=== PATIENT | female | born 1950 | race Caucasian/White ===

== ENCOUNTER 2019-12-25 09:59 | Outpatient (REF) | payer MEDICARE, SELFPAY | END 2019-12-25 10:00 | disposition home or self-care (01) | LOC: HO.LAB 09:59 | PROVIDERS: PCP Internal Medicine; Visit Provider Internal Medicine | DX: Z20.828 Contact with and (suspected) exposure to other viral communicable diseases (principal) | CPT/HCPCS: 36415; 87635 ==

== ENCOUNTER → 2020-05-18 08:27 | Outpatient (REF) | payer MEDICARE, SELFPAY ==
--- NOTE | 2020-05-18 08:32 | CA_ITS ---
Transthoracic Echocardiogram Patient (Last, First, Middle): Viviana Irvin E Gender: Female Date of : 1950 Age: 69 Procedure Date: 05/18/2020 Procedure Type: Transthoracic Echocardiogram Location: OP Height: 162.56 cm Weight: 43.09 kg BSA: 1.43 m2 Heart Rate: bpm BP: 94 / 50 mmHg Cadd Technician: JAYY Referring MD: Tee Ramirez MD Shaker [place]: Ji Caballero MD Symptoms: DYSPNEA ON EXERTION Study Quality: Fair ECG Rhythm: Sinus Conclusions: - 1. Normal LV systolic and diastolic function 2. Normal cardiac valvular Doppler 3. Normal RV systolic pressure 4. Trivial pericardial effusion more prominent near the right sided chambers without evidence of tamponade Findings Left Ventricle Normal left ventricular size, thickness, and systolic function. The visually estimated ejection fraction is between 60-65%. Diastolic function is normal for age. Right Ventricle Normal right ventricular cavity size and systolic function. Atria Both atria are normal in size. Interatrial shunt cannot be excluded. Aortic Valve Normal aortic valve structure and function. There is no aortic valve stenosis. There is no aortic valve regurgitation. Mitral Valve Normal mitral valve structure and function. There is trace mitral valve regurgitation. There is no mitral valve stenosis. Pulmonic Valve The pulmonic valve was not well visualized. Tricuspid Valve Likely normal tricuspid valve structure and function. There is mild tricuspid valve regurgitation. The right ventricular systolic pressure is normal. The right ventricular systolic pressure is 27 mmHg. Normal right atrial pressure. There is no evidence of pulmonary hypertension. Great Vessels All visible segments of the aorta are normal in size. The pulmonary artery was not well visualized. Venous The inferior vena cava is normal in size and collapses greater than 50% with inspiration. Pericardium/Pleural There is a trivial circumferential pericardial effusion. There are no definitive echocardiographic findings of tamponade physiology. Measurements M-Mode Liner Measurements Normals - Women/Men AOV Cusps: 1.90 1.5-2.6 cm/m2 2D Linear Measurements IVSd: 0.53 0.6-0.9/0.6-1.0 cm LVIDd: 3.79 3.9-5.3/4.2-5.9 cm LVIDd Index: 2.65 2.4-3.2/2.2-3.1 cm/m2 LVIDs: 2.43 2.0-3.6 cm LVPWd: 0.82 0.7-1.1 cm Ao Root: 3.40 2.1-3.5 cm LA Diam: 2.20 2.7-3.8/3.0-4.0 cm LAIDs Index: 1.54 1.5-2.3 cm/m2 LV Mass: 85.19 67-162/88-224 g LV Mass Index: 59.57 43-95/49-115 g/m2 LVOT Diam: 2.00 3.0+(-)1.3 cm 2D Systolic Function EF 4C: 54.60 >55% EF 2C: 57.90 >55% EF BiP: 55.60 >55% Mitral Valve MV Pk E: 0.72 MV PK A: 0.63 MV Decel Time: 310.00 E/A: 1.20 E'Lateral: 7.83 E'Medial: 6.31 E/E' Med: 11.50 E/E' Lat: 9.20 PHT: 91.00 MVA PHT: 2.42 Decel Hemphill: 2.33 Aortic Valve AoV Pk Mauricio: 0.91 AoV Pk Grad: 3.00 LVOT LVOT Pk Mauricio: 0.72 LVOT Mn Mauricio: 0.51 LVOT VTI: 0.15 LVOT Pk Grad: 2.00 LVOT Mn Grad: 1.00 LVOT Diam: 2.00 LVOT Area: 3.14 Diastolic Function MV Pk E: 0.72 MV Pk A: 0.63 E/A: 1.20 E'Medial: 6.31 E/E' Med: 11.50 E' Laterial: 7.83 E/E' Lat: 9.20 Tricuspid Valve TR Pk Mauricio: 2.47 TR Pk Grad: 24.00 RA Press: 3.00 RVSP: 27.00 Great Vessels Aorta Ao Root-2D: 3.40 2.0-3.7 cm Ao Asc: 3.10 2.1-3.4 cm Ao Arch: 2.70 Pulmonary Valve PV Pk Mauricio: 0.86 Peak PV Grad: 3.00 Updated in Other Vendor System with Status of Final Ji Caballero MD electronically signed on 05/18/2020 11:20:03 AM with status of Final
== END ==
LOC: HO.CARD 08:27
PROVIDERS: PCP Internal Medicine; Visit Provider Internal Medicine
DX: R06.00 Dyspnea, unspecified (principal)
CPT/HCPCS: 93306

== ENCOUNTER → 2020-05-24 14:02 | Outpatient (BNVA) | payer MEDICARE, SELFPAY | PROVIDERS: PCP Internal Medicine; Visit Provider Internal Medicine Cardiovascular Disease | DX: R06.02 Shortness of breath (principal); I25.10 Atherosclerotic heart disease of native coronary artery without angina pectoris; R00.2 Palpitations | CPT/HCPCS: 93005; 99212 ==

== ENCOUNTER 2020-06-12 08:04 | Outpatient (REF) | payer MEDICARE, SELFPAY ==
--- NOTE | ~2020-06-12 | MM_ITS ---
EXAMINATION: MM SCREENING DIGITAL BREAST TOMOSYNTHESIS, BILATERAL CLINICAL INFORMATION: Screening. Asymptomatic. Prior history right lumpectomy with radiation 2002. Due for yearly. COMPARISON: Mammography: 06/07/2019, 06/01/2018, 05/21/2017 TECHNIQUE: Digital breast tomosynthesis is performed in both the craniocaudal and mediolateral oblique views along with computer-aided detection (CAD). Synthesized 2D images are generated from the tomosynthesis. FINDINGS: The breasts are heterogeneously dense, which may obscure small masses (ACR BI-RADS breast composition Category c). Parenchymal pattern is similar to prior exams. There are post therapy changes on the right with mild reduced breast size and incidental minor scarring and dystrophic calcifications. Neither breast shows interval mass or architectural abnormality or abnormal calcifications. There are no significant changes. MM/MM tomosynthesis screening BI IMPRESSION: No mammographic evidence of malignancy. Post therapy changes right breast. ASSESSMENT: BI-RADS 2: Benign RECOMMENDATION: Routine annual mammography screening. This patient's information was entered into a reminder system with a target due date for their next mammogram.
== END 2020-06-12 08:05 | disposition home or self-care (01) ==
LOC: HO.MAMMO 08:04
PROVIDERS: PCP Internal Medicine; Visit Provider Internal Medicine
DX: Z12.31 Encounter for screening mammogram for malignant neoplasm of breast (principal)
CPT/HCPCS: 77063; 77067

== ENCOUNTER → 2020-06-15 09:52 | Outpatient (REF) | payer MEDICARE, SELFPAY ==
--- NOTE | 2020-06-15 09:57 | HM_ITS ---
TEST PERFORMED: Cardiac event monitoring. REQUESTING PHYSICIAN: Dr. Caballero. INDICATION: Palpitations. ENROLLMENT PERIOD: 06/15/2020 to 07/15/2020 - 30 days. FINDINGS: In the above monitoring period, the underlying rhythm was sinus. There was evidence of sinus tachycardia. Otherwise, there is no evidence of any supraventricular or ventricular arrhythmia noted during this time. There were also no patient selected symptoms as well. CONCLUSION: Study shows sinus rhythm and rates ranged from 100 to 127 beats per minute. No arrhythmias noted. Chetan Cedeño MD HS/MODAsif / [id number] MTDD
--- NOTE | 2020-06-15 09:57 | CA_ITS ---
Acquisition Time: 2020-06-15 10:29:39 Total Exercise Time: 00:06:16 Test Indications: Dyspnea Medications: ASA ATORVASTATIN Protocol: BARBER Max HR: 153 BPM 102% of Pred: 150 BPM Max BP: 130/068 mmHG Max Work Load: 7.3 METS Exercise stress test using Barber protocol, total of 6 min 16 sec. METS 7.30, and TAPHR up to 103 %. Pt denies any anginal sx. EKG without any arrhythmias, Minimal upsloping J-point depression in anterior leads, not meating criteria for ischemia. Normotensive response to exercise. Test reviewed with Dr. Cedeño Referred By: Ji Caballero Overread By: Agata Hurtado NP
== END ==
LOC: HO.CARD 09:52
PROVIDERS: Visit Provider Internal Medicine Cardiovascular Disease
DX: I25.10 Atherosclerotic heart disease of native coronary artery without angina pectoris (principal); R00.2 Palpitations; R06.02 Shortness of breath
CPT/HCPCS: 93016; 93017; 93018; 93270; 93272

== ENCOUNTER → 2020-07-26 08:31 | Outpatient (BNVA) | payer MEDICARE, SELFPAY | PROVIDERS: PCP Internal Medicine; Visit Provider Internal Medicine Cardiovascular Disease | DX: R06.02 Shortness of breath (principal); I25.10 Atherosclerotic heart disease of native coronary artery without angina pectoris; Z79.899 Other long term (current) drug therapy | CPT/HCPCS: 99212 ==

== ENCOUNTER 2021-02-08 07:46 | Outpatient (REF) | payer MEDICARE, SELFPAY ==
[2021-02-08 08:45] LABS: COVID-19 Test Negative (Negative)
== END 2021-02-08 07:47 | disposition home or self-care (01) ==
LOC: HO.LAB 07:46
PROVIDERS: PCP Internal Medicine; Visit Provider Internal Medicine
DX: Z20.822 Contact with and (suspected) exposure to COVID-19 (principal)
CPT/HCPCS: 36415; 87635; C9803

== ENCOUNTER 2021-06-18 08:17 | Outpatient (REF) | payer MEDICARE, SELFPAY ==
--- NOTE | ~2021-06-18 | MM_ITS ---
EXAMINATION: MM SCREENING DIGITAL BREAST TOMOSYNTHESIS, BILATERAL CLINICAL INFORMATION: Remote right breast cancer status post lumpectomy and radiation, 2001. Due for yearly. COMPARISON: Mammography: 06/12/2020, 06/07/2019, 06/01/2018 TECHNIQUE: Digital breast tomosynthesis is performed in both the craniocaudal and mediolateral oblique views along with computer-aided detection (CAD). Synthesized 2D images are generated from the tomosynthesis. Additional exaggerated right CC and additional right MLO views are provided. FINDINGS: The breasts are heterogeneously dense, which may obscure small masses (ACR BI-RADS breast composition Category c). There are no significant changes from prior studies. Post therapy changes on the right are stable with mild scarring and reduced breast size and benign and dystrophic calcifications. Neither breast shows interval mass or architectural abnormality or abnormal calcifications. The axilla are unremarkable. MM/MM tomosynthesis screening BI IMPRESSION: No mammographic evidence of malignancy. ASSESSMENT: BI-RADS 2: Benign RECOMMENDATION: Routine annual mammography screening. This patient's information was entered into a reminder system with a target due date for their next mammogram.
== END 2021-06-18 08:18 | disposition home or self-care (01) ==
LOC: HO.MAMMO 08:17
PROVIDERS: Visit Provider Internal Medicine
DX: Z12.31 Encounter for screening mammogram for malignant neoplasm of breast (principal)
CPT/HCPCS: 77063; 77067

== ENCOUNTER → 2021-07-28 08:21 | Outpatient (BNVA) | payer MEDICARE, SELFPAY | PROVIDERS: PCP Internal Medicine; Referring Provider Internal Medicine; Visit Provider Internal Medicine Cardiovascular Disease | DX: I25.10 Atherosclerotic heart disease of native coronary artery without angina pectoris (principal) | CPT/HCPCS: 93005; 99212 ==

== ENCOUNTER 2021-10-13 08:00 | Outpatient (REF) | payer MEDICARE, SELFPAY ==
--- NOTE | ~2021-10-13 | MM_ITS ---
EXAMINATION: BONE DENSITOMETRY CLINICAL INDICATION: Age-related osteoporosis without current pathological fracture. COMPARISON: Previous BD dated 10/07/2019 and baseline BD dated 04/03/2005. TECHNIQUE: Using a [employer] DXA System (software version: 13.1) manufactured by [employer], dual-energy x-ray absorptiometry was performed of the lumbar spine and left hip. The images are of good technical quality. Summary results are attached. FINDINGS: AP SPINE L1-L4: Current: BMD 1.230 g/cm2, Z-score 2.8, T-score 0.4, normal, 0.2% increase from previous, 4.3% increase from baseline (<5% change is not significant). Prior: BMD 1.228 g/cm2. Baseline: BMD 1.179 g/cm2. LEFT FEMUR, NECK: Current: BMD 0.583 g/cm2, Z-score -1.0, T-score -3.3, osteoporosis. Prior: BMD 0.680 g/cm2. Baseline: BMD 0.762 g/cm2. LEFT FEMUR, TOTAL: Current: BMD 0.660 g/cm2, Z-score -0.7, T-score -2.8, osteoporosis, 10.6% decrease from previous, 24.7% decrease from baseline (<5% change is not significant). Prior: BMD 0.738 g/cm2. Baseline: BMD 0.876 g/cm2. IDENTIFIED RISK FACTORS: Low body weight. Osteoporosis. Secondary osteoporosis (early menopause). HISTORY OF FRACTURE: None listed. MEDICATIONS: Calcium supplement and/or multivitamin. Vitamin D. MM/XR DEXA axial skeleton IMPRESSION: 1. DIAGNOSIS: Osteoporosis based on the lowest T-score value of -3.3 in the femoral neck applying World Health Organization criteria. 2. 10-YEAR FRACTURE RISK PREDICTION, FRAX: Major osteoporotic fracture (clinical spine, forearm, hip or shoulder) 18.4%. Hip fracture 7.9%. 3. Treatment Recommendations: NOF guidelines recommend consideration for treatment in postmenopausal women and men age 50 and older presenting with the following: -A hip or vertebral (clinical or morphometric) fracture. -T-score less than or equal to -2.5 at the femoral neck or spine after appropriate evaluation to exclude secondary causes. -Low bone mass at the hip or spine and a 10-year fracture probability by FRAX of greater than or equal to 3% for hip fracture or greater than or equal to 20% for major osteoporotic fracture based on the [place] adapted WHO algorithm. 4. Other Recommendations: All treatment decisions require clinical judgment and consideration of individual patient factors, including patient preferences, comorbidities, previous drug use, risk factors not captured in the FRAX model (e.g. frailty, falls, vitamin D deficiency, increased bone turnover, interval significant decline in bone density) and possible under or overestimation of fracture risk by FRAX. Additional medical evaluation for secondary cause of low bone mineral density may be appropriate. FUTURE SCAN RECOMMENDATION: People with diagnosed cases of osteoporosis or at high risk for fracture should have regular bone mineral density tests. For patients eligible for Medicare, routine testing is allowed once every 2 years. The testing frequency can be increased to one year for patients who have rapidly progressing disease, those who are receiving or discontinuing medical therapy to restore bone mass, or have additional risk factors.
== END 2021-10-13 08:01 | disposition home or self-care (01) ==
LOC: HO.MAMMO 08:00
PROVIDERS: PCP Internal Medicine; Visit Provider Internal Medicine
DX: Z13.820 Encounter for screening for osteoporosis (principal); M81.0 Age-related osteoporosis without current pathological fracture; Z78.0 Asymptomatic menopausal state
CPT/HCPCS: 77080

== ENCOUNTER 2021-10-17 11:08 | Day surgery (SDC) | payer MEDICARE, SELFPAY ==
[2021-10-11 14:09] VITALS: BMI 16.6
--- NOTE | 2021-10-14 10:49 | HO.ANESPROP2 ---
Documented by User: Kaleigh Fernandez NP 10/14/21 10:52 HPI - Anesthesia Eval Consult details Narrative: 71yo F for Upper Endoscopy Stable at 07/2021 cardiac visit with 2 year f/u. Started on ASA 81 for nonobstructive CAD by cardiac cath. FORMERLY [facility], [facility] Active Problems Active Problems: All Active Problems (Updated 10/11/21 @ 13:59 by Rhonda Noriega RN) SOB (shortness of breath) on exertion (Acute) Palpitations (Acute) Hyperlipidemia (Acute) CAD (coronary artery disease) (Acute) Past Medical History Medical History CAD (coronary artery disease) History of pneumonia History of shingles Hx of breast cancer Hyperlipidemia Surgical History Surgical History History of esophagogastroduodenoscopy (EGD) History of partial mastectomy of right breast Hx of colonoscopy Social History Social History Use of substances other than those prescribed or required for medical reasons: No Have you been hit, kicked, punched, or otherwise hurt by someone within the past year? If so, by whom?: No Are you DNR?: No Advance Directives: No Advance Directives Information Provided: Yes Advance Directives on File: No Recently lost weight without trying: No Eating poorly because of decreased appetite: No Nutrition Risks: No Nutritional Risk Meds Allergies Allergy/AdvReac Type Severity Reaction Status Date / Time No Known Allergies Allergy Verified 10/11/21 13:59 Home Medications Medication Instructions Recorded Confirmed Last Taken Type aspirin 81 mg tablet,delayed 81 mg PO DAILY 05/24/20 10/11/21 Unknown History release (Adult Low Dose Aspirin) atorvastatin 10 mg tablet 10 mg PO DAILY 05/24/20 10/11/21 Unknown History calcium carbonate 500 mg calcium 1,000 mg PO DAILY 05/24/20 10/11/21 Unknown History (1,250 mg) tablet (Calcium 500) cholecalciferol (vitamin D3) 125 125 mcg PO DAILY 05/24/20 10/11/21 Unknown History mcg (5,000 unit) capsule Probiotic 10/11/21 10/11/21 Unknown History turmeric 10/11/21 Unknown History Exam Exam Date and Time: October 14, 2021 1049 Height,Weight and Vital Signs: Height 5 ft 4 in Weight 43.998 kg Narrative Narrative: EKG 07/20[address] sinus tachycardia with nonspecific ST changes ECHO 2020 Conclusions: -? 1. Normal LV systolic and diastolic function? 2. Normal cardiac valvular Doppler ? 3. Normal RV systolic pressure ? 4. Trivial pericardial effusion more prominent near the right? ? sided chambers without evidence of tamponade ? Exercise stress 05/2020 Protocol: TARIQ ? Max HR: 153 BPM? 102% of? Pred: 150 BPM Max BP: 130/068 mmHG Max Work Load: 7.3 METS ? Exercise stress test using Tariq protocol, total of 6 min 16 sec. ? METS 7.30, ?and TAPHR up to 103 %. ? Pt denies any anginal sx.? EKG without any ?arrhythmias, Minimal upsloping J-point depression in anterior leads, not ?meating criteria for ischemia.? Normotensive response to exercise.? Test ?reviewed with Dr. Cedeño Assessment and Plan Assessment Anesthesia Assessment: Chart Reviewed Documented by User: Rosanna Carranza MD 10/17/21 12:25 [facility] Past Medical History Medical History CAD (coronary artery disease) History of pneumonia History of shingles Hx of breast cancer Hyperlipidemia Surgical History Surgical History History of esophagogastroduodenoscopy (EGD) History of partial mastectomy of right breast Hx of colonoscopy History of Problems with Anesthesia: No Social History Social History Use of substances other than those prescribed or required for medical reasons: No Have you been hit, kicked, punched, or otherwise hurt by someone within the past year? If so, by whom?: No Are you DNR?: No Advance Directives: No Advance Directives Information Provided: Yes Advance Directives on File: No Recently lost weight without trying: No Eating poorly because of decreased appetite: No Nutrition Risks: No Nutritional Risk Meds Allergies Allergy/AdvReac Type Severity Reaction Status Date / Time No Known Allergies Allergy Verified 10/11/21 13:59 Home Medications Medication Instructions Recorded Confirmed Last Taken Type aspirin 81 mg tablet,delayed 81 mg PO DAILY 05/24/20 10/11/21 Unknown History release (Adult Low Dose Aspirin) atorvastatin 10 mg tablet 10 mg PO DAILY 05/24/20 10/11/21 Unknown History calcium carbonate 500 mg calcium 1,000 mg PO DAILY 05/24/20 10/11/21 Unknown History (1,250 mg) tablet (Calcium 500) cholecalciferol (vitamin D3) 125 125 mcg PO DAILY 05/24/20 10/11/21 Unknown History mcg (5,000 unit) capsule Probiotic 10/11/21 10/11/21 Unknown History turmeric 10/11/21 Unknown History Exam Airway Mallampati Class: II TM Dist: >3cm Neck ROM: Full Loose/Missing/Broken Teeth: No Heart: RRR Lungs: CTA Assessment and Plan Final Anesthetic Review History of Problems with Anesthesia: No NPO: Yes ASA Class: II Final Preanesthetic Review: Meds/Allgs Chart Reviewed, Consent Obtained/Reviewed and Anes Risks/Benef Reviewed Patient Risk: Low Procedure Risk: Intermediate Anesthetic Plan Anesthetic Plan: MAC: Disposition: Standard PACU
[2021-10-17 11:29] VITALS: BP 127/78; PULSE 103; RESP 18; TEMP 36.9; O2SAT 96
[2021-10-17] MEDS: Lactated Ringers 1,000 ML 100 ML IVCONT (12:15)
[2021-10-17 12:50] VITALS: BP 86/50; PULSE 93; RESP 20; TEMP 37.1; O2SAT 99
--- NOTE | 2021-10-17 12:55 | PM.OP ---
Brief Operative Note Date of Service: 10/17/21 Pre-op diagnosis: Early satiety, weight loss Post-op diagnosis: other (Normal upper endoscopy) Procedure: EGD with biopsies Surgeon: Harvey Givens Anesthesia: MAC Was an Business Technology Analyst used for this Procedure?: No Estimated blood loss (mL): 2.0 Pathology: other (A. Descending duodenum B. Gastric antrum) Condition: stable Disposition: PACU
[2021-10-17 13:05] VITALS: BP 92/51; PULSE 89; RESP 20; O2SAT 100
[2021-10-17 13:20] VITALS: BP 105/63; PULSE 80; RESP 18; O2SAT 97
[2021-10-17 13:35] VITALS: BP 105/59; PULSE 82; RESP 19; TEMP 37.1; O2SAT 97
--- NOTE | 2021-10-17 23:38 | OP_ITS ---
SURGEON: Harvey Givens MD INDICATIONS: The patient presents for evaluation of some weight loss and questionable early satiety. Full consent has been obtained from her for this, including risks of bleeding and perforation. PREOPERATIVE DIAGNOSIS: Weight loss and question of early satiety. POSTOPERATIVE DIAGNOSIS: Weight loss and question of early satiety, normal upper endoscopy. PROCEDURE PERFORMED: Esophagogastroduodenoscopy with biopsies. ESTIMATED BLOOD LOSS: COMPLICATIONS: ANESTHESIA: Monitored anesthesia care. ASSISTANTS: SPECIMENS: DESCRIPTION OF PROCEDURE: The patient was placed in the left lateral decubitus position. The Olympus video gastroscope was passed in the posterior oropharynx and upper esophagus under direct vision. The scope was passed slowly to the distal esophagus. The gastroesophageal junction appeared normal at 39 cm. There was no sign of any esophagitis nor Martínez esophagus. The scope entered the stomach. There was a minimal hiatal hernia. The scope was advanced to the pylorus and the duodenum was cannulated to the descending portion. The duodenum including the bulb appeared normal without mass or ulceration. Biopsies were obtained from the 2nd and 3rd portions of the duodenum. The scope was withdrawn back to the stomach. The gastric antrum and body appeared normal with good peristalsis. There was no sign of any ulceration or mass. Biopsies were obtained from the gastric antrum. The scope was retroflexed visualizing the proximal stomach carefully, which appeared normal, without any sign of mass or ulceration. The scope was straightened and withdrawn back to the esophagus. The esophageal mucosa appeared normal. The scope was withdrawn from the patient. She tolerated the procedure well and was returned to the recovery area in stable condition. IMPRESSION: Normal upper endoscopy except for a minimal hiatal hernia. Biopsies taken to rule out celiac disease and Helicobacter pylori. PLAN: The results of the biopsies will be checked. At this point, I do not think she has any significant clinical pathology causing her intermittent weight loss. She does have an appointment to see me in the Fall, at which time we shall review things further. If her weight remains stable, and she is otherwise doing well, then I would not recommend any further workup. If she does continue to lose weight then we may want to obtain a CT scan of the abdomen at that point. However, at this point I do not think that is necessary. MD EMILY HopkinsW/MODL / [id number] SONAL
== END 2021-10-17 14:40 | disposition home or self-care (01) ==
PROVIDERS: PCP Internal Medicine; Visit Provider Internal Medicine
PROC: 0DJ08ZZ Inspection of Upper Intestinal Tract, Via Natural or Artificial Opening Endoscopic (ICD-10-PCS; CPT 43235; principal; 2021-10-17 12:20)
DX: R13.10 Dysphagia, unspecified (principal); R68.81 Early satiety; R63.4 Abnormal weight loss; K44.9 Diaphragmatic hernia without obstruction or gangrene; Z85.3 Personal history of malignant neoplasm of breast; Z92.3 Personal history of irradiation; Z87.01 Personal history of pneumonia (recurrent); Z79.82 Long term (current) use of aspirin; Z79.899 Other long term (current) drug therapy
CPT/HCPCS: 43239; 88305; 88342

== ENCOUNTER 2022-04-24 11:43 | Outpatient (REF) | payer MEDICARE, SELFPAY ==
--- NOTE | ~2022-04-24 | XR_ITS ---
EXAMINATION: XR CHEST CLINICAL INFORMATION: Pleuritic chest pain COMPARISON: Chest 09/11/2018 TECHNIQUE: 2 views of the chest were obtained. FINDINGS: The lungs are hyperinflated with patchy opacity right middle lobe and lingula. Rest of the lungs are clear. Heart size and pulmonary vascularity is normal. No gross bony abnormality seen. XR/XR chest 2V IMPRESSION: Patchy opacity right middle lobe and lingula, new since 09/11/2089 question developing infiltrate or atelectasis.
[2022-04-24 13:37] LABS: MANUAL DIFF FLAG NO
[2022-04-24 14:20] LABS: Basophils Absolute Auto 0.1 X10*3/uL (0.0-0.2); Basophils Percent Auto 0.8 % (0-2); Eosinophils Absolute Auto 0.2 X10*3/uL (0.0-0.4); Eosinophils Percent Auto 2.4 % (0-4); Hematocrit 39.7 % (37.0-47.0); Hemoglobin 12.5 g/dl (12.0-16.0); Imm Gran Abs Auto 0.02 X10*3/uL (0.00-0.03); Imm Gran Pct Auto 0.2 % (0.0-0.4); Lymphocytes Absolute Auto 1.6 X10*3/uL (1.2-4.9); Mean Corpuscular HGB Conc 31.5 g/dl (31.0-35.0); Mean Corpuscular Hemoglobin 28.5 pg (27.0-33.0); Mean Corpuscular Volume 90.6 fL (80.0-98.0); Mean Platelet Volume 10.3 fL (9.4-12.3); Monocytes Absolute Auto 0.7 X10*3/uL (0.1-1.2); Monocytes Percent Auto 7.5 % (2-11); Neutrophils Absolute Auto 7.2 x10*3/uL (2.0-8.3); Neutrophils Percent Auto 73.1 % (45-73); Platelet Count 266 X10*3/uL (160-400); Red Blood Count 4.38 X10*6/uL (4.20-5.50); Red Cell Distribution Width 13.7 % (11.0-16.0); White Blood Count 9.9 X10*3/uL (4.8-10.8)
[2022-04-24 14:26] LABS: D Dimer High Sensitivity 272 NG/ML
[2022-04-24 14:42] LABS: Alanine Aminotransferase 8 U/L (0-31); Albumin Level 4.1 g/dL (3.5-5.0); Alkaline Phosphatase 77 U/L (39-117); Anion Gap 14 (12-20); Aspartate Amino Transferase 20 U/L (5-31); Bilirubin Total 0.5 mg/dL (0.0-1.0); Blood Urea Nitrogen 17 mg/dL (9-16); Calcium 9.2 mg/dL (8.4-10.2); Carbon Dioxide 27 mmol/L (22-29); Chloride 104 mmol/L (96-108); Estimated Glomerular Filt Rate > 60; Glucose Random 131 mg/dL (60-115); Potassium 4.2 mmol/L (3.3-5.1); Sodium 141 mmol/L (135-145); Total Protein 6.6 g/dL (6.5-8.0)
[2022-04-24 15:01] LABS: Free T4 (Free Thyroxine) 1.05 ng/dL (0.71-1.85); Thyroid Stimulating Hormone 1.33 uIU/mL (0.32-4.0); Vitamin D 25-OH Total 43.5 ng/mL (>30)
== END 2022-04-24 11:44 | disposition home or self-care (01) ==
LOC: HO.10HDL 11:43
PROVIDERS: Visit Provider Internal Medicine
DX: R00.0 Tachycardia, unspecified (principal); M81.0 Age-related osteoporosis without current pathological fracture; R07.81 Pleurodynia
CPT/HCPCS: 36415; 71046; 80053; 82306; 84439; 84443; 85025; 85379

== ENCOUNTER 2022-04-27 08:51 | Outpatient (REF) | payer MEDICARE, SELFPAY ==
--- NOTE | ~2022-04-27 | CT_ITS ---
EXAMINATION: CT ANGIOGRAM OF THE CHEST WITH AND WITHOUT CONTRAST (CT PULMONARY ANGIOGRAM FOR PE) CLINICAL INFORMATION: Reason for Exam ACUTE PULMONARY EMBOLISM COMPARISON: Chest radiographs 04/24/2022; CT chest noncontrast 06/24/2010 TECHNIQUE: Prior to contrast administration, noncontrast localization images were obtained. Subsequently, multidetector volumetric imaging was performed from the thoracic inlet to below the diaphragms following the administration of 65 mL Omnipaque 350 intravenous contrast. Sagittal, coronal, and MIP oblique sagittal reformatted images were obtained on the CT workstation, uploaded to PACS, and reviewed. This CT examination was performed using dose optimization techniques as appropriate, variously including the following: *Automated exposure control *Adjustment of mA and/or kV according to patient size (this includes techniques or standardized protocols for targeted exams where dose is matched to indication/reason for exam; i.e. extremities or head) *Use of iterative reconstruction technique Total exam dose-length product 64 mGy-cm FINDINGS: QUALITY OF STUDY/CONTRAST BOLUS: Satisfactory. PULMONARY ARTERIES: No central or segmental pulmonary emboli. THORACIC AORTA: No aneurysm or dissection. LUNG: The central airways are clear and there is no central endobronchial lesions. Mild bronchiolar wall thickening is seen lower lobes. No bronchiectasis. No cavitary lesions. There is volume loss and patchy airspace consolidation involving the right middle lobe with associated air bronchograms. There is lesser atelectasis and patchy consolidation lingula left upper lobe. Right lung has 0.6 cm nodular opacity posterior medial upper lobe there is some minor post tree-in-bud nodularity anterior medial right base suggesting infectious process. Left lung has nonspecific grouped nodular opacities central and lateral superior segment lower lobe largest focus subpleural lateral approximately 0.9 x 1.3 cm. There is also a smaller subpleural opacities lateral and posterior basal left lower lobe, each around 0.6 cm. PLEURA: No pleural effusion or pneumothorax. MEDIASTINUM: Normal heart size. No pericardial effusion. No hilar or mediastinal lymphadenopathy. No evidence of septal bowing or right heart strain. CORONARY ARTERY CALCIFICATION: Probable trace coronary artery calcification, difficult to visualize given the background contrast enhancement. CHEST WALL/AXILLA: No axillary or internal mammary lymphadenopathy. OSSEOUS STRUCTURES: No acute or suspicious osseous abnormality. UPPER ABDOMEN: Unremarkable. No reflux of contrast into the hepatic veins to suggest elevated right heart pressures. CT/CT angio chest PE protocol IMPRESSION: 1. No pulmonary embolism. No thoracic aortic dissection. 2. Airspace consolidation and volume loss right middle lobe with lesser involvement lingula left upper lobe. This pattern could be seen in Lady [place] syndrome/SUSAN. 3. Scattered bilateral nonspecific non-cavitating nodular opacities, greatest superior segment left upper lobe. No pleural thickening or effusion. No adenopathy. VTE: negative
[2022-04-27] MEDS: iohexoL 350 MG/ML 100 ML INFUS..BTL IV (09:24)
== END 2022-04-27 08:52 | disposition home or self-care (01) ==
LOC: HO.CT 08:51
PROVIDERS: PCP Internal Medicine; Visit Provider Internal Medicine
DX: I26.99 Other pulmonary embolism without acute cor pulmonale (principal)
CPT/HCPCS: 71275; Q9967

== ENCOUNTER 2022-06-19 08:53 | Outpatient (REF) | payer MEDICARE, SELFPAY ==
--- NOTE | ~2022-06-19 | MM_ITS ---
EXAMINATION: MM SCREENING DIGITAL BREAST TOMOSYNTHESIS, BILATERAL CLINICAL INFORMATION: Due for yearly. History right breast cancer status post lumpectomy and radiation, 2001. COMPARISON: Mammography: 06/18/2021, 06/12/2020, 06/07/2019, 06/01/2018 TECHNIQUE: Digital breast tomosynthesis is performed in both the craniocaudal and mediolateral oblique views along with computer-aided detection (CAD). Synthesized 2D images are generated from the tomosynthesis. FINDINGS: The breasts are heterogeneously dense, which may obscure small masses (ACR BI-RADS breast composition Category c). Parenchymal pattern is similar to prior studies. There is no developing density or interval mass or architectural abnormality or abnormal calcifications. Post therapy changes right breast are similar to prior exams. Again, there is mild reduced breast size and some associated benign dystrophic calcifications and a few punctate calcifications anterior right breast as before. The axilla are unremarkable. No significant changes. MM/MM tomosynthesis screening BI IMPRESSION: -No mammographic evidence of malignancy. -Post therapy changes right breast, stable. ASSESSMENT: BI-RADS 2: Benign RECOMMENDATION: Routine annual mammography screening. This patient's information was entered into a reminder system with a target due date for their next mammogram.
== END 2022-06-19 08:54 | disposition home or self-care (01) ==
LOC: HO.MAMMO 08:53
PROVIDERS: PCP Internal Medicine; Visit Provider Internal Medicine
DX: Z12.31 Encounter for screening mammogram for malignant neoplasm of breast (principal)
CPT/HCPCS: 77063; 77067

== ENCOUNTER 2023-02-02 08:31 | Outpatient (AMB) | payer MEDICARE, SELFPAY ==
[2023-02-02 08:34] VITALS: BP 103/57; PULSE 106; BMI 16.3
--- NOTE | 2023-02-02 08:34 | MHC.OFFVIS ---
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 Today she reports that she was at work on Sunday, standing and she became hot and sweaty. She felt lightheaded like she was going to pass out. She went and sat down. After 30 minutes of rest her symptoms had fully resolved. She has never had an episode like this in the past. She has never had syncopal event. No recent chest discomfort at rest or with activity. She has chronic issues with shortness of breath and describes having bronchiectasis. She follows with pulmonology. Her breathing has not changed recently. No new medications. No heart palpitations, PND, orthopnea or edema. 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 She golfs 1-2 times weekly and does her [place] [employer] work which she normally tolerates without difficulty. Her blood pressure does run on the low side. She denies issues with dehydration and reports normal sleep and eating patterns. [facility] Medical History History of shingles History of pneumonia Hx of breast cancer Hyperlipidemia CAD (coronary artery disease) Surgical History Hx of colonoscopy History of esophagogastroduodenoscopy (EGD) History of partial mastectomy of right breast Review of Systems Const All systems reviewed & are unremarkable except as noted in HPI and below Card Details: episode of presyncope Reports dyspnea and Reports dyspnea on exertion Resp Reports dyspnea and Reports dyspnea on exertion Physical Exam Vital Signs: Last Vital Signs Pulse 105 H 02/02/23 08:44 BP 106/60 02/02/23 08:44 BMI result Body Mass Index 16.3 Const Other: thin built General: cooperative, healthy appearing, comfortable and no acute distress Orientation/consciousness: patient oriented x3 Neck Neck: Yes normal visual inspection Chest Chest palpation & inspection: normal inspection of the chest Resp Effort & Inspection: normal respiratory effort Auscultation: clear to auscultation bilaterally and no rales Cardio Jugular venous distension: no JVD Rate: regular rate Rhythm: regular rhythm Heart sounds: S1 normal heart sound present, S2 normal heart sound present, no murmurs and no rubs Neuro General: patient oriented x3 Extrem General: Yes normal to inspection and No no pedal edema Psych Appearance: grossly normal Mental Status: mental status grossly normal Speech and movement: Normal speech and movement present Assessment & Plan Assessment & Plan (1) Pre-syncope: Code(s): R55 - Syncope and collapse Plan: Episode of presyncope as described above. No history of presyncope or syncope in the past. Lab work done by her PCP on 02/01/2023 showed normal white count, H&H, electrolytes, creatinine, BUN mildly elevated at 20. Her blood pressure does run on the low side and she is noted to be orthostatic at this visit. She tells me she feels that she hydrates well. No recent medication changes. She is not on any diuretic or antihypertensive agent. EKG done in her PCP office reported to her as being unchanged from prior. Will work on obtaining a copy of that EKG for our records. Her symptom of presyncope was likely orthostatic or possibly vasovagal in nature. Reviewed this with her in detail. For completeness will check an echocardiogram and Holter monitor. Instructed on increasing her hydration by an additional water bottle each day. Also add Gatorade 3 times weekly. Recognize symptoms of presyncope and sit/lay down if it was ever to occur again. Use caution when going sitting to standing. Cardiology follow-up in 1 month, sooner if needed. (2) CAD (coronary artery disease): Comment: Foll'd by Dr. Ada Code(s): I25.10 - Atherosclerotic heart disease of [place] coronary artery without angina pectoris Qualifiers: Coronary Disease-Associated Artery/Lesion type: [place] artery [place] vs. transplanted heart: [place] heart Associated angina: without angina Qualified Code(s): I25.10 - Atherosclerotic heart disease of [place] coronary artery without angina pectoris Plan: History of nonobstructive coronary artery disease. No reports of anginal sounding symptoms. Will be updating echocardiogram. Last known to have normal EF. Continue med management including aspirin indefinitely, atorvastatin with ideal LDL goal less than 70. Labs followed by her PCP. (3) SOB (shortness of breath) on exertion: Code(s): R06.02 - Shortness of breath Plan: Chronic issues with shortness of breath. She tells me she has bronchiectasis. She follows with pulmonology. A few wheezes noted on examination. She did not appear to have any fluid overload. (4) Hypotension: Code(s): I95.9 - Hypotension, unspecified Qualifiers: Hypotension type: orthostatic hypotension Qualified Code(s): I95.1 - Orthostatic hypotension Plan: Blood pressure running on low side, orthostatic on examination today. Asymptomatic at present. Presyncopal event as above. Instructed on increasing her fluid/ salt intake Orders: Orders ECG 3 day holter monitor Today I25.10 - Atherosclerotic heart disease of [place] coronary artery without angina pectoris, R55 - Syncope and collapse CA echo transthoracic complete Today I25.10 - Atherosclerotic heart disease of [place] coronary artery without angina pectoris, R55 - Syncope and collapse Coding Level of Care Code Est Pt Level 4 (50487) Diagnoses Pre-syncope R55 Coronary artery disease involving [place] coronary artery of [place] heart without angina pectoris I25.10 Coronary Disease-Associated Artery/Lesion type: [place] artery [place] vs. transplanted heart: [place] heart Associated angina: without angina SOB (shortness of breath) on exertion R06.02 Orthostatic hypotension I95.1 Hypotension type: orthostatic hypotension Time Spent (min) 28
[2023-02-02 08:42] VITALS: BP 90/52; PULSE 120
[2023-02-02 08:44] VITALS: BP 106/60; PULSE 105
== END 2023-02-02 09:14 | disposition home or self-care (01) ==
PROVIDERS: PCP Internal Medicine; Visit Provider Nurse Practitioner Family
DX: I25.10 Atherosclerotic heart disease of native coronary artery without angina pectoris (principal); R06.02 Shortness of breath; I95.1 Orthostatic hypotension
CPT/HCPCS: 99214

== ENCOUNTER → 2023-02-02 08:31 | Outpatient (BNVA) | payer MEDICARE, SELFPAY | PROVIDERS: PCP Internal Medicine; Visit Provider Nurse Practitioner Family | DX: R55 Syncope and collapse (principal); I25.10 Atherosclerotic heart disease of native coronary artery without angina pectoris; R06.02 Shortness of breath; I95.1 Orthostatic hypotension | CPT/HCPCS: 99212 ==

== ENCOUNTER → 2023-02-06 12:53 | Outpatient (REF) | payer MEDICARE, SELFPAY ==
--- NOTE | 2023-02-06 12:58 | HM_ITS ---
* Total monitoring time 3 days. * Underlying rhythm is sinus with an average rate of 103/Min. Range 77 to 143/Min. About 55% of the time, rate > 100/Min. * Frequent supraventricular ectopy with a burden of 1.7%. * Rare ventricular ectopy with low burden. * No significant pauses or AV blocks. * Irregular heartbeat mentioned in patient diary correlates with supraventricular ectopy. MTDD
--- NOTE | 2023-02-06 12:58 | CA_ITS ---
Transthoracic Echocardiogram Patient (Last, First, Middle): Viviana Irvin E Gender: Female Date of : 1950 Age: 72 Procedure Date: 02/06/2023 Procedure Type: Transthoracic Echocardiogram Location: OP Height: 162.56 cm Weight: 43.09 kg BSA: 1.43 m2 Heart Rate: 91 bpm BP: 96 / 60 mmHg Cook Dessert: SB Referring MD: Shala Blackwell EDGER RUNNEREzequielC Symptoms: R55 - Syncope and collapse Study Quality: Adequate ECG Rhythm: Sinus Conclusions: - The left ventricular systolic function is low normal. The visually estimated ejection fraction is between 50-55%. - No obvious valvular pathology seen on this study. Findings Left Ventricle Normal left ventricular cavity size. There is normal left ventricular wall thickness. The left ventricular systolic function is low normal. The visually estimated ejection fraction is between 50-55%. There is no evidence of regional wall motion abnormalities. Diastolic function is normal for age. Right Ventricle Mildly increased right ventricular cavity size. There is normal right ventricular systolic function. Atria Both atria are normal in size. Aortic Valve There is a normal trileaflet aortic valve. There is no aortic valve stenosis. There is no aortic valve regurgitation. Mitral Valve The mitral valve appears normal. There is trace mitral valve regurgitation. There is no mitral valve stenosis. Pulmonic Valve The pulmonic valve is likely normal. Tricuspid Valve There is mild tricuspid valve regurgitation. Mild pulmonary hypertension is present. Great Vessels The asc aorta is normal in size. Venous The inferior vena cava is mildly dilated and collapses less than 50% with inspiration. Pericardium/Pleural Trivial pericardial effusion, more prominent over right ventricle. Prior Study Comparison Changes noted compared to prior study dated: 05/18/2020. IVC slightly dilated in current study. LV function similar. (images reviewed). Recommendations, Care & Conclusions No obvious valvular pathology seen on this study. Measurements 2D Linear Measurements IVSd: 0.68 0.6-0.9/0.6-1.0 cm LVIDd: 3.86 3.9-5.3/4.2-5.9 cm LVIDd Index: 2.70 2.4-3.2/2.2-3.1 cm/m2 LVIDs: 2.87 2.0-3.6 cm LVPWd: 0.91 0.7-1.1 cm LA Diam: 2.70 2.7-3.8/3.0-4.0 cm LAIDs Index: 1.89 1.5-2.3 cm/m2 LV Mass: 108.91 67-162/88-224 g LV Mass Index: 76.16 43-95/49-115 g/m2 LVOT Diam: 2.10 3.0+(-)1.3 cm 2D Systolic Function EF 4C: 51.70 >55% Mitral Valve MV VTI: 0.15 MV Pk Mauricio: 0.72 MV Mn Mauricio: 0.54 MV Pk Grad: 2.00 MV Mn Grad: 1.00 MV Pk E: 0.83 MV PK A: 0.78 MV Decel Time: 185.00 E/A: 1.10 E'Lateral: 7.40 E'Medial: 5.98 E/E' Med: 13.80 E/E' Lat: 11.20 PHT: 54.00 MVA PHT: 4.07 MVA Continuity: 4.09 Decel [place]: 4.47 Aortic Valve AoV Pk Mauricio: 0.98 AoV Pk Grad: 4.00 NORA: 3.23 LVOT LVOT Pk Mauricio: 0.90 LVOT Mn Mauricio: 0.62 LVOT VTI: 0.18 LVOT Pk Grad: 3.00 LVOT Mn Grad: 2.00 LVOT Diam: 2.10 LVOT Area: 3.46 Diastolic Function MV Pk E: 0.83 MV Pk A: 0.78 E/A: 1.10 E'Medial: 5.98 E/E' Med: 13.80 E' Laterial: 7.40 E/E' Lat: 11.20 Right Ventricle TAPSE (mm): 26.10 TVS' Mauricio: 15.80 Tricuspid Valve TR Pk Mauricio: 2.73 TR Pk Grad: 30.00 RA Press: 15.00 RVSP: 45.00 Great Vessels Aorta Sinus of Valsalva: 3.20 2.0-3.5 cm Ao Asc: 3.20 2.1-3.4 cm Pulmonary Veins Pulm Vein S/D 1.70 Pulmonary Valve PV Pk Mauricio: 0.74 Peak PV Grad: 2.00 Updated in Other Vendor System with Status of Final Chetan Cedeño MD electronically signed on 02/06/2023 3:57:43 PM with status of Final
== END ==
LOC: HO.CARD 12:53
PROVIDERS: PCP Internal Medicine; Visit Provider Nurse Practitioner Family
DX: R55 Syncope and collapse (principal); I25.10 Atherosclerotic heart disease of native coronary artery without angina pectoris
CPT/HCPCS: 93242; 93306

== ENCOUNTER → 2023-02-06 12:58 | Outpatient (BNV) | payer MEDICARE, SELFPAY | PROVIDERS: PCP Internal Medicine; Visit Provider Internal Medicine | DX: I47.10 Supraventricular tachycardia, unspecified (principal) | CPT/HCPCS: 93244; 93306 ==

== ENCOUNTER 2023-03-09 08:51 | Outpatient (AMB) | payer MEDICARE, SELFPAY ==
[2023-03-09 08:52] VITALS: BP 104/62; PULSE 118; BMI 16.0
--- NOTE | 2023-03-09 08:52 | MHC.OFFVIS ---
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 She now presents for follow-up. Today she reports that she has not had any recurrent presyncope, no syncope, lightheadedness or falls. On her Holter monitor she was noted to have frequent sinus tachycardia and low-dose diltiazem was ordered. She has not started this medication as of yet due to fear of low blood pressure. She has no chest discomfort at rest or with activity. No palpitations, PND, orthopnea or edema. She has chronic issues with shortness of breath due to history of COPD, bronchiectasis. She does follow with pulmonology. She has a blood pressure cuff at home and periodically checks her readings. They do run on the low side. [facility] Medical History History of shingles History of pneumonia Hx of breast cancer Hyperlipidemia CAD (coronary artery disease) Surgical History Hx of colonoscopy History of esophagogastroduodenoscopy (EGD) History of partial mastectomy of right breast Review of Systems Const All systems reviewed & are unremarkable except as noted in HPI and below ENT Denies dizziness Card Denies chest pain, Denies chest pain at rest, Denies chest pain with activity, Denies rapid heart rate, Denies pedal edema, Denies edema, Denies leg edema, Denies lightheadedness, Denies palpitations, Denies dyspnea, Denies dyspnea on exertion and Denies orthopnea Resp Denies cough, Denies dyspnea and Denies dyspnea on exertion GI Denies hematochezia and Denies change in stool character Musc Denies abnormal gait, Denies limited range of motion, Denies muscle cramps, Denies muscle weakness, Denies numbness, Denies radiating pain into limb, Denies stiffness and Denies tingling Neuro Denies abnormal gait, Denies dizziness, Denies numbness and Denies tingling Endo Denies palpitations Physical Exam Vital Signs: Last Vital Signs Pulse 118 H 03/09/23 08:52 BP 104/62 03/09/23 08:52 BMI result Body Mass Index 16.0 Const Other: Very small stature General: cooperative, healthy appearing, comfortable and no acute distress Orientation/consciousness: patient oriented x3 Neck Neck: Yes normal visual inspection Resp Effort & Inspection: normal respiratory effort Auscultation: clear to auscultation bilaterally, no crackles, no rales, no rhonchi and no wheezes Cardio Jugular venous distension: no JVD Rate: regular rate Rhythm: regular rhythm Heart sounds: S1 normal heart sound present, S2 normal heart sound present, no murmurs and no rubs Neuro General: patient oriented x3 Extrem General: Yes normal to inspection Psych Appearance: grossly normal Mental Status: mental status grossly normal Speech and movement: Normal speech and movement present Assessment & Plan Assessment & Plan (1) Pre-syncope: Code(s): R55 - Syncope and collapse Plan: Episode of presyncope, recently when at work, became hot and sweaty. No full syncope, symptoms fully resolved by 30 minutes, with rest. No prior history of presyncope or syncope in the past. Lab work done by her PCP on 02/01/2023 showed normal white count, H&H, electrolytes, creatinine, BUN mildly elevated at 20. Her blood pressure does run on the low side and she was noted to be orthostatic at this visit. She tells me she feels that she hydrates well. Prior to event had no recent medication changes. She is not on any diuretic or antihypertensive agent. EKG done in her PCP office reported to her as being unchanged from prior. Holter monitor done on 02/06/2023 showed sinus rhythm and sinus tach with average heart rate 1 over 3, heart rate range 77 to 143, 55% of time heart rate greater than 100, SVEs 1.7% of time. Echocardiogram done 02/06/2023 showed EF 50-55%, no valve abnormalities. Her symptom of presyncope was most likely orthostatic or possibly vasovagal in nature. She has not had any recurrent episodes since that time. Reviewed need for ongoing increased hydration by an additional water bottle each day and use Gatorade 3 times weekly. Recognize symptoms of presyncope and sit/lay down if it was ever to occur again. Use caution when going sitting to standing. (2) Sinus tachycardia: Code(s): R00.0 - Tachycardia, unspecified Plan: Incidental finding of frequent sinus tachycardia on Holter monitor as above. 55% of the time her heart rate is greater than 100. Average heart rate is 103. Pulse rate on exam today 118. She does not notice heart palpitations. She tries to maintain good hydration. Her recent echo showing EF low normal 55%. This previously has been reviewed with Dr. Caballero and low-dose diltiazem was ordered. She is fearful to start this medication. Will give her some diltiazem 30 mg tablets and she can begin diltiazem use by taking 1 tablet b.i.d.. If she tolerates this dose then she can transition to the 60 mg 12 hour tablets daily or b.i.d. as tolerated. Goal is to reduce her average heart rate. Stress test is also pending due to low normal EF. Cardiology follow-up in 4-6 weeks. (3) CAD (coronary artery disease): Comment: Foll'd by Dr. Caballero Code(s): I25.10 - Atherosclerotic heart disease of [place] coronary artery without angina pectoris Qualifiers: Associated angina: without angina Coronary Disease-Associated Artery/Lesion type: [place] artery [place] vs. transplanted heart: [place] heart Qualified Code(s): I25.10 - Atherosclerotic heart disease of [place] coronary artery without angina pectoris Plan: History of nonobstructive coronary artery disease. No reports of anginal sounding symptoms. Continue med management including aspirin indefinitely, atorvastatin with ideal LDL goal less than 70. Labs followed by her PCP. (4) SOB (shortness of breath) on exertion: Code(s): R06.02 - Shortness of breath Plan: Chronic issues with shortness of breath. She tells me she has bronchiectasis. She follows with pulmonology. A few wheezes noted on examination. She does not appear to have any fluid overload. (5) Hypotension: Code(s): I95.9 - Hypotension, unspecified Qualifiers: Hypotension type: orthostatic hypotension Qualified Code(s): I95.1 - Orthostatic hypotension Plan: Blood pressure runs on low side. She was orthostatic on on last visit, asymptomatic. Presyncopal event as above. Blood pressure low normal today. Reviewed increasing her fluid/ salt intake Medications: New diltiazem HCl start the 30mg tablets before trial of 60 mg ER capsules 30 mg PO BID 30 tabs 0RF Discontinued diltiazem HCl ER Discontinued Reason: Doctor's Order 60 mg PO BID 60 caps 3RF Coding Level of Care Code Est Pt Level 4 (70325) Diagnoses Pre-syncope R55 Sinus tachycardia R00.0 Coronary artery disease involving [place] coronary artery of [place] heart without angina pectoris I25.10 Associated angina: without angina Coronary Disease-Associated Artery/Lesion type: [place] artery [place] vs. transplanted heart: [place] heart SOB (shortness of breath) on exertion R06.02 Orthostatic hypotension I95.1 Hypotension type: orthostatic hypotension Time Spent (min) 28
== END 2023-03-09 09:21 | disposition home or self-care (01) ==
PROVIDERS: PCP Internal Medicine; Visit Provider Nurse Practitioner Family
DX: R55 Syncope and collapse (principal); R00.0 Tachycardia, unspecified; I25.10 Atherosclerotic heart disease of native coronary artery without angina pectoris; R06.02 Shortness of breath; I95.1 Orthostatic hypotension
CPT/HCPCS: 99214

== ENCOUNTER → 2023-03-09 08:51 | Outpatient (BNVA) | payer MEDICARE, SELFPAY | PROVIDERS: PCP Internal Medicine; Visit Provider Nurse Practitioner Family | DX: I95.1 Orthostatic hypotension (principal); R00.0 Tachycardia, unspecified; I25.10 Atherosclerotic heart disease of native coronary artery without angina pectoris; R06.02 Shortness of breath | CPT/HCPCS: 99212 ==

== ENCOUNTER → 2023-04-16 08:20 | Outpatient (REF) | payer MEDICARE, SELFPAY ==
--- NOTE | ~2023-04-16 | NM_ITS ---
Exercise Myocardial perfusion study Indication: Atherosclerotic cardiovascular disease to evaluate for myocardial ischemia Technique: The patient was brought in for an exercise perfusion study on 04/16/2023. Patient performed exercise as per Tariq protocol and was injected 25 mCi of sestamibi was given intravenously one target HR was achieved. Images were obtained using the SPECT gamma camera interlaced with the gating device. Images were obtained in supine position. Resting perfusion study was performed on 04/19/2023. Patient was administered 25 mCi of sestamibi intravenously at rest. Images were then obtained in supine position. Images obtained with and without CT attenuation. Total DLP 75 mGy-cm. Images were processed with the software and compared side to side in short axis, horizontal long axis and vertical long axis views. Findings: The stress perfusion study showed both attenuated as well as non attenuated corrected images show normal uptake of radiotracer in all segments of LV myocardium. The gated study shows normal LV systolic function with calculated LVEF of 65%. LV cavity is normal in size. The gated study shows normal systolic wall thickening and contraction of all segments. There is no transient ischemic dilation. Resting study shows no change in perfusion pattern compared to stress perfusion study. Gating at rest reveals normal systolic wall motion with visually estimated ejection fraction at greater than 60%. The findings are consistent with normal myocardial perfusion. NM/NM cardiolite stress test Impression: 1. Normal myocardial perfusion 2. Gated LVEF is 65% 3. Transient ischemic dilatation not present Stress EKG is negative for ischemia
--- NOTE | 2023-04-16 08:23 | CA_ITS ---
Acquisition Time: 2023-04-16 08:31:00 Total Exercise Time: 00:04:57 Test Indications: Dyspnea Medications: ASA ATORVASTATIN DILTIAZEM Protocol: BARBER Max HR: 157 BPM 106% of Pred: 147 BPM Max BP: 122/054 mmHG Max Work Load: 6.9 METS Exercise stress test with exercise 4 min 57 sec of Barber protocol, achieving 96% MPHR, with moderate shortness of breath, no chest discomfort, with isolated PACs and one 5 beat atrial tach, with normotensive response to exercise, with baseline EKG showing nonspecific ST abnormality inferiorly and no significant changes noted with exercise. Nuclear images pending. Test reviewed with Dr Holley. Referred By: Adenike Honeycutt Overread By: JUDTIH GARCIA
== END ==
LOC: HO.CARD 08:20
PROVIDERS: Visit Provider Nurse Practitioner
DX: R00.2 Palpitations (principal); R06.02 Shortness of breath; I25.10 Atherosclerotic heart disease of native coronary artery without angina pectoris
CPT/HCPCS: 78452; 93017; A9500

== ENCOUNTER → 2023-04-16 08:23 | Outpatient (BNV) | payer MEDICARE, SELFPAY | PROVIDERS: Visit Provider Nurse Practitioner Family | DX: I25.10 Atherosclerotic heart disease of native coronary artery without angina pectoris (principal) | CPT/HCPCS: 78452; 93016; 93018 ==

== ENCOUNTER 2023-04-19 08:00 | Outpatient (AMB) | payer MEDICARE, SELFPAY ==
--- NOTE | 2023-04-19 08:15 | A.OFFVIS_ITS ---
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 Echocardiogram showed low normal EF 50-55%. Holter showed sinus tachycardia 50% of the time. She was started on low-dose diltiazem and now presents for follow-up. Today she reports she is been doing well since starting the diltiazem. She initially started with 30 mg b.i.d. and is now on 60 mg b.i.d. which she is tolerating well. She periodically checks her blood pressure at home and has not noticed any significant hypotension. Her blood pressure does run low. She is not had any recurrent presyncope and no syncope. No shortness of breath, palpitations, chest discomfort, PND, orthopnea or edema. She reports good activity tolerance. No concerns at present. [facility] Medical History History of shingles History of pneumonia Hx of breast cancer Hyperlipidemia CAD (coronary artery disease) Surgical History Hx of colonoscopy History of esophagogastroduodenoscopy (EGD) History of partial mastectomy of right breast Review of Systems Const All systems reviewed & are unremarkable except as noted in HPI and below ENT Denies vertigo and Denies dizziness Card Denies chest pain and Reports dyspnea on exertion Resp Reports dyspnea on exertion Neuro Denies vertigo and Denies dizziness Physical Exam Vital Signs: Last Vital Signs Pulse 88 04/19/23 08:16 BP 104/62 04/19/23 08:16 BMI result Body Mass Index 16.3 Const General: cooperative, healthy appearing, comfortable and no acute distress Orientation/consciousness: patient oriented x3 Neck Neck: Yes normal visual inspection and Yes no JVD Chest Chest palpation & inspection: normal inspection of the chest Resp Effort & Inspection: normal respiratory effort Auscultation: clear to auscultation bilaterally, no rales, no rhonchi and no wheezes Cardio Jugular venous distension: no JVD Rate: regular rate Rhythm: regular rhythm Heart sounds: S1 normal heart sound present, S2 normal heart sound present, no murmurs and no rubs Neuro General: patient oriented x3 Extrem General: Yes normal to inspection and No no pedal edema Psych Appearance: grossly normal Mental Status: mental status grossly normal Speech and movement: Normal speech and movement present Assessment & Plan Assessment & Plan (1) Pre-syncope: Code(s): R55 - Syncope and collapse Plan: Episode of presyncope, recently when at work, became hot and sweaty. No full syncope, symptoms fully resolved by 30 minutes, with rest. No prior history of presyncope or syncope in the past. Lab work done by her PCP on 02/01/2023 showed normal white count, H&H, electrolytes, creatinine, BUN mildly elevated at 20. Her blood pressure does run on the low side and she was noted to be orthostatic on prior visit. She tells me that she hydrates well. Prior to event had no recent medication changes. She is not on any diuretic or antihypertensive agent. EKG done in her PCP office reported to her as being unchanged from prior. Holter monitor done on 02/06/2023 showed sinus rhythm and sinus tach with average heart rate 103, heart rate range 77 to 143, 55% of time heart rate greater than 100, SVEs 1.7% of time. Echocardiogram done 02/06/2023 showed EF 50-55%, no valve abnormalities. Her symptom of presyncope was most likely orthostatic or possibly vasovagal in nature. She has not had any recurrent episodes since that time. Reviewed need for ongoing increased hydration by an additional water bottle each day and use Gatorade 3 times weekly. Recognize symptoms of presyncope and sit/lay down if it was ever to occur again. Use caution when going sitting to standing. (2) Sinus tachycardia: Code(s): R00.0 - Tachycardia, unspecified Plan: Incidental finding of frequent sinus tachycardia on Holter monitor as above. 55% of the time her heart rate is greater than 100. Average heart rate is 103. Pulse rate on exam last visit was 118. She does not notice heart palpitations. Her recent echo showing EF low normal 50-55%. She was started on low-dose diltiazem, initially 30 mg b.i.d. then able to increase up to 60 mg b.i.d.. Her blood pressure has been stable and heart rates seem better controlled. Home heart rates when checked periodically are in the 80s to 90s. Blood pressure runs with systolic in the low 100s to 1 teens. A nuclear stress test was done on 04/16/2023 with extra shortness of breath, no EKG changes of ischemia and normal myocardial imaging. At this time will have her continue on diltiazem 60 mg b.i.d.. Will reach check Holter monitor report to her next set to reassess ever rate. Cardiology follow-up sooner if needed. (3) CAD (coronary artery disease): Comment: Foll'd by Dr. Caballero Code(s): I25.10 - Atherosclerotic heart disease of [place] coronary artery without angina pectoris Qualifiers: Associated angina: without angina Coronary Disease-Associated Artery/Lesion type: [place] artery [place] vs. transplanted heart: [place] heart Qualified Code(s): I25.10 - Atherosclerotic heart disease of [place] coronary artery without angina pectoris Plan: History of nonobstructive coronary artery disease. No reports of anginal sounding symptoms. Continue med management including aspirin indefinitely, atorvastatin with ideal LDL goal less than 70. Labs followed by her PCP., Dr. Ramirez. Will for this note to him for review. (4) SOB (shortness of breath) on exertion: Code(s): R06.02 - Shortness of breath Plan: Chronic issues with shortness of breath. She tells me she has bronchiectasis. She follows with pulmonology. No wheezes noted on examination today. She does not appear to have any fluid overload. (5) Hypotension: Code(s): I95.9 - Hypotension, unspecified Qualifiers: Hypotension type: orthostatic hypotension Qualified Code(s): I95.1 - Orthostatic hypotension Plan: Blood pressure runs on low side. She was orthostatic on prior visit, asymptomatic. Presyncopal event as above. Blood pressure low normal today. No reported symptoms. Did not reassess for orthostatic drop since she is feeling well. Reviewed increasing her fluid/ salt intake Plan Time spent on chart review, documentation, interview and assessment Orders: Orders ECG 3 day holter monitor 07/25/23 R00.0 - Tachycardia, unspecified, R00.2 - Palpitations Coding Level of Care Code Est Pt Level 3 (63596) Diagnoses Pre-syncope R55 Sinus tachycardia R00.0 Coronary artery disease involving [place] coronary artery of [place] heart without angina pectoris I25.10 Associated angina: without angina Coronary Disease-Associated Artery/Lesion type: [place] artery [place] vs. transplanted heart: [place] heart SOB (shortness of breath) on exertion R06.02 Orthostatic hypotension I95.1 Hypotension type: orthostatic hypotension Time Spent (min) 22
[2023-04-19 08:16] VITALS: BP 104/62; PULSE 88; BMI 16.3
== END 2023-04-19 08:36 | disposition home or self-care (01) ==
PROVIDERS: PCP Internal Medicine; Visit Provider Nurse Practitioner Family
DX: R55 Syncope and collapse (principal); R00.0 Tachycardia, unspecified; I25.10 Atherosclerotic heart disease of native coronary artery without angina pectoris; R06.02 Shortness of breath; I95.1 Orthostatic hypotension
CPT/HCPCS: 99213

== ENCOUNTER → 2023-04-19 08:00 | Outpatient (BNVA) | payer MEDICARE, SELFPAY | PROVIDERS: PCP Internal Medicine; Visit Provider Nurse Practitioner Family | DX: I25.10 Atherosclerotic heart disease of native coronary artery without angina pectoris (principal); I95.0 Idiopathic hypotension; R55 Syncope and collapse; R00.0 Tachycardia, unspecified; R06.02 Shortness of breath | CPT/HCPCS: 99212 ==

== ENCOUNTER 2023-07-05 09:09 | Outpatient (REF) | payer MEDICARE, SELFPAY ==
--- NOTE | ~2023-07-05 | MM_ITS ---
EXAMINATION: MM SCREENING DIGITAL BREAST TOMOSYNTHESIS, BILATERAL CLINICAL INFORMATION: Screening. Asymptomatic. The patient is status post breast conservation surgery and radiation for cancer diagnosed in 2001. COMPARISON: Mammography: This study is compared with prior exams dating back to 2019. TECHNIQUE: Digital breast tomosynthesis is performed in both the craniocaudal and mediolateral oblique views along with computer-aided detection (CAD). Synthesized 2D images are generated from the tomosynthesis. FINDINGS: There are scattered areas of fibroglandular density (ACR BI-RADS breast composition Category b). There are no significant masses, abnormal calcifications, or other abnormalities. There are postsurgical changes and benign calcifications involving the upper outer quadrant of the right breast. This is from prior cancer treatment. MM/MM tomosynthesis screening BI IMPRESSION: No mammographic evidence of malignancy. ASSESSMENT: BI-RADS BI-RADS 2 - Benign Findings RECOMMENDATION: Routine annual mammography screening. 1 year F/U This examination should not preclude the clinical evaluation of a suspicious palpable abnormality. This patient's information was entered into a reminder system with a target due date for their next mammogram.
== END 2023-07-05 09:10 | disposition home or self-care (01) ==
LOC: HO.MAMMO 09:09
PROVIDERS: Visit Provider Internal Medicine
DX: Z12.31 Encounter for screening mammogram for malignant neoplasm of breast (principal)
CPT/HCPCS: 77063; 77067

== ENCOUNTER → 2023-07-05 09:15 | Outpatient (BNV) | payer MEDICARE, SELFPAY | PROVIDERS: Visit Provider Radiology Diagnostic Radiology | DX: Z12.31 Encounter for screening mammogram for malignant neoplasm of breast (principal) | CPT/HCPCS: 77063; 77067 ==

== ENCOUNTER → 2023-07-25 08:56 | Outpatient (REF) | payer MEDICARE, SELFPAY ==
--- NOTE | 2023-07-25 08:59 | HM_ITS ---
* Total monitoring time 3 days. * Underlying rhythm is sinus with an average rate of 91/Min. About 35% of the time, rate > 100/Min. * Rare supraventricular ectopy. * Rare ventricular ectopy. * No sustained arrhythmias. * No significant pauses or AV blocks. * No patient markers or diary events. MTDD
== END ==
LOC: HO.CARD 08:56
PROVIDERS: PCP Internal Medicine; Visit Provider Nurse Practitioner Family
DX: R00.0 Tachycardia, unspecified (principal); R00.2 Palpitations
CPT/HCPCS: 93242

== ENCOUNTER → 2023-07-25 08:59 | Outpatient (BNV) | payer MEDICARE, SELFPAY | PROVIDERS: PCP Internal Medicine; Visit Provider Internal Medicine | DX: I49.3 Ventricular premature depolarization (principal) | CPT/HCPCS: 93244 ==

== ENCOUNTER 2023-08-13 08:55 | Outpatient (AMB) | payer MEDICARE, SELFPAY ==
[2023-08-13 09:10] VITALS: BP 104/62; PULSE 85; BMI 16.3
--- NOTE | 2023-08-13 09:10 | MHC.OFFVIS ---
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 She has been doing very well overall. She has not had any significant episodes of lightheadedness or syncope. She has been very active and on the day when she was wearing Holter she was very active playing pickleball and golf. Her Holter monitor did show sinus tachycardia at 35% of time but this is improved. She is tolerating her diltiazem therapy well. Heart rate usually is in the 80s. Her blood pressures in the lower 100s. She denies any exertional chest pain. No heart failure symptoms. [facility] Medical History History of shingles History of pneumonia Hx of breast cancer Hyperlipidemia CAD (coronary artery disease) Surgical History Hx of colonoscopy History of esophagogastroduodenoscopy (EGD) History of partial mastectomy of right breast Review of Systems Const Denies chills, Denies fatigue, Denies fever(s), Denies frequent falls, Denies weakness, Denies weight gain and Denies weight loss ENT Denies dizziness Card Denies chest pain, Denies leg edema, Denies lightheadedness, Denies palpitations, Denies dyspnea, Denies dyspnea on exertion, Denies orthopnea and Denies other (loss of consciousness) Resp Denies cough, Denies dyspnea and Denies dyspnea on exertion GI Denies hematochezia and Denies change in stool character Musc Denies abnormal gait, Denies muscle weakness, Denies numbness, Denies radiating pain into limb and Denies tingling Neuro Denies abnormal gait, Denies dizziness, Denies frequent falls, Denies numbness, Denies tingling and Denies weakness Endo Denies fatigue and Denies palpitations Physical Exam Vital Signs: Last Vital Signs Pulse 85 08/13/23 09:10 BP 104/62 08/13/23 09:10 BMI result Body Mass Index 16.3 Const General: cooperative, healthy appearing, comfortable and no acute distress Orientation/consciousness: patient oriented x3 Neck Neck: Yes normal visual inspection and Yes no JVD Chest Chest palpation & inspection: normal inspection of the chest Resp Effort & Inspection: normal respiratory effort Auscultation: clear to auscultation bilaterally, no rales, no rhonchi and no wheezes Cardio Jugular venous distension: no JVD Rate: regular rate Rhythm: regular rhythm Heart sounds: S1 normal heart sound present, S2 normal heart sound present, no murmurs and no rubs Neuro General: patient oriented x3 Extrem General: Yes normal to inspection and No no pedal edema Psych Appearance: grossly normal Mental Status: mental status grossly normal Speech and movement: Normal speech and movement present Assessment & Plan Assessment & Plan (1) Pre-syncope: Code(s): R55 - Syncope and collapse Category: Medical Plan: Presyncope due to low blood pressure due to relative hypovolemia and orthostasis. I think she has done well with increase fluid intake. I have advised her to continue to maintain high levels of water intake and salt intake to prevent any passing out episode and especially when she is active in heart weather she needs to pay more attention to this. Orthostatic precautions were discussed she understands them well. (2) Sinus tachycardia: Code(s): R00.0 - Tachycardia, unspecified Category: Medical Plan: Sinus tachycardia could represent dysautonomia. Although she is doing well with no symptoms of palpitation. She is done well and tolerated Cardizem therapy. Advised to continue the same. Advised to monitor heart rate at home. Continue adequate hydration as above. Stress mitigation strategies to be pursued. Avoidance of stimulants was discussed. (3) CAD (coronary artery disease): Comment: Foll'd by Dr. Caballero Code(s): I25.10 - Atherosclerotic heart disease of [place] coronary artery without angina pectoris Category: Medical Qualifiers: Coronary Disease-Associated Artery/Lesion type: [place] artery [place] vs. transplanted heart: [place] heart Associated angina: without angina Qualified Code(s): I25.10 - Atherosclerotic heart disease of [place] coronary artery without angina pectoris Plan: Nonobstructive CAD. Continue aspirin therapy for life. Continue atorvastatin 10 mg daily. Target goal LDL less than 70 mg/dL. Advised to call me with any worsening symptoms. Will follow up in the clinic in 1 year's time, sooner p.r.n.. Thank you for allowing me to partake in her care Coding Level of Care Code Est Pt Level 4 (52461) Diagnoses Pre-syncope R55 Sinus tachycardia R00.0 Coronary artery disease involving [place] coronary artery of [place] heart without angina pectoris I25.10 Coronary Disease-Associated Artery/Lesion type: [place] artery [place] vs. transplanted heart: [place] heart Associated angina: without angina
== END 2023-08-13 09:45 | disposition home or self-care (01) ==
PROVIDERS: PCP Internal Medicine; Visit Provider Internal Medicine Cardiovascular Disease
DX: R55 Syncope and collapse (principal); R00.0 Tachycardia, unspecified; I25.10 Atherosclerotic heart disease of native coronary artery without angina pectoris
CPT/HCPCS: 99214

== ENCOUNTER → 2023-08-13 08:55 | Outpatient (BNVA) | payer MEDICARE, SELFPAY | PROVIDERS: PCP Internal Medicine; Visit Provider Internal Medicine Cardiovascular Disease | DX: R55 Syncope and collapse (principal); R00.0 Tachycardia, unspecified; I25.10 Atherosclerotic heart disease of native coronary artery without angina pectoris; I10 Essential (primary) hypertension | CPT/HCPCS: 99212 ==

== ENCOUNTER 2023-10-30 12:44 | Outpatient (REF) | payer MEDICARE, SELFPAY ==
--- NOTE | ~2023-10-30 | MM_ITS ---
EXAMINATION: BONE DENSITOMETRY CLINICAL INDICATION: Age-related osteoporosis without current pathological fracture. COMPARISON: Previous BD dated 10/13/2021 and baseline BD dated 04/03/2005. TECHNIQUE: Using a [employer] DXA System (software version: 13.1) manufactured by [employer], dual-energy x-ray absorptiometry was performed of the lumbar spine and left hip. The images are of good technical quality. Summary results are attached. FINDINGS: LEFT FEMUR, NECK: Current: BMD 0.631 g/cm2, Z-score -0.6, T-score -2.9, osteoporosis. Prior: BMD 0.583 g/cm2. Baseline: BMD 0.762 g/cm2. LEFT FEMUR, TOTAL: Current: BMD 0.696 g/cm2, Z-score -0.2, T-score -2.5, osteoporosis, 5.5% increase from previous, 20.5% decrease from baseline (<5% change is not significant). Prior: BMD 0.660 g/cm2. Baseline: BMD 0.876 g/cm2. AP SPINE L1-L4: Current: BMD 1.143 g/cm2, Z-score 2.2, T-score -0.3, normal, 7.1% decrease from previous, 3.1% decrease from baseline (<5% change is not significant). Prior: BMD 1.230 g/cm2. Baseline: BMD 1.179 g/cm2. IDENTIFIED RISK FACTORS: Osteoporosis, low body weight. Early menopause, secondary osteoporosis. HISTORY OF FRACTURE: None listed. MEDICATIONS: Calcium supplements or multivitamin, vitamin D. MM/XR DEXA axial skeleton IMPRESSION: 1. DIAGNOSIS: Severe osteoporosis based on the lowest T-score value of -2.9 in the femoral neck applying World Health Organization criteria. 2. 10-YEAR FRACTURE RISK PREDICTION, FRAX: According to the guidelines, FRAX calculation should only be performed on patients in the osteopenia bone density category. Therefore, FRAX was not performed on this patient. 3. Treatment Recommendations: NOF guidelines recommend consideration for treatment in postmenopausal women and men age 50 and older presenting with the following: -A hip or vertebral (clinical or morphometric) fracture. -T-score less than or equal to -2.5 at the femoral neck or spine after appropriate evaluation to exclude secondary causes. -Low bone mass at the hip or spine and a 10-year fracture probability by FRAX of greater than or equal to 3% for hip fracture or greater than or equal to 20% for major osteoporotic fracture based on the [place] adapted WHO algorithm. 4. Other Recommendations: All treatment decisions require clinical judgment and consideration of individual patient factors, including patient preferences, comorbidities, previous drug use, risk factors not captured in the FRAX model (e.g. frailty, falls, vitamin D deficiency, increased bone turnover, interval significant decline in bone density) and possible under or overestimation of fracture risk by FRAX. Additional medical evaluation for secondary cause of low bone mineral density may be appropriate. FUTURE SCAN RECOMMENDATION: People with diagnosed cases of osteoporosis or at high risk for fracture should have regular bone mineral density tests. For patients eligible for Medicare, routine testing is allowed once every 2 years. The testing frequency can be increased to one year for patients who have rapidly progressing disease, those who are receiving or discontinuing medical therapy to restore bone mass, or have additional risk factors.
== END 2023-10-30 12:45 | disposition home or self-care (01) ==
LOC: HO.MAMMO 12:44
PROVIDERS: PCP Internal Medicine; Visit Provider Internal Medicine
DX: M81.0 Age-related osteoporosis without current pathological fracture (principal)
CPT/HCPCS: 77080

== ENCOUNTER 2024-04-02 06:21 | Day surgery (SDC) | payer MEDICARE, SELFPAY ==
--- OUTSIDE RECORDS SUMMARY | 2024-03-12 09:12 | XMS_ITS | Patient Health Record ---
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 Name Role Phone Tee Ramirez MD Primary Care Provider Harvey Killian Unavailable [phone] ALLERGIES No Known Allergies REASON FOR REFERRAL No Information MEDICATIONS Medication SIG (Take, Route, Frequency, Duration) Notes Start Date End Date Status Alendronate Sodium 70 MG Oral for 84 Active dilTIAZem HCl ER 60 MG Oral for 90 Active Lipitor 10 MG 1 tablet Orally Once a day for 30 day(s) Active Vitamin D 1000 UNIT 1 capsule Orally Once a day Active Calcium complex 1200 mg 1 tablet Orally Once a day Active Aspir-81 81 MG 1 tablet Orally Once a day Active IMMUNIZATIONS Vaccine Route Administration Date Status Comme nts Influenza Unknown 07/03/2018 Refused Influenza Unknown 08/05/2021 Refused SOCIAL HISTORY Sex Assigned At : Social History Observation Description Sex Assigned At Unknown PROBLEMS Problem Type ICD Code Onset Dates Problem Status W/U Status Risk SNOMED Code Notes Problem Colon cancer screening (Z12.11) Active confirmed Colon cancer screening (584461663) Problem History of adenomatous polyp of colon (Z86.010) Active confirmed 610010370 Problem Encounter for other preprocedural examination (Z01.818) Active confirmed Pre-procedure evaluation check (679350389) Problem Abnormal weight loss (R63.4) Active confirmed Abnormal weight loss (746157261) Problem Early satiety (R68.81) Active confirmed Early satiety (692656863) Problem Diarrhea, unspecified type (R19.7) Active confirmed 38029181 Problem Lymphocytic colitis (K52.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) Active confirmed 15258348 Problem Change in bowel function (R19.8) Active confirmed 05893423 Problem Family history of colon cancer in mother (Z80.0) Active confirmed Family history of malignant neoplasm of gastrointestinal tract (706120707) VITAL SIGNS Blood pressure diastolic 00 mm Hg 11/29/2023 Height 63.75 in 11/29/2023 Blood pressure systolic 00 mm Hg 11/29/2023 Weight 92 lbs 11/29/2023 BMI 15.91 kg/m2 11/29/2023 Encounters Encounter Location Date Provider Diagnosis [facility] [address] [place] [address] 11/29/2023 Harvey Givens Family history of co nahun cancer in mother Z80.0 ; Encounter for other preprocedural examination Z01.818 ; History of adenomatous polyp of colon Z86.010 and Colon cancer screening Z12.11 ASSESSMENTS Encounter Date Diagnosis Assessment Notes Treatment Notes Treatment Clinical Notes 11/29/2023 Encounter for other preprocedural examination (ICD-10 - Z01.818) 11/29/2023 Family history of colon cancer in mother (ICD-10 - Z80.0) Stop aspirin for 3 days before the colonoscopy 11/29/2023 History of adenomatous polyp of colon (ICD-10 - Z86.010) 11/29/2023 Colon cancer screening (ICD-10 - Z12.11) PLAN OF TREATMENT Future Test Test Name Order Date UPPER GI ENDOSCOPY [place] DILATION OF ESOPH 04/01/2014 COLONOSCOPY 04/01/2014 COLONOSCOPY 07/03/2018 COLONOSCOPY 11/29/2023 Next Appt Details Provider Name:Harvey Givens , 04/02/2024 07:30:00 AM, [address] [facility] , [place], [place], [id number], Insurance Providers Payer Name Payer Address Payer Phone Subscriber Number Group Number Insured Name Patient Relationship to Insured Coverage Start Date Coverage End Date [facility] [address] [place], [place] [id number] [phone] [id number] ULISES NOYOLA Self - patient is the insured MEDICAL (GENERAL) HISTORY Medical History History ICD Code Denies NC,DM,CVA,Lung disease,renal dise ase Breast cancer-right side---Lumpectomy, lymph node dissection, Tamoxifen, and XRT Screening colonoscopy in 10/25-hyperplastic polyp, mild diverticulosis, internal hemorrhoids; 03/2014-small tubular adenoma Hematuria in 2012-neg CT and neg cystosc opy with Dr. Borjas Pneumonia 03/2018 and 08/2018 Shingles EGD in 03/2014-minimal HH, mild reflux, n o Martínez's Colonoscopy in 07/2018--roxana l, but biopsies revealed a microscopic colitis---sx. of diarrhea resolved without treatment Negative laboratories for celiac disease in 2018 Upper endoscopy in September revealed only a minimal hiatal hernia, but was otherwise normal. Duodenal biopsies were negative for celiac disease and gastric biopsies were normal, without any sign of H. pylori. Cardiazem for tachycardia -sees Dr. Caballero--no atrial fibrillation--2022--neg. ETT and echocardiogram Bronchiectasis---Bronchoscopy 2022 at [facility] for pneumonias--Dr. Fry Surgical History Surgery Date(Month/Year) Right breast lumpectomy as above
--- OUTSIDE RECORDS SUMMARY | 2024-03-12 09:12 | XMS_ITS ---
Author Organization [facility] Address [address] [place] [address] Care Team Providers Care Reliner Name Role Phone Tee Ramirez MD Primary Care Provider Harvey Killian [phone] ALLERGIES No Known Allergies REASON FOR VISIT Patient presents today for a colon screening MEDICATIONS Medication SIG (Take, Route, Frequency, Duration) [...] 1 tablet Orally Once a day Active PROBLEMS Problem Type ICD Code Onset Dates Problem Status W/U Status Risk SNOMED Code Notes Problem Family history of colon cancer in mother (Z80.0) Active confirmed Family history of malignant neoplasm of gastrointestinal tract (635548302) Problem Colon cancer screening (Z12.11) Active confirmed Colon cancer screening (453898327) Problem Encounter for other preprocedural examination (Z01.818) Active confirmed Pre-procedure evaluation check (829037396) VITAL SIGNS BMI 15.91 kg/m2 11/29/2023 Blood pressure systolic 00 mm Hg 11/29/19 24 Blood pressure diastolic 00 mm Hg 024 Height 63.75 in 11/29/2023 Weight 92 lbs 11/29/2023 Encounters Encounter Location Date Provider Diagnosis [facility] [address] [place] [address] 11/29/2023 Harvey Givens Family history of co nahun cancer in mother Z80.0 ; Encounter for other preprocedural examination Z01.818 ; History of adenomatous polyp of colon Z86.010 and Colon cancer screening Z12.11 ASSESSMENTS Encounter Date Diagnosis Assessment Notes Treatment Notes Treatment Clinical Notes 11/29/2023 Family history of colon cancer in mother (ICD-10 - Z80.0) Stop aspirin for 3 days before the colonoscopy 11/29/2023 Encounter for other preprocedural examination (ICD-10 - Z01.818) 11/29/2023 History of adenomatous polyp of colon (ICD-10 - Z86.010) 11/29/2023 Colon cancer screening (ICD-10 - Z12.11) PLAN OF TREATMENT Treatment Notes Assessment Notes Family history of colon cancer in mother Stop aspirin for 3 days before the colonoscopy Future Test Test Name Order Date COLONOSCOPY 11/29/2023 Next Appt Details Follow Up: prn, Reason: Provider Name:Harvey Givens , 04/02/2024 07:30:00 AM, [address] [place] [address], [phone], Progress Notes * Examination Category Sub-Category Detail Notes General Examination GENERAL APPEARANCE: pleasant , well nourished, well developed, in no acute distress HEAD: EYES: sclera non-icteric EARS: NOSE: THROAT: NECK/THYROID: no cervical lymphade nopathy, neck supple HEART: S1, S2 normal CHEST: LUNGS: clear to auscultatio n bilaterally ABDOMEN: normal bowel sounds, no guarding or rigidity, no guarding or rigidity, no masses palpable, soft, nontender, nondistended NEUROLOGIC: alert and oriented SKIN: nonjaundiced, no spi marguerite angiomata EXTREMITIES: no edema PERIPHERAL PULSES: BACK: BREASTS: MUSCULOSKELETAL: MALE GENITOURINARY: LYMPH NODES: RECTAL EXAM: FEMALE GENITOURINARY: ORAL CAVITY: mucosa moist
[2024-03-31 12:19] VITALS: BMI 16.3
--- NOTE | 2024-04-01 09:12 | P.CONAN_ITS ---
Documented by User: Kaleigh Fernandez NP 04/01/24 09:14 HPI - Anesthesia Eval Consult details Narrative: 73yo F for Colonoscopy [place] [facility] for nonobstructive CAD, tachy. Stable at yearly routine office visit 07/2023 [facility] Active Problems Active Problems: All Active Problems Sinus tachycardia (Acute) Hypotension (Acute) Pre-syncope (Acute) Palpitations (Acute) SOB (shortness of breath) on exertion (Acute) Hyperlipidemia (Acute) CAD (coronary artery disease) (Acute) Past Medical History Medical History Bronchiectasis Tachycardia Hiatal hernia Pneumonia Hematuria History of shingles History of pneumonia Hx of breast cancer Hyperlipidemia CAD (coronary artery disease) Surgical History Surgical History History of bronchoscopy Hx of colonoscopy History of esophagogastroduodenoscopy (EGD) History of partial mastectomy of right breast History of Problems with Anesthesia: No Social History Social History Are you a primary wound care physician to a significant other at home: No Do you presently have visiting nurse or other home services: No Patient Tobacco Use Status: Never used Tobacco Use of substances other than those prescribed or required for medical reasons: No Have you been hit, kicked, punched, or otherwise hurt by someone within the past year? If so, by whom?: No Are you DNR?: No Advance Directives: No Advance Directives Information Provided: Yes Recently lost weight without trying: No Nutrition Risks: No Nutritional Risk Patient : No Meds Allergies Allergy/AdvReac Type Severity Reaction Status Date / Time No Known Allergies Allergy Verified 04/19/23 08:17 Home Medications ?Medication ?Instructions ?Recorded ?Confirmed ?Last Taken ?Type aspirin 81 mg tablet,delayed 81 mg PO DAILY 05/24/20 03/31/24 Unknown History release (Adult Low Dose Aspirin) atorvastatin 10 mg tablet 10 mg PO DAILY 05/24/20 03/31/24 Unknown History calcium carbonate (Calcium 500) 1,000 mg PO DAILY 05/24/20 03/31/24 Unknown History alendronate 70 mg tablet 70 mg PO 03/31/24 Unknown History cholecalciferol (vitamin D3) 25 25 mcg PO DAILY 03/31/24 03/31/24 Unknown History mcg (1,000 unit) capsule (Vitamin D3) Exam Height,Weight and Vital Signs: Height 5 ft 3 in Weight 41.73 kg Narrative Narrative: Holter 07/2023 * Total monitoring time 3 days. * Underlying rhythm is sinus with an average rate of 91/Min. About 35% of the time, rate > 100/Min. * Rare supraventricular ectopy. * Rare ventricular ectopy. * No sustained arrhythmias. * No significant pauses or AV blocks. * No patient markers or diary events. Assessment and Plan Assessment Anesthesia Assessment: Chart Reviewed Final Anesthetic Review History of Problems with Anesthesia: No Documented by User: Denis Michele MD 04/02/24 07:38 PMFSH Past Medical History Medical History Bronchiectasis Tachycardia Hiatal hernia Pneumonia Hematuria History of shingles History of pneumonia Hx of breast cancer Hyperlipidemia CAD (coronary artery disease) Family History Family history of problems with anesthesia: No Surgical History Surgical History History of bronchoscopy Hx of colonoscopy History of esophagogastroduodenoscopy (EGD) History of partial mastectomy of right breast History of Problems with Anesthesia: Yes (PONV) Social History Social History Are you a primary wound care physician to a significant other at home: No Do you presently have visiting nurse or other home services: No Patient Tobacco Use Status: Never used Tobacco Use of substances other than those prescribed or required for medical reasons: No Have you been hit, kicked, punched, or otherwise hurt by someone within the past year? If so, by whom?: No Are you DNR?: No Advance Directives: No Advance Directives Information Provided: Yes Recently lost weight without trying: No Nutrition Risks: No Nutritional Risk Patient : No Meds Allergies Allergy/AdvReac Type Severity Reaction Status Date / Time No Known Allergies Allergy Verified 04/19/23 08:17 Home Medications ?Medication ?Instructions ?Recorded ?Confirmed ?Last Taken ?Type aspirin 81 mg tablet,delayed 81 mg PO DAILY 05/24/20 03/31/24 Unknown History release (Adult Low Dose Aspirin) atorvastatin 10 mg tablet 10 mg PO DAILY 05/24/20 03/31/24 Unknown History calcium carbonate (Calcium 500) 1,000 mg PO DAILY 05/24/20 03/31/24 Unknown History alendronate 70 mg tablet 70 mg PO 03/31/24 Unknown History cholecalciferol (vitamin D3) 25 25 mcg PO DAILY 03/31/24 03/31/24 Unknown History mcg (1,000 unit) capsule (Vitamin D3) Exam Airway Mallampati Class: III (limited mouth opening) TM Dist: >3cm Neck ROM: Full Loose/Missing/Broken Teeth: No Heart: see above. Lungs: ok Assessment and Plan Assessment Anesthesia Assessment: Anesthesia Plan Discussed Final Anesthetic Review Family History of Problems with Anesthesia: No History of Problems with Anesthesia: Yes (PONV) NPO: Yes ASA Class: III Final Preanesthetic Review: No Changes in Pt Med Stat, Meds/Allgs Chart Reviewed, Consent Obtained/Reviewed and Anes Risks/Benef Reviewed Patient Risk: Intermediate Procedure Risk: Low Anesthetic Plan Anesthetic Plan: MAC: and Agree w/ Assess. and Plan Disposition: Standard PACU
--- OUTSIDE RECORDS SUMMARY | 2024-04-02 06:24 | XMS_ITS ---
Author Organization [facility] Address [address] [place] [address] Care Team Providers Care Distribution Collection Operator Name Role Phone Tee Ramirez MD Primary Care Provider Harvey Killian [phone] ALLERGIES No Known Allergies REASON FOR VISIT [...] history of malignant neoplasm of gastrointestinal tract (932524680) Problem Colon cancer screening (Z12.11) Active confirmed Colon cancer screening (319351391) Problem Encounter for other preprocedural examination (Z01.818) Active confirmed Pre-procedure evaluation check (477646620) VITAL SIGNS BMI 15.91 kg/m2 11/29/2023 Blood pressure systolic 00 mm Hg 11/29/19 24 Blood pressure diastolic 00 mm Hg 024 Height 63.75 in 11/29/2023 Weight 92 lbs 11/29/2023 Encounters Encounter Location Date Provider Diagnosis [facility] [address] [place] [address] 11/29/2023 Harvey Givens Family history of co [...] Provider Name:Harvey Givens , 04/02/2024 07:30:00 AM, [address] [place] [address], [phone], Progress Notes * Examination Category Sub-Category Detail [...]
--- OUTSIDE RECORDS SUMMARY | 2024-04-02 06:24 | XMS_ITS | Patient Health Record ---
Author Organization [facility] Address [address] [place] [address] Care Team Providers Care Farm Service Adviser Name Role Phone Tee Ramirez MD Primary Care Provider Harvey Killian Unavailable [phone] ALLERGIES No Known Allergies REASON FOR REFERRAL [...] screening (Z12.11) Active confirmed Colon cancer screening (082382102) Problem History of adenomatous polyp of colon (Z86.010) Active confirmed 491375312 Problem Encounter for other preprocedural examination (Z01.818) Active confirmed Pre-procedure evaluation check (842857647) Problem Abnormal weight loss (R63.4) Active confirmed Abnormal weight loss (360241210) Problem Early satiety (R68.81) Active confirmed Early satiety (610879708) Problem Diarrhea, unspecified type (R19.7) Active confirmed 25551438 Problem Lymphocytic colitis (K52.832) Active confirmed 18282424 Problem Change in bowel function (R19.8) Active confirmed 74656933 Problem Family history of colon cancer in mother (Z80.0) Active confirmed Family history of malignant neoplasm of gastrointestinal tract (745498521) VITAL SIGNS Blood pressure diastolic 00 mm Hg 11/29/2023 Height 63.75 in 11/29/2023 Blood pressure systolic 00 mm Hg 11/29/2023 Weight 92 lbs 11/29/2023 BMI 15.91 kg/m2 11/29/2023 Encounters Encounter Location Date Provider Diagnosis [facility] Outpatient [address] [place], [place] [phone] 04/02/2024 Harvey Givens [facility] [address] [place] [address] 11/29/2023 Harvey Givens Family history of colon cancer in mother Z80.0 ; Encounter for [...] Name:Harvey Givens , 04/02/2024 07:30:00 AM, [address] [facility] , [place], [place], [phone], Insurance Providers Payer Name Payer Address Payer Phone Subscriber Number Group Number Insured Name Patient Relationship to Insured Coverage Start Date Coverage End Date [facility] [address] [place], [place] [id number] [phone] [id number] ULISES NOYOLA Self - patient is the insured MEDICAL (GENERAL) HISTORY Medical History History ICD Code Denies NH,DM,CVA,Lung disease,renal dise ase Breast cancer-right side---Lumpectomy, lymph node dissection, Tamoxifen, and XRT Screening colonoscopy in 10/25 004-hyperplastic polyp, mild diverticulosis, internal hemorrhoids; 03/2014-small tubular [...] fibrillation--2022--neg. ETT and echocardiogram Bronchiectasis---Bronchoscopy 2022 at [facility] for pneumonias--Dr. Fry Surgical History Surgery Date(Month/Year) Right breast lumpectomy as above
--- OUTSIDE RECORDS SUMMARY | 2024-04-02 06:24 | XMS_ITS ---
Author Organization [facility] Address [address] [place] [address] Care Team Providers Care Despatch Clerk Name Role Phone Tee Ramirez MD Primary Care Provider Unavaila Harvey Blackman Unavailable [phone] REASON FOR VISIT screening,hx polyps,fam hx colon ca Encounters Encounter Location Date Provider Diagnosis [facility] Outpatient [address] [place] [phone] 04/02/2024 Harvey Givens PLAN OF TREATMENT Next Appt Details Provider Name:Harvey Givens , 04/02/2024 07:30:00 AM, [address] [place] [address], [phone],
[2024-04-02 06:55] VITALS: BMI 16.5
[2024-04-02 07:01] VITALS: BP 103/58; PULSE 100; RESP 16; TEMP 36.4; O2SAT 98
[2024-04-02] MEDS: Lactated Ringers 1,000 ML 100 ML IVCONT (07:14)
[2024-04-02 08:34] VITALS: BP 83/43; PULSE 92; RESP 18; TEMP 36.3; O2SAT 99
--- NOTE | 2024-04-02 08:36 | P.BOP_ITS ---
Brief Operative Note Date of Service: 04/02/24 Pre-op diagnosis: Screening Post-op diagnosis: other (Diverticulosis) Procedure: Colonoscopy to the cecum and TI Surgeon: Harvey Givens MD Anesthesia: MAC Was an Patient Service Associate used for this Procedure?: No Estimated blood loss (mL): 0 Pathology: none sent Condition: stable Disposition: PACU
[2024-04-02 08:49] VITALS: BP 87/45; PULSE 73; RESP 17; O2SAT 98
--- NOTE | 2024-04-02 08:52 | OP_ITS ---
DATE OF SERVICE: 04/02/2024 SURGEON: Harvey Givens MD INDICATIONS: The patient presents for evaluation of personal history of tubular adenoma of the colon, family history of colon cancer, and colorectal cancer screening. Full consent has been obtained from her for this, including risks of bleeding and perforation. PREOPERATIVE DIAGNOSIS: POSTOPERATIVE DIAGNOSIS: PROCEDURE PERFORMED: Colonoscopy to the cecum and terminal ileum. ESTIMATED BLOOD LOSS: COMPLICATIONS: ANESTHESIA: Medication used, monitored anesthesia care. ASSISTANTS: SPECIMENS: PREOPERATIVE DIAGNOSES: Personal history of tubular adenoma of the colon, colorectal cancer screening, and family history of colon cancer. POSTOPERATIVE DIAGNOSES: Personal history of tubular adenoma of the colon, colorectal cancer screening, and family history of colon cancer, diverticulosis and internal hemorrhoids. DESCRIPTION OF PROCEDURE: The patient was placed in the left lateral decubitus position. The digital rectal exam revealed no abnormalities. The Olympus video pediatric colonoscope was entered into the rectum and advanced easily to the cecum. Once in the cecum, I did identify normal-appearing cecal pouch after a lot of irrigation and suctioning. For the most part, the cecum was well visualized and appeared normal. The terminal ileum was cannulated and appeared normal. The scope was withdrawn back in the colon. The ileocecal valve appeared normal. The cecum and appendiceal orifice appeared normal. The scope was slowly withdrawn assessing all mucosal surfaces carefully. Preparation was very good throughout the colon, although did require some suctioning and irrigation. I did not visualize any sign of polyps, colitis, nor angiodysplasia. There was a mild amount of sigmoid diverticulosis. In the rectum, scope was retroflexed visualizing internal hemorrhoids, but no other pathology. The rectal mucosa appeared normal. The scope was straightened and withdrawn from the patient. She tolerated the procedure well and was returned to the recovery area in stable condition. IMPRESSION: 1. Sigmoid diverticulosis. 2. Internal hemorrhoids. PLAN: Given today's negative exam, a negative colonoscopy in 2019, her age, and the only family history being that of her mother being in her 80s when she had colon cancer, I advised her that I do not think she will need any further screening colonoscopies. As such, she will see me on a p.r.n. basis. She was advised that she could resume aspirin today. MD MAYNOR Hopkins/RANDAL / [phone]
[2024-04-02 09:00] VITALS: BP 91/45; PULSE 75; RESP 16; TEMP 36.3; O2SAT 99
== END 2024-04-02 09:22 | disposition home or self-care (01) ==
PROVIDERS: PCP Internal Medicine; Visit Provider Internal Medicine
PROC: 0DJD8ZZ Inspection of Lower Intestinal Tract, Via Natural or Artificial Opening Endoscopic (ICD-10-PCS; CPT 45378; principal; 2024-04-02 07:30)
DX: Z12.11 Encounter for screening for malignant neoplasm of colon (principal); Z86.0101 Personal history of adenomatous and serrated colon polyps; Z80.0 Family history of malignant neoplasm of digestive organs; K57.30 Diverticulosis of large intestine without perforation or abscess without bleeding; K64.8 Other hemorrhoids; R00.0 Tachycardia, unspecified; J47.9 Bronchiectasis, uncomplicated; Z85.3 Personal history of malignant neoplasm of breast; Z92.21 Personal history of antineoplastic chemotherapy; Z92.3 Personal history of irradiation; Z79.82 Long term (current) use of aspirin; Z79.899 Other long term (current) drug therapy
CPT/HCPCS: G0105; J2003; J2371; J2704; J3010

== ENCOUNTER 2024-04-14 11:20 | Outpatient (REF) | payer MEDICARE, SELFPAY ==
[2024-04-14 13:43] LABS: Influenza A PCR NEGATIVE (Negative); Influenza B PCR NEGATIVE (Negative); Resp Syncy Virus RNA Qual PCR POSITIVE (Negative); SARS COV2 PCR INHOUSE NEGATIVE (Negative)
== END 2024-04-14 11:21 | disposition home or self-care (01) ==
LOC: HO.LAB 11:20
PROVIDERS: PCP Internal Medicine; Visit Provider Nurse Practitioner Family
DX: J06.9 Acute upper respiratory infection, unspecified (principal); R09.89 Other specified symptoms and signs involving the circulatory and respiratory systems
CPT/HCPCS: 0241U; 99212

== ENCOUNTER 2024-04-14 11:20 | Outpatient (AMB) | payer MEDICARE, SELFPAY ==
--- NOTE | 2024-04-14 11:25 | AM.OFFWIN_ITS ---
Intake Vital Signs 04/14/24 11:26 Weight 96 lb BP 90/62 Blood Pressure Location Lt brachial Position Sitting Pulse 107 H Pulse Source Pulse Oximeter Temp 98.1 F Temp Source Oral Pulse Oximetry (%) 96 Oxygen Delivery Method Room Air Intake Visit Reasons: EP-fever, chills, lwer bck rt side pain Intake Note: Patient here for headache, chills, fevers and cough that has been present since sunday night. Patient Tobacco Use Status: Never used Tobacco Allergies No Known Allergies Allergy (Verified 04/14/24 11:27) Do you need a note to return to daycare/school/sports/work: No HPI HPI Comments History of Present Illness Details 73 y/o female patient who presents to [facility] walk in clinic with c/o URI symptoms since Sunday. Pt c/o fevers, chills, and cough. PFSH Medical History Bronchiectasis Tachycardia Hiatal hernia Pneumonia Hematuria History of shingles History of pneumonia Hx of breast cancer Hyperlipidemia CAD (coronary artery disease) Surgical History History of bronchoscopy Hx of colonoscopy History of esophagogastroduodenoscopy (EGD) History of partial mastectomy of right breast Social History Are you a primary healthcare administrator to a significant other at home: No Do you presently have visiting nurse or other home services: No Patient Tobacco Use Status: Never used Tobacco Review of Systems Const All systems reviewed & are unremarkable except as noted in HPI and below Physical Exam Vital Signs: Last Vital Signs Temp 98.1 F 04/14/24 11:26 Pulse 107 H 04/14/24 11:26 BP 90/62 04/14/24 11:26 Pulse Ox 96 04/14/24 11:26 Oxygen Delivery Method Room Air 04/14/24 11:26 Const General: cooperative and no acute distress Nutritional Appearance: underweight Orientation/consciousness: patient oriented x3 HEENT Head: Yes normocephalic Ears: external ears normal and TM's normal bilaterally General nose exam: Normal external nose present and Nasal discharge present Face and sinus: Yes sinuses nontender Mouth: moist mucous membranes Throat: Yes posterior oropharynx normal Resp Effort & Inspection: normal respiratory effort and able to speak in complete sentences Auscultation: clear to auscultation bilaterally, no crackles, no rales, no rhonchi and no wheezes Cardio Heart sounds: S1 normal heart sound present and S2 normal heart sound present Neuro General: patient oriented x3, gait normal and moves all extremities Psych Speech and movement: Normal speech and movement present Assessment & Plan Assessment & Plan (1) Acute respiratory disease: Code(s): J06.9 - Acute upper respiratory infection, unspecified Plan: Ordered SARs Acetaminophen for fever and pain relief OTC cough remedies. Orders: Orders SARS-CoV2/FLU/RSV Today R09.89 - Other specified symptoms and signs involving the circulatory and respiratory systems Medications: New acetaminophen 1,000 mg (2 x 500 mg) PO Q6H PRN 60 caps 0RF pain J06.9 - Acute upper respiratory infection, unspecified benzonatate 100 mg PO TID 90 caps 0RF J06.9 - Acute upper respiratory infection, unspecified Coding Level of Care Code Est Pt Level 3 (09158) Diagnoses Acute respiratory disease J06.9 Time Spent (min) 15
[2024-04-14 11:26] VITALS: BP 90/62; PULSE 107; TEMP 36.7; O2SAT 96
== END 2024-04-14 11:41 | disposition home or self-care (01) ==
PROVIDERS: PCP Internal Medicine; Visit Provider Nurse Practitioner Family
DX: J06.9 Acute upper respiratory infection, unspecified (principal)

== ENCOUNTER → 2024-06-06 07:57 | Outpatient (REF) | payer MEDICARE, SELFPAY ==
--- NOTE | 2024-06-06 08:00 | CA_ITS ---
Transthoracic Echocardiogram Patient (Last, First, Middle): Viviana Irvin E Gender: Female Date of : 1950 Age: 73 Procedure Date: 06/06/2024 Procedure Type: Transthoracic Echocardiogram Location: OP Height: 162.56 cm Weight: 42.18 kg BSA: 1.41 m2 Heart Rate: 79 bpm BP: 90 / 50 mmHg Mortgage Loan Assistant: MATTHEW Referring MD: Tee Ramirez MD Symptoms: EVANS R06.09 Study Quality: Adequate Conclusions: - The left ventricular systolic function is mildly decreased. The visually estimated ejection fraction is between 45-50%. - Myxomatous tricuspid valve is noted. There is mild to moderate tricuspid valve regurgitation. - There is a small pericardial effusion. Findings Left Ventricle Normal left ventricular cavity size. There is normal left ventricular wall thickness. The left ventricular systolic function is mildly decreased. The visually estimated ejection fraction is between 45-50%. There is no evidence of regional wall motion abnormalities. Diastolic function is normal for age. Right Ventricle Normal right ventricular cavity size and systolic function. Atria The left atrium is normal in size. The right atrium is mildly dilated. Aortic Valve There is a normal trileaflet aortic valve. There is no aortic valve stenosis. There is trace (trivial) aortic valve regurgitation. Mitral Valve There is mild anterior mitral leaflet thickening. There is no mitral valve regurgitation. There is no mitral valve stenosis. Pulmonic Valve The pulmonic valve is likely normal. Tricuspid Valve Myxomatous tricuspid valve is noted. There is mild to moderate tricuspid valve regurgitation. Underestimation possible. Great Vessels The asc aorta and aortic arch are normal in size. Venous The inferior vena cava is normal in size and collapses greater than 50% with inspiration. There is evidence of a dilated coronary sinus. Pericardium/Pleural There is a small pericardial effusion. Prior Study Comparison Changes noted compared to prior study dated: 02/06/2023. LVEF slightly lower than prior study. Measurements 2D Linear Measurements IVSd: 0.55 0.6-0.9/0.6-1.0 cm LVIDd: 3.83 3.9-5.3/4.2-5.9 cm LVIDd Index: 2.72 2.4-3.2/2.2-3.1 cm/m2 LVIDs: 2.58 2.0-3.6 cm LVPWd: 0.93 0.7-1.1 cm LA Diam: 2.30 2.7-3.8/3.0-4.0 cm LAIDs Index: 1.63 1.5-2.3 cm/m2 LV Mass: 97.11 67-162/88-224 g LV Mass Index: 68.87 43-95/49-115 g/m2 LVOT Diam: 2.00 3.0+(-)1.3 cm 2D Systolic Function EF 4C: 46.70 >55% EF 2C: 71.00 >55% EF BiP: 60.50 >55% Mitral Valve MV Pk E: 0.75 MV PK A: 0.66 MV Decel Time: 202.00 E/A: 1.10 E'Lateral: 8.59 E'Medial: 5.22 E/E' Med: 14.30 E/E' Lat: 8.70 PHT: 59.00 MVA PHT: 3.73 Decel Taylor: 3.69 Aortic Valve AoV Pk Mauricio: 1.03 AoV Mn Mauricio: 0.78 AoV VTI: 0.22 AoV Pk Grad: 4.00 Aov Mn Grad: 3.00 NORA Cont.VTI: 2.21 LVOT LVOT Pk Mauricio: 0.77 LVOT Mn Mauricio: 0.55 LVOT VTI: 0.15 LVOT Pk Grad: 2.00 LVOT Mn Grad: 1.00 LVOT Diam: 2.00 LVOT Area: 3.14 Diastolic Function MV Pk E: 0.75 MV Pk A: 0.66 E/A: 1.10 E'Medial: 5.22 E/E' Med: 14.30 E' Laterial: 8.59 E/E' Lat: 8.70 Right Ventricle TAPSE (mm): 19.30 TVS' Mauricio: 12.30 Tricuspid Valve TR Pk Mauricio: 2.43 TR Pk Grad: 24.00 RA Press: 3.00 RVSP: 27.00 Great Vessels Aorta Sinus of Valsalva: 3.30 2.0-3.5 cm Ao Asc: 3.10 2.1-3.4 cm Ao Arch: 2.70 Pulmonary Valve PV Pk Mauricio: 0.79 Peak PV Grad: 2.00 Updated in Other Vendor System with Status of Final Chetan Cedeño MD electronically signed on 06/07/2024 12:37:06 PM with status of Final
--- OUTSIDE RECORDS SUMMARY | 2024-06-06 08:00 | XMS_ITS | Patient Health Record ---
Author Organization [facility] Address [address] [place] [address] Care Team Providers Care Upholstery Instructor Name Role Phone Tee Ramirez MD Primary Care Provider Harvey Killian Unavailable [phone] Allergies No Known Allergies Reason For Referral No Information Medications Medication SIG (Take, Route, Frequency, Duration) Notes [...] 1 tablet Orally Once a day Active Immunizations Vaccine Route Administration Date Status Comme nts Influenza Unknown 07/03/2018 Refused Influenza Unknown 08/05/2021 Refused Problems Problem Type SNOMED Code ICD Code Onset Dates Problem Status W/U Status Risk Notes Problem Colon cancer screening (429849301) Colon cancer screening (Z12.11) Active confirmed Problem 381704623 History of adenomatous polyp of colon (Z86.010) Active confirmed Problem Pre-procedure evaluation check (223406760) Encounter for other preprocedural examination (Z01.818) Active confirmed Problem Diverticular disease of colon (088290749) Diverticulosis of large intestine without perforation or abscess without bleeding (K57.30) Active confirmed Problem Abnormal weight loss (755543378) Abnormal weight loss (R63.4) Active confirmed Problem Early satiety (337135916) Early satiety (R68.81) Active confirmed Problem 10439782 Diarrhea, unspecified type (R19.7) Active confirmed Problem 59500561 Lymphocytic colitis (K52.832) Active confirmed Problem 92708415 Change in bowel function (R19.8) Active confirmed Problem Family history of malignant neoplasm of gastrointestinal tract (022806384) Family history of colon cancer in mother (Z80.0) Active confirmed Vital Signs Blood pressure diastolic 00 mm Hg 11/29/2023 Height 63.75 in 11/29/2023 Blood pressure systolic 00 mm Hg 11/29/2023 Weight 92 lbs 11/29/2023 BMI 15.91 kg/m2 11/29/2023 Encounters Encounter Location Date Provider Diagnosis [facility] [place] [address] [place], [place] [phone] 04/02/2024 Harvey Givens Colon cancer screeni ng Z12.11 ; Personal history of colonic polyps Z86.0100 ; Family history of colon cancer Z80.0 ; Diverticulosis of large intestine without perforation or abscess without bleeding K57.30 and Other hemorrhoids K64.8 [facility] [address] [place] [address] 11/29/2023 Harvey Givens Family history of co nahun cancer in mother Z80.0 ; Encounter for other preprocedural examination Z01.818 ; History of adenomatous polyp of colon Z86.010 and Colon cancer screening Z12.11 Assessments Encounter Date Diagnosis (ICD Code) Assessment Notes Treatment Notes Treatment Clinical Notes Section Notes 04/02/2024 Colon cancer screening (ICD-10 - Z12.11) 04/02/2024 Personal history of colonic polyps (ICD-10 - Z86.0100) 11/29/2023 Encounter for other preprocedural examination (ICD-10 - Z01.818) Overall, Irma appears quite well. She is not having any new or worrisome GI complaints. Given her age and excellent clinical appearance, her history of a tubular adenoma removed in the past, her last colonoscopy being over 5 years ago, and a family history of colon cancer in her mother I did recommend a followup colonoscopy for further screening purposes. We did review the rationale for that in regard to colon cancer prevention. Full consent was obtained for this, including risks of bleeding and perforation. The procedure will be done with monitored anesthesia care. She was advised to stop aspirin 3 days before the procedure. Pat was comfortable with this plan. Thank you again for allowing me to participate in Irma's care. I shall continue to keep you advised of her progress. 11/29/2023 Family history of colon cancer in mother (ICD-10 - Z80.0) Stop aspirin for 3 days before the colonoscopy Overall, Pat appears quite well. She is not having any new or worrisome GI complaints. Given her age and excellent clinical appearance, her history of a tubular adenoma removed in the past, her last colonoscopy being over 5 years ago, and a family history of colon cancer in her mother I did recommend a followup colonoscopy for further screening purposes. We did review the rationale for that in regard to colon cancer prevention. Full consent was obtained for this, including risks of bleeding and perforation. The procedure will be done with monitored anesthesia care. She was advised to stop aspirin 3 days before the procedure. Pat was comfortable with this plan. Thank you again for allowing me to participate in Pat's care. I shall continue to keep you advised of her progress. 04/02/2024 Family history of colon cancer (ICD-10 - Z80.0) 11/29/2023 History of adenomatous polyp of colon (ICD-10 - Z86.010) Overall, Pat appears quite well. She is not having any new or worrisome GI complaints. Given her age and excellent clinical appearance, her history of a tubular adenoma removed in the past, her last colonoscopy being over 5 years ago, and a family history of colon cancer in her mother I did recommend a followup colonoscopy for further screening purposes. We did review the rationale for that in regard to colon cancer prevention. Full consent was obtained for this, including risks of bleeding and perforation. The procedure will be done with monitored anesthesia care. She was advised to stop aspirin 3 days before the procedure. Pat was comfortable with this plan. Thank you again for allowing me to participate in Irma's care. I shall continue to keep you advised of her progress. 04/02/2024 Diverticulosis of large intestine without perforation or abscess without bleeding (ICD-10 - K57.30) 11/29/2023 Colon cancer screening (ICD-10 - Z12.11) Overall, Pat appears quite well. She is not having any new or worrisome GI complaints. Given her age and excellent clinical appearance, her history of a tubular adenoma removed in the past, her last colonoscopy being over 5 years ago, and a family history of colon cancer in her mother I did recommend a followup colonoscopy for further screening purposes. We did review the rationale for that in regard to colon cancer prevention. Full consent was obtained for this, including risks of bleeding and perforation. The procedure will be done with monitored anesthesia care. She was advised to stop aspirin 3 days before the procedure. Irma was comfortable with this plan. Thank you again for allowing me to participate in Irma's care. I shall continue to keep you advised of her progress. 04/02/2024 Other hemorrhoids (ICD-10 - K64.8) Plan Of Treatment Future Test Test Name Order Date UPPER GI ENDOSCOPY BALLOOON DILATION OF ESOPH 04/01/2014 COLONOSCOPY 04/01/2014 COLONOSCOPY 07/03/2018 COLONOSCOPY 11/29/2023 Insurance Providers Payer Name Payer Address Payer Phone Subscriber Number Group Number Insured Name Patient Relationship to Insured Coverage Start Date Coverage End Date [facility] [address] [place], [place] [id number] [phone] [id number] ULISES NOYOLA Self - patient is the insured Medical (General) History Medical History History ICD Code Denies NM,DM,CVA,Lung disease,renal dise ase Breast cancer-right side---Lumpectomy, lymph [...] fibrillation--2022--neg. ETT and echocardiogram Bronchiectasis---[facility]oscopy 2022 at [facility]on[facility]--Dr. Fry Surgical History Surgery Date(Month/Year) Right breast lumpectomy as above
--- OUTSIDE RECORDS SUMMARY | 2024-06-06 08:00 | XMS_ITS | Clinical Summary ---
Author Organization [facility] Address [address] [place] [address] Care Team Providers Care Duct Cleaner Name Role Phone Tee Ramirez MD Primary Care Provider [phone] Allergies No known active allergies Medications aspirin 81 mg EC tablet Take 1 tablet (81 mg total) by mouth. Active atorvastatin (LIPITOR) 10 mg tablet Take 1 tablet (10 mg total) by mouth. Active calcium citrate-vitamin D (CITRACAL+D) 315 mg-5 mcg (200 unit) per tablet Take 1 tablet by mouth 2 (two) times a day. Active albuterol 1.25 mg/3 mL nebulizer solution Take 3 mL (1.25 mg total) by nebulization every 6 (six) hours as needed for wheezing. Active calcium citrate malate-vit D3 250 mg-2.5 mcg (100 unit) tablet Take 4 tablets by mouth daily. 8 Active cholecalciferol (VITAMIN D-3) 50 mcg (2,000 unit) capsule Take 2,000 Units by mouth daily. Active dilTIAZem (CARDIZEM) 60 mg immediate release tablet Take 1 tablet (60 mg total) by mouth 2 (two) times a day. Active sodium chloride 0.9 % nebulizer solution Take 3 mL by nebulization as needed. Active Active Problems Problem Noted Date Diagnosed Date Malignant neoplasm of right breast in female, estrogen receptor positive 04/26/2022 Immunizations Name Administration Dates Next Due [employer] SARS-CoV-2 COVID -19, vector-nr, rS-Ad26, preservative free 06/05/2020 Surgical History Surgery Date Site/Laterality Comments BREAST LUMPECTOMY PROCEDURE:BREAST LUMPECTOMY Medical History Medical History Date Comments Breast cancer (CMS/HCC) DX:Breas t cancer (HCC);COMMENT:right-sided stage l TicNo invasive ductal breast cancer Cardiomyopathy (CMS/HCC) DX:Card iomyopathy (HCC) Social History Tobacco Use Types Packs/Day Years Used Date Smoking Tobacco: Never Smokeless Tobacco: Never Alcohol Use Standard Drinks/Week Comments Yes 0 (1 standard drink = 0.6 oz pur e alcohol) Comments Unknown Sex and Gender Information Value Date Recorded Sex Assigned at Not on file Legal Sex Female 1:59 AM EST Gender Identity Not on file Sexual Orientation Not on file Obstetrics History Last Filed Vital Signs Vital Sign Reading Time Taken Comments Blood Pressure 91/49 06/13/2023 9:07 AM EDT Pulse 75 06/13/2023 9:07 AM EDT Temperature - - Respiratory Rate - - Oxygen Saturation - - Inhaled Oxygen Concentration - - Weight 44.2 kg (97 lb 6.4 oz) 06/10/2021 9:03 AM EDT Height 162.1 cm (5' 3.8 ) 06/10/2021 9:03 AM EDT Body Mass Index 16.82 06/10/2021 9:03 AM EDT Plan of Treatment Upcoming Encounters Date Type Department Care Team (Late st Contact Info) Description 06/12/2024 9:00 AM EDT Office Visit [facility] Hematology Oncology [address] [place] [address] Sandip Yi MD [address] [place] [address] Health Maintenance Due Date Last Done Comments Breast Cancer Screening 1950 DTaP,Tdap,and Td Vaccines (1 - Tdap) 1968 Pneumococcal Vaccine: 50+ Ye ars (1 of 2 - PCV) 1968 Zoster Vaccines (1 of 2) 1968 COVID-19 Vaccine (2 - Jansse n risk series) 07/03/2020 06/05/2020 Colorectal Cancer Screening: Colonoscopy 03/03/2022 Depression Screening 03/03/2022 Falls Risk Assessment 03/03/2022 Hepatitis C Screening 03/03/2022 Medicare Annual Wellness Visit 03/03/2022 Osteoporosis Screening (Bone Density Screening) 03/03/2022 Social Influencers of Health Screening 03/03/2022 Influenza Vaccine (#1) 2023 RSV Immunization Patients 60 + Years Old (1 - 1-dose 75+ series) 2024 Cholesterol Screening (Lipid Panel) 05/10/2028 05/10/2023 HIB Vaccines Aged Out No longer eligi ble based on patient's age to complete this topic HPV Vaccines Aged Out No longer eligi ble based on patient's age to complete this topic Hepatitis A Vaccines Aged Out No long er eligible based on patient's age to complete this topic Hepatitis B Vaccines Aged Out No long er eligible based on patient's age to complete this topic IPV Vaccines Aged Out No longer eligi ble based on patient's age to complete this topic MMR Vaccines Aged Out No longer eligi ble based on patient's age to complete this topic Meningococcal ACWY Vaccine Aged Out N o longer eligible based on patient's age to complete this topic Meningococcal B Vacine Aged Out No lo nger eligible based on patient's age to complete this topic RSV Immunization Patients Un marguerite 20 months Aged Out No longer eligible b ased on patient's age to complete this topic Varicella Vaccines Aged Out No longer eligible based on patient's age to complete this topic Procedures Procedure Name Priority Date/Time Associated Diagnosis Comments LIPID PANEL Routine 05/10/2023 from Last 3 Months or Most Recently Relevant to Health Maintenance Results * Lipid panel (05/10/2023) LDL/HDL Ratio 0 Comment:no interpretation, a bstracted Triglycerides 0 mg/dL Comment:no interpretation, a bstracted Cholesterol 0 mg/dL Comment:no interpretation, a bstracted HDL 0 mg/dL Comment:no interpretation, a bstracted LDL Cholesterol 0 mg/dL Comment:no interpretation, a bstracted Blood Venous blood specimen / Unknown Historical Provider LAB BLOOD ORDERABLES Karen l Result from Last 3 Months or Most Recently Relevant to Health Maintenance Insurance [phone] (Home) [address] [place] [address] [employer] - [place] MEDICARE ADVANTAGE Care Teams Duct Cleaner Relationship Specialty Start Date End Date Tee Ramirez MD [address] [place] [id number] PCP - General Internal Medicine 03/07/17
--- OUTSIDE RECORDS SUMMARY | 2024-06-06 08:00 | XMS_ITS ---
Author Organization [facility] Address [address] [place] [address] Care Team Providers Care Slot Machine Mechanic Name Role Phone Tee Ramirez MD Primary Care Provider Unavaila Harvey Blackman Unavailable [phone] REASON FOR VISIT screening,hx polyps,fam hx colon ca Problems Problem Type SNOMED Code ICD Code Onset Dates Problem Status W/U Status Risk Notes Problem Diverticular disease of colon (666599046) Diverticulosis of large intestine without perforation or abscess without bleeding (K57.30) Active confirmed Encounters Encounter Location Date Provider Diagnosis [facility] [address] [place] [phone] 04/02/2024 Harvey Givens Colon cancer scree jerald [...] Information Progress Notes * ULISES NOYOLA EDOB:1950 (73 yo F)Acc No.[id number]:04/02/2024 COLON WITH MAC Patient:?ULISES NOYOLA Provider:?Harvey Givens MD :1950???Age:73 Y???Sex:Female D ate:04/02/2024 [facility] Pcp:Tee Ramirez MD Subjective: * Chief Complaints: * ???1. Screening,hx polyps,fa m hx colon ca. * Medical History:? Objective: * Vitals:? Assessment: * Assessment: 1.?Colon cancer screening - Z12.11 (Primary)???2.?Personal history of colonic polyps - Z86.0100???3.?Family history of colon cancer - Z80.0???4.?Diverticulosis of large intestine without perforation or abscess without bleeding - K57.30???5.?Other hemorrhoids - K64.8??? Plan: * Treatment: * Procedure Codes:?G0105 COLOR EC CANCR SCR; COLNSCPY HI RISK, 0529F INTRVL 3+YRS PTS CLNSCP DOCD, 0528F RCMND FLW-UP 10 YRS DOCD, Modifiers: 1P * * The named appointment provid er may or may not be the originator of this progress note, and it is not deemed complete until electronically signed by the appointment provider. Sign off status: Pending * Provider:?Harvey Givens MD Date:? 025 Generated for Noemy rinaldi/Ariel/eTransmitting on:?06/06/2024 07:59 AM EDT
--- OUTSIDE RECORDS SUMMARY | 2024-06-06 08:00 | XMS_ITS | Clinical Summary ---
Author Organization [facility] Address [address] [place] [address] Care Team Providers Care Architectural Drafter Name Role Phone Tee Ramirez MD Primary Care Provider [phone] Allergies No known active allergies Medications Medication Sig Dispensed Refills Start Date End Date Status aspirin EC 81 MG tablet Take 1 tablet (81 mg total) by mouth daily. 0 Active atorvastatin (LIPITOR) tablet 10 mg Take 1 tablet (10 mg total) by mouth every evening. 0 Active calcium citrate-vitamin D (CITRACAL+D) 315-200 MG-UNIT per tablet Take 1 tablet by mouth 2 (two) times a day. 0 Active Cholecalciferol 50 MCG (2000 UT) CAPS Take 2,000 Units by mouth daily. 0 Active Calcium Citrate-Vitamin D (calcium-vitamin D) 250-100 MG-UNIT per tablet Take 4 tablets by mouth daily. 0 07/27/2017 Active dilTIAZem (CARDIZEM) 60 MG tablet Take 1 tablet (60 mg total) by mouth 2 (two) times a day. 0 Active albuterol (ACCUNEB) 1.25 MG/3ML nebulizer solution Take 3 mL (1.25 mg total) by nebulization every 6 (six) hours as needed for wheezing. 0 Active sodium chloride 0.9 % nebulizer solution Take 3 mL by nebulization as needed. 0 Active Active Problems Problem Noted Date Diagnosed Date Malignant neoplasm of right breast in female, estrogen receptor positive 03/09/2017 Social History Tobacco Use Types Packs/Day Years Used Date Smoking Tobacco: Never Smokeless Tobacco: Never Alcohol Use Standard Drinks/Week Comments Yes 0 (1 standard drink = 0.6 oz pur e alcohol) daily Sex and Gender Information Value Date Recorded Sex Assigned at Not on file Gender Identity Not on file Sexual Orientation Not on file Job Start Date Occupation Industry Not on file Not on file Not on file Last Filed Vital Signs Vital Sign Reading Time Taken Comments Blood Pressure 91/49 06/13/2023 9:07 AM EDT Pulse 75 06/13/2023 9:07 AM EDT Temperature 36.3 ??C (97.3 ??F) 06/13/2023 9:07 AM ED T Respiratory Rate - - Oxygen Saturation 100% 06/13/2023 9:07 AM EDT Inhaled Oxygen Concentration - - Weight 44.2 kg (97 lb 6.4 oz) 06/10/2021 9:03 AM EDT Height 162.1 cm (5' 3.8 ) 06/10/2021 9:03 AM EDT Body Mass Index 16.82 06/10/2021 9:03 AM EDT Plan of Treatment Health Maintenance Due Date Last Done Comments Hepatitis C Screening 1950 Depression Screening 1961 Preventative Health Evaluation 09/14/1967 Shingrix-Zoster Vaccine (1 of 2) 1968 Hepatitis B Vaccines (2 of 3 - 19+ 3-dose series) 04/23/1991 03/26/1991 Colon Cancer Screening (Colonoscopy) 1994 Breast Cancer Screening (Mammogram) 09/14/1999 Fall Risk Assessment 2014 Osteoporosis Screening (DEXA Scan) 2014 DTap / Tdap / Td (2 - Td or Tdap) 11/24/2017 11/25/2007 COVID-19 Vaccine (2 - Payal risk series) 07/03/2020 06/05/2020 Influenza Vaccine (#1) 2023 RSV Adult > 60+ Yrs or (1 - 1-dose 75+ series) 2024 Pneumococcal Vaccine Completed 04/21/2021, 05/30/2018, 04/26/2007, Additional history exists RSV Ped < 20 months Aged Out No longe r eligible based on patient's age to complete this topic Care Teams Architectural Drafter Relationship Specialty Start Date End Date Tee Ramirez MD [address] [place] [address] PCP - General Internal Medicine 03/07/17
--- OUTSIDE RECORDS SUMMARY | 2024-06-06 08:00 | XMS_ITS ---
Author Organization [facility] Address [address] [place] [address] Care Team Providers Care Field Crew Chief Name Role Phone Tee Ramirez MD Primary Care Provider Harvey Killian [phone] Allergies No Known Allergies REASON FOR VISIT Patient presents today for a colon screening Medications Medication SIG (Take, Route, Frequency, Duration) [...] 1 tablet Orally Once a day Active Problems Problem Type SNOMED Code ICD Code Onset Dates Problem Status W/U Status Risk Notes Problem Family history of malignant neoplasm of gastrointestinal tract (018418697) Family history of colon cancer in mother (Z80.0) Active confirmed Problem Colon cancer screening (899712934) Colon cancer screening (Z12.11) Active confirmed Problem Pre-procedure evaluation check (892036257) Encounter for other preprocedural examination (Z01.818) Active confirmed Vital Signs Blood pressure systolic 00 mm Hg 11/29/19 24 Blood pressure diastolic 00 mm Hg 024 Height 63.75 in 11/29/2023 Weight 92 lbs 11/29/2023 BMI 15.91 kg/m2 11/29/2023 Encounters Encounter Location Date Provider Diagnosis [facility] [address] [place] [address] 11/29/2023 Harvey Givens Family history of co nahun cancer in mother Z80.0 ; Encounter for other preprocedural examination Z01.818 ; History of adenomatous polyp of colon Z86.010 and Colon cancer screening Z12.11 Assessments Encounter Date Diagnosis (ICD Code) Assessment Notes Treatment Notes Treatment Clinical Notes Section Notes 11/29/2023 Family history of colon cancer [...] keep you advised of her progress. 11/29/2023 Encounter for other preprocedural examination (ICD-10 - Z01.818) Overall, Pat appears quite well. She is [...] keep you advised of her progress. 11/29/2023 History of adenomatous polyp of colon [...] keep you advised of her progress. 11/29/2023 Colon cancer screening (ICD-10 - Z12.11) Overall, Irma appears quite well. She is [...] to keep you advised of her progress. Plan Of Treatment Treatment Notes Assessment Notes Family history of colon cancer in mother Stop aspirin for 3 days before the colonoscopy Future Test Test Name Order Date COLONOSCOPY 11/29/2023 Next Appt Details Follow Up: prn, Reason: Progress Notes * ULISES NOYOLA EDOB:1950 (73 yo F)Acc No.[id number]:11/29/2023 Progress Notes Patient:?ULISES NOYOLA Provider:?Harvey Givens MD :1950???Age:73 Y???Sex:Female D ate:11/29/2023 [id number] Pcp:Tee Ramirez MD Subjective: * Chief Complaints: * ???Patient presents today fo r a colon screening * HPI: ???incontinence:? I saw Irma in the office today for evaluation of her personal history of a tubular adenoma of the colon, family history of colon cancer, and need for colorectal cancer screening. ?I last saw Irma in November of 2021. Since that time she reports that she's been feeling well from a GI standpoint. She enjoys a good appetite, without any significant heartburn or dysphagia. Her bowel movements are regular and without any sign of bleeding. She has not had a recurrence of her diarrhea that she had back in 2018 when she was diagnosed with some underlying microscopic colitis. That never required any treatment. She denies any abdominal pain, jaundice, nor unintentional weight loss. Her family history is notable for mother having had colon cancer in her 80s. * ROS:?General/Constitutional:?Change in appetite?denies.?Chills?denies.?Fatigue?denies.?Ophthalmologic:?Comments?all negative.?ENT:?Comments?all negative.?Respiratory:?hemoptysis?denies.?Cough?denies.?Cardiovascular:?Chest pain?denies.?Orthopnea?denies.?Gastrointestinal:?Comments?See HPI for details.?Genitourinary:?Hematuria?denies.?Dysuria?denies.?Musculoskeletal:?Painful joints?denies.?Weakness?denies.?Skin:?Itching?denies.?Rash?denies.?Neurologic:?Headache?denies.?Seizures?denies.?Psychiatric:?Comments?all negative.? * Medical History:? * Surgical History:?Right mayda st lumpectomy as above * Hospitalization/Major Diagno stic Procedure:?No Hospitalization History. * Family History:?Father: dece ased.?Mother: , colon cancer in her 80's, diagnosed with HTN (hypertension), Colon cancer.?Siblings: alive, diagnosed with Colon polyps.? Brother with ulcerative colitis; no celiac disease. * Social History:?Tobacco Use:?Tobacco Use/Smoking?Are you a: nonsmoker.?Drugs/Alcohol:?Alcohol Screen?Points: 4, Interpretation: Positive.?Miscellaneous:?Marital status: single. 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 ???Nonsmoker; 1 glass of wine QD. * Medications:?TakingAspir-81 81 MG Tablet Delayed Release 1 tablet Orally Once a dayCalcium complex 1200 mg tablet 1 tablet Orally Once a dayVitamin D 1000 UNIT Capsule 1 capsule Orally Once a dayLipitor 10 MG Tablet 1 tablet Orally Once a daydilTIAZem HCl ER 60 MG Capsule Extended Release 12 Hour Oral Alendronate Sodium 70 MG Tablet Oral Medication List reviewed and reconciled with the patientTaking Aspir-81 81 MG Tablet Delayed Release 1 tablet Orally Once a dayTaking Calcium complex 1200 mg tablet 1 tablet Orally Once a dayTaking Vitamin D 1000 UNIT Capsule 1 capsule Orally Once a dayTaking Lipitor 10 MG Tablet 1 tablet Orally Once a dayTaking dilTIAZem HCl ER 60 MG Capsule Extended Release 12 Hour Oral Taking Alendronate Sodium 70 MG Tablet Oral Medication List reviewed and reconciled with the patient * Allergies:?N.K.D.A.yes[Aller gies Verified] Objective: * Vitals:?Wt: 92 lbs, Ht: 63.7 5 in, BMI:15.91 Index, BP: 00/00 mm Hg. * Examination: ???General Examination: ?GENERAL APPEARANCE:?pleasant, well nourished, well developed, in no acute distress.?EYES:?sclera non-icteric.?ORAL CAVITY:?mucosa moist.?NECK/THYROID:?no cervical lymphadenopathy, neck supple.?SKIN:?nonjaundiced, no spider angiomata.?HEART:?S1, S2 normal.?LUNGS:?clear to auscultation bilaterally.?ABDOMEN:?normal bowel sounds, no guarding or rigidity, no guarding or rigidity, no masses palpable, soft, nontender, nondistended.?EXTREMITIES:?no edema.?NEUROLOGIC:?alert and oriented.? Assessment: * Assessment: 1.?Encounter for other prepr ocedural examination - Z01.818 (Primary)?2.?Family history of colon cancer in mother - Z80.0?3.?History of adenomatous polyp of colon - Z86.010?4.?Colon cancer screening - Z12.11? Overall, Irma appears quite w ell. She is not having any new or [...] to keep you advised of her progress. Plan: * Treatment: Notes: Stop aspirin for 3 days before the colonoscopy??2.?History of adenomatous polyp of colon?Procedure: COLONOSCOPY (Ordered for 11/29/2023)* with MACsched for 04/02/24 at 7:30 ammiralax 3.?Colon cancer screening?Procedure: COLONOSCOPY (Ordered for 11/29/2023)* with MACsched for 04/02/24 at 7:30 ammiralax * Procedure Codes:?3017F COLOR ECTAL CA SCREEN DOC [id number] TOBACCO NON-QTGVP7040 BP SCR NOT PRFRM REC REASON NOS * Preventive Medicine:? ??Counseling:?Care goal follow-up plan:?Below Normal BMI Follow-up?Lifestyle education regarding diet.? ??Urinary Incontinence:?Urinary Incontinence?Assessment:?Absent,?Plan of care documented:?No, reason not specified.? ??Screenings:?Fall Risk Screening?Fall Risk Assessment:?No falls in the past year,?Assessment:?Not performed, no reason specified.? * Follow Up:?prn * * Sign off status: Completed true * Provider:?Harvey Givens MD Date:? 024 Generated for Noemy rinaldi/Ariel/eTransmitting on:?06/06/2024 07:59 AM EDT History and Physical Notes * HPI (History of Present Illness) Category Sub-Category Detail Notes Category Not es incontinence I saw Irma in the office today for evaluation of her personal history of a tubular adenoma of the colon, family history of colon cancer, and need for colorectal cancer screening. I last saw Irma in November of 2021. Since that time she reports that she's been feeling well from a GI standpoint. She enjoys a good appetite, without any significant heartburn or dysphagia. Her bowel movements are regular and without any sign of bleeding. She has not had a recurrence of her diarrhea that she had back in 2018 when she was diagnosed with some underlying microscopic colitis. That never required any treatment. She denies any abdominal pain, jaundice, nor unintentional weight loss. Her family history is notable for mother having had colon cancer in her 80s. Examination Category Sub-Category Detail Notes Category Not es General Examination GENERAL APPEARANCE: pleasant , well [...]
== END ==
LOC: HO.CARD 07:57
PROVIDERS: PCP Internal Medicine; Visit Provider Internal Medicine
DX: R06.09 Other forms of dyspnea (principal)
CPT/HCPCS: 93306

== ENCOUNTER → 2024-06-06 08:00 | Outpatient (BNV) | payer MEDICARE, SELFPAY | PROVIDERS: PCP Internal Medicine; Visit Provider Internal Medicine | DX: I36.1 Nonrheumatic tricuspid (valve) insufficiency (principal); I36.8 Other nonrheumatic tricuspid valve disorders; I31.39 Other pericardial effusion (noninflammatory) | CPT/HCPCS: 93306 ==

== ENCOUNTER 2024-07-15 12:03 | Outpatient (REF) | payer MEDICARE, SELFPAY ==
--- OUTSIDE RECORDS SUMMARY | 2024-07-15 14:23 | XMS_ITS | Clinical Summary ---
Author Organization [facility] Address [address] [place] [address] Phone Care Team Providers Care Jewel Stripper Name Role Phone Tee Ramirez MD Primary Care Provider [phone] Allergies No known active allergies Medications aspirin [...] right breast in female, estrogen receptor positive (CMS/HCC V24, CMS/HCC V28) 04/26/2022 Immunizations Name Administration Dates Next Due [employer] SARS-CoV-2 COVID -19, vector-nr, rS-Ad26, preservative free 06/05/2020 Surgical History Surgery Date Site/Laterality Comments BREAST LUMPECTOMY PROCEDURE:BREAST LUMPECTOMY Medical History Medical History Date Comments Breast cancer ([facility] V24, [facility] V28) DX:Breast cancer (HCC);COMMENT:right-sided stage l TicNo invasive ductal breast cancer Cardiomyopathy ([facility] V24, [facility] V28) DX:Cardiomyopathy (HCC) Social History Tobacco Use Types Packs/Day [...] Care Team (Late st Contact Info) Description 07/17/2024 9:15 AM EDT Office Visit [facility] Hematology Oncology [address] [place] [address] Sandip Yi MD [address] [place] [address] Health Maintenance Due Date Last [...] 03/03/2022 Social Influencers of Health Screening 03/03/2022 RSV Immunization Adult Patie nts (1 - 1-dose 75+ series) 2024 Influenza Vaccine (Season Ended) 2024 Cholesterol Screening (Lipid Panel) 05/10/2028 05/10/2023 [...] age to complete this topic Meningococcal B Vaccine Aged Out No l onger eligible based on patient's age to complete this topic RSV Immunization Patients Un marguerite 20 months Aged Out No longer eligible b ased on patient's age to complete this topic Varicella Vaccines Aged Out No longer eligible based on patient's age to complete this topic Procedures Procedure Name Priority Date/Time Associated Diagnosis Comments HISTORICAL IMAGING SCAN RESULT 06/12/2024 LIPID PANEL Routine 05/10/2023 from Last 3 Months or Most Recently Relevant to Health Maintenance Results * HISTORICAL IMAGING SCAN RESULT (06/12/2024) Anatomical Region Laterality Modality Ultrasound us Provider Onbase MD ARCHER US PROCEDURES Final Resul t * Lipid panel (05/10/2023) LDL/HDL Ratio 0 Comment:no interpretation, a bstracted Triglycerides 0 mg/dL Comment:no interpretation, a bstracted Cholesterol 0 mg/dL Comment:no interpretation, a bstracted HDL 0 mg/dL Comment:no interpretation, a bstracted LDL Cholesterol 0 mg/dL Comment:no interpretation, a bstracted Blood Venous blood specimen / Unknown us Historical Provider LAB BLOOD ORDERABLES Karen l Result from Last 3 Months or Most Recently Relevant to Health Maintenance Insurance [employer] - [place] MEDICARE ADVANTAGE Care Teams Jewel Stripper Relationship Specialty Start Date End Date Tee Ramirez MD [address] [place] [address] PCP - General Internal Medicine 03/07/17
--- OUTSIDE RECORDS SUMMARY | 2024-07-15 14:23 | XMS_ITS ---
Author Organization [facility] Address [address] [place] [address] Care Team Providers Care Wearing Apparel Folder Name Role Phone Tee Ramirez MD Primary Care Provider Harvey Killian [phone] Allergies No Known Allergies REASON FOR VISIT [...] history of malignant neoplasm of gastrointestinal tract (413227729) Family history of colon cancer in mother (Z80.0) Active confirmed Problem Colon cancer screening (912821284) Colon cancer screening (Z12.11) Active confirmed Problem Pre-procedure evaluation check (138882585) Encounter for other preprocedural examination (Z01.818) Active confirmed Vital Signs Blood pressure systolic 00 mm Hg 11/29/19 24 Blood pressure diastolic 00 mm Hg 024 Height 63.75 in 11/29/2023 Weight 92 lbs 11/29/2023 BMI 15.91 kg/m2 11/29/2023 Encounters Encounter Location Date Provider Diagnosis [facility] [address] [place] [address] 11/29/2023 Harvey Givens Family history of co [...] * ULISES NOYOLA EDOB:1950 (73 yo F)Acc No.[id number]:11/29/2023 Progress Notes Patient:?ULISES NOYOLA Provider:?Harvey Givens MD :1950???Age:73 Y???Sex:Female D ate:11/29/2023 Address[id number] Pcp:Tee Ramirez MD Subjective: * Chief Complaints: [...] Procedure Codes:?3017F COLOR ECTAL CA SCREEN DOC [id number] TOBACCO NON-IABPG9999 BP SCR NOT PRFRM REC REASON NOS * Preventive Medicine:? ??Counseling:?Care goal follow-up plan:?Below Normal BMI Follow-up?Lifestyle education regarding diet.? ??Urinary Incontinence:?Urinary Incontinence?Assessment:?Absent,?Plan of care documented:?No, reason not specified.? ??Screenings:?Fall Risk Screening?Fall Risk Assessment:?No falls in the past year,?Assessment:?Not performed, no reason specified.? * Follow Up:?prn * * Sign off status: Completed true * Provider:?Harvey Givens MD Date:? 024 Generated for Noemy rinaldi/Ariel/eTransmitting on:?07/15/2024 02:23 PM EDT History and Physical Notes * HPI [...]
--- OUTSIDE RECORDS SUMMARY | 2024-07-15 14:23 | XMS_ITS ---
Author Organization [facility] Address [address] [place] [address] Care Team Providers Care Grocery Store Manager Name Role Phone Tee Ramirez MD Primary Care Provider Unavaila Harvey Blackman Unavailable [phone] REASON FOR VISIT screening,hx polyps,fam hx colon ca Problems Problem Type SNOMED Code ICD Code Onset Dates Problem Status W/U Status Risk Notes Problem Diverticular disease of colon (661353375) Diverticulosis of large intestine without perforation or abscess without bleeding (K57.30) Active confirmed Encounters Encounter Location Date Provider Diagnosis [facility] [address] [place] [phone] 04/02/2024 Harvey Givens Colon cancer scree jerald [...] * ULISES NOYOLA EDOB:1950 (73 yo F)Acc No.[id number]:04/02/2024 COLON WITH MAC Patient:?ULISES NOYOLA Provider:?Harvey Givens MD :1950???Age:73 Y???Sex:Female D ate:04/02/2024 [facility] Pcp:Tee Ramirez MD Subjective: * Chief Complaints: [...] MD Date:? 025 Generated for Noemy rinaldi/Ariel/eTransmitting on:?07/15/2024 02:23 PM EDT
--- OUTSIDE RECORDS SUMMARY | 2024-07-15 14:23 | XMS_ITS | Clinical Summary ---
Author Organization [facility] Address [address] [place] [address] Care Team Providers Care Metallurgist Process Name Role Phone Tee Ramirez MD Primary Care Provider [phone] Allergies No known active allergies Medications Medication [...] age to complete this topic Care Teams Metallurgist Process Relationship Specialty Start Date End Date Tee Ramirez MD [address] [facility] [address] PCP - General Internal Medicine 03/07/17
--- OUTSIDE RECORDS SUMMARY | 2024-07-15 14:24 | XMS_ITS | Patient Health Record ---
Author Organization [facility] Address [address] [place] [address] Care Team Providers Care Backend Python Developer Name Role Phone Tee Ramirez MD Primary Care Provider Harvey Killian Unavailable [phone] Allergies No Known Allergies Reason For Referral [...] Status Risk Notes Problem Colon cancer screening (909011233) Colon cancer screening (Z12.11) Active confirmed Problem 838386390 History of adenomatous polyp of colon (Z86.010) Active confirmed Problem Pre-procedure evaluation check (343327237) Encounter for other preprocedural examination (Z01.818) Active confirmed Problem Diverticular disease of colon (274147758) Diverticulosis of large intestine without perforation or abscess without bleeding (K57.30) Active confirmed Problem Abnormal weight loss (372900925) Abnormal weight loss (R63.4) Active confirmed Problem Early satiety (605249814) Early satiety (R68.81) Active confirmed Problem 38102648 Diarrhea, unspecified type (R19.7) Active confirmed Problem 85765500 Lymphocytic colitis (K52.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) Active confirmed Problem 00549761 Change in bowel function (R19.8) Active confirmed Problem Family history of malignant neoplasm of gastrointestinal tract (079906572) Family history of colon cancer in mother (Z80.0) Active confirmed Vital Signs Blood pressure diastolic 00 mm Hg 11/29/2023 Height 63.75 in 11/29/2023 Blood pressure systolic 00 mm Hg 11/29/2023 Weight 92 lbs 11/29/2023 BMI 15.91 kg/m2 11/29/2023 Encounters Encounter Location Date Provider Diagnosis [facility] [place] Outpatient [address] [place], [place] [id number] 04/02/2024 Harvey Givens Colon cancer screeni ng Z12.11 ; Personal history of colonic polyps Z86.0100 ; Family history of colon cancer Z80.0 ; Diverticulosis of large intestine without perforation or abscess without bleeding K57.30 and Other hemorrhoids K64.[address] [facility] [address] [place] [address] 11/29/2023 Harvey Givens Family history of co [...] Insured Coverage Start Date Coverage End Date [facility] [address] [place], [place] [id number] [phone] [id number] ULISES NOYOLA Self - patient is the insured Medical (General) History Medical History History ICD Code Denies [place],DM,CVA,Lung disease,renal dise ase Breast cancer-right side---Lumpectomy, lymph [...]
== END 2024-07-15 12:04 | disposition home or self-care (01) ==
LOC: HO.MAMMO 12:03
PROVIDERS: PCP Internal Medicine; Visit Provider Internal Medicine
DX: Z12.31 Encounter for screening mammogram for malignant neoplasm of breast (principal)
CPT/HCPCS: 77063; 77067

== ENCOUNTER → 2024-07-15 12:15 | Outpatient (BNV) | payer MEDICARE, SELFPAY | PROVIDERS: PCP Internal Medicine; Visit Provider Internal Medicine | DX: Z12.31 Encounter for screening mammogram for malignant neoplasm of breast (principal) | CPT/HCPCS: 77063; 77067 ==

== ENCOUNTER 2024-08-11 08:32 | Outpatient (AMB) | payer MEDICARE, SELFPAY ==
--- OUTSIDE RECORDS SUMMARY | 2024-08-11 08:40 | XMS_ITS ---
Author Organization [facility] Address [address] [place] [address] Care Team Providers Care Valuation Manager Name Role Phone Tee Ramirez MD Primary Care Provider Harvey Killian [phone] Allergies No Known Allergies REASON FOR VISIT [...] W/U Status Risk Notes Problem Family history o f colon cancer in mother (Z80.0) Active confirmed Problem Colon cancer screening (748335671) Colon cancer screening (Z12.11) Active confirmed Problem Pre-procedure evaluation check (225533365) Encounter for other preprocedural examination (Z01.818) Active confirmed Vital Signs Blood pressure systolic 00 mm Hg 11/29/19 24 Blood pressure diastolic 00 mm Hg 024 Height 63.75 in 11/29/2023 Weight 92 lbs 11/29/2023 BMI 15.91 kg/m2 11/29/2023 Encounters Encounter Location Date Provider Diagnosis [facility] [address] [place] [phone] 11/29/2023 Harvey Givens Family history of co [...] * ULISES NOYOLA EDOB:1950 (73 yo F)Acc No.[id number]:11/29/2023 Progress Notes Patient:?ULISES NOYOLA Provider:?Harvey Givens MD :1950???Age:73 Y???Sex:Female D ate:11/29/2023 Address[id number] Pcp:Tee Ramirez MD Subjective: * Chief Complaints: [...] Procedure Codes:?3017F COLOR ECTAL CA SCREEN DOC [id number] TOBACCO NON-SOPIW0007 BP SCR NOT PRFRM REC REASON NOS * Preventive Medicine:? ??Counseling:?Care goal follow-up plan:?Below Normal BMI Follow-up?Lifestyle education regarding diet.? ??Urinary Incontinence:?Urinary Incontinence?Assessment:?Absent,?Plan of care documented:?No, reason not specified.? ??Screenings:?Fall Risk Screening?Fall Risk Assessment:?No falls in the past year,?Assessment:?Not performed, no reason specified.? * Follow Up:?prn * * Sign off status: Completed true * Provider:?Harvey Givens MD Date:? 024 Generated for Noemy rinaldi/Ariel/Baudilio on:?08/11/2024 08:40 AM EDT History and Physical Notes * [...]
--- OUTSIDE RECORDS SUMMARY | 2024-08-11 08:40 | XMS_ITS ---
Author Organization [facility] Address [address] [place] [address] Care Team Providers Care Dog Hair Clipper Name Role Phone Tee Ramirez MD Primary Care Provider Unavaila ble Harvey Givens Unavailable [phone] REASON FOR VISIT screening,hx polyps,fam hx colon ca Problems Problem Type SNOMED Code ICD Code Onset Dates Problem Status W/U Status Risk Notes Problem Diverticulosis o f large intestine without perforation or abscess without bleeding (K57.30) Active confirmed Encounters Encounter Location Date Provider Diagnosis [facility] [place] Outpatient [address] [place], [place] [phone] 04/02/2024 Harvey Tosha Colon cancer scree jerald [...] * ULISES NOYOLA EDOB:1950 (73 yo F)Acc No.[id number]:04/02/2024 COLON WITH MAC Patient:ULISES REYES Provider:?Harvey Givens MD :1950???Age:73 Y???Sex:Female D ate:04/02/2024 [facility] Pcp:Tee Ramirez MD Subjective: * Chief Complaints: [...] MD Date:? 025 Generated for Noemy rinaldi/Ariel/eTransmitting on:?08/11/2024 08:40 AM EDT
--- OUTSIDE RECORDS SUMMARY | 2024-08-11 08:41 | XMS_ITS | Patient Health Record ---
Author Organization [facility] Address [address] [place] [address] Care Team Providers Care Industrial Seamstress Name Role Phone Tee Ramirez MD Primary Care Provider Harvey Killian Unavailable [phone] Allergies No Known Allergies Reason For Referral [...] Status Risk Notes Problem Colon cancer screening (017478779) Colon cancer screening (Z12.11) Active confirmed Problem 762208470 History of adenomatous polyp of colon (Z86.010) Active confirmed Problem Pre-procedure evaluation check (076380463) Encounter for other preprocedural examination (Z01.818) Active confirmed Problem Diverticular disease of colon (361252966) Diverticulosis of large intestine without perforation or abscess without bleeding (K57.30) Active confirmed Problem Abnormal weight loss (359353853) Abnormal weight loss (R63.4) Active confirmed Problem Early satiety (320895094) Early satiety (R68.81) Active confirmed Problem 93539747 Diarrhea, unspecified type (R19.7) Active confirmed Problem 20128261 Lymphocytic colitis (K52.832) Active confirmed Problem 79838488 Change in bowel function (R19.8) Active confirmed Problem Family history of malignant neoplasm of gastrointestinal tract (618997319) Family history of colon cancer in mother (Z80.0) Active confirmed Vital Signs Blood pressure diastolic 00 mm Hg 11/29/2023 Height 63.75 in 11/29/2023 Blood pressure systolic 00 mm Hg 11/29/2023 Weight 92 lbs 11/29/2023 BMI 15.91 kg/m2 11/29/2023 Encounters Encounter Location Date Provider Diagnosis [facility] [place] Outpatient [address] [place], [place] [phone] 04/02/2024 Harvey Givens Colon cancer screeni ng Z12.11 ; Personal history of colonic polyps Z86.0100 ; Family history of colon cancer Z80.0 ; Diverticulosis of large intestine without perforation or abscess without bleeding K57.30 and Other hemorrhoids K64.8 [facility] [address] [place] [address] 11/29/2023 Harvey Givens Family history of co [...] Insured Coverage Start Date Coverage End Date [facility] [address] [place], [place] [id number] [phone] [id number] ULISES NOYOLA Self - patient is the insured Medical (General) History Medical History History ICD Code Denies [place],DM,CVA,Lung disease,renal dise ase Breast cancer-right side---Lumpectomy, lymph [...]
--- OUTSIDE RECORDS SUMMARY | 2024-08-11 08:41 | XMS_ITS | Clinical Summary ---
Author Organization [facility] Address [address] [place] [address] Care Team Providers Care Milk Drying Machine Operator Name Role Phone Tee Ramirez MD Primary Care Provider [phone] Allergies No known active allergies Medications Medication [...] age to complete this topic Care Teams Milk Drying Machine Operator Relationship Specialty Start Date End Date Tee Ramirez MD [address] [facility] [place] [address] PCP - General Internal Medicine 03/07/17
--- OUTSIDE RECORDS SUMMARY | 2024-08-11 08:41 | XMS_ITS | Clinical Summary ---
Author Organization [facility] Address [address] [place] [address] Phone Care Team Providers Care Window Installer Name Role Phone Tee Ramirez MD Primary Care Provider [phone] Allergies No known active allergies Medications aspirin [...] 3 mL by nebulization as needed. Active alendronate (FOSAMAX) 70 mg tablet Take 1 tablet (70 mg total) by mouth every 7 (seven) days. Active Anoro Ellipta 62.5-25 mcg/actuation inhaler Inhale 1 puff by mouth daily. 4 Active furosemide (LASIX) 20 mg tablet Take 1 tablet (20 mg total) by mouth 3 (three) times a week. 5 Active Active Problems Problem Noted Date Diagnosed Date Malignant neoplasm of centra l portion of right breast in female, estrogen receptor positive ([facility] V24, [facility] V28) 04/26/2022 Encounters Date Type Department Care Team Description 07/17/2024 9:15 AM EDT Office Visit [facility] Hematology Oncology [address] [place] [address] Sandip Yi MD Malignant neoplasm of central portion of right breast in female, estrogen receptor positive ([facility] V24, [facility] V28) (Primary Dx) from Last 3 Months Immunizations Name Administration Dates Next Due [employer] Mobile SARS-CoV-2 COVID -19, vector-nr, rS-Ad26, preservative free 06/05/2020 Surgical History Surgery Date Site/Laterality Comments BREAST LUMPECTOMY PROCEDURE:BREAST LUMPECTOMY Medical History Medical History Date Comments Breast cancer ([facility] V24, [facility] V28) DX:Breast cancer (HCC);COMMENT:right-sided stage l TicNo invasive ductal breast cancer Cardiomyopathy ([facility] [place]24, [facility] V28) DX:Cardiomyopathy (HCC) Social History Tobacco Use [...] Sign Reading Time Taken Comments Blood Pressure 98/52 07/17/2024 9:17 AM EDT Pulse 103 07/17/2024 9:17 AM EDT Temperature 36.1 ??C (97 ??F) 07/17/2024 9:17 AM EDT Respiratory Rate - - Oxygen Saturation 98% 07/17/2024 9:17 AM EDT Inhaled Oxygen Concentration - - Weight 39.9 kg (88 lb) 07/17/2024 9:17 AM EDT Height 162.1 cm (5' 3.8 ) 06/10/2021 9:03 AM EDT Body Mass Index 15.2 06/10/2021 9:03 AM EDT Plan of Treatment Upcoming Encounters Date Type Department Care Team (Late st Contact Info) Description 07/17/2025 9:00 AM EDT Office Visit [facility] Hematology Oncology [address] [place] [address] Sandip Yi MD [address] [place] [address] Health Maintenance Due Date Last Done Comments Breast Cancer Screening 1950 Zoster Vaccines (1 of 2) 1968 Hepatitis B Vaccines (2 of 3 - 19+ 3-dose series) 04/23/1991 03/26/1991 Colorectal Cancer Screening: Colonoscopy 03/03/2022 Depression Screening 03/03/2022 Falls Risk Assessment 03/03/2022 Medicare Annual Wellness Visit 03/03/2022 Osteoporosis Screening (Bone Density Screening) 03/03/2022 Social Influencers of Health Screening 03/03/2022 COVID-19 Vaccine ( season) 2023 01/10/2022, 02/28/2021, 06/05/2020 RSV Immunization Adult Patients (1 - 1-dose 75+ series) 2024 Influenza Vaccine (Season Ended) 2024 Hypertension/CHF/CAD Annual BMP Blood Test 05/26/2025 05/26/2024, 05/10/2023, 05/10/2023, Additional history exists DTaP,Tdap,and Td Vaccines (3 - Td or Tdap) 04/11/2029 04/11/2019, 11/25/2007 Cholesterol Screening (Lipid Panel) 05/26/2029 05/26/2024, 05/10/2023 Hepatitis C Screening Completed 04/16/2019 Pneumococcal Vaccine: 50+ Years Completed 04/21/2021, 05/30/2018, 04/26/2007, Additional history exists HIB Vaccines Aged Out No longer eligi [...] to complete this topic RSV Immunization Patients Under 20 months Aged Out No longer eligible based on patient's age to complete this topic Varicella Vaccines Aged Out No longer eligible based on patient's age to complete this topic Procedures Procedure Name Priority Date/Time Associated Diagnosis Comments HISTORICAL IMAGING SCAN RESULT 06/12/2024 ANNUAL BMP BLOOD TEST Routine 05/10/2023 LIPID PANEL Routine 05/10/2023 from Last 3 Months or Most Recently Relevant to Health Maintenance Results * HISTORICAL IMAGING SCAN RESULT (06/12/2024) Anatomical Region Laterality Modality Ultrasound us Provider Onbase IMG US PROCEDURES Final Resul t * Lipid [...] Most Recently Relevant to Health Maintenance Insurance [phone] (Home) [address] [place] [address] [employer] - [place] MEDICARE ADVANTAGE Care Teams Window Installer Relationship Specialty Start Date End Date Tee Ramirez MD [address] [place], [place] [phone] PCP - General Internal Medicine 03/07/17
--- NOTE | 2024-08-11 08:51 | A.OFFVIS_ITS ---
Vital Signs 08/11/24 08:52 Height 5 ft 3 in Weight 89 lb 8.123 oz BMI 15.9 BP 90/62 Blood Pressure Location Lt brachial Position Sitting Pulse 87 Pulse Source Monitor Intake Visit Reasons: 1 year fu (NS) Circulating Process Inspector Required: No Allergies No Known Allergies Allergy (Verified 08/11/24 08:54) Medication List - Last Reconciled 08/11/24 by Shala Blackwell, LEARNING SOLUTIONS SPECIALIST-C acetaminophen 1,000 mg (2 x 500 mg) PO Q6H PRN albuterol sulfate mg inhalation alendronate 70 mg PO aspirin (Adult Low Dose Aspirin) 81 mg PO DAILY atorvastatin 10 mg PO DAILY calcium carbonate (Calcium 500) 1,000 mg PO DAILY cholecalciferol (vitamin D3) (Vitamin D3) 25 mcg PO DAILY diltiazem HCl ER 60 mg PO BID 90 days furosemide mg PO sodium chloride 7% 4 mL inhalation BID PRN umeclidinium-vilanterol 62.5-25 mcg/actuation (Anoro Ellipta) inhalation DAILY HPI HPI 1 year fu (NS): Details: Viviana is a 73-year-old female with past medical history of hyperlipidemia, nonobstructive coronary artery disease, episode of presyncope in past, frequent sinus tachycardia who presents for follow up. Today she reports she was sick with RSV with bilateral pneumonia March in April 2024. She still has some residual shortness of breath and cough. She is now starting to do normal activities such as golfing. No chest discomfort at rest or with activity. Occasional heart palpitations, no lightheadedness, presyncope, syncope, falls. No PND, orthopnea or edema. Compliant with meds. PFS Medical History Bronchiectasis Tachycardia Hiatal hernia Pneumonia Hematuria History of shingles History of pneumonia Hx of breast cancer Hyperlipidemia CAD (coronary artery disease) Surgical History History of bronchoscopy Hx of colonoscopy History of esophagogastroduodenoscopy (EGD) History of partial mastectomy of right breast Social History Are you a primary career education teacher to a significant other at home: No Do you presently have visiting nurse or other home services: No Patient Tobacco Use Status: Never used Tobacco Review of Systems Const All systems reviewed & are unremarkable except as noted in HPI and below ENT Reports dizziness Card Details: intermittent cough Denies chest pain, Denies chest pain at rest, Denies chest pain with activity, Denies rapid heart rate, Denies pedal edema, Denies edema, Denies leg edema, Denies lightheadedness, Denies palpitations, Denies dyspnea, Reports dyspnea on exertion and Denies orthopnea Resp Denies cough, Denies dyspnea and Reports dyspnea on exertion GI Denies hematochezia and Denies change in stool character Musc Denies abnormal gait, Denies limited range of motion, Denies muscle cramps, Denies muscle weakness, Denies numbness, Denies radiating pain into limb, Denies stiffness and Denies tingling Neuro Denies abnormal gait, Reports dizziness, Denies numbness and Denies tingling Endo Denies palpitations Physical Exam Vital Signs: Last Vital Signs Pulse 87 08/11/24 08:52 BP 90/62 08/11/24 08:52 BMI result Body Mass Index 15.9 Const General: cooperative, healthy appearing, comfortable and no acute distress Orientation/consciousness: patient oriented x3 Neck Neck: Yes normal visual inspection Resp Effort & Inspection: normal respiratory effort Auscultation: clear to auscultation bilaterally, no rales, no rhonchi and no whe ezes Cardio Rate: regular rate Rhythm: regular rhythm Heart sounds: S1 normal heart sound present, S2 normal heart sound present, no gallops, no murmurs and no rubs Neuro General: patient oriented x3 Extrem General: Yes normal to inspection, No no pedal edema and No calf tenderness Psych Appearance: grossly normal Mental Status: mental status grossly normal Speech and movement: Normal speech and movement present Office Procedures EKG Details: today, read by me, sinus rhythm with sinus arrythmia, right axisw, rate 87, Qtc 433ms [id number], Complete Assessment & Plan Assessment & Plan (1) SOB (shortness of breath) on exertion: Code(s): R06.02 - Shortness of breath Category: Medical Plan: March in April 2024 with RSV, bilateral pneumonia with some residual mild shortness of breath with exertion and intermittent cough. No signs of heart failure on examination. Echocardiogram done 06/06/2024 showed EF 45-50%, [id number] TR and small pericardial effusion. Nuclear stress test had be en done 04/17/2023 which was normal study. Will plan a recheck of limited echocardiogram in 6 months. EF may be slightly reduced due to her acute illness. (2) CAD (coronary artery disease): Comment: Foll'd by Dr. Caballero Code(s): I25.10 - Atherosclerotic heart disease of [place] coronary artery without angina pectoris Category: Medical Qualifiers: Coronary Disease-Associated Artery/Lesion type: [place] artery [place] vs. transplanted heart: [place] heart Associated angina: without angina Qualified Code(s): I25.10 - Atherosclerotic heart disease of [place] coronary artery without angina pectoris Plan: History of nonobstructive coronary artery disease. No reports of anginal sounding symptoms. EKG today showing sinus rhythm with sinus arrhythmia, rate 87. Continue med management including aspirin indefinitely, atorvastatin with ideal LDL goal less than 70. Labs followed by her PCP, Dr. Ramirez. (3) Abnormal echocardiogram: Code(s): R93.1 - Abnormal findings on diagnostic imaging of heart and coronary circulation Category: Medical Plan: Echocardiogram showed EF 45-50% which is new for her. Prior EF 50-55%, 2022. EF 60-65%, 2020. She has a history of sinus tachycardia which is controlled with diltiazem. Planning recheck of limited echo in 6 months with follow-up visit at that time for reassessment. (4) Sinus tachycardia: Code(s): R00.0 - Tachycardia, unspecified Category: Medical Plan: History of frequent sinus tachycardia with Holter monitor in the past showing heart rate greater than 100 55% of the time. She has been on low-dose diltiazem and does report some occasional heart palpitations. EKG done today showing normal sinus rhythm with sinus arrhythmia, rate 87. If her EF is still low or further reduced will plan for repeat Holter monitor. (5) Hypotension: Code(s): I95.9 - Hypotension, unspecified Category: Medical Qualifiers: Hypotension type: orthostatic hypotension Qualified Code(s): I95.1 - Orthostatic hypotension Plan: Blood pressure runs on low side. She was orthostatic on prior visit, asymptomatic. History of presyncopal event, no full syncope. With her recent illness she was put on low-dose Lasix to help with pulmonary vascular congestion. At this time she is not fluid overloaded. Recommend she use Lasix only p.r.n.. The need for good hydration and increasing salt intake reviewed with her. Plan Time spent on chart review, documentation, interview and assessment Patient was informed and verbally consented to the use of an ambient scribe for clinic note documentation during this visit. I discussed with Viviana the importance of managing her decreased ejection fraction and the potential impacts of past illnesses on her cardiac function. We agreed to monitor her ejection fraction closely with a planned echocardiogram, emphasizing the potential for progression if symptoms develop. I advised on the judicious use of Lasix as-needed for fluid management, explaining that unnecessary use could lead to dehydration and associated symptoms like dizziness. We talked about the RSV vaccine, highlighting its safety and efficacy, emphasizing the risk of recurring respiratory infections without vaccination. We acknowledged the need for regular pulmonary follow-up to support her respiratory recovery. I ensured her understanding of when to utilize medications like nebulizers and inhalers effectively. We plan a follow-up in six months to reassess her cardiac status and revisit her management plan. Orders: Orders CA Echo Limited 12/15/24 R00.0 - Tachycardia, unspecified, R93.1 - Abnormal findings on diagnostic imaging of heart and coronary circulation Patient Instructions: - Take Lasix only if needed for symptoms of fluid retention. - Use nebulizers and inhalers as prescribed. - Monitor symptoms, especially increased coughing or difficulty breathing. - Schedule the follow-up echocardiogram as recommended. - Consider RSV vaccination to prevent future respiratory infections. - Contact doctor if symptoms worsen or new symptoms appear. Coding Level of Care Code Est Pt Level 4 (23662) Complex EM visit Add On G2211 Diagnoses SOB (shortness of breath) on exertion R06.02 Coronary artery disease involving [place] coronary artery of [place] heart without angina pectoris I25.10 Coronary Disease-Associated Artery/Lesion type: [place] artery [place] vs. transplanted heart: [place] heart Associated angina: without angina Abnormal echocardiogram R93.1 Sinus tachycardia R00.0 Orthostatic hypotension I95.1 Hypotension type: orthostatic hypotension CPT Codes EKG - CPT: [id number], Complete ([id number]) Time Spent (min) 30
[2024-08-11 08:52] VITALS: BP 90/62; PULSE 87; BMI 15.9
== END 2024-08-11 09:30 | disposition home or self-care (01) ==
LOC: HO.HCS 08:33
PROVIDERS: PCP Internal Medicine; Visit Provider Nurse Practitioner Family
DX: R06.02 Shortness of breath (principal); I25.10 Atherosclerotic heart disease of native coronary artery without angina pectoris; R93.1 Abnormal findings on diagnostic imaging of heart and coronary circulation; R00.0 Tachycardia, unspecified; I95.1 Orthostatic hypotension
CPT/HCPCS: 93010; 99214; G2211

== ENCOUNTER → 2024-08-11 08:32 | Outpatient (BNVA) | payer MEDICARE, SELFPAY | PROVIDERS: PCP Internal Medicine; Visit Provider Nurse Practitioner Family | DX: I25.10 Atherosclerotic heart disease of native coronary artery without angina pectoris (principal); I95.1 Orthostatic hypotension; R06.02 Shortness of breath; R93.1 Abnormal findings on diagnostic imaging of heart and coronary circulation; R00.0 Tachycardia, unspecified | CPT/HCPCS: 93005; 99212 ==

== ENCOUNTER 2024-11-11 11:04 | Outpatient (AMB) | payer MEDICARE, SELFPAY ==
--- OUTSIDE RECORDS SUMMARY | 2024-04-02 03:30 | XMS_ITS ---
Author Organization [facility] Address [address] [place] [phone] Care Team Providers Care Tassel Maker Name Role Phone Tee Ramirez MD Primary Care Provider Unavaila ble Harvey Givens Unavailable [phone] REASON FOR VISIT screening,hx polyps,fam hx colon ca Problems Problem Type SNOMED Code ICD Code Onset Dates Problem Status W/U Status Risk Notes Problem Diverticulosis o f large intestine without perforation or abscess without bleeding (K57.30) Active confirmed Encounters Encounter Location Date Provider [place] [facility] [place] [address] [place] [phone] 04/02/2024 Harvey Tosha Colon cancer scree jerald Z12.11 ; Personal [...] * ULISES NOYOLA EDOB:1950 (74 yo F)Acc No.[id number]:04/02/2024 COLON WITH MAC Patient: ULISES PEREZ Provider: Damion Givens MD :1950 A ge:73 Y S ex:Female Date:04/02/2024 [id number] Pcp:Tee Ramirez MD Subjective: * Chief Complaints: [...] 04/02/2024 Generated for Noemy rinaldi/Ariel/Melanieitting on: 0 11/11/2024 12:37 PM EDT
--- OUTSIDE RECORDS SUMMARY | 2024-11-11 12:37 | XMS_ITS | Clinical Summary ---
Author Organization [facility] Address [address] [place] [address] Care Team Providers Care Radioactivity Technician Name Role Phone Tee Ramirez MD Primary Care Provider [phone] Allergies No known active allergies Medications Medication [...] 75 06/13/2023 9:07 AM EDT Temperature 36.3 C (97.3 F) 06/13/2023 9:07 AM EDT Respiratory Rate - - Oxygen Saturation 100% [...] 04/23/1991 03/26/1991 Colon Cancer Screening (Colonoscopy) 1994 Fall Risk Assessment 2014 Osteoporosis Screening (DEXA Scan) 2014 DTap / Tdap / Td (2 - Td or Tdap) 11/24/2017 11/25/2007 COVID-19 Vaccine (2 - Payal risk series) 07/03/2020 06/05/2020 RSV Adult > 60+ Yrs or (1 - 1-dose 75+ series) 2024 Influenza Vaccine (#1) 2024 Pneumococcal Vaccine Completed 04/21/2021, 05/30/2018, 04/26/2007, Additional history exists RSV Ped < 20 months Aged Out No longe r eligible based on patient's age to complete this topic Care Teams Radioactivity Technician Relationship Specialty Start Date End Date Tee Ramirez MD [address] [place] [address] PCP - General Internal Medicine 03/07/17
--- OUTSIDE RECORDS SUMMARY | 2024-11-11 12:37 | XMS_ITS | Clinical Summary ---
Author Organization [facility] Address [address] [place] [address] Phone Care Team Providers Care Filter Operator Name Role Phone Tee Ramirez MD Primary Care Provider [phone] Allergies No known active allergies Medications aspirin [...] right breast in female, estrogen receptor positive ([facility] V24, [facility] V28) 04/26/2022 Immunizations Name Administration Dates Next Due [employer]AR[employer] SARS-CoV-2 COVID -19, vector-nr, rS-Ad26, preservative free 06/05/2020 Surgical History Surgery Date Site/Laterality Comments BREAST LUMPECTOMY PROCEDURE:BREAST LUMPECTOMY Medical History Medical History Date Comments Breast cancer ([facility] V24, [facility] V28) DX:Breast cancer (HCC);COMMENT:right-sided stage l TicNo invasive ductal breast cancer Cardiomyopathy ([facility] V24, [facility] V28) DX:Cardiomyopathy (HCC) Social History Tobacco Use [...] 103 07/17/2024 9:17 AM EDT Temperature 36.1 C (97 F) 07/17/2024 9:17 AM EDT Respiratory Rate - [...] Description 07/17/2025 9:00 AM EDT Office Visit [facility] Hematology Oncology [address] [place] [address] Sandip Yi MD [address] [place] [address] Health Maintenance Due Date Last Done Comments Zoster Vaccines (1 of 2) 1969 Hepatitis B Vaccines (2 of 3 - 19+ 3-dose series) 04/23/1991 03/26/1991 Colorectal Cancer Screening: Colonoscopy 03/03/2022 Falls Risk Assessment 03/03/2022 Medicare Annual Wellness Visit 03/03/2022 Osteoporosis Screening (Bone Density Screening) 03/03/2022 Social Influencers of Health Screening 03/03/2022 COVID-19 Vaccine ( season) 2023 01/10/2022, 02/28/2021, 06/05/2020 Depression Screening 03/26/2024 RSV Immunization Adult Patients (1 - 1-dose 75+ series) 2024 Influenza Vaccine (#1) 2024 Hypertension/CHF/CAD Annual BMP Blood Test 05/26/2025 [...] Procedure Name Priority Date/Time Associated Diagnosis Comments ANNUAL BMP BLOOD TEST Routine 05/10/2023 LIPID PANEL Routine 05/10/2023 from Last 3 Months or Most Recently Relevant to Health Maintenance Results * Annual BMP Blood Test (05/10/2023) [facility] Annual BMP Blood Test abstracted Historical Provider HEALTH MAINTENANCE Final Result * Lipid panel (05/10/2023) [facility] LDL/HDL Ratio 0 Comment:no interpretation, a bstracted Triglycerides 0 mg/dL Comment:no interpretation, a bstracted Cholesterol 0 mg/dL Comment:no interpretation, a bstracted HDL 0 mg/dL Comment:no interpretation, a bstracted LDL Cholesterol 0 mg/dL Comment:no interpretation, a bstracted Blood Venous blood specimen / Unknown Historical Provider LAB BLOOD ORDERABLES Karen l Result from Last 3 Months or Most Recently Relevant to Health Maintenance Insurance [phone] (Home) [address] [place] [address] [employer] - [place] MEDICARE ADVANTAGE Care Teams Filter Operator Relationship Specialty Start Date End Date Tee Ramirez MD [address] [place] [address] PCP - General Internal Medicine 03/07/17
--- OUTSIDE RECORDS SUMMARY | 2024-11-11 12:37 | XMS_ITS | Encounter Summary ---
Author Organization [facility] Address [address] [place] [address] Phone Care Team Providers Care Museum Registrar Name Role Phone Tee Ramirez MD Primary Care Provider [phone] Sandip Yi MD Unavailable Lexy Quiroga MD Unavailable [phone] Harvey Givens MD Unavailable Marita Madrigal MD Unavailable [phone] [facility] Unavailable Cristopher Fry MD, [place] Unavailable [phone] Encounter Details Date Type Department Care Team (Late st Contact Info) Description 11/19/2023 Ancillary Orders [facility],Outside Imaging [address] [place], [place] [id number] System, Provider Not In, [facility] [address] [address] Social History Tobacco Use Types Packs/Day Years Used Date Smoking Tobacco: Never Passive Smoke Exposure: Past Smokeless Tobacco: Never Comments:second hand smoke e xposure from her ex- Alcohol Use Standard Drinks/Week Comments Yes 1 (1 standard drink = 0.6 oz pur e alcohol) Child or Family Care Answer Date Record ed Do you have problems with on e of the following making it difficult for you to work, study, or receive health care? No 04/18/2021 Education Answer Date Recorded Are you interested in more education? Not on miguel e 04/19/2023 Are you concerned about learning? Not on file 04/19/2023 No 04/19/2023 No 04/19/2023 Food Answer Date Recorded Within the past 6 months we worried whether our food would run out before we got money to buy more. Never True 04/18/2021 Within the past 6 months the food we bought just didn't last and we didn't have enough money to get more. Never True Residential Stability Answer Date Recor ded What is your housing situation today? I have steffen duran 04/18/2021 How many times have you move d in the past 12 months? Zero (I did not move) 04/18/2021 Paying for Meds Answer Date Recorded Do you have trouble paying for medicines? No 04/18/2021 Paying Utility Bills Answer Date Record ed Do you have trouble paying your heating or elect ricity bill? No 04/18/2021 Transportation Answer Date Recorded Has the lack of transportati on kept you from medical appointments or from getting medications? No 04/18/2021 Unemployment Answer Date Recorded Are you currently unemployed or working on a part-time or temporary basis, and looking for work? No 04/18/2021 Digital Access Answer Date Recorded No 08/18/2022 No 08/18/2022 Reliable internet access at home? Not on file 08/18/2022 Device with a working camera? Not on file Intimate Partner Violence Answer Date R ecorded Are you denied basic needs s uch as food, clothing, or medical care? No 04/30/2023 In the past 12 months have y ou been in a relationship with a person who hurts, threatens, or tries to control you? No 04/30/2023 Are you denied basic needs s uch as food, clothing, or medical care? No 04/30/2023 In the past 12 months have y ou been in a relationship with a person who hurts, threatens, or tries to control you? No 04/30/2023 Comments No Sex and Gender Information Value Date Recorded Sex Assigned at Female 02/01/2023 10:27 AM EST Legal Sex Female 10:02 PM EDT Gender Identity Female 02/01/2023 10:27 AM EST Sexual Orientation Straight 02/01/2023 10 :27 AM EST documented as of this encounter Plan of Treatment Upcoming Encounters Date Type Department Care Team (Late st Contact Info) Description 09/03/2024 Procedure Pass [facility], Ct Scan [address] [address] 11/14/2024 11:00 AM EDT Office Visit [facility] Internal Medicine [address] [place] [address] Tee Ramirez MD [address] [place] [address] 11/25/2024 8:15 AM EDT Appointment [address] [address] Cristopher Fry MD, [place] [address] [address] 12/24/2024 8:15 AM EDT Office Visit [facility] Pulmonary, Allergy and Critical Care Medicine [address] [place] [address] Cristopher Fry MD, [place] [address] [id number] 11/09/2025 8:40 AM EDT Office Visit [facility] Endocrinology [place] [address] [place] [phone] Lexy Quiroga MD [address] [address] documented as of this encounter Results * DXA Outside (No Interpretation) (10/13/2021 12:00 AM EDT) Narrative Mara Narvaez - 11/19/2023 5:04 PM EDT This study is for PACS storage only and not for interpretation. Procedure Note Mara Narvaez - 11/19/2023 This study is for PACS storage only and not for interpretation. us Provider Not In System PhD IMG OUTSIDE IMAGING W /OUT INTERPRETATION Final Result documented in this encounter Visit Diagnoses Not on filedocumented in this encounter Additional Health Concerns Infection Onset Date Last Indicated Resolved Time CoV-Risk 06/10/2024 06/10/2024 06/21/2024 1:21 AM EDT Assessment Noted Time PHQ-2 Depression Total Score: 0 04/30/19 7:38 PM EST documented as of this encounter Care Teams Museum Registrar Relationship Specialty Start Date End Date Tee Ramirez MD [address] [place] [address] PCP - General 01/11/17 Sandip Yi MD [address] [place] [address] [email or web address] 04/16/20 Lexy Quiroga MD [address] [place] [address] Endocrinology 04/16/20 Harvey Givens MD [address] [place] [address] Drive [address] [place] [address] Gastroenterology 04/16/20 Marita Madrigal MD [address] [phone] Obstetrics and Gynecology 04/16/20 Ji Caballero MD [address] [place] [address] Dr [address] [place] [address] Cardiology 07/19/20 Cristopher Fry MD, MS [address] [place] [address] [email or web address] Intensive Care 05/01/22 documented as of this encounter Additional Source Comments The information contained in this document represents components of the legal health record. It is not the complete legal health record.[facility]
== END 2024-11-11 11:06 | disposition home or self-care (01) ==
LOC: HO.HMGAL 11:04
PROVIDERS: PCP Internal Medicine; Visit Provider Registered Nurse Emergency
DX: J30.89 Other allergic rhinitis (principal)
CPT/HCPCS: 95117; 95165

== ENCOUNTER 2024-12-01 10:41 | Outpatient (AMB) | payer MEDICARE, SELFPAY ==
--- OUTSIDE RECORDS SUMMARY | 2024-04-02 03:30 | XMS_ITS ---
Author Organization [facility] Address [address] [place] [address] Care Team Providers Care Vertical Punch Operator Name Role Phone Tee Ramirez MD Primary Care Provider Unavaila Harvey Blackman Unavailable [phone] REASON FOR VISIT screening,hx polyps,fam hx colon ca Problems Problem Type SNOMED Code ICD Code Onset Dates Problem Status W/U Status Risk Notes Problem Diverticular disease of colon (126808213) Diverticulosis of large intestine without perforation or abscess without bleeding (K57.30) Active confirmed Encounters Encounter Location Date Provider Diagnosis [facility] [place] [address] [place] [phone] 04/02/2024 Harvey Givens Colon cancer scree jerald [...] * ULISES NOYOLA EDOB:1950 (74 yo F)Acc No.[id number]:04/02/2024 COLON WITH MAC Patient: ULISES PEREZ Provider: Damion Givens MD :1950 A ge:73 Y S ex:Female Date:04/02/2024 [id number] Pcp:Tee Ramirez MD Subjective: * Chief Complaints: [...] 04/02/2024 Generated for Noemy rinaldi/Ariel/Melanieitting on: 0 12/01/2024 12:53 PM EDT
--- OUTSIDE RECORDS SUMMARY | 2024-11-25 07:42 | XMS_ITS | Encounter Summary ---
Author Organization [facility] Address [address] [place] [address] Phone Care Team Providers Care Steam Shovel Operating Engineer Name Role Phone Tee Ramirez MD Primary Care Provider [phone] Sandip Yi MD Unavailable Lexy Quiroga MD Unavailable Harvey Givens MD Unavailable Marita Madrigal MD Unavailable Ji Caballero MD Unavailable Cristopher Fry MD, [place] Unavailable [phone] Reason for Referral * MRI/CAT Scan - Closed Specialty Diagnoses / Procedures Referred By Harman foster Referred To Contact Radiology Diagnoses Bronchiectasis with acute exacerbation Left upper lobe pulmonary infiltrate Procedures CT Chest CHG DIAGNOSTIC COMPUTED TOMOGRAPHY THORAX W/O CNTRST CHG DIAGNOSTIC COMPUTED TOMOGRAPHY THORAX W/CONTRAST CHG DIAGNOSTIC COMPUTED TOMOGRAPHY THORAX C-/C+ Cristopher Fry MD, MS [address] [address] Phone: tel: fax: mailto:[email or web address] Referral ID Status Reason Start Date Expiration Date Visits Re quested Visits Authorized [id number] Closed 10/14/2024 12/12/2024 1 1 Reason for Visit * MRI/CAT Scan - Closed Specialty Diagnoses / Procedures Referred By Harman foster Referred To Contact Radiology Diagnoses Bronchiectasis with acute exacerbation Left upper lobe pulmonary infiltrate Procedures CT Chest CHG DIAGNOSTIC COMPUTED TOMOGRAPHY THORAX W/O CNTRST CHG DIAGNOSTIC COMPUTED TOMOGRAPHY THORAX W/CONTRAST CHG DIAGNOSTIC COMPUTED TOMOGRAPHY THORAX C-/C+ Cristopher Fry MD, MS [address] [address] Phone: tel: fax: mailto:[email or web address] Referral ID Status Reason Start Date Expiration Date Visits Re quested Visits Authorized [id number] Closed 10/14/2024 12/12/2024 1 1 Encounter Details Date Type Department Care Team (Latest Contact Info) Description 11/25/2024 7:42 AM EDT - 11/25/2024 11:59 PM EDT Hospital Encounter [facility], Ct Scan - [address] [address] Cristopher Fry MD, MS [address] [address] [email or web address] Discharge Disposition: Home or Self Care Social History Tobacco Use Types Packs/Day Years [...] Intimate Partner Violence Answer Date R ecorded Denied Basic Needs Not on file 05/19/2024 In the past 12 months have y ou been in a relationship with a person who hurts, threatens, or tries to control you? No 05/19/2024 Worried food would run out Not on file 05/19 In the past 12 months have y ou been in a relationship with a person who hurts, threatens, or tries to control you? No 05/19/2024 Comments No Sex and Gender Information Value Date Recorded Sex Assigned at Female 02/01/2023 10:27 AM EST Legal Sex Female 10:02 PM EDT Gender Identity Female 02/01/2023 10:27 AM EST Sexual Orientation Straight 02/01/2023 10 :27 AM EST documented as of this encounter Medications at Time of Discharge albuterol 2.5 mg /3 mL (0.083 %) nebulizer solutionIndicatio ns:Bronchiectasis without complication Take 3 mL (2.5 mg total) by nebulization every 6 (six) hours as needed for wheezing or shortness of breath/dyspnea. 360 mL 5 06/10/2024 alendronate (FOSAMAX) 70 MG tabletIndications :Age-related osteoporosis without current pathological fracture Take 1 tablet (70 mg total) by mouth every 7 days. Take in the morning with a full glass of water, on an empty stomach, and do not take anything else by mouth or lie down for the next 30 min. 12 tablet 3 11/10/2024 aspirin 81 MG EC tablet Take 81 mg by mouth daily. atorvastatin (LIPITOR) 10 MG tabletIndications :Hyperlipidemia TAKE 1 TABLET BY MOUTH EVERY DAY 90 tablet 3 07/14/2024 calcium citrate malate-vit D3 250 mg-2.5 mcg (100 unit) Tab Take 2 tablets by mouth 2 (two) times a day. 11/12/2023 cholecalciferol (VITAMIN D3) 2,000 unit capsule Take 2,000 Units by mouth daily. dilTIAZem (CARDIZEM SR) 60 MG 12 hr capsule Take 1 capsule by mouth 2 (two) times a day. 04/20/2023 metroNIDAZOLE (ROSADAN) 0.75 % gel Apply 1 Application topically daily. 03/31/2024 sodium chloride (HYPERSAL) 7 % NebuIndications:B ronchiectasis without complication Take 4 mL by nebulization 2 (two) times a day as needed. 240 mL 11 05/01/2024 umeclidinium-vivi nteroL (ANORO ELLIPTA) 62.5-25 mcg/actuation diskus inhalerIndication s:Bronchiectasis without complication Inhale 1 puff into the lungs daily. 60 each 11 03/03/2024 documented as of this encounter Plan of Treatment Upcoming Encounters Date Type Department Care Team (Late st Contact Info) Description 12/24/2024 8:15 AM EDT Office Visit [facility] Pulmonary, Allergy and Critical Care Medicine [address] [place] [address] Cristopher Fry MD, MS 10 [facility] 2nd [place] [address] 06/01/2025 9:30 AM EDT Office Visit [facility] Internal Medicine [address] [place] [address] Tee Ramirez MD [address] [place], [place] [phone] 11/09/2025 8:40 AM EDT Office Visit [facility] [address] [place] [phone] Lexy Quiroga MD [address] [place] [address] [email or web address] documented as of this encounter Procedures Procedure Name Priority Date/Time Associated Diagnosis Comments CT CHEST WITHOUT CONTRAST Routine 11/25/2024 8:02 AM EDT Bronchiectasis with acute exacerbation Left upper lobe pulmonary infiltrate documented in this encounter Results * CT CHEST WITHOUT CONTRAST (11/25/2024 8:02 AM EDT) Anatomical Region Laterality Modality Chest Computed Tomogra phy 11/26/2024 10:0 9 AM EDT Impressions 11/26/2024 10:24 AM EDT 1. Interval clearing of left upper lobe infiltrates since 08/14/2024 with multiple new, predominantly peripheral inflammatory foci bilaterally and slight progression of lower lobe mucous plugging. Narrative 11/26/2024 10:[address] CHEST WITHOUT CONTRAST Referring clinician's provided indication for this examination in Epic: Pneumonia; Patient had PNA May 2024, July CT w DORIS infiltrates but pt feeling well; repeat CT in 3 months TECHNIQUE: Multidetector CT of the chest was performed without intravenous contrast using tailored dose modulation. COMPARISON: 02/20/2024 and 08/14/2024 non-contrast chest CT studies FINDINGS: Devices/Tubes/Lines: None. Lungs: Well-expanded. No significant change in right middle lobe atelectasis and varicose bronchiectasis with similar stable but less pronounced changes in the base the lingula where there has been some progressive mucous plugging. There has been interval clearing of the peripheral left upper lobe consolidations with a new 9 mm focus in the central left upper lobe (3:82) and with a new 2.7 x 1.4 cm zone of consolidation in the dorsal right upper lobe (3:85) and a new 6 mm focus along the peripheral aspect of the right upper lobe (3:102) and a new 8 mm pleural-based focus in the right lower lobe (3:163). There seems to be some progressive mucous plugging in both lower lobes. Minimal mucoid debris along the dorsal aspect of the trachea. Mainstem bronchi appear patent.. Pleura: No pleural effusion or pneumothorax. Mediastinum: No significant pericardial effusion. Aorta stable in caliber. Mild coronary artery calcification. Lymph Nodes: Grossly stable superior mediastinal nodes. Limited assessment of the nadine due to the non-contrast state. No grossly enlarged supraclavicular or axillary nodes identified. Upper Abdomen: No adrenal nodules. Remaining visualized visceral structures grossly stable. Chest Wall: Chronically asymmetric breast tissue without discrete chest wall mass. Bones: No traumatic or destructive skeletal lesions. Procedure Note Jaime Ibanez MD - 11/26/2024 CT CHEST WITHOUT CONTRAST Referring clinician's provided indication for this examination in Epic:Pneumonia; Patient had PNA May 2024, July CT w DORIS infiltrates but ptfeeling well; repeat CT in 3 months TECHNIQUE: Multidetector CT of the chest was performed without intravenouscontrast using tailored dose modulation. COMPARISON: 02/20/2024 and 08/14/2024 non-contrast chest CT studies FINDINGS: Devices/Tubes/Lines: None. Lungs: Well-expanded. No significant change in right middle lobeatelectasis and varicose bronchiectasis with similar stable but lesspronounced changes in the base the lingula where there has been someprogressive mucous plugging. There has been interval clearing of theperipheral left upper lobe consolidations with a new 9 mm focus in thecentral left upper lobe (3:82) and with a new 2.7 x 1.4 cm zone ofconsolidation in the dorsal right upper lobe (3:85) and a new 6 mm focusalong the peripheral aspect of the right upper lobe (3:102) and a new 8 mmpleural-based focus in the right lower lobe (3:163). There seems to besome progressive mucous plugging in both lower lobes. Minimal mucoiddebris along the dorsal aspect of the trachea. Mainstem bronchi appearpatent.. Pleura: No pleural effusion or pneumothorax. Mediastinum: No significant pericardial effusion. Aorta stable in caliber.Mild coronary artery calcification. Lymph Nodes: Grossly stable superior mediastinal nodes. Limited assessmentof the nadine due to the non-contrast state. No grossly enlargedsupraclavicular or axillary nodes identified. Upper Abdomen: No adrenal nodules. Remaining visualized visceralstructures grossly stable. Chest Wall: Chronically asymmetric breast tissue without discrete chestwall mass. Bones: No traumatic or destructive skeletal lesions. IMPRESSION: 1. Interval clearing of left upper lobe infiltrates since 08/14/2024 withmultiple new, predominantly peripheral inflammatory foci bilaterally andslight progression of lower lobe mucous plugging. Cristopher Fry MD, MS IMG CT CHEST Final Re sult documented in this encounter Visit Diagnoses Diagnosis Bronchiectasis with acute exacerbation Left upper lobe pulmonary infiltrate documented in this encounter Additional Health Concerns Assessment Noted Time PHQ-2 Depression Total Score: 0 05/19/19 25 10:33 AM EST documented as of this encounter Care Teams Steam Shovel Operating Engineer Relationship Specialty Start Date End Date Tee Ramirez MD [address] [place] [address] [email or web address] PCP - General 01/11/17 Sandip Yi MD [address] [place] [phone] [email or web address] 04/16/20 Lexy Quiroga MD [address] [address] Endocrinology 04/16/20 Harvey Givens MD [address] [place] [address] [place] [address] Gastroenterology 04/16/20 Marita Mardigal MD [address] [place] [phone] Obstetrics and Gynecology 04/16/20 Ji Caballero MD [address] [place] [address] Cardiology 07/19/20 Cristopher Fry MD, MS [address] [place] [address] [email or web address] Intensive Care 05/01/22 documented as of this encounter Additional Source Comments The information contained in this document represents components of the legal health record. It is not the complete legal health record.[facility]
--- OUTSIDE RECORDS SUMMARY | 2024-12-01 12:53 | XMS_ITS | Clinical Summary ---
Author Organization [facility] Address [address] [place] [address] Care Team Providers Care Veneer Sander Name Role Phone Tee Ramirez MD Primary Care Provider [phone] Allergies No known active allergies Medications Medication [...] age to complete this topic Care Teams Veneer Sander Relationship Specialty Start Date End Date Tee Ramirez MD [address] [place] [address] PCP - General Internal Medicine 03/07/17
--- OUTSIDE RECORDS SUMMARY | 2024-12-01 12:53 | XMS_ITS | Encounter Summary ---
Author Organization [facility] Address [address] [place] [address] Phone Care Team Providers Care Dust Collector Name Role Phone Tee Ramirez MD Primary Care Provider [phone] Sandip Yi MD Unavailable [phone] Lexy Quiroga MD Unavailable Harvey Givens MD Unavailable Marita Madrigal MD Unavailable [facility] Unavailable [phone] Cristopher Fry MD, [place] Unavailable [phone] Encounter Details Date Type Department Care Team (Latest Contact Info) Description 04/16/2019 Transcribe Orders [facility] Laboratory [address] [place], [place] [phone] Tee Raimrez MD 40 [place], [place] [phone] [email or web address] Vitamin D deficiency; Pure hypercholesterolemia ; Bronchiectasis without complication; Need for hepatitis C screening test Social History Tobacco Use Types Packs/Day Years Used Date Smoking Tobacco: Never Smokeless Tobacco: Never Comments:second hand smoke e xposure from her ex- Alcohol Use Standard Drinks/Week Comments Yes 4 (1 standard drink = 0.6 oz pur [...] Description 12/24/2024 8:15 AM EDT Office Visit [facility] Pulmonary, Allergy and Critical Care Medicine 10 [facility] [place] [address] Cristopher Fry MD, [place] [address] [address] 06/01/2025 9:30 AM EDT Office Visit [facility] Internal Medicine [address] [place] [address] Tee Ramirez MD 40 [place] [address] 11/09/2025 8:40 AM EDT Office Visit [facility] Endocrinology [place] [address] [place] [phone] Lexy Quiroga MD [address] [address] documented as of this encounter Procedures Procedure Name Priority Date/Time Associated Diagnosis Comments COMPREHENSIVE METABOLIC PANEL Routine 04/16/2019 9:03 AM EST Pure hypercholesterolemia Bronchiectasis without complication HEPATITIS C ANTIBODY, QUALITATIVE Routine 04/16/2019 9:03 AM EST Need for hepatitis C screening test 25-OH VITAMIN D Routine 04/16/2019 9:03 AM EST Vitamin D deficiency CBC Routine 04/16/2019 9:03 AM EST Bronchiectasis without complication TSH Routine 04/16/2019 9:03 AM EST Pure hypercholesterolemia LIPID PANEL Routine 04/16/2019 9:03 AM EST Pure hypercholesterolemia documented in this encounter Results * Hepatitis C antibody, qualitative (04/16/2019 9:03 AM EST) HCV NON-REACTIV E NON-REACTI VE [facility] Blood 04/16/2019 9:03 AM EST 04/16/2019 9:09 AM EST us Tee Ramirez MD LAB BLOOD ORDERABLES Final Re sult [address] [address] * CBC (04/16/2019 9:03 AM EST) WBC 5.65 3.40 - 11.20 K/uL [facility] RBC 4.48 3.80 - 4.80 M/uL [facility] HGB 13.5 12.0 - 15.0 g/dL [facility] HCT 41.1 36.0 - 46.0 % [facility] PLT 223 130 - 400 K/uL [facility] MCV 91.7 79.0 - 98.0 [facility] MCH 30.1 27.0 - 34.8 pg [facility] MCHC 32.8 31.5 - 36.0 g/dL [facility] RDW 13.6 10.8 - 14.6 % [facility] MPV 10.5 9.4 - 12.4 [facility] NRBC 0.00 0.00 /100 WBCs [facility] ABSOLUTE NRBC 0.00 0.00 K/uL [facility] Blood 04/16/2019 9:03 AM EST 04/16/2019 9:09 AM EST us Tee Ramirez MD LAB BLOOD ORDERABLES Final Re sult [address] [address] * Comprehensive metabolic panel (04/16/2019 9:03 AM EST) SODIUM 141 133 - 146 mmol/L [facility] POTASSIUM 4.7 3.3 - 5.1 mmol/L [facility] CHLORIDE 102 96 - 108 mmol/L [facility] CO2 29 21 - 35 mmol/L [facility] BUN 17 6 - 19 mg/dL [facility] CREATININE 0.60 0.5 - 1.5 mg/dL [facility] GLUCOSE 98 70 - 99 mg/dL [facility] ALBUMIN 4.5 3.9 - 4.8 g/dL [facility] TOTAL PROTEIN 7.0 6.5 - 8.0 g/dL [facility] CALCIUM 9.6 8.4 - 10.3 mg/dL [facility] ALKALINE PHOSPHATASE 58 39 - 117 U/L [facility] TOTAL BILIRUBIN 0.6 0.0 - 1.2 mg/dL [facility] AST 25 0 - 37 U/L [facility] ALT 7 0 - 40 U/L [facility] GLOBULIN 2.5 1 - 4.8 g/dL [facility] EGFR 93 >59 mL/min/1.7 3m2 [facility] Comment:If patient is black, multiply result by 1.159. Estimated glomerular filtration rate calculated using the CKD-EPI equation. ANION GAP 15 10 - 20 mmol/L [facility] Blood 04/16/2019 9:03 AM EST 04/16/2019 9:09 AM EST us Tee Ramirez MD LAB BLOOD ORDERABLES Final Re sult [facility] [address] [place] [address] * (ABNORMAL) Lipid panel (04/16/2019 9:03 AM EST) HDL 75 mg/dL [facility] Comment: Interpretation <40 mg/dL: Low HDL cholesterol (major risk factor for CHD) Greater than or equal to 60 mg/dL: High HDL cholesterol ( negative risk factor for CHD) HDL - cholesterol is affected by a number of factors, e.g. smoking, excerise, hormones, sex and age. CHOLESTEROL 203 0 - 240 mg/dL [facility] TRIGLYCERIDES 84 30 - 160 mg/dL [facility] LDL 111 50 - 129 mg/dL [facility] Comment: LDL levels in terms of risk for coronary heart disease: <100 mg/dL: Optimal 100-129 mg/dL: Near or above optimal 130-159 mg/dL: Borderline high 160-189 mg/dL: High >190 mg/dL: Very High CARDIAC RISK RATIO 2.7(L) 3.3 - 4.4 C [facility] Blood 04/16/2019 9:03 AM EST 04/16/2019 9:09 AM EST us Tee Ramirez MD LAB BLOOD ORDERABLES Final Re sult Performing Organization Address [facility] Co de Phone Number [address] [address] * TSH (04/16/2019 9:03 AM EST) TSH 1.74 0.27 - 4.20 uIU/mL [facility] Blood 04/16/2019 9:03 AM EST 04/16/2019 9:09 AM EST us Tee Ramirez MD LAB BLOOD ORDERABLES Final Re sult Performing Organization Address [facility] Co de Phone Number [address] [address] * 25-OH vitamin D (04/16/2019 9:03 AM EST) 25 OH VIT D (TOTAL) 47 30 - 60 ng/mL [facility] Blood 04/16/2019 9:03 AM EST 04/16/2019 9:09 AM EST us Tee Ramirez MD LAB BLOOD ORDERABLES Final Re sult Performing Organization Address [facility] Co de Phone Number [address] [address] documented in this encounter Visit Diagnoses Diagnosis Vitamin D deficiency Pure hypercholesterolemia Bronchiectasis without complication Need for hepatitis C screening test Special screening examination for other specified viral diseases documented in this encounter Additional Health Concerns Infection Onset Date Last Indicated Resolved Time COVID-19 02/08/2023 02/08/2023 03/01/2023 1:26 AM EST CoV-Risk 06/10/2024 06/10/2024 06/21/2024 1:21 AM EDT Assessment Noted Time PHQ-2 Depression Total Score: 0 04/11/19 20 8:18 AM EST documented as of this encounter Care Teams Dust Collector Relationship Specialty Start Date End Date Tee Ramirez MD 40 [place] [address] PCP - General 01/11/17 Sandip Yi MD [address] [place] [address] [email or web address] Medicine 04/16/20 Lexy Quiroga MD [address] [address] [email or web address] Endocrinology 04/16/20 Harvey Givens MD [address] [place] [address] Drive [address] [place] [address] Gastroenterology 04/16/20 Marita Madrigal MD [address] [phone] Obstetrics and Gynecology 04/16/20 Ji Caballero MD [address] [place] [address] Dr [address] [place] [address] Cardiology 07/19/20 Cristopher Fry MD, MS [address] [place] [address] [email or web address] Intensive Care 05/01/22 documented as of this encounter Additional Source Comments The information contained in this document represents components of the legal health record. It is not the complete legal health record.[facility]
--- OUTSIDE RECORDS SUMMARY | 2024-12-01 12:53 | XMS_ITS | Encounter Summary ---
Author Organization [facility] Address [address] [place] [address] Phone Care Team Providers Care Career Services Assistant Name Role Phone Tee Ramirez MD Primary Care Provider Sandip Yi MD Unavailable Lexy Quiroga MD Unavailable [phone] Harvey Givens MD Unavailable [phone] Marita Madrigal MD Unavailable [facility] Unavailable Cristopher Fry MD, [place] Unavailable Encounter Details Date Type Department Care Team (Late st Contact Info) Description 11/19/2023 Ancillary Orders [facility],Outside Imaging 30 [place], [place] [phone] System, Provider Not In, [facility] [address] [address] Social History Tobacco Use Types Packs/Day Years [...] Description 12/24/2024 8:15 AM EDT Office Visit [facility] Pulmonary, Allergy and Critical Care Medicine [address] [place] [address] Cristopher Fry MD, [place] [address] [address] [email or web address] 06/01/2025 9:30 AM EDT Office Visit [facility] Internal Medicine 40 [place] [address] Tee Ramirez MD 40 [place] [address] [email or web address] 11/09/2025 8:40 AM EDT Office Visit [facility] Endocrinology [place] 40 [place] [phone] Lexy Quiroga MD [address] [address] [email or web address] documented as of this encounter Results * [...] Time PHQ-2 Depression Total Score: 0 04/30/19 24 7:38 PM EST documented as of this encounter Care Teams Career Services Assistant Relationship Specialty Start Date End Date Tee Ramirez MD 40 [place] [address] PCP - General 01/11/17 Sandip Yi MD [address] [place] [address] [email or web address] Internal Medicine 04/16/20 Lexy Quiroga MD [address] [place] [address] Endocrinology 04/16/20 Harvey Givens MD [address] [place] [address] Drive [address] [place] [address] Gastroenterology 04/16/20 Marita Madrigal MD [address] [place] [phone] Obstetrics and Gynecology 04/16/20 Ji Caballero MD [address] [place] [address] Dr [address] [place] [address] Cardiology 07/19/20 Cristopher Fry MD, [place] [address] [place] [address] [email or web address] Intensive Care 05/01/22 documented as of this encounter Additional Source Comments The information contained in this document represents components of the legal health record. It is not the complete legal health record.[facility]
--- OUTSIDE RECORDS SUMMARY | 2024-12-01 12:53 | XMS_ITS | Encounter Summary ---
Author Organization [facility] Address [address] [place] [address] Phone Care Team Providers Care Production Tester Name Role Phone Tee Ramirez MD Primary Care Provider Sandip Yi MD Unavailable [phone] Lexy Quiroga MD Unavailable Harvey Givens MD Unavailable [phone] Marita Madrigal MD Unavailable [facility] Unavailable Cristopher Fry MD, [place] Unavailable [phone] Encounter Details Date Type Department Care Team (Late st Contact Info) Description 01/30/2019 Ancillary Orders [facility],Outside Imaging 30 [place], [place] [phone] System, Provider Not In, [facility] [address] [address] Social History Tobacco Use Types Packs/Day Years [...] Description 12/24/2024 8:15 AM EDT Office Visit [facility] Pulmonary, Allergy and Critical Care Medicine 10 [facility] [place] [address] Cristopher Fry MD, [place] [address] [address] [email or web address] 06/01/2025 9:30 AM EDT Office Visit [facility] Internal Medicine 40 [place] [address] Tee Ramirez MD 40 [place] [address] [email or web address] 11/09/2025 8:40 AM EDT Office Visit [facility] Endocrinology [place] 40 [place] [phone] Lexy Quiroga MD [address] [address] [email or web address] documented as of this encounter Results * XR Chest Outside (No Interpretation) (09/11/2018 12:00 AM EDT) Narrative SYSTEMGENERATED, DOCUMENTATION - 01/30/2019 2:23 PM EST This study is for PACS storage only and not for interpretation. us Provider Not In System PhD IMG OUTSIDE IMAGING W /OUT INTERPRETATION Final Result * XR Chest Outside (No Interpretation) (08/27/2018 12:00 AM EDT) Narrative SYSTEMGENERATED, DOCUMENTATION - 01/30/2019 2:24 PM EST This study is for PACS storage only [...] Noted Time PHQ-2 Depression Total Score: 0 09/17/19 19 9:53 AM EDT documented as of this encounter Care Teams Production Tester Relationship Specialty Start Date End Date Tee Ramirez MD 40 [place] [address] PCP - General 01/11/17 Sandip Yi MD [address] [place] [address] [email or web address] 04/16/20 Lexy Quiroga MD [address] [place] [address] [email or web address] Endocrinology 04/16/20 Harvey Givens MD [address] [place] [address] [place] [address] Gastroenterology 04/16/20 Marita Madrigal MD [address] [place] [phone] Obstetrics and Gynecology 04/16/20 Ji Caballero MD [address] [place] [address] Dr [address] [place] [address] Cardiology 07/19/20 Cristopher Fry MD, [place] [address] [place] [address] [email or web address] Intensive Care 05/01/22 documented as of this encounter Additional Source Comments The information contained in this document represents components of the legal health record. It is not the complete legal health record.[facility]
--- OUTSIDE RECORDS SUMMARY | 2024-12-01 12:53 | XMS_ITS | Encounter Summary ---
Author Organization [facility] Address [address] [place] [address] Phone Care Team Providers Care Authorization Specialist Name Role Phone Tee Ramirez MD Primary Care Provider [phone] Sandip Yi MD Unavailable [phone] Lexy Quiroga MD Unavailable Harvey Givens MD Unavailable Marita Madrigal MD Unavailable [facility] Unavailable [phone] Cristopher Fry MD, [place] Unavailable [phone] Encounter Details Date Type Department Care Team (Late st Contact Info) Description 05/02/2022 Procedure Pass [facility], Ct Scan - [address] [address] Social History Tobacco Use Types Packs/Day Years [...] Answer Date Recorded Are you interested in help w ith more adult education (for example, completing high school, GED, job training, learning the Lebanese language, technical skills, or developing parenting skills)? No 04/18/2021 Food Answer Date Recorded Within the past [...] your housing situation today? I have steffen sing 04/18/2021 How many times have you move [...] basis, and looking for work? No 04/18/2021 Comments No Sex and Gender Information Value [...] 12/24/2024 8:15 AM EDT Office Visit [facility] Pulmonary, Allergy and Critical Care Medicine 10 [place] [address] Cristopher Fry MD, [place] [address] [address] 06/01/2025 9:30 AM EDT Office Visit [facility] [place] Internal Medicine 40 [place] [address] Tee Ramirez MD 40 [place] [address] 11/09/2025 8:40 AM EDT Office Visit [facility] Endocrinology [place] 40 [place] [phone] Lexy Quiroga MD [address] [address] documented as of this encounter Visit Diagnoses Not on filedocumented in this encounter Additional Health Concerns Infection Onset Date Last Indicated Resolved Time COVID-19 02/08/2023 02/08/2023 03/01/2023 1:26 AM EST CoV-Risk 06/10/2024 06/10/2024 06/21/2024 1:21 AM EDT Assessment Noted Time PHQ-2 Depression Total Score: 0 04/19/19 7:47 PM EST documented as of this encounter Care Teams Authorization Specialist Relationship Specialty Start Date End Date Tee Ramirez MD 40 [place] [address] PCP - General 01/11/17 Sandip Yi MD [address] [place] [phone] [email or web address] 04/16/20 Lexy Quiroga MD [address] [address] Endocrinology 04/16/20 Harvey Givens MD [address] [place] [address] Drive [address] [place] [address] Gastroenterology 04/16/20 Marita Madrigal MD [address] [place] [phone] Obstetrics and Gynecology 04/16/20 Ji Caballero MD [address] [place] [address] Cardiology 07/19/20 Cristopher Fry MD, MS [address] [place] [address] [email or web address] Intensive Care 05/01/22 documented as of this encounter Additional Source Comments The information contained in this document represents components of the legal health record. It is not the complete legal health record.[facility]
--- OUTSIDE RECORDS SUMMARY | 2024-12-01 12:53 | XMS_ITS | Encounter Summary ---
Author Organization [facility] Address [address] [place] [address] Phone Care Team Providers Care Volunteer Services Director Name Role Phone Tee Ramirez MD Primary Care Provider Sandip Yi MD Unavailable Lexy Quiroga MD Unavailable Harvey Givens MD Unavailable [phone] Marita Madrigal MD Unavailable [phone] [facility] MD Unavailable [phone] Cristopher Fry MD, [place] Unavailable [phone] Encounter Details Date Type Department Care Team (Late st Contact Info) Description 03/03/2024 Procedure Pass [facility], Ct Scan - [address] [address] Social History Tobacco Use Types Packs/Day Years [...] Description 12/24/2024 8:15 AM EDT Office Visit [facility] Pulmonary, Allergy and Critical Care Medicine 10 [facility] [place] [address] Cristopher Fry MD, [place] 10 [facility] 2nd [place] [address] [email or web address] 06/01/2025 9:30 AM EDT Office Visit [facility] Internal Medicine 40 [place] [address] Tee Ramirez MD 40 [place] [address] 11/09/2025 8:40 AM EDT Office Visit [facility] Endocrinology [place] 40 [place] [phone] Lexy Quiroga MD [address] [place] [address] documented as of this encounter Visit Diagnoses Not on filedocumented in this encounter Additional Health Concerns Infection Onset Date Last Indicated Resolved Time CoV-Risk 06/10/2024 06/10/2024 06/21/2024 1:21 AM EDT Assessment Noted Time PHQ-2 Depression Total Score: 0 05/19/19 25 10:33 AM EST documented as of this encounter Care Teams Volunteer Services Director Relationship Specialty Start Date End Date Tee Ramirez MD 40 [place] [address] PCP - General 01/11/17 Sandip Yi MD [address] [place] [phone] [email or web address] 04/16/20 Lexy Quiroga MD [address] [address] [email or web address] Endocrinology 04/16/20 Harvey Givens MD [address] [place] [address] Drive [address] [place] [address] Gastroenterology 04/16/20 Marita Madrigal MD [address] [place] [phone] Obstetrics and Gynecology 04/16/20 Ji Caballero MD [address] [place] [address] Dr [address] [place] [address] Cardiology 07/19/20 Cristopher Fry MD, MS [address] [place] [address] [email or web address] Intensive Care 05/01/22 documented as of this encounter Additional Source Comments The information contained in this document represents components of the legal health record. It is not the complete legal health record.[facility]
--- OUTSIDE RECORDS SUMMARY | 2024-12-01 12:53 | XMS_ITS | Encounter Summary ---
Author Organization [facility] Address [address] [place] [address] Phone Care Team Providers Care Health Promotion Officer Name Role Phone Tee Ramirez MD Primary Care Provider Sandip Yi MD Unavailable Lexy Quiroga MD Unavailable Harvey Givens MD Unavailable Marita Madrigal MD Unavailable [facility] Unavailable Cristopher Fry MD, [place] Unavailable [phone] Encounter Details Date Type Department Care Team (Late st Contact Info) Description 11/19/2023 Ancillary Orders [facility],Outside Imaging 30 [place], [place] [phone] System, Provider Not In, [facility] [address] [address] Social History Tobacco Use Types Packs/Day Years [...] Description 12/24/2024 8:15 AM EDT Office Visit [facility] Pulmonary, Allergy and Critical Care Medicine [address] [place] [address] Cristopher Fry MD, [place] [address] [address] [email or web address] 06/01/2025 9:30 AM EDT Office Visit [facility] Internal Medicine 40 [place] [address] Tee Ramirez MD 40 [place] [address] [email or web address] 11/09/2025 8:40 AM EDT Office Visit [facility] Endocrinology [place] 40 [place] [phone] Lexy Quiroga MD [address] [address] [email or web address] documented as of this encounter Results * DXA Outside (No Interpretation) (10/07/2019 12:00 AM EDT) Narrative Mara Narvaez - 11/19/2023 5:11 PM EDT This study is for PACS [...] documented as of this encounter Care Teams Health Promotion Officer Relationship Specialty Start Date End Date Tee Ramirez MD 40 [place] [address] PCP - General 01/11/17 Sandip Yi MD [address] [place] [address] [email or web address] 04/16/20 Lexy Quiroga MD [address] [place] [address] Endocrinology 04/16/20 Harvey Givens MD [address] [place] [address] Drive [address] [place] [address] Gastroenterology 04/16/20 Marita Madrigal MD [address] [place] [phone] Obstetrics and Gynecology 04/16/20 Ji Caballero MD [address] [place] [address] Dr [address] [place] [address] Cardiology 07/19/20 Cristopher Fry MD, MS [address] [place] [address] [email or web address] Intensive Care 05/01/22 documented as of this encounter Additional Source Comments The information contained in this document represents components of the legal health record. It is not the complete legal health record.[facility]
--- OUTSIDE RECORDS SUMMARY | 2024-12-01 12:53 | XMS_ITS | Encounter Summary ---
Author Organization [facility] Address [address] [place] [address] Phone Care Team Providers Care Object Oriented Programmer Name Role Phone Tee Ramirez MD Primary Care Provider [phone] Sandip Yi MD Unavailable [phone] Lexy Quiorga MD Unavailable Harvey Givens MD Unavailable [phone] Marita Madrigal MD Unavailable [facility] Unavailable [phone] Cristopher Fry MD, [place] Unavailable [phone] Encounter Details Date Type Department Care Team (Late st Contact Info) Description 02/19/2023 Procedure Pass [facility], Ct Scan - [address] [address] Social History Tobacco Use Types Packs/Day Years [...] high school, GED, job training, learning the Ugandan language, technical skills, or developing parenting skills)? [...] with a working camera? Not on file Comments No Sex and Gender Information Value [...] Description 12/24/2024 8:15 AM EDT Office Visit [facility] Pulmonary, Allergy and Critical Care Medicine [address] [place] [address] Cristopher Fry MD, MS 10 [facility] 2nd [place] [address] 06/01/2025 9:30 AM EDT Office Visit [facility] [place] Internal Medicine 40 [facility] [place] [address] Tee Ramirez MD 40 [place] [address] 11/09/2025 8:40 AM EDT Office Visit [facility] Endocrinology [place] 40 [place] [phone] Lexy Quiroga MD [address] [address] documented as of this encounter Visit Diagnoses Not on filedocumented in this encounter Additional Health Concerns Infection Onset Date Last Indicated Resolved Time COVID-19 02/08/2023 02/08/2023 03/01/2023 1:26 AM EST CoV-Risk 06/10/2024 06/10/2024 06/21/2024 1:21 AM EDT Assessment Noted Time PHQ-2 Depression Total Score: 0 04/30/19 7:38 PM EST documented as of this encounter Care Teams Object Oriented Programmer Relationship Specialty Start Date End Date Tee Ramirez MD 40 [place] [address] PCP - General 01/11/17 Sandip Yi MD [address] [place] [address] [email or web address] 04/16/20 Lexy Quiroga MD [address] [address] Endocrinology 04/16/20 Harvey Givens MD [address] [place] [address] Gastroenterology 04/16/20 Marita Madrigal MD [address] [place] [phone] Obstetrics and Gynecology 04/16/20 Ji Caballero MD [address] [place] [address] Cardiology 07/19/20 Cristopher Fry MD, MS [address] [place] [address] [email or web address] Intensive Care 05/01/22 documented as of this encounter Additional Source Comments The information contained in this document represents components of the legal health record. It is not the complete legal health record.[facility]
--- OUTSIDE RECORDS SUMMARY | 2024-12-01 12:53 | XMS_ITS | Encounter Summary ---
Author Organization [facility] Address [address] [place] [address] Phone Care Team Providers Care Carbon Capture Power Plant Manager Name Role Phone Tee Ramirez MD Primary Care Provider [phone] Sandip Yi MD Unavailable Lexy Quiroga MD Unavailable Harvey Givens MD Unavailable Marita Madrigal MD Unavailable [facility] Unavailable Cristopher Fry MD, [place] Unavailable Encounter Details Date Type Department Care Team (Late st Contact Info) Description 07/21/2024 Transcribe Orders [facility] Specimen Processing 30 [place] [address] Ryne Bonilla MD 38 [facility] [address], [address] [place] [address] [email or web address] Social History Tobacco Use Types Packs/Day Years [...] Description 12/24/2024 8:15 AM EDT Office Visit [facility]monary, Allergy and Critical Care Medicine [address] [facility] [place] [address] Cristopher Fry MD, MS [address] [address] 06/01/2025 9:30 AM EDT Office Visit [facility] Internal Medicine 40 [place] [address] Tee Ramirez MD 40 [place] [address] 11/09/2025 8:40 AM EDT Office Visit [facility] Endocrinology [place] 40 [place] [phone] Lexy Quiroga MD [address] [place] [address] documented as of this encounter Visit Diagnoses Not on filedocumented in this encounter Additional Health Concerns Assessment Noted Time PHQ-2 Depression Total Score: 0 05/19/19 25 10:33 AM EST documented as of this encounter Care Teams Carbon Capture Power Plant Manager Relationship Specialty Start Date End Date Tee Ramirez MD 40 [place] [address] PCP - General 01/11/17 Sandip Yi MD [address] [place] [address] [email or web address] 04/16/20 Lexy Quiroga MD [address] [address] Endocrinology 04/16/20 Harvey Givens MD [address] [place] [address] Drive [address] [place] [address] Gastroenterology 04/16/20 Marita Madrigal MD [address] [place] [phone] Obstetrics and Gynecology 04/16/20 Ji Caballero MD [address] [place] [address] Dr [address] [place] [address] Cardiology 07/19/20 Cristopher Fry MD, MS [address] [place] [address] Intensive Care 05/01/22 documented as of this encounter Additional Source Comments The information contained in this document represents components of the legal health record. It is not the complete legal health record.[facility]
--- OUTSIDE RECORDS SUMMARY | 2024-12-01 12:53 | XMS_ITS | Encounter Summary ---
Author Organization [facility] Address [address] [place] [address] Phone Care Team Providers Care Kitchen Hand Name Role Phone Tee Ramirez MD Primary Care Provider Sandip Yi MD Unavailable [phone] Lexy Quiroga MD Unavailable Harvey Givens MD Unavailable Marita Madrigal MD Unavailable [facility] Unavailable [phone] Cristopher Fry MD, [place] Unavailable Encounter Details Date Type Department Care Team (Late st Contact Info) Description 11/19/2023 Ancillary Orders [facility],Outside Imaging 30 [place], [place] [phone] System, Provider Not In, [facility] [address] [address] Social History Tobacco Use Types Packs/Day Years [...] Description 12/24/2024 8:15 AM EDT Office Visit [facility], Allergy and Critical Care Medicine [address] [place] [address] Cristopher Fry MD, MS [address] [address] [email or web address] 06/01/2025 9:30 AM EDT Office Visit [facility] Internal Medicine 40 [place] [address] Tee Ramirez MD 40 [place] [address] [email or web address] 11/09/2025 8:40 AM EDT Office Visit [facility] Endocrinology [place] 40 [place] [phone] Lexy Quiroga MD [address] [address] [email or web address] documented as of this encounter Results * DXA Outside (No Interpretation) (10/30/2023 12:00 AM EDT) Narrative Mara Narvaez - 11/19/2023 4:58 PM EDT This study is for PACS [...] documented as of this encounter Care Teams Kitchen Hand Relationship Specialty Start Date End Date Tee Ramirez MD 40 [place] [address] PCP - General 01/11/17 Sandip Yi MD [address] [place] [address] [email or web address] Internal Medicine 04/16/20 Lexy Quiroga MD [address] [place] [address] Endocrinology 04/16/20 Harvey Givens MD [address] [place] [address] Drive [address] [place] [address] Gastroenterology 04/16/20 Marita Madrigal MD [address] [place] [phone] Obstetrics and Gynecology 04/16/20 Ji Caballero MD [address] [place] [address] Dr [address] [place] [address] Cardiology 07/19/20 Cristopher Fry MD, MS [address] [place] [address] [email or web address] Intensive Care 05/01/22 documented as of this encounter Additional Source Comments The information contained in this document represents components of the legal health record. It is not the complete legal health record.[facility]
--- OUTSIDE RECORDS SUMMARY | 2024-12-01 12:53 | XMS_ITS | Encounter Summary ---
Author Organization [facility] Address [address] [place] [address] Phone Care Team Providers Care Diesel Locomotive Crane Operator Name Role Phone Tee Ramirez MD Primary Care Provider [phone] Sandip Yi MD Unavailable [phone] Lexy Quiroga MD Unavailable Harvey Givens MD Unavailable Marita Madrigal MD Unavailable [facility] MD Unavailable [phone] Cristopher Fry MD, [place] Unavailable [phone] Encounter Details Date Type Department Care Team (Latest Contact Info) Description 04/24/2024 Ancillary Orders [facility] Internal Medicine 40 [place], [place] [phone] Tee Ramirez MD 40 [place], [place] [phone] [email or web address] Persistent cough (Primary Dx); RSV (acute bronchiolitis due to respiratory syncytial virus) Social History Tobacco Use Types Packs/Day Years [...] Description 12/24/2024 8:15 AM EDT Office [place] [facility] Pulmonary, Allergy and Critical Care Medicine 10 [facility] [place] [address] Cristopher Fry MD, MS [address] [address] 06/01/2025 9:30 AM EDT Office Visit [facility] Internal Medicine 40 [place] [address] Tee Ramirez MD 40 [place] [address] 11/09/2025 8:40 AM EDT Office Visit [facility] Endocrinology [place] 40 [place] [address] Lexy Quiroga MD [address] [address] [email or web address] documented as of this encounter Results * XR CHEST PA AND LATERAL 2 VIEWS (04/24/2024 2:44 PM EST) Anatomical Region Laterality Modality Chest Computed Radiogr aphy 04/24/2024 2:45 PM EST Impressions 04/24/2024 2:47 PM EST Worsening multifocal pneumonia and small left pleural effusion superimposed on multifocal bronchiectasis. Follow-up to resolution is advised. Narrative 04/24/2024 2:47 PM EST XR CHEST PA AND LATERAL 2 VIEWS Referring clinician's provided indication for this examination in [facility]: Cough, persistent; rsv and r/o pneumonia COMPARISON: 05/06/2018, chest CT 02/20/2024 FINDINGS: Devices/Tubes/Lines: None. Lungs: Worsening right middle lobe and left lower lobe pneumonia when compared to 02/20/2024. Coarsened interstitial pattern, likely known bronchiectasis. Pleura: Small left-sided pleural effusion. No right-sided pleural effusion. No pneumothoraces. Heart/Mediastinum: Stable size and contour of the cardiomediastinal silhouette with atherosclerotic calcification of the thoracic aorta. Bones/Soft Tissues: The bones appear diffusely under mineralized. Multilevel spondylosis with dextroconvex curvature of the thoracic spine and bilateral acromioclavicular arthropathy. Procedure Note Shikha Mae MD - 04/24/2024 XR CHEST PA AND LATERAL 2 VIEWS Referring clinician's provided indication for this examination in [facility]:Cough, persistent; rsv and r/o pneumonia COMPARISON: 05/06/2018, chest CT 02/20/2024 FINDINGS: Devices/Tubes/Lines: None. Lungs: Worsening right middle lobe and left lower lobe pneumonia whencompared to 02/20/2024. Coarsened interstitial pattern, likely knownbronchiectasis. Pleura: Small left-sided pleural effusion. No right-sided pleuraleffusion. No pneumothoraces. Heart/Mediastinum: Stable size and contour of the cardiomediastinalsilhouette with atherosclerotic calcification of the thoracic aorta. Bones/Soft Tissues: The bones appear diffusely under mineralized.Multilevel spondylosis with dextroconvex curvature of the thoracic spineand bilateral acromioclavicular arthropathy. IMPRESSION: Worsening multifocal pneumonia and small left pleural effusionsuperimposed on multifocal bronchiectasis. Follow-up to resolution isadvised. Tee Ramirez MD IMG XR CHEST Final Result documented in this encounter Visit Diagnoses Diagnosis Persistent cough Persistent cough- Primary RSV (acute bronchiolitis due to respiratory syncytial virus) Acute bronchiolitis due to respiratory syncytial virus (RSV) documented in this encounter Additional Health Concerns Infection Onset Date Last Indicated Resolved Time CoV-Risk 06/10/2024 06/10/2024 06/21/2024 1:21 AM EDT Assessment Noted Time PHQ-2 Depression Total Score: 0 04/30/19 24 7:38 PM EST documented as of this encounter Care Teams Diesel Locomotive Crane Operator Relationship Specialty Start Date End Date Tee Ramirez MD 40 [place] [address] PCP - General 01/11/17 Sandip Yi MD [address] [place] [address] [email or web address] 04/16/20 Lexy Quiroga MD [address] [place] [address] Endocrinology 04/16/20 Harvey Givens MD [address] [place] [address] Drive [address] [place] [address] Gastroenterology 04/16/20 Marita Madrigal MD [address] [place] [phone] Obstetrics and Gynecology 04/16/20 Ji Caballero MD [address] [place] [address] Dr [address] [place] [address] Cardiology 07/19/20 Cristopher Fry MD, MS [address] [place] [address] Intensive Care 05/01/22 documented as of this encounter Additional Source Comments The information contained in this document represents components of the legal health record. It is not the complete legal health record.[facility]
--- OUTSIDE RECORDS SUMMARY | 2024-12-01 12:54 | XMS_ITS | Encounter Summary ---
Author Organization [facility] Address [address] [place] [address] Phone Care Team Providers Care Metal Fabricator Helper Name Role Phone Tee Ramirez MD Primary Care Provider [phone] Sandip Yi MD Unavailable [phone] Lexy Quiroga MD Unavailable Harvey Givens MD Unavailable [phone] Marita Madrigal MD Unavailable [phone] [facility] Unavailable [phone] Cristopher Fry MD, [place] Unavailable [phone] Encounter Details Date Type Department Care Team (Late st Contact Info) Description 06/28/2022 Procedure Pass [facility], Ct Scan - [address] [address] Social History Tobacco Use Types Packs/Day Years [...] high school, GED, job training, learning the Nauruan language, technical skills, or developing parenting skills)? [...] Description 12/24/2024 8:15 AM EDT Office Visit [facility] Pulmonary, Allergy and Critical Care Medicine 10 [place] [address] Cristopher Fry MD, MS [address] [address] 06/01/2025 9:30 AM EDT Office Visit [facility] [place] Internal Medicine 40 [place] [address] Tee Ramirez MD 40 [place] [address] 11/09/2025 8:40 AM EDT Office Visit [facility] Endocrinology [place] 40 [place] [phone] Lexy Quiroga MD [address] [address] documented as of this encounter Visit Diagnoses Not on filedocumented in this encounter Additional Health Concerns Infection Onset Date Last Indicated Resolved Time COVID-19 02/08/2023 02/08/2023 03/01/2023 1:26 AM EST CoV-Risk 06/10/2024 06/10/2024 06/21/2024 1:21 AM EDT Assessment Noted Time PHQ-2 Depression Total Score: 0 04/19/19 7:47 PM EST documented as of this encounter Care Teams Metal Fabricator Helper Relationship Specialty Start Date End Date Tee Ramirez MD 40 [place] [address] PCP - General 01/11/17 Sandip Yi MD [address] [place] [address] [email or web address] 04/16/20 Lexy Quiroga MD [address] [address] Endocrinology 04/16/20 Harvey Givens MD [address] [place] [address] Drive [address] [place] [address] Gastroenterology 04/16/20 Marita Madrigal MD [address] [place] [phone] Obstetrics and Gynecology 04/16/20 Ji Caballero MD [address] [place] [address] Cardiology 07/19/20 Cristopher Fry MD, MS [address] [place] [address] [email or web address] Intensive Care 05/01/22 documented as of this encounter Additional Source Comments The information contained in this document represents components of the legal health record. It is not the complete legal health record.[facility]
--- OUTSIDE RECORDS SUMMARY | 2024-12-01 12:54 | XMS_ITS | Encounter Summary ---
Author Organization [facility] Address [address] [place] [address] Phone Care Team Providers Care Dish Cloth Inspector Name Role Phone Tee Ramirez MD Primary Care Provider Sandip Yi MD Unavailable [phone] Lexy Quiroga MD Unavailable Harvey Givens MD Unavailable [phone] Marita Madrigal MD Unavailable Ji Caballero MD Unavailable [phone] Cristopher Fry MD, [place] Unavailable [phone] Reason for Visit * Reason Onset Date Comments Results 11/28/2024 Encounter Details Date Type Department Care Team ([facility] st Contact Info) Description 11/28/2024 Telephone [facility] Pulmonary, Allergy and Critical Care Medicine [address] [place], [place] [phone] Cristopher Fry MD, MS [address] [address] [email or web address] Results Social History Tobacco Use Types Packs/Day Years [...] AM EST documented as of this encounter Progress Notes * Cristopher Fry MD, [place] - 11/28/2024 3:22 PM EDT Called and spoke to the patient regarding chest CT results, which revealed waxing and waning parenchymal infiltrates including a posterior right upper lobe infiltrate measuring up to 2.7 cm in largest dimension. Clinically, she has been feeling well. She does have a bit more coughing and mildly yellow sputum production for the past week or 2, which she attributes to fall allergies. She denies hemoptysis, fevers, chills or dyspnea. In fact, her exercise tolerance and energy level have been quite good recently. She has recently been able to return to golfing and has been walking in [facility]. In this context, we agreed to empirically prescribe a course of cefpodoxime. (Given that it's Sunday afternoon and she does not have a sterile cup, we will hold off on obtaining a sputum culture). She underwent bronchoscopy in June 2022 with negative cultures. There is no history of NTM pulmonary disease and no history of Pseudomonas. She is leaving for [place] on Sunday (12/03). I advised to certainly let me know if her clinicalstatus changes between now and then. Otherwise, I will plan to see her in December as scheduled and we will likely repeat a chest CT scan at a 3-month interval. She was thankful for the call. documented in this encounter Plan of Treatment Upcoming Encounters Date Type Department Care Team (Late st Contact Info) Description 12/24/2024 8:15 AM EDT Office Visit [facility] Pulmonary, Allergy and Critical Care Medicine [address] [place] [address] [place] [address] Cristopher Fry MD, MS 10 [facility] 2nd [place] [address] 06/01/2025 9:30 AM EDT Office Visit [facility] Internal Medicine 40 [place] [address] Tee Ramirez MD 40 [place] [address] 11/09/2025 8:40 AM EDT Office Visit [facility] Endocrinology [place] 40 [place] [phone] Lexy Quiroga MD [address] [address] documented as of this encounter Visit Diagnoses Not on filedocumented in this encounter Additional Health Concerns Assessment Noted Time PHQ-2 Depression Total Score: 0 05/19/19 25 10:33 AM EST documented as of this encounter Care Teams Dish Cloth Inspector Relationship Specialty Start Date End Date Tee Ramirez MD 40 [place] [address] PCP - General 01/11/17 Sandip Yi MD [address] [place] [address] [email or web address] 04/16/20 Lexy Quiroga MD [address] [address] Endocrinology 04/16/20 Harvey Givens MD [address] [place] [address] Drive [address] [place] [address] Gastroenterology 04/16/20 Marita Madrigal MD [address] [place] [phone] Obstetrics and Gynecology 04/16/20 Ji Caballero MD [address] [place] [address] [place] [address] Cardiology 07/19/20 Cristopher Fry MD, MS [address] [place] [address] [email or web address] Intensive Care 05/01/22 documented as of this encounter Additional Source Comments The information contained in this document represents components of the legal health record. It is not the complete legal health record.[facility]
--- OUTSIDE RECORDS SUMMARY | 2024-12-01 12:54 | XMS_ITS | Patient Health Record ---
Author Organization [facility] Address [address] [place] [phone] Care Team Providers Care Events And Promotions Assistant Name Role Phone Tee Ramirez MD Primary Care Provider Harvey Killian Unavailable [phone] Allergies No Known Allergies Reason For Referral [...] Status Risk Notes Problem Colon cancer screening (061303258) Colon cancer screening (Z12.11) Active confirmed Problem 229678048 History of adenomatous polyp of colon (Z86.010) Active confirmed Problem Pre-procedure evaluation check (227861849) Encounter for other preprocedural examination (Z01.818) Active confirmed Problem Diverticular disease of colon (378121351) Diverticulosis of large intestine without perforation or abscess without bleeding (K57.30) Active confirmed Problem Abnormal weight loss (271166891) Abnormal weight loss (R63.4) Active confirmed Problem Early satiety (442810767) Early satiety (R68.81) Active confirmed Problem 12877655 Diarrhea, unspecified type (R19.7) Active confirmed Problem 56874023 Lymphocytic colitis (K52.832) Active confirmed Problem 04658850 Change in bowel function (R19.8) Active confirmed Problem Family history of malignant neoplasm of gastrointestinal tract (941043237) Family history of colon cancer in mother (Z80.0) Active confirmed Encounters Encounter Location Date Provider Diagnosis [facility] [place] [address] [place] [id number] 04/02/2024 Harvey Givens Colon cancer scree jerald [...] Coverage End Date [facility] [address] [place], [place] [id number] [phone] [id number] ULISES NOYOLA Self - patient is the [...]
--- OUTSIDE RECORDS SUMMARY | 2024-12-01 12:54 | XMS_ITS | Encounter Summary ---
Author Organization [facility] Address [address] [place] [phone] Phone Care Team Providers Care Sales Enablement Analyst Name Role Phone Tee Ramirez MD Primary Care Provider Sandip Yi MD Unavailable Lexy Quiroga MD Unavailable Harvey Givens MD Unavailable Marita Madrigal MD Unavailable AdaJi MD Unavailable [phone] Cristopher Fry MD, [place] Unavailable Encounter Details Date Type Department Care Team (Late st Contact Info) Description 09/03/2024 Procedure [facility], Ct Scan - [address] [id number] Social History Tobacco Use Types Packs/Day Years [...] Allergy and Critical Care Medicine [address] [place] [address] [place] [address] Cristopher Fry MD, [place] [address] [address] [email or web address] 06/01/2025 9:30 AM EDT Office Visit [facility] Internal Medicine [address] [place] [address] Tee Ramirez MD [address] [place] [address] [email or web address] 11/09/2025 8:40 AM EDT Office Visit [facility] Endocrinology [address] [place] [phone] Lexy Quiroga MD [address] [address] documented as of this encounter Visit Diagnoses Not on filedocumented in this encounter Additional Health Concerns Assessment Noted Time PHQ-2 Depression Total Score: 0 05/19/19 25 10:33 AM EST documented as of this encounter Care Teams Sales Enablement Analyst Relationship Specialty Start Date End Date Tee Ramirez MD [address] [place] [address] [email or web address] PCP - General 01/11/17 Sandip Yi MD [address] [place] [id number] [email or web address] 04/16/20 Lexy Quiroga MD [address] [place] [address] Endocrinology 04/16/20 Harvey Givens MD [address] [place] [address] Drive [address] [place] [address] Gastroenterology 04/16/20 Marita Madrigal MD [address] [place] [phone] Obstetrics and Gynecology 04/16/20 Ji Caballero MD [address] [place] [address] Dr [address] [place] [address] Cardiology 07/19/20 Cristopher Fry MD, [place] [address] [place] [phone] Intensive Care 05/01/22 documented as of this encounter Additional Source Comments The information contained in this document represents components of the legal health record. It is not the complete legal health record.[facility]
--- OUTSIDE RECORDS SUMMARY | 2024-12-01 12:54 | XMS_ITS | Clinical Summary ---
Author Organization [facility] Address [address] [place] [id number] Phone Care Team Providers Care Backhaul Driver Name Role Phone Tee Ramirez MD Primary Care Provider [phone] Sandip Yi MD Unavailable Lexy Quiroga MD Unavailable [phone] Harvey Givens MD Unavailable [phone] Marita Madrigal MD Unavailable [facility] MD Unavailable [phone] Cristopher Fry MD, PA Unavailable Allergies No known active allergies Medications aspirin 81 MG EC tablet Take 81 mg by mouth daily. Active cholecalciferol (VITAMIN D3) 2,000 unit capsule Take 2,000 Units by mouth daily. Active dilTIAZem (CARDIZEM SR) 60 MG 12 hr capsule Take 1 capsule by mouth 2 (two) times a day. 04/20/19 24 Active calcium citrate malate-vit D3 250 mg-2.5 mcg (100 unit) Tab Take 2 tablets by mouth 2 (two) times a day. 11/12/19 24 Active umeclidinium-marvel anteroL (ANORO ELLIPTA) 62.5-25 mcg/actuation diskus inhalerIndicatio ns:Bronchiectasi s without complication Inhale 1 puff into the lungs daily. 60 each 11 03/03/20 24 Active metroNIDAZOLE (ROSADAN) 0.75 % gel Apply 1 Application topically daily. 03/31/19 25 Active sodium chloride (HYPERSAL) 7 % NebuIndications: Bronchiectasis without complication Take 4 mL by nebulization 2 (two) times a day as needed. 240 mL 11 05/01/19 25 Active albuterol 2.5 mg /3 mL (0.083 %) nebulizer solutionIndicati ons:Bronchiectas is without complication Take 3 mL (2.5 mg total) by nebulization every 6 (six) hours as needed for wheezing or shortness of breath/dyspnea. 360 mL 5 06/11/19 25 Active atorvastatin (LIPITOR) 10 MG tabletIndication s:Hyperlipidemia TAKE 1 TABLET BY MOUTH EVERY DAY 90 tablet 3 07/15/19 25 Active alendronate (FOSAMAX) 70 MG tabletIndication s:Age-related osteoporosis without current pathological fracture Take 1 tablet (70 mg total) by mouth every 7 days. Take in the morning with a full glass of water, on an empty stomach, and do not take anything else by mouth or lie down for the next 30 min. 12 tablet 3 11/11/19 25 Active cefpodoxime (VANTIN) 200 MG tablet Take 1 tablet (200 mg total) by mouth 2 (two) times a day for 7 days. 14 tablet 11/29/19 25 025 Active alendronate (FOSAMAX) 70 MG tabletIndication s:Age-related osteoporosis without current pathological fracture TAKE 1 TABLET (70 MG TOTAL) BY MOUTH EVERY 7 DAYS. TAKE IN THE MORNING WITH A FULL GLASS OF WATER, ON AN EMPTY STOMACH, AND DO NOT TAKE ANYTHING ELSE BY MOUTH OR LIE DOWN FOR THE NEXT 30 MIN. 12 tablet 10/04/19 25 025 Discontin ued(Reord er) Active Problems Problem Noted Date Diagnosed Date Diverticular disease of colon 06/26/2024 Pulmonary nodules 03/03/2024 Assessment & Plan (06/26/2024 9:20 AM EDT): We will plan repeat chest CT scan in 6 weeks and reconvene thereafter. Orders: CT Chest; Future Assessment & Plan (03/03/2024 9:04 AM EST): Waxing and waning parenchymal opacities include interval increase in centrilobular nodules in the left lower lobe. Given paucity of symptoms, will plan enhancement of pulmonary toilet regimen and repeat chest CT scan at a 6-month interval. Orders: CT Chest; Future Psoriasis 12/13/2023 Overview (12/13/2023): Saw [place] [facility] 11/21/23 dx Actinic keratosis, scalp psoriasis, and rosacea saw Dr. Fernando Stevenson- f/u 5m Age-related osteoporosis wit hout current pathological fracture 11/12/2023 Overview (11/28/2023): 10/30/[address] Thomas following Assessment & Plan (11/19/2024 11:00 AM EDT): 74 y.o. woman, post-menopausal w/ osteoporosis. Some fluctuation in bone density over time, likely related to technical differences between scans. She has no hx of fracture, but sister has fractured a hip. She has had no interval falls. She is getting a good amount of calcium in via diet/supplement & is getting some activity. She sees a dentist regularly. She does not have heartburn. She is tolerating alendronate w/o difficulty, having started last year (10/2023). Will continue current. Encouraged to keep up with her calcium intake, physical activity as tolerated & be careful to avoid falling. Will repeat bone density prior to follow up, will shift from [place] to [facility] with next study. Assessment & Plan (11/12/2023 6:09 PM EDT): 73 y.o. woman, post-menopausal w/ osteoporosis. Some fluctuation in bone density over time, likely related to technical differences between scans. She has no hx of fracture, but sister has fractured a hip. Reviewed normal bone physiology across the lifespan. Reviewed role of adequate calcium, vitamin D, weight-bearing exercise & avoidance of falls along with pharmacologic rx with indications, risks & benefits. Directed to written literature from [employer]. We discussed the risks/benefits of anti-resorptives. We discussed the potential risk of ONJ & AFF with the anti-resorptives & concept of a drug holiday after a period of time with the bisphosphonates to help limit the risk of side effects. She sees a dentist regularly. She does not have heartburn. She will start alendronate, discussed appropriate administration. Advised her to split calcium into bid dosing to improve absorption. Hypotension 02/01/2023 Assessment & Plan (02/01/2023 3:05 PM EST): Pre syncope while at work- EKG, glucose exam are reassuring today. She was orthostatic by HR- but did not feel dizzy- despite 30 point inc in hr 72-102 ( lying to standing) she was advsied to hydrate and eat well. she will see cardiology tomorrow- will do labs- she will call us back if s/s reoccur Abnormal weight loss 05/02/2022 Change in bowel function 05/02/2022 Diarrhea 05/02/2022 CAD (coronary artery disease) 05/02/2022 Early satiety 05/02/2022 Lymphocytic colitis 05/02/2022 Palpitations 05/02/2022 Breast cancer, female 03/23/2017 Bronchiectasis 03/23/2017 Assessment & Plan (09/03/2024 2:40 PM EDT): Clinically quiescent at this time. Advised that she could decrease frequency of nebulized albuterol and Hypersal use to once a day if sputum production is minimal and chest congestion remains minimal as well. This will be reimaged at a 3-month interval when her left upper lobe infiltrates are reimaged. Orders: CT Chest; Future Assessment & Plan (06/26/2024 9:20 AM EDT): She was diagnosed with RSV at the end of March, subsequently diagnosed with pneumonia 10 days later (treated with cefpodoxime), and again just recently completed a course of prednisone and Augmentin because of ongoing cough, chest congestion, sputum production and persistent opacities on chest imaging. She finally feels as if she is slowly improving. We agreed today that additional diabetics are not warranted. Recent sputum culture revealed no predominant organism. Will enhance pulmonary toilet regimen as follows: Continue albuterol nebs at least twice daily. Follow morning and evening albuterol neb treatments by 7% Hypersal neb treatments. Follow Hypersal neb treatments by use of Acapella device for a few minutes. Transition from Anoro to low-dose Trelegy 100 mcg once daily for the next 4 weeks (adding ICS - samples given), advised patient to rinse mouth after use, return to using Anoro once Trelegy samples are done. I do not feel bronchoscopy is acutely indicated at this juncture given slow clinical improvements. Will plan repeat PFT and chest CT in 6 weeks and reconvene thereafter. Orders: CT Chest; Future Pulmonary Function Test Reason for Exam: Bronchiectasis; Type of PFT Test: Spirometry with bronchodilator, Lung Volumes, DLCO; Performing Location: [facility]; Future albuterol 90 mcg/actuation inhaler 2-4 puff albuterol 2.5 mg /3 mL (0.083 %) nebulizer solution 2.5 mg qzieoitmigi-xrvyodusi-egqriagx (TRELEGY ELLIPTA) 100-62.5-25 mcg inhalation powder; Inhale 1 puff into the lungs daily. Assessment & Plan (03/03/2024 9:04 AM EST): Clinically and radiographically fairly stable. Having said, given the increased nodularity in the left lower lobe, we agreed that she will restart Hypersal at least once a day. Will also try initiation of Anoro given FEV1/FVC ratio of 66% in postbronchodilator measurements after a 7% improvement; will avoid inhaled corticosteroids given bronchiectasis and risk of NTM (though this was not identified on bronchoscopy). Will obtain CBC to evaluate progressive dyspnea and impaired gas exchange impairment along with additional labs for basic evaluation of bronchiectasis. Orders: CBC and differential; Future Humkc-4-ckviqjulwcz phenotyping; Future Immunoglobulin A; Future Immunoglobulin E, total; Future Immunoglobulin G; Future IgG subclasses; Future Immunoglobulin M; Future Rheumatoid factor; Future umeclidinium-vilanteroL (ANORO ELLIPTA) 62.5-25 mcg/actuation diskus inhaler; Inhale 1 puff into the lungs daily. Assessment & Plan (02/19/2023 2:25 PM EST): Continue with as needed Hypersal and albuterol for pulmonary toilet. Given pulmonary scarring (with minimal global director air and climate change less than 12-month interval), we will repeat a chest CT scan in a year and reconvene thereafter. We will also repeat PFT prior to her next visit here in fall 2023. Assessment & Plan (10/03/2022 8:34 AM EDT): This is mild, however symptoms were significant enough for her to warrant initiation of pulmonary toilet with Hypersal and Aerobica. This has been quite successful in improving symptoms, which are now minimal. I discussed with her that, since she does not appear to suffer any significant side effects or bronchoconstriction from Hypersal, she could use albuterol as needed only. Additionally, if symptoms remain very well controlled, she could try cutting back on Hypersal to once daily. Bronchoscopy cultures are completely negative, and revealed no evidence of NTM or other infection. We will repeat PFT and chest CT in December at a 6-month interval and reconvene thereafter. Assessment & Plan (06/28/2022 1:56 PM EDT): Clinically, she continues to experience chest congestion, fatigue and an inability to bring up mucous. PFT reveal moderate fixed airflow limitation which, in a never smoker, is likely secondary to chronic asthma or, in this case, bronchiectasis. At this time, she agrees to proceed with bronchoscopy, with close attention to be paid to the RML. We will also Rx a nebulizer with albuterol and HyperSal solution. (She knows HyperSal is often on backorder). I also advised that she purchase a airway clearance device such as an Acapella (green) or Aerobika (white box). We will send cultures at the time of bronchoscopy. We will repeat PFT and chest CT in 6 months. Assessment & Plan (05/02/2022 1:35 PM EST): Remains clinically quiescent. We will obtain recent chest imaging and review to help determine next steps. Assessment & Plan (12/03/2019 8:32 AM EDT): This is mild on imaging and clinically quiescent. Pulmonary function studies performed 13 years ago revealed minimal airflow limitation, and she has no signs or symptoms suggestive of asthma or uncontrolled airways disease. She has not required treatment with bronchodilators, corticosteroids or antibiotics. She will continue immunotherapy under the care of her marble mechanic helper. She will return to see me on an as-needed basis. We discussed the importance of influenza vaccination this fall in the context of the ongoing COVID-19 pandemic. Assessment & Plan (01/24/2019 8:58 AM EDT): I again today reviewed images from her chest CT dating back to 2003, revealing mild bronchiectasis. Her chest x-rays from April and August were clear without acute infiltrate, though she did have radiographically documented pneumonia back in March. Her episode from August may have represented a viral infection versus early bronchiectasis exacerbation. I did reassure her that antibiotics were appropriate given her known history of bronchiectasis. However, chronically she experiencs no sputum production, chest congestion or discomfort chronically and therefore aggressive bronchiectasis management is not indicated at this time. If she again developed respiratory tract infections this coming winter, early chest x-ray, sputum analysis and antibiotics would be indicated. For now, we will continue to monitor clinically. However, if episodes become more frequent, I would consider initiating a basic work-up for possible underlying immunodeficiency with immunoglobulins, streptococcal antigens, etc. We could also consider repeat PFT, though currently this does not seem to be necessary. I did advise influenza vaccination today, but she declined. She is up-to-date with pneumococcal vaccination having received Prevnar 8 months ago. I will see her back in 6 months for clinical follow-up, earlier if needed. Hyperlipidemia 03/23/2017 Left upper lobe pulmonary infiltrate 03/23/2017 Overview (10/03/2022): 04/27/2022 chest CTA performed at [facility] revealed consolidation and volume loss in the right middle lobe with lesser involvement in the lingula and left upper lobe as well as scattered bilateral noncavitating nodular opacities. Assessment & Plan (09/03/2024 2:40 PM EDT): Patient feeling well clinically. This may be residual from pneumonia she had in May. Will plan repeat chest CT scan in late October at a 3-month interval and reconvene thereafter. No indication for antibiotics or other acute management interventions at this juncture. Orders: CT Chest; Future Assessment & Plan (06/26/2024 9:20 AM EDT): Will plan repeat chest CT scan in 6 weeks and reconvene thereafter. Orders: CT Chest; Future Assessment & Plan (03/03/2024 9:04 AM EST): This has remained overall stable and, this context, I suspect represents scarring. Lingular infiltrates are also relatively unchanged. Assessment & Plan (10/03/2022 8:18 AM EDT): We will plan to repeat a chest CT scan in December at a 6-month interval (ordered at her last visit) and reconvene thereafter. Thankfully, bronchoscopy performed 07/19/2019 revealed no endobronchial abnormality and negative cultures. Assessment & Plan (06/28/2022 1:39 PM EDT): The repeat CT shows mild improvement in the right middle lobe, and significant improvement in the left lower lobe opacities which likely represented pneumonia. We will plan a repeat chest CT scan at a 6-month interval. 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 At this point, we agreed to obtain images for Raffaele for me to review. Based on appearance, we may consider an empiric course of antibiotics (likely avoiding quinolones and macrolides given concern for possible NTM disease) followed by repeat CT scan in 4-6 weeks versus proceeding with bronchoscopy and the coming weeks. I will plan to call the patient as soon as I have had an opportunity to review images from the recent CT. While she is not excited about the possibility of bronchoscopy, she would be agreeable to this if clinically indicated. Osteopenia of multiple sites 03/23/2017 Malignant neoplasm of right breast in female, estrogen receptor positive 03/09/2017 Resolved Problems Problem Noted Date Diagnosed Date Resolved Date COVID-19 02/19/2023 06/26/2024 Assessment & Plan (02/19/2023 2:26 PM EST): She was treated with Paxlovid, has nearly fully recovered by now. Advised that she could delay booster vaccination by at least 2 to 3 months if not longer. Diaphoresis 01/31/2023 06/26/2024 Assessment & Plan (02/01/2023 3:02 PM EST): Exam is normal- she is orthostatic by HR here- denies any reason for fluid volume loss. I enc her to eat and drink- to improve this- call for r/t of s/s. See cardiology as planned Cardiomyopathy 03/23/2017 01/24/2019 Encounters Date Type Department Care Team Description 11/28/2024 Telephone [facility], Allergy and Critical Care Medicine [address] [place] [address] Cristopher Fry MD, MS Results 11/25/2024 7:42 AM EDT - 11/25/2024 11:59 PM EDT Hospital Encounter [facility], Ct Scan - [address] [address] Cristopher Fry MD, MS Discharge Disposition: Home or Self Care 11/14/2024 12:04 PM EDT - 11/14/2024 11:59 PM EDT Hospital Encounter [facility] [address] [place] [address] Tee Ramirez MD Discharge Disposition: Home or Self Care 11/14/2024 11:00 AM EDT Office Visit [facility] [address] [place] [address] Tee Ramirez MD Age-related osteoporosis without current pathological fracture (Primary Dx); Left upper lobe pulmonary infiltrate; Bronchiectasis without complication; Abnormal echocardiogram 11/10/2024 8:20 AM EDT Office Visit [facility] [address] [place] [phone] Lexy Quiroga MD Age-related osteoporosis without current pathological fracture (Primary Dx) 11/03/2024 Documentation [facility] [address] [facility] [place] [place] [address] Tee Ramirez MD 10/03/2024 Refill [facility] [address] [facility] [place] [address] Lexy Quiroga MD Medication Refill 09/03/2024 2:00 PM EDT Office Visit [facility] [address] [facility] [place] [address] Cristopher Fry MD, MS Bronchiectasis with acute exacerbation (Primary Dx); Left upper lobe pulmonary infiltrate 09/03/2024 Procedure Pass [facility], Ct Scan - [facility] [address] [place] [address] from Last 3 Months Immunizations Immunization Administration Dates Next Due COVID-19 (Pre-01/15) Payal Vaccine, rS-Ad26, PF 06/05/2020 Hepatitis B Adult 03/26/1991 Pneumococcal conjugate PCV13 05/30/2018 Pneumococcal polysaccharide PPSV23 04/21/2021,,03/26/1999 Td (adult),2 Lf Tetanus Toxo id, PF, Adsorbed 04/11/2019 Tdap 11/25/2007 Family History Medical History Relation Comments Heart disease Father Colon cancer Mother Breast cancer Sister 1 Lung disease Neg Hx Relation Status Comments Brother Alive Father Mother (Age 87) Sister 1 Alive Sister 2 Alive Sister 3 Alive Sister 4 Alive Sister 5 Alive Social History Tobacco Use Types Packs/Day Years Used Date Smoking Tobacco: Never Passive Smoke Exposure: Past Smokeless Tobacco: Never Tobacco Cessation:Counseling Given: Not Answered Comments:second hand smoke exposure from her ex- Alcohol Use Standard Drinks/Week [...] Orientation Straight 02/01/2023 10 :27 AM EST Last Filed Vital Signs Vital Sign Reading Time Taken Comments Blood Pressure 100/60 11/14/2024 11:47 AM EDT Pulse 82 11/14/2024 11:03 AM EDT Temperature 35.7 C (96.3 F) 11/10/2024 8:10 AM EDT Respiratory Rate 19 11/14/2024 11:03 AM EDT Oxygen Saturation 97% 11/14/2024 11:03 AM EDT Inhaled Oxygen Concentration - - Weight 40.3 kg (88 lb 12.8 oz) 11/14/2024 11:03 AM EDT Height 160.1 cm (5' 3.03 ) 11/14/2024 11:03 AM E DT Body Mass Index 15.71 11/14/2024 11:03 AM EDT Plan of Treatment Upcoming Encounters Date Type Department Care Team (Late st Contact Info) Description 12/24/2024 8:15 AM EDT Office Visit [facility] Pulmonary, Allergy and Critical Care Medicine [address] [place] [address] Cristopher Fry MD, MS [address] [address] 06/01/2025 9:30 AM EDT Office Visit [facility] [address] [place] [address] Tee Ramirez MD [address] [place] [address] 11/09/2025 8:40 AM EDT Office Visit [facility] [address] [place] [phone] Lexy Quiroga MD [address] [address] [email or web address] Health Maintenance Due Date Last Done Comments COLOGUARD 1994 FIT TEST 1994 FOBT 1994 SIGMOIDOSCOPY 1994 VIRTUAL COLONOSCOPY 1994 RSV VACCINE (1 - 1-dose 75+ series) 2024 COVID-19 VACCINE (4 - 2024- season) 2024 01/10/2022, 02/28/2021, 06/05/2020 DEPRESSION SCREENING 05/19/2025 05/19/2024 LIPID PANEL 05/26/2025 05/26/2024, 04/26, 05/10/2023, Additional history exists COLONOSCOPY 04/02/2029 04/02/2024, 05/0 05/2018, 04/13/2014 COLORECTAL CANCER SCREENING 04/02/2029 Adult Td,Tdap Booster 04/11/2029 04/11/2019, 008 HEPATITIS C SCREENING Completed 04/16/2019 PNEUMOCOCCAL VACCINES (50+ years) Completed 04/21/2021, 05/30/2018, 04/26/2007, Additional history exists OSTEOPOROSIS SCREENING INITIAL (ONE-TIME) Completed 11/10/2024, 10/30/2023, 05/07/2023, Additional history exists SMOKING STATUS SCREENING (Once After 26 Yrs) Completed 11/10/2024 HEPATITIS A VACCINES Aged Out No long er eligible based on patient's age to complete this topic HIB VACCINES Aged Out No longer eligi ble based on patient's age to complete this topic MENINGOCOCCAL VACCINES (ACWY) Aged Out No longer eligible based on patient's age to complete this topic MENINGOCOCCAL VACCINES (B) Aged Out N o longer eligible based on patient's age to complete this topic Medical Devices Not on file Procedures Procedure Name Priority Date/Time Associated Diagnosis Comments CT CHEST WITHOUT CONTRAST Routine 11/25/2024 8:02 AM EDT Bronchiectasis with acute exacerbation Left upper lobe pulmonary infiltrate COMPREHENSIVE METABOLIC PANEL Routine 11/14/2024 12:05 PM EDT Age-related osteoporosis without current pathological fracture 25-OH VITAMIN D Routine 11/14/2024 12:05 PM EDT Age-related osteoporosis without current pathological fracture COLLAGEN TYPE 1B-TELOPEPTIDE, BLOOD Routine 11/14/2024 12:05 PM EDT Age-related osteoporosis without current pathological fracture PARATHYROID HORMONE (PTH) Routine 11/14/2024 12:05 PM EDT Age-related osteoporosis without current pathological fracture PHOSPHORUS Routine 11/14/2024 12:05 PM EDT Age-related osteoporosis without current pathological fracture BD DXA MONITORING Routine 11/10/2024 8:4 6 AM EDT Age-related osteoporosis without current pathological fracture LIPID PANEL Routine 05/26/2024 8:33 AM EST Pure hypercholesterolemia HM COLONOSCOPY FOR RESULT ENTRY ONLY Routine 04/02/2024 HEPATITIS C ANTIBODY, QUALITATIVE Routine 04/16/2019 9:03 AM EST Need for hepatitis C screening test from Last 3 Months or Most Recently Relevant to Health Maintenance Results * CT CHEST WITHOUT CONTRAST (11/25/2024 [...] andslight progression of lower lobe mucous plugging. us Cristopher Fry MD, MS IMG CT CHEST Final Re sult * (ABNORMAL) Collagen type 1b-telopeptide, blood (11/14/2024 12:05 PM EDT) Collagen CTx 79(L) pg/mL [facility] Comment: (NOTE) REFERENCE VALUE [phone] (18-29 y) 150-635 (30-39 y) 131-670 (40-49 y) 183-1060 (50-59 y) 171-970 (60-69 y) 152-858 (>70 y) 136-689 (Premenopausal) 177-1015 (Postmenopausal) Flagging is based on the age-specific reference interval and not menopausal status. Blood 11/14/2024 12:0 5 PM EDT 11/14/2024 12:08 PM EDT Lexy Quiroga MD LAB BLOOD ORDERABLES F inal Result [facility] [address] [place] [address] * Comprehensive metabolic panel (11/14/2024 12:05 PM EDT) SODIUM 135 133 - 146 mmol/L [facility] POTASSIUM 4.1 3.3 - 5.1 mmol/L [facility] CHLORIDE 98 96 - 108 mmol/L [facility] CO2 28 21 - 35 mmol/L [facility] BUN 15 6 - 19 mg/dL [facility] CREATININE 0.60 0.5 - 1.5 mg/dL [facility] GLUCOSE 85 70 - 99 mg/dL [facility] ALBUMIN 4.4 3.9 - 4.8 g/dL [facility] TOTAL PROTEIN 7.7 6.5 - 8.0 g/dL [facility] CALCIUM 9.4 8.4 - 10.3 mg/dL [facility] ALKALINE PHOSPHATASE 71 39 - 117 U/L [facility] TOTAL BILIRUBIN 0.4 0.0 - 1.2 mg/dL [facility] AST 23 0 - 37 U/L [facility] ALT 9 0 - 40 U/L [facility] GLOBULIN 3.3 1 - 4.8 g/dL [facility] EGFR 94 >59 mL/min/1.7 3m2 [facility] Comment:Estimated glomerular filtration rate calculated using the CKD-EPI refit equation. ANION GAP 13 10 - 20 mmol/L [facility] Blood 11/14/2024 12:0 5 PM EDT 11/14/2024 12:09 PM EDT us Lexy Quiroga MD LAB BLOOD ORDERABLES F inal Result [address] [address] * 25-OH vitamin D (11/14/2024 12:05 PM EDT) 25 OH VIT D (TOTAL) 58 30 - 60 ng/mL [facility] Blood 11/14/2024 12:0 5 PM EDT 11/14/2024 12:09 PM EDT us Lexy Quiroga MD LAB BLOOD ORDERABLES F inal Result [address] [address] * Phosphorus (11/14/2024 12:05 PM EDT) Pathologist [facility] PHOSPHORUS 3.4 2.7 - 4.5 mg/dL [facility] Blood 11/14/2024 12:0 5 PM EDT 11/14/2024 12:09 PM EDT Lexy Quiroga MD LAB BLOOD ORDERABLES F inal Result Performing Organization Address [facility]/ZIP Co de Phone Number [address] [address] * Parathyroid hormone (PTH) (11/14/2024 12:05 PM EDT) Pathologist [facility] PARATHYROID HORMONE 28 15 - 65 pg/mL [facility] Blood 11/14/2024 12:0 5 PM EDT 11/14/2024 12:08 PM EDT Lexy Quiroga MD LAB BLOOD ORDERABLES F inal Result Performing Organization Address [facility] Co de Phone Number [address] [address] * (ABNORMAL) Lipid panel (05/26/2024 8:33 AM EST) HDL 58 mg/dL [facility] Comment: Interpretation <40 mg/dL: Low HDL cholesterol (major risk factor for CHD) Greater than or equal to 60 mg/dL: High HDL cholesterol ( negative risk factor for CHD) HDL - cholesterol is affected by a number of factors, e.g. smoking, excerise, hormones, sex and age. CHOLESTEROL 138 0 - 240 mg/dL [facility] TRIGLYCERIDES 60 30 - 160 mg/dL [facility] LDL 68 50 - 129 mg/dL [facility] Comment: LDL levels in terms of risk for coronary heart disease: <100 mg/dL: Optimal 100-129 mg/dL: Near or above optimal 130-159 mg/dL: Borderline high 160-189 mg/dL: High >190 mg/dL: Very High CARDIAC RISK RATIO 2.4(L) 3.3 - 4.4 [facility] Blood 05/26/2024 8:33 AM EST 05/26/2024 8:36 AM EST Tee Ramirez MD LAB BLOOD ORDERABLES Final Re sult Performing Organization Address [facility] de Phone Number [address] [address] * COLONOSCOPY FOR RESULT ENTRY ONLY (04/02/2024) Colonoscopy prn Jacqueline Chacon MD HEALTH MAINTENANCE Final Result * DEXA SCAN (10/30/2023 3:43 PM EDT) Tee Ramirez MD HEALTH MAINTENANCE Edited Res ult - Final * Hepatitis C antibody, qualitative (04/16/2019 9:03 AM EST) HCV NON-REACTIV E NON-REACTI VE [facility] Blood 04/16/2019 9:03 AM EST 04/16/2019 9:09 AM EST Tee Ramirez MD LAB BLOOD ORDERABLES Final Re sult Performing Organization Address [facility] Co de Phone Number [address] [address] from Last 3 Months or Most Recently Relevant to Health Maintenance Insurance [place]OSS [place] MEDICARE P[place] BLUE REPLACEMENT ([place]) [id number] MEDICARE PPO [place] [address] MEDICARE PPO [place] [place] [address] MEDICARE PPO [place] [address] MEDICARE PPO BLUE REPLACEMENT Care Teams Backhaul Driver Relationship Specialty Start Date End Date Tee Ramirez MD [address] [place] [address] PCP - General 01/11/17 Sandip Yi MD [address] [place] [address] [email or web address] Internal Medicine 04/16/20 Lexy Quiroga MD [address] [address] [email or web address] Endocrinology 04/16/20 Harvey Givens MD [address] [place] [address] Drive [address] [place] [address] Gastroenterology 04/16/20 Marita Madrigal MD [address] [place] [phone] Obstetrics and Gynecology 04/16/20 Ji Caballero MD [address] [place] [address] Dr [address] [place] [address] Cardiology 07/19/20 Cristopher Fry MD, MS [address] [place] [address] [email or web address] Intensive Care 05/01/22 Additional Source Comments The information contained in this document represents components of the legal health record. It is not the complete legal health record.[facility]
--- OUTSIDE RECORDS SUMMARY | 2024-12-01 12:54 | XMS_ITS | Encounter Summary ---
Author Organization [facility] Address [address] [place] [address] Phone Care Team Providers Care Grinder Tender Name Role Phone Tee Ramirez MD Primary Care Provider [phone] Sandip Yi MD Unavailable Lexy Quiroga MD Unavailable Harvey Givens MD Unavailable [phone] Marita Madrigal MD Unavailable Ji Caballero MD Unavailable [phone] Cristopher Fry MD, [place] Unavailable [phone] Encounter Details Date Type Department Care Team (Late st Contact Info) Description 06/06/2022 Transcribe Orders [facility] PFT Lab 30 [place] [address] Cristopher Fry MD, [place] [address] [phone] [email or web address] Social History Tobacco Use Types Packs/Day Years [...] high school, GED, job training, learning the [place] language, technical skills, or developing parenting skills)? [...] Description 12/24/2024 8:15 AM EDT Office Visit [facility] Pulmonary, Allergy and Critical Care Medicine 10 [facility] [place] [address] Cristopher Fry MD, [place] [address] [address] 06/01/2025 9:30 AM EDT Office Visit [facility] Internal Medicine [address] [place] [address] Tee Ramirez MD 40 [place] [address] 11/09/2025 8:40 AM EDT Office Visit [facility] Endocrinology [place] 40 [place] [phone] Lexy Quiroga MD [address] [address] documented as of this encounter Visit Diagnoses Not on filedocumented in this encounter Additional Health Concerns Infection Onset Date Last Indicated Resolved Time COVID-19 02/08/2023 02/08/2023 03/01/2023 1:26 AM EST CoV-Risk 06/10/2024 06/10/2024 06/21/2024 1:21 AM EDT Assessment Noted Time PHQ-2 Depression Total Score: 0 04/19/19 7:47 PM EST documented as of this encounter Care Teams Grinder Tender Relationship Specialty Start Date End Date Tee Ramirez MD 40 [place] [address] PCP - General 01/11/17 Sandip Yi MD [address] [place] [address] [email or web address] 04/16/20 Lexy Quiroga MD [address] [address] Endocrinology 04/16/20 Harvey Givens MD [address] [place] [address] Gastroenterology 04/16/20 Marita Madrigal MD [address] [place] [phone] Obstetrics and Gynecology 04/16/20 Ji Caballero MD [address] [place] [address] Cardiology 07/19/20 Cristopher Fry MD, MS [address] [place] [address] [email or web address] Intensive Care 05/01/22 documented as of this encounter Additional Source Comments The information contained in this document represents components of the legal health record. It is not the complete legal health record.[facility]
--- OUTSIDE RECORDS SUMMARY | 2024-12-01 12:54 | XMS_ITS | Encounter Summary ---
Author Organization [facility] Address [address] [place] [address] Phone Care Team Providers Care Clinical Quality Analyst Name Role Phone Tee Ramirez MD Primary Care Provider Sandip Yi MD Unavailable [phone] Lexy Quiroga MD Unavailable [phone] Harvey Givens MD Unavailable [phone] Marita Madrigal MD Unavailable AdaJi MD Unavailable Cristopher Fry MD, [place] Unavailable [phone] Encounter Details Date Type Department Care Team (Late st Contact Info) Description 07/18/2022 Procedure Pass [facility] Endoscopy Admitting Dept Virtual Department [address] [place] [phone] Social History Tobacco Use Types Packs/Day Years [...] high school, GED, job training, learning the [place] language, technical skills, or developing parenting skills)? [...] Description 12/24/2024 8:15 AM EDT Office Visit [facility] Pulmonary, Allergy and Critical Care Medicine 10 [facility] [place] [address] Cristopher Fry MD, MS [address] [address] 06/01/2025 9:30 AM EDT Office Visit [facility] [place] Internal Medicine 40 [place] [address] Tee Ramirez MD 40 [place] [address] 11/09/2025 8:40 AM EDT Office Visit [facility] Endocrinology [place] 40 [place] [phone] Lexy Quiroga MD [address] [address] documented as of this encounter Visit Diagnoses Not on filedocumented in this encounter Additional Health Concerns Infection Onset Date Last Indicated Resolved Time COVID-19 02/08/2023 02/08/2023 03/01/2023 1:26 AM EST CoV-Risk 06/10/2024 06/10/2024 06/21/2024 1:21 AM EDT Assessment Noted Time PHQ-2 Depression Total Score: 0 04/19/19 7:47 PM EST documented as of this encounter Care Teams Clinical Quality Analyst Relationship Specialty Start Date End Date Tee Ramirez MD 40 [place] [address] PCP - General 01/11/17 Sandip Yi MD 271 [place] [address] [email or web address] 04/16/20 Lexy Quiroga MD [address] [address] Endocrinology 04/16/20 Harvey Givens MD [address] [place] [address] [address] [place] [address] Gastroenterology 04/16/20 Marita Mdarigal MD [address] [place] [phone] Obstetrics and Gynecology 04/16/20 Ji Caballero MD [address] [place] [address] [place] [address] Cardiology 07/19/20 Cristopher Fry MD, MS [address] [place] [address] [email or web address] Intensive Care 05/01/22 documented as of this encounter Additional Source Comments The information contained in this document represents components of the legal health record. It is not the complete legal health record.[facility]
== END 2024-12-01 10:57 | disposition home or self-care (01) ==
LOC: HO.HMGAL 10:41
PROVIDERS: PCP Internal Medicine; Visit Provider Registered Nurse Emergency
DX: J30.89 Other allergic rhinitis (principal)
CPT/HCPCS: 95117; 95165

== ENCOUNTER 2024-12-15 11:11 | Outpatient (AMB) | payer MEDICARE, SELFPAY ==
--- OUTSIDE RECORDS SUMMARY | 2024-04-02 03:30 | XMS_ITS ---
Author Organization [facility] Address [address] [place] [address] Care Team Providers Care Misdraw Hand Name Role Phone Tee Ramirez MD Primary Care Provider Unavaila Harvey Blackman Unavailable [phone] REASON FOR VISIT screening,hx polyps,fam hx colon ca Problems Problem Type SNOMED Code ICD Code Onset Dates Problem Status W/U Status Risk Notes Problem Diverticular disease of colon (712961737) Diverticulosis of large intestine without perforation or abscess without bleeding (K57.30) Active confirmed Encounters Encounter Location Date Provider Diagnosis [facility] Out[place] [address] [place] [phone] 04/02/2024 Harvey Givens Colon cancer scree jerald [...] * ULISES NOYOLA EDOB:1950 (74 yo F)Acc No.[id number]:04/02/2024 COLON WITH MAC Patient: ULISES PEREZ Provider: Damion Givens MD :1950 A ge:73 Y S ex:Female Date:04/02/2024 [facility] [address] [address] [address] Pcp:Tee Ramirez MD Subjective: * Chief Complaints: [...] MD Date: 0 04/02/2024 Generated for Noemy rinaldi/Ariel/Melanieitting on: 0 12/15/2024 01:50 PM EDT
--- OUTSIDE RECORDS SUMMARY | 2024-12-15 13:50 | XMS_ITS | Encounter Summary ---
Author Organization [facility] Address [address] [place] [address] Phone Care Team Providers Care Station Jailer Name Role Phone Tee Ramirez MD Primary Care Provider [phone] Sandip Yi MD Unavailable Lexy Quiroga MD Unavailable Harvey Givens MD Unavailable [phone] Marita Madrigal MD Unavailable [facility] MD Unavailable [phone] Cristopher Fry MD, [place] Unavailable [phone] Encounter Details Date Type Department Care Team (Late st Contact Info) Description 11/19/2023 Ancillary Orders ,Outside Imaging 30 [place], [place] [phone] System, Provider Not In, [facility] [address] [address] Social History Tobacco Use Types Packs/Day Years [...] Description 12/24/2024 8:15 AM EDT Office Visit [facility] Pulmonary, Allergy and Critical Care Medicine [address] [place] [address] Cristopher Fry MD, [place] [address] [address] [email or web address] 06/01/2025 9:30 AM EDT Office Visit [facility] Internal Medicine 40 [place] [address] Tee Ramirez MD 40 [place] [address] [email or web address] 11/09/2025 8:40 AM EDT Office Visit [facility] Endocrinology [place] 40 [place] [phone] Lexy Quiroga MD [address] [address] [email or web address] documented as of this encounter Results [...] documented as of this encounter Care Teams Station Jailer Relationship Specialty Start Date End Date Tee Ramirez MD 40 [place] [address] PCP - General 01/11/17 Sandip Yi MD [address] [place] [address] [email or web address] 04/16/20 Lexy Quiroga MD [address] [place] [address] Endocrinology 04/16/20 Harvey Givens MD [address] [place] [address] Drive [address] [place] [address] Gastroenterology 04/16/20 Marita Madrigal MD [address] [place] [phone] Obstetrics and Gynecology 04/16/20 Ji Caballero MD [address] [place] [address] Dr [address] [place] [address] Cardiology 07/19/20 Cristopher Fry MD, MS [address] [place] [address] [email or web address] Intensive Care 05/01/22 documented as of this encounter Additional Source Comments The information contained in this document represents components of the legal health record. It is not the complete legal health record.[facility]
--- OUTSIDE RECORDS SUMMARY | 2024-12-15 13:50 | XMS_ITS | Encounter Summary ---
Author Organization [facility] Address [address] [place] [address] Phone Care Team Providers Care Senior Procurement Manager Name Role Phone Tee Ramirez MD Primary Care Provider [phone] Sandip Yi MD Unavailable Lexy Quiroga MD Unavailable [phone] Harvey Givens MD Unavailable [phone] Marita Madrigal MD Unavailable [facility] MD Unavailable [phone] Cristopher Fry MD, [place] Unavailable [phone] Encounter Details Date Type Department Care Team (Late st Contact Info) Description 01/30/2019 Ancillary Orders [facility],Outside Imaging 30 [place], [place] [phone] System, Provider Not In, [facility] [address] [address] Social History Tobacco Use Types Packs/Day Years [...] Description 12/24/2024 8:15 AM EDT Office Visit [facility] Pulmonary, Allergy and Critical Care Medicine 10 [facility] [place] [address] Cristopher Fry MD, MS [address] [address] [email or web address] 06/01/2025 9:30 AM EDT Office Visit [facility] Internal Medicine 40 [place] [address] Tee Ramirez MD 40 [place] [address] [email or web address] 11/09/2025 8:40 AM EDT Office Visit [facility] Endocrinology [place] 40 [place] [phone] Lexy Quiroga MD [address] [address] [email or web address] documented as of this [...] documented as of this encounter Care Teams Senior Procurement Manager Relationship Specialty Start Date End Date Tee Ramirez MD 40 [place] [address] PCP - General 01/11/17 Sandip Yi MD [address] [place] [address] [email or web address] Internal Medicine 04/16/20 Lexy Quiroga MD [address] [place] [address] [email or web address] Endocrinology 04/16/20 Harvey Givens MD [address] [place] [address] [place] [address] Gastroenterology 04/16/20 Marita Madrigal MD [address] [place] [phone] Obstetrics and Gynecology 04/16/20 Ji Caballero MD [address] [place] [address] [address] [place] [address] Cardiology 07/19/20 Cristopher Fry MD, MS [address] [place] [address] [email or web address] Intensive Care 05/01/22 documented as of this encounter Additional Source Comments The information contained in this document represents components of the legal health record. It is not the complete legal health record.[facility]
--- OUTSIDE RECORDS SUMMARY | 2024-12-15 13:50 | XMS_ITS | Encounter Summary ---
Author Organization [facility] Address [address] [place] [address] Phone Care Team Providers Care Tip Out Worker Name Role Phone Tee Ramirez MD Primary Care Provider [phone] Sandip Yi MD Unavailable [phone] Lexy Quiroga MD Unavailable [phone] Harvey Givens MD Unavailable Marita Madrigal MD Unavailable [facility] MD Unavailable [phone] Cristopher Fry MD, [place] Unavailable [phone] Encounter Details Date Type Department Care Team (Latest Contact Info) Description 04/24/2024 Ancillary Orders [facility] Internal Medicine 40 [place], [place] [phone] Tee Ramirez MD 40 [place], [place] [phone] Persistent cough (Primary Dx); RSV (acute bronchiolitis [...] Description 12/24/2024 8:15 AM EDT Office Visit [facility] Pulmonary, Allergy and Critical Care Medicine 10 [facility] [place] [address] Cristopher Fry MD, MS [address] [address] 06/01/2025 9:30 AM EDT Office Visit [facility] Internal Medicine 40 [place] [address] Tee Ramirez MD 40 [place] [address] 11/09/2025 8:40 AM EDT Office Visit [facility] Endocrinology [place] 40 [place] [phone] Lexy Quiroga MD [address] [address] documented as of this encounter Results * [...] clinician's provided indication for this examination in [facility]: Cough, persistent; rsv and r/o pneumonia COMPARISON: [...] clinician's provided indication for this examination in [facility]:Cough, persistent; rsv and r/o pneumonia COMPARISON: 05/06/2018, [...] documented as of this encounter Care Teams Tip Out Worker Relationship Specialty Start Date End Date Tee Ramirez MD 40 [place] [address] PCP - General 01/11/17 Sandip Yi MD 271 [place] [address] [email or web address] Internal Medicine 04/16/20 Lexy Quiroga MD [address] [place] [address] Endocrinology 04/16/20 Harvey Givens MD [address] [place] [address] [address] [place] [address] Gastroenterology 04/16/20 Marita Madrigal MD [address] [place] [phone] Obstetrics and Gynecology 04/16/20 Ji Caballero MD [address] [place] [address] [address] [place] [address] Cardiology 07/19/20 Cristopher Fry MD, MS [address] [place] [address] Intensive Care 05/01/22 documented as of this encounter Additional Source Comments The information contained in this document represents components of the legal health record. It is not the complete legal health record.[facility]
--- OUTSIDE RECORDS SUMMARY | 2024-12-15 13:50 | XMS_ITS | Clinical Summary ---
Author Organization [facility] Address [address] [place] [address] Phone Care Team Providers Care Director Utilization Management Name Role Phone Tee Ramirez MD Primary Care Provider [phone] Allergies No known active allergies Medications aspirin [...] right breast in female, estrogen receptor positive ([facility] V24, [facility] V28) 04/26/2022 Immunizations Name Administration Dates Next Due [facility] SARS-CoV-2 COVID -19, vector-nr, rS-Ad26, preservative free 06/05/2020 Surgical History Surgery Date Site/Laterality Comments BREAST LUMPECTOMY PROCEDURE:BREAST LUMPECTOMY Medical History Medical History Date Comments Breast cancer ([facility] V24, [facility] V28) DX:Breast cancer (HCC);COMMENT:right-sided stage l TicNo invasive ductal breast cancer Cardiomyopathy ([facility] V24, [facility] V28) DX:Cardiomyopathy (HCC) Social History Tobacco Use [...] Description 07/17/2025 9:00 AM EDT Office Visit [facility] Hematology Oncology [address] [place] [address] Sandip Yi MD [address] [place] [address] Health Maintenance Due Date Last Done Comments Zoster Vaccines (1 of 2) 1969 Hepatitis B Vaccines (2 of 3 - 19+ 3-dose series) 04/23/1991 03/26/1991 Colorectal Cancer Screening: Colonoscopy 03/03/2022 Falls Risk Assessment 03/03/2022 Medicare Annual Wellness Visit 03/03/2022 Osteoporosis Screening (Bone Density Screening) 03/03/2022 Social Influencers of Health Screening 03/03/2022 Depression Screening 03/26/2024 RSV Immunization Adult Patients (1 - 1-dose 75+ series) 2024 COVID-19 Vaccine (4 - 2024- season) 2024 01/10/2022, 02/28/2021, 06/05/2020 Influenza Vaccine (#1) 2024 Hypertension/CHF/CAD Annual BMP [...] Results * Annual BMP Blood Test (05/10/2023) [facility] Annual BMP Blood Test abstracted Historical Provider HEALTH MAINTENANCE Final Result * Lipid panel (05/10/2023) [facility] LDL/HDL Ratio 0 Comment:no interpretation, a bstracted Triglycerides 0 mg/dL Comment:no interpretation, a bstracted Cholesterol 0 mg/dL Comment:no interpretation, a bstracted HDL 0 mg/dL Comment:no interpretation, a bstracted LDL Cholesterol 0 mg/dL Comment:no interpretation, a bstracted Blood Venous blood specimen / Unknown Historical Provider LAB BLOOD ORDERABLES Karen l Result from Last 3 Months or Most Recently Relevant to Health Maintenance Insurance [phone] (Home) [address] [place] [address] BLUE CR[place] MEDIC[place] ADVANTAGE Care Teams Director Utilization Management Relationship Specialty Start Date End Date Tee Ramirez MD 40 [place] [address] PCP - General Internal Medicine 03/07/17
--- OUTSIDE RECORDS SUMMARY | 2024-12-15 13:50 | XMS_ITS | Encounter Summary ---
Author Organization [facility] Address [address] [place] [address] Phone Care Team Providers Care Windows Desktop Engineer Name Role Phone Tee Ramirez MD Primary Care Provider [phone] Sandip Yi MD Unavailable Lexy Quiroga MD Unavailable Harvey Givens MD Unavailable Marita Madrigal MD Unavailable [facility] MD Unavailable Cristopher Fry MD, [place] Unavailable [phone] Encounter Details Date Type Department Care Team (Late st Contact Info) Description 11/19/2023 Ancillary Orders [facility],Outside Imaging 30 [place], [place] [phone] System, Provider Not In, [facility] [address] [address] Social History Tobacco Use Types Packs/Day Years [...] Description 12/24/2024 8:15 AM EDT Office Visit [facility] Pulmonary, Allergy and Critical Care Medicine [address] [place] [address] Cristopher Fry MD, [place] [address] [address] [email or web address] 06/01/2025 9:30 AM EDT Office Visit [facility] Internal Medicine 40 [place] [address] Tee Ramirez MD 40 [place] [address] [email or web address] 11/09/2025 8:40 AM EDT Office Visit [facility] Endocrinology [place] 40 [place] [phone] Lexy Quiroga MD [address] [address] [email or web address] documented as of this [...] documented as of this encounter Care Teams Windows Desktop Engineer Relationship Specialty Start Date End Date Tee Ramirez MD 40 [place] [address] PCP - General 01/11/17 Sandip Yi MD [address] [place] [address] [email or web address] Internal Medicine 04/16/20 Lexy Quiroga MD [address] [place] [address] Endocrinology 04/16/20 Harvey Givens MD [address] [place] [address] Drive [address] [place] [address] Gastroenterology 04/16/20 Marita Madrigal MD [address] [place] [phone] Obstetrics and Gynecology 04/16/20 Ji Caballero MD [address] [place] [address] [address] [place] [address] Cardiology 07/19/20 Cristopher Fry MD, MS [address] [place] [address] [email or web address] Intensive Care 05/01/22 documented as of this encounter Additional Source Comments The information contained in this document represents components of the legal health record. It is not the complete legal health record.[facility]
--- OUTSIDE RECORDS SUMMARY | 2024-12-15 13:50 | XMS_ITS | Encounter Summary ---
Author Organization [facility] Address [address] [place] [address] Phone Care Team Providers Care Tube Cleaner Name Role Phone Tee Ramirez MD Primary Care Provider [phone] Sandip Yi MD Unavailable Lexy Quiroga MD Unavailable Harvey Givens MD Unavailable Marita Madrigal MD [facility]available [facility] Unavailable Cristopher Fry MD, [place] Unavailable [phone] Encounter Details Date Type Department Care Team (Late st Contact Info) Description 11/19/2023 Ancillary Orders [facility],Outside Imaging [address] [place], [place] [id number] System, Provider Not In, [facility] [address] [address] Social History Tobacco Use Types Packs/Day Years [...] Description 12/24/2024 8:15 AM EDT Office Visit [facility] Pulmonary, Allergy and Critical Care Medicine [address] [place] [address] [place] [address] Cristopher Fry MD, [place] [address] [address] [email or web address] 06/01/2025 9:30 AM EDT Office Visit [facility] Internal Medicine [address] [place] [address] Tee Ramirez MD 40 [place] [address] [email or web address] 11/09/2025 8:40 AM EDT Office Visit [facility] Endocrinology [place] [address] [place] [phone] Lexy Quiroga MD [address] [address] [email or web address] documented as of this encounter Results * [...] documented as of this encounter Care Teams Tube Cleaner Relationship Specialty Start Date End Date Tee Ramirez MD 40 [place] [address] PCP - General 01/11/17 Sandip Yi MD [address] [place] [address] Internal Medicine 04/16/20 Lexy Quiroga MD [address] [place] [address] Endocrinology 04/16/20 Harvey Givens MD [address] [place] [address] Drive [address] [place] [address] Gastroenterology 04/16/20 Marita Madrigal MD [address] [place] [phone] Obstetrics and Gynecology 04/16/20 Ji Caballero MD [address] [place] [address] Dr [address] [place] [address] Cardiology 07/19/20 Cristopher Fry MD, [place] [address] [place] [address] [email or web address] Intensive Care 05/01/22 documented as of this encounter Additional Source Comments The information contained in this document represents components of the legal health record. It is not the complete legal health record.[facility]
--- OUTSIDE RECORDS SUMMARY | 2024-12-15 13:51 | XMS_ITS | Encounter Summary ---
Author Organization [facility] Address [address] [place] [address] Phone Care Team Providers Care Credit Risk Analytics Manager Name Role Phone Tee Ramirez MD Primary Care Provider [phone] Sandip Yi MD Unavailable [phone] Lexy Quiroga MD Unavailable Harvey Givens MD Unavailable [phone] Marita Madrigal MD [facility]available [facility] Un[facility] Cristopher Fry MD, [place] Unavailable [phone] Encounter Details Date Type Department Care Team (Late st Contact Info) Description 06/28/2022 Procedure Pass [facility], Ct Scan - [address] [address] Social History Tobacco Use Types Packs/Day Years [...] high school, GED, job training, learning the Argentine language, technical skills, or developing parenting skills)? [...] Pulmonary, Allergy and Critical Care Medicine 10 [place] [address] Cristopher Fry MD, [place] [address] [address] 06/01/2025 9:30 AM EDT Office Visit [facility] [place] Internal Medicine 40 [place] [address] Tee Ramirez MD 40 [place] [address] 11/09/2025 8:40 AM EDT Office Visit [facility] Endocrinology [place] 40 [place] [phone] Lexy Quiroga MD [address] [address] documented as of this encounter Visit Diagnoses Not on filedocumented in this encounter Additional Health Concerns Infection Onset Date Last Indicated Resolved Time COVID-19 02/08/2023 02/08/2023 03/01/2023 1:26 AM EST CoV-Risk 06/10/2024 06/10/2024 06/21/2024 1:21 AM EDT Assessment Noted Time PHQ-2 Depression Total Score: 0 04/19/19 7:47 PM EST documented as of this encounter Care Teams Credit Risk Analytics Manager Relationship Specialty Start Date End Date Tee Ramirez MD 40 [place] [address] PCP - General 01/11/17 Sandip Yi MD [address] [place] [address] [email or web address] 04/16/20 Lexy Quiroga MD [address] [address] Endocrinology 04/16/20 Harvey Givens MD [address] [place] [address] [address] [place] [address] Gastroenterology 04/16/20 Marita Madrigal MD [address] [place] [phone] Obstetrics and Gynecology 04/16/20 Ji Caballero MD [address] [place] [address] Cardiology 07/19/20 Cristopher Fry MD, [place] [address] [place] [address] [email or web address] Intensive Care 05/01/22 documented as of this encounter Additional Source Comments The information contained in this document represents components of the legal health record. It is not the complete legal health record.[facility]
--- OUTSIDE RECORDS SUMMARY | 2024-12-15 13:51 | XMS_ITS | Clinical Summary ---
Author Organization [facility] Address [address] [place] [address] Care Team Providers Care Senior Data Developer Name Role Phone Tee Ramirez MD Primary Care Provider [phone] Allergies No known active allergies Medications Medication [...] age to complete this topic Care Teams Senior Data Developer Relationship Specialty Start Date End Date Tee Ramirez MD [address] [place] [address] PCP - General Internal Medicine 03/07/17
--- OUTSIDE RECORDS SUMMARY | 2024-12-15 13:51 | XMS_ITS | Encounter Summary ---
Author Organization [facility] Address [address] [place] [address] Phone Care Team Providers Care Automotive Worker Name Role Phone Tee Ramirez MD Primary Care Provider [phone] Sandip Yi MD Unavailable Lexy Quiroga MD Unavailable [phone] Harvey Givens MD Unavailable [phone] Marita Madrigal MD Unavailable [phone] Ji Caballero MD Unavailable [phone] Cristopher Fry MD, [place] Unavailable [phone] Encounter Details Date Type Department Care Team (Late st Contact Info) Description 06/06/2022 Transcribe Orders [facility] [address] [place] [address] Cristopher Fry MD, [place] [address] [phone] [email or web address] Social History Tobacco Use Types Packs/Day Years [...] high school, GED, job training, learning the Bahamian language, technical skills, or developing parenting skills)? [...] Pulmonary, Allergy and Critical Care Medicine 10 [facility] [address] Cristopher Fry MD, [place] [address] [address] 06/01/2025 9:30 AM EDT Office Visit [facility] Internal Medicine [address] [place] [address] Tee Ramirez MD 40 [place] [address] 11/09/2025 8:40 AM EDT Office Visit [facility] Endocrinology [place] 40 [place] [phone] Lexy Quiroga MD [address] [address] documented as of this encounter Visit Diagnoses Not on filedocumented in this encounter Additional Health Concerns Infection Onset Date Last Indicated Resolved Time COVID-19 02/08/2023 02/08/2023 03/01/2023 1:26 AM EST CoV-Risk 06/10/2024 06/10/2024 06/21/2024 1:21 AM EDT Assessment Noted Time PHQ-2 Depression Total Score: 0 04/19/19 7:47 PM EST documented as of this encounter Care Teams Automotive Worker Relationship Specialty Start Date End Date Tee Ramirez MD 40 [place] [address] PCP - General 01/11/17 Sandip Yi MD [address] [place] [address] [email or web address] 04/16/20 Lexy Quiroga MD [address] [address] Endocrinology 04/16/20 Harvey Givens MD [address] [place] [address] Gastroenterology 04/16/20 Marita Madrigal MD [address] [place] [phone] Obstetrics and Gynecology 04/16/20 Ji Caballero MD [address] [place] [address] Cardiology 07/19/20 Cristopher Fry MD, MS [address] [place] [address] [email or web address] Intensive Care 05/01/22 documented as of this encounter Additional Source Comments The information contained in this document represents components of the legal health record. It is not the complete legal health record.[facility]
--- OUTSIDE RECORDS SUMMARY | 2024-12-15 13:51 | XMS_ITS | Encounter Summary ---
Author Organization [facility] Address [address] [place] [address] Phone Care Team Providers Care Button Breaker Name Role Phone Tee Ramirez MD Primary Care Provider [phone] Sandip Yi MD Unavailable [phone] Lexy Quiroga MD Unavailable Harvey Givens MD Unavailable Marita Madrigal MD Unavailable [phone] [facility] MD Unavailable Cristopher Fry MD, [place] Unavailable [phone] Encounter Details Date Type Department Care Team (Late st Contact Info) Description 05/02/2022 Procedure Pass [facility], Ct Scan - [address] [address] Social History Tobacco Use Types Packs/Day Years [...] high school, GED, job training, learning the Moroccan language, technical skills, or developing parenting skills)? [...] Pulmonary, Allergy and Critical Care Medicine 10 [place] [address] Cristopher Fry MD, [place] [address] [address] 06/01/2025 9:30 AM EDT Office Visit [facility] [place] Internal Medicine 40 [place] [address] Tee Ramirez MD 40 [place] [address] 11/09/2025 8:40 AM EDT Office Visit [facility] Endocrinology [place] 40 [place] [phone] Lexy Quiroga MD [address] [address] documented as of this encounter Visit Diagnoses Not on filedocumented in this encounter Additional Health Concerns Infection Onset Date Last Indicated Resolved Time COVID-19 02/08/2023 02/08/2023 03/01/2023 1:26 AM EST CoV-Risk 06/10/2024 06/10/2024 06/21/2024 1:21 AM EDT Assessment Noted Time PHQ-2 Depression Total Score: 0 04/19/19 7:47 PM EST documented as of this encounter Care Teams Button Breaker Relationship Specialty Start Date End Date Tee Ramirez MD 40 [place] [address] PCP - General 01/11/17 Sandip Yi MD [address] [place] [address] [email or web address] 04/16/20 Lexy Quiroga MD [address] [address] Endocrinology 04/16/20 Harvey Givens MD [address] [place] [address] Drive [address] [place] [address] Gastroenterology 04/16/20 Marita Madrigal MD [address] [place] [phone] Obstetrics and Gynecology 04/16/20 Ji Caballero MD [address] [place] [address] Cardiology 07/19/20 Cristopher Fry MD, MS [address] [place] [address] [email or web address] Intensive Care 05/01/22 documented as of this encounter Additional Source Comments The information contained in this document represents components of the legal health record. It is not the complete legal health record.[facility]
--- OUTSIDE RECORDS SUMMARY | 2024-12-15 13:51 | XMS_ITS | Patient Health Record ---
Author Organization [facility] Address [address] [place] [address] Care Team Providers Care Tactical Air Control Party Name Role Phone Tee Ramirez MD Primary Care Provider Harvey Killian Unavailable [phone] Allergies No Known Allergies Reason For Referral [...] Status Risk Notes Problem Colon cancer screening (107952727) Colon cancer screening (Z12.11) Active confirmed Problem 792041795 History of adenomatous polyp of colon (Z86.010) Active confirmed Problem Pre-procedure evaluation check (732645044) Encounter for other preprocedural examination (Z01.818) Active confirmed Problem Diverticular disease of colon (289221855) Diverticulosis of large intestine without perforation or abscess without bleeding (K57.30) Active confirmed Problem Abnormal weight loss (496498812) Abnormal weight loss (R63.4) Active confirmed Problem Early satiety (648097114) Early satiety (R68.81) Active confirmed Problem 60991096 Diarrhea, unspecified type (R19.7) Active confirmed Problem 33042136 Lymphocytic colitis (K52.832) Active confirmed Problem 03835965 Change in bowel function (R19.8) Active confirmed Problem Family history of malignant neoplasm of gastrointestinal tract (698313810) Family history of colon cancer in mother (Z80.0) Active confirmed Encounters Encounter Location Date Provider Diagnosis [facility] [facility] [address] [place] [id number] 04/02/2024 Harvey Givens Colon cancer scree jerald [...] Insured Coverage Start Date Coverage End Date [facility] [address] [place], [place] [id number] [phone] [id number] ULISES NOYOLA Self - patient is the insured Medical (General) History Medical History History ICD Code Denies ND,DM,CVA,Lung disease,renal dise ase Breast cancer-right side---Lumpectomy, lymph [...]
--- OUTSIDE RECORDS SUMMARY | 2024-12-15 13:51 | XMS_ITS | Encounter Summary ---
Author Organization [facility] Address [address] [place] [address] Phone Care Team Providers Care Enterprise Cloud Architect Name Role Phone Tee Ramirez MD Primary Care Provider [phone] Sandip Yi MD Unavailable [phone] Lexy Quiroga MD Unavailable Harvey Givens MD Unavailable [phone] Marita Madrigal MD Unavailable [facility]i MD Unavailable Cristopher Fry MD, [place] Unavailable [phone] Encounter Details Date Type Department Care Team (Late st Contact Info) Description 07/18/2022 Procedure Pass [facility] Endoscopy Admitting Dept Virtual Department [address] [place] [phone] Social History Tobacco Use Types Packs/Day Years [...] high school, GED, job training, learning the Nigerien language, technical skills, or developing parenting skills)? [...] Description 12/24/2024 8:15 AM EDT [place] [facility] [place] Allergy and Critical Care Medicine 10 [facility] [place] [address] Cristopher Fry MD, [place] [address] [address] 06/01/2025 9:30 AM EDT Office Visit [facility] [place] Internal Medicine 40 [place] [address] Tee Ramirez MD 40 [place] [address] 11/09/2025 8:40 AM EDT Office Visit [facility] Endocrinology [place] 40 [place] [phone] Lexy Quiroga MD [address] [address] documented as of this encounter Visit Diagnoses Not on filedocumented in this encounter Additional Health Concerns Infection Onset Date Last Indicated Resolved Time COVID-19 02/08/2023 02/08/2023 03/01/2023 1:26 AM EST CoV-Risk 06/10/2024 06/10/2024 06/21/2024 1:21 AM EDT Assessment Noted Time PHQ-2 Depression Total Score: 0 04/19/19 7:47 PM EST documented as of this encounter Care Teams Enterprise Cloud Architect Relationship Specialty Start Date End Date Tee Ramirez MD 40 [place] [address] PCP - General 01/11/17 Sandip Yi MD [address] [place] [address] [email or web address] 04/16/20 Lexy Quiroga MD [address] [address] Endocrinology 04/16/20 Harvey Givens MD [address] [place] [address] Drive [address] [place] [address] Gastroenterology 04/16/20 Marita Madrigal MD [address] [place] [phone] Obstetrics and Gynecology 04/16/20 Ji Caballero MD [address] [place] [address] [place] [address] Cardiology 07/19/20 Cristopher Fry MD, MS [address] [place] [address] [email or web address] Intensive Care 05/01/22 documented as of this encounter Additional Source Comments The information contained in this document represents components of the legal health record. It is not the complete legal health record.[facility]
--- OUTSIDE RECORDS SUMMARY | 2024-12-15 13:51 | XMS_ITS | Clinical Summary ---
Author Organization [facility] Address [address] [place] [address] Phone Care Team Providers Care Warehouse Trainer Name Role Phone Tee Ramirez MD Primary Care Provider [phone] Sandip Yi MD Unavailable [phone] Lexy Quiroga MD Unavailable Harvey Givens MD Unavailable [phone] Marita Madrigal MD Unavailable [facility] Unavailable [phone] Cristopher Fry MD, [place] Unavailable Allergies No known active allergies Medications [...] days. 14 tablet 11/29/19 25 025 Active Problems Problem Noted Date Diagnosed Date [...] Chest; Future Psoriasis 12/13/2023 Overview (12/13/2023): Saw [facility] derm 11/21/23 dx Actinic keratosis, scalp psoriasis, and rosacea saw Dr. Fernando Stevenson- f/u 5m Age-related osteoporosis wit brigido current pathological fracture 11/12/2023 Overview (11/28/2023): 10/30/23 [...] prior to follow up, will shift from [facility] to [facility] with next study. Assessment & [...] with bronchodilator, Lung Volumes, DLCO; Performing Location: [facility]; Future albuterol 90 mcg/actuation inhaler 2-4 puff albuterol 2.5 mg /3 mL (0.083 %) nebulizer solution 2.5 mg tdchdakrwnm-mfazeqhgl-rdmjvevf (TRELEGY ELLIPTA) 100-62.5-25 mcg inhalation powder; Inhale [...] of bronchiectasis. Orders: CBC and differential; Future Dnvor-2-ekqrqjmpsqs phenotyping; Future Immunoglobulin A; Future Immunoglobulin E, total; Future Immunoglobulin G; Future IgG subclasses; Future Immunoglobulin M; Future Rheumatoid factor; Future umeclidinium-vilanteroL (ANORO ELLIPTA) 62.5-25 mcg/actuation diskus inhaler; Inhale 1 puff into the lungs daily. Assessment & Plan (02/19/2023 2:25 PM EST): Continue with as needed Hypersal and albuterol for pulmonary toilet. Given pulmonary scarring (with minimal waste/materials exchange specialist less than 12-month interval), we will repeat [...] continue immunotherapy under the care of her dry janitor. She will return to see me on [...] Overview (10/03/2022): 04/27/2022 chest CTA performed at [facility] revealed consolidation and volume loss in [...] atypical pneumonia such as NTM pulmonary disease/Lady [place] syndrome, multifocal pneumonia (though patient is afebrile without discolored sputum or leukocytosis), or a noninfectious interstitial disease such as organizing pneumonia/REGISTERED ART THERAPIST. At this point, we agreed to obtain [...] Pulmonary, Allergy and Critical Care Medicine 10 [facility] [place] [address] Cristopher Fry MD, MS Results 11/25/2024 7:42 AM EDT - 11/25/2024 11:59 PM EDT Hospital Encounter [facility], Ct Scan - [address] [address] Cristopher Fry MD, MS Discharge Disposition: Home or Self Care 11/14/2024 12:04 PM EDT - 11/14/2024 11:59 PM EDT Hospital Encounter [facility] [address] [place] [address] Tee Ramirez MD Discharge Disposition: Home or Self Care 11/14/2024 11:00 AM EDT Office Visit [facility] Internal Medicine [address] [place] [address] Tee Ramirez MD Age-related osteoporosis without current pathological fracture (Primary Dx); Left upper lobe pulmonary infiltrate; Bronchiectasis without complication; Abnormal echocardiogram 11/10/2024 8:20 AM EDT Office Visit [facility] Endocrinology [place] [address] [place] [phone] Lexy Quiroga MD Age-related osteoporosis without current pathological fracture (Primary Dx) 11/03/2024 Documentation [facility] Internal Medicine [address] [place] [address] Tee Ramirez MD 10/03/2024 Refill [facility] [place] [address] [place] [phone] Lexy Quiroga MD Medication Refill 09/03/2024 Procedure Pass [facility], Ct Scan - [facility] [address] [place] [address] from Last 3 Months Immunizations Immunization Administration [...] 12/24/2024 8:15 AM EDT Office Visit [facility] Pulmonary, Allergy and Critical Care Medicine 10 [facility] [place] [address] Cristopher Fry MD, MS 10 [facility] [address] [place] [address] [email or web address] 06/01/2025 9:30 AM EDT Office Visit [facility] Internal Medicine [address] [place] [address] Tee Ramirez MD 40 [place] [address] [email or web address] 11/09/2025 8:40 AM EDT Office Visit [facility] Endocrinology [place] [address] [place] [phone] Lexy Quiroga MD [address] [place] [address] [email or web address] Health Maintenance Due Date Last Done Comments COLOGUARD 1994 FIT TEST 1994 FOBT 1994 SIGMOIDOSCOPY 1994 VIRTUAL COLONOSCOPY 1994 RSV VACCINE (1 - 1-dose 75+ series) 2024 COVID-19 VACCINE ( season) 2024 01/10/2022, 02/28/2021, 06/05/2020 DEPRESSION SCREENING [...] examination in Epic:Pneumonia; Patient had PNA May 2024July CT w DORIS infiltrates but ptfeeling well; [...] type 1b-telopeptide, blood (11/14/2024 12:05 PM EDT) [facility] Collagen CTx 79(L) pg/mL [facility] MED/[facility] Comment: (NOTE) REFERENCE VALUE 148-967 (18-29 y) 150-635 (30-39 y) 131-670 (40-49 y) 183-1060 (50-59 y) 171-970 (60-69 y) 152-858 (>70 y) 136-689 (Premenopausal) 177-1015 (Postmenopausal) Flagging is based on the age-specific reference interval and not menopausal status. Blood 11/14/2024 12:0 5 PM EDT 11/14/2024 12:08 PM EDT us Lexy Quiroga MD LAB BLOOD ORDERABLES F inal Result [facility] MED/[facility] [address] [place] [address] * Comprehensive metabolic panel (11/14/2024 12:05 PM EDT) [facility] SODIUM 135 133 - 146 mmol/L [facility] POTASSIUM 4.1 3.3 - 5.1 mmol/L [facility] CHLORIDE 98 96 - 108 mmol/L [facility] CO2 28 21 - 35 mmol/L [facility] BUN 15 6 - 19 mg/dL [facility] CREATININE 0.60 0.5 - 1.5 mg/dL [facility] GLUCOSE 85 70 - 99 mg/dL [facility] ALBUMIN 4.4 3.9 - 4.8 g/dL [facility] TOTAL PROTEIN 7.7 6.5 - 8.0 g/dL [facility] CALCIUM 9.4 8.4 - 10.3 mg/dL [facility] ALKALINE PHOSPHATASE 71 39 - 117 U/L [facility] TOTAL BILIRUBIN 0.4 0.0 - 1.2 mg/dL [facility] AST 23 0 - 37 U/L [facility] ALT 9 0 - 40 U/L [facility] GLOBULIN 3.3 1 - 4.8 g/dL [facility] EGFR 94 >59 mL/min/1.7 3m2 [facility] Comment:Estimated glomerular filtration rate calculated using the CKD-EPI refit equation. ANION GAP 13 10 - 20 mmol/L [facility] Blood 11/14/2024 12:0 5 PM EDT 11/14/2024 12:09 PM EDT us Lexy Quiroga MD LAB BLOOD ORDERABLES F inal Result Performing Organization Address [facility]/ZIP Co de Phone Number [address] [address] * 25-OH vitamin D (11/14/2024 12:05 PM EDT) 25 OH VIT D (TOTAL) 58 30 - 60 ng/mL [facility] Blood 11/14/2024 12:0 5 PM EDT 11/14/2024 12:09 PM EDT us Lexy Quiroga MD LAB BLOOD ORDERABLES F inal Result Performing Organization Address City/[facility]/ZIP Co de Phone Number [address] [address] * Phosphorus (11/14/2024 12:05 PM EDT) PHOSPHORUS 3.4 2.7 - 4.5 mg/dL [facility] Blood 11/14/2024 12:0 5 PM EDT 11/14/2024 12:09 PM EDT us Lexy Quiroga MD LAB BLOOD ORDERABLES F inal Result Performing Organization Address City/[facility]/ZIP Co de Phone Number [address] [address] * Parathyroid hormone (PTH) (11/14/2024 12:05 PM EDT) PARATHYROID HORMONE 28 15 - 65 pg/mL [facility] Blood 11/14/2024 12:0 5 PM EDT 11/14/2024 12:08 PM EDT us Lexy Quiroga MD LAB BLOOD ORDERABLES F inal Result Performing Organization Address [facility] Co de Phone Number [address] [address] * (ABNORMAL) Lipid panel (05/26/2024 8:33 AM EST) HDL 58 mg/dL [facility] Comment: Interpretation <40 mg/dL: Low HDL cholesterol (major risk factor for CHD) Greater than or equal to 60 mg/dL: High HDL cholesterol ( negative risk factor for CHD) HDL - cholesterol is affected by a number of factors, e.g. smoking, excerise, hormones, sex and age. CHOLESTEROL 138 0 - 240 mg/dL [facility] TRIGLYCERIDES 60 30 - 160 mg/dL [facility] LDL 68 50 - 129 mg/dL [facility] Comment: LDL levels in terms of risk for coronary heart disease: <100 mg/dL: Optimal 100-129 mg/dL: Near or above optimal 130-159 mg/dL: Borderline high 160-189 mg/dL: High >190 mg/dL: Very High CARDIAC RISK RATIO 2.4(L) 3.3 - 4.4 C [facility] Blood 05/26/2024 8:33 AM EST 05/26/2024 8:36 AM EST us Tee Ramirez MD LAB BLOOD ORDERABLES Final Re sult Performing Organization Address City/[facility]/ZIP Co de Phone Number [address] [address] * HM COLONOSCOPY FOR RESULT ENTRY ONLY (04/02/2024) Colonoscopy prn us Jacqueline Provider HEALTH MAINTENANCE Final Result * DEXA SCAN (10/30/2023 3:43 PM EDT) us Tee Ramirez MD HEALTH MAINTENANCE Edited Res ult - Final * Hepatitis C antibody, qualitative (04/16/2019 9:03 AM EST) HCV NON-REACTIV E NON-REACTI VE [facility] Blood 04/16/2019 9:03 AM EST 04/16/2019 9:09 AM EST us Tee Ramirez MD LAB BLOOD ORDERABLES Final Re sult Performing Organization Address City/State/[facility] Co de Phone Number [address] [address] from Last 3 Months or Most Recently Relevant to Health Maintenance [facility]UE REPLACEMENT MEDICARE PPO BLUE REPLACEMENT ([place]) [address] MEDICARE PPO BLUE REPLACEMENT [place]ARE P[place] BLUE REPLACEMENT Care Teams Warehouse Trainer Relationship Specialty Start Date End Date Tee Ramirez MD [address] [place] [address] [email or web address] PCP - General 01/11/17 Sandip Yi MD [address] [place] [address] [email or web address] 04/16/20 Lexy Quiroga MD [address] [address] Endocrinology 04/16/20 Harvey Givens MD [address] [place] [address] [address] [place] [address] Gastroenterology 04/16/20 Marita Madrigal MD [address] [place] [phone] Obstetrics and Gynecology 04/16/20 Ji Caballero MD [address] [place] [address] Cardiology 07/19/20 Cristopher Fry MD, MS [address] [place] [address] [email or web address] Intensive Care 05/01/22 Additional Source Comments The information contained in this document represents components of the legal health record. It is not the complete legal health record.[facility]
--- OUTSIDE RECORDS SUMMARY | 2024-12-15 13:51 | XMS_ITS | Encounter Summary ---
Author Organization [facility] Address [address] [place] [address] Phone Care Team Providers Care Propulsion Engineer Name Role Phone Tee Ramirez MD Primary Care Provider [phone] Sandip Yi MD Unavailable Lexy Quiroga MD Unavailable Harvey Givens MD Unavailable Marita Madrigal MD Unavailable [facility] Unavailable Cristopher Fry MD, [place] Unavailable [phone] Encounter Details Date Type Department Care Team (Late st Contact Info) Description 03/03/2024 Procedure Pass [facility], Ct Scan - [address] [address] Social History Tobacco Use Types Packs/Day Years [...] 12/24/2024 8:15 AM EDT Office Visit [facility] Pulmonary, Allergy and Critical Care Medicine 10 [facility] [address] [place] [address] Cristopher Fry MD, MS 10 [facility] [address]nd [place] [address] [email or web address] 06/01/2025 9:30 AM EDT Office Visit [facility] Internal Medicine [address] [place] [address] Tee Ramirez MD [address] [place] [address] 11/09/2025 8:40 AM EDT Office Visit [facility] Endocrinology [place] [address] [place] [phone] Lexy Quiroga MD [address] [place] [address] documented as of this encounter Visit Diagnoses Not on filedocumented in this encounter Additional Health Concerns Infection Onset Date Last Indicated Resolved Time CoV-Risk 06/10/2024 06/10/2024 06/21/2024 1:21 AM EDT Assessment Noted Time PHQ-2 Depression Total Score: 0 05/19/19 25 10:33 AM EST documented as of this encounter Care Teams Propulsion Engineer Relationship Specialty Start Date End Date Tee Ramirez MD [address] [place] [address] PCP - General 01/11/17 Sandip Yi MD [address] [place] [address] [email or web address] 04/16/20 Lexy Quiroga MD [address] [address] [email or web address] Endocrinology 04/16/20 Harvey Givens MD [address] [place] [address] Drive [address] [place] [address] Gastroenterology 04/16/20 Marita Madrigal MD [address] [place] [phone] Obstetrics and Gynecology 04/16/20 Ji Caballero MD [address] [place] [address] Dr [address] [place] [address] Cardiology 07/19/20 Cristopher Fry MD, MS [address] [place] [address] [email or web address] Intensive Care 05/01/22 documented as of this encounter Additional Source Comments The information contained in this document represents components of the legal health record. It is not the complete legal health record.[facility]
--- OUTSIDE RECORDS SUMMARY | 2024-12-15 13:51 | XMS_ITS | Encounter Summary ---
Author Organization [facility] Address [address] [place] [address] Phone Care Team Providers Care Rn Ambulatory Name Role Phone Tee Ramirez MD Primary Care Provider [phone] Sandip Yi MD Unavailable [phone] Lexy Quiroga MD Unavailable [phone] Harvey Givens MD Unavailable Marita Madrigal MD Unavailable [facility] MD Unavailable [phone] Cristopher Fry MD, [place] Unavailable [phone] Encounter Details Date Type Department Care Team (Latest Contact Info) Description 04/16/2019 Transcribe Orders [facility] Laboratory [address] [place], [place] [phone] Tee Ramirez MD [address] [place], [place] [phone] [email or web address] Vitamin D deficiency; Pure hypercholesterolemia ; Bronchiectasis [...] Description 12/24/2024 8:15 AM EDT Office Visit [facility] Pulmonary, Allergy and Critical Care Medicine 10 [facility] [place] [address] Cristopher Fry MD, MS [address] [address] 06/01/2025 9:30 AM EDT Office Visit [facility] Internal Medicine [address] [place] [address] Tee Ramirez MD [address] [place] [address] 11/09/2025 8:40 AM EDT Office Visit [facility] Endocrinology [place] [address] [place] [phone] Lexy Quiroga MD [address] [address] documented as of this encounter Procedures Procedure [...] AM EST) HCV NON-REACTIV E NON-REACTI VE [facility] Blood 04/16/2019 9:03 AM EST 04/16/2019 9:09 AM EST us Tee Ramirez MD LAB BLOOD ORDERABLES Final Re sult [address] [address] * CBC (04/16/2019 9:03 AM EST) WBC 5.65 3.40 - 11.20 K/uL [facility] RBC 4.48 3.80 - 4.80 M/uL [facility] HGB 13.5 12.0 - 15.0 g/dL [facility] HCT 41.1 36.0 - 46.0 % [facility] PLT 223 130 - 400 K/uL [facility] MCV 91.7 79.0 - 98.0 [facility] MCH 30.1 27.0 - 34.8 pg [facility] MCHC 32.8 31.5 - 36.0 g/dL [facility] RDW 13.6 10.8 - 14.6 % [facility] MPV 10.5 9.4 - 12.4 [facility] NRBC 0.00 0.00 /100 WBCs [facility] ABSOLUTE NRBC 0.00 0.00 K/uL [facility] Blood 04/16/2019 9:03 AM EST 04/16/2019 9:09 AM EST us Tee Ramirez MD LAB BLOOD ORDERABLES Final Re sult [address] [address] * Comprehensive metabolic panel (04/16/2019 9:03 AM EST) SODIUM 141 133 - 146 mmol/L [facility] POTASSIUM 4.7 3.3 - 5.1 mmol/L [facility] CHLORIDE 102 96 - 108 mmol/L [facility] CO2 29 21 - 35 mmol/L [facility] BUN 17 6 - 19 mg/dL [facility] CREATININE 0.60 0.5 - 1.5 mg/dL [facility] GLUCOSE 98 70 - 99 mg/dL [facility] ALBUMIN 4.5 3.9 - 4.8 g/dL [facility] TOTAL PROTEIN 7.0 6.5 - 8.0 g/dL [facility] CALCIUM 9.6 8.4 - 10.3 mg/dL [facility] ALKALINE PHOSPHATASE 58 39 - 117 U/L [facility] TOTAL BILIRUBIN 0.6 0.0 - 1.2 mg/dL [facility] AST 25 0 - 37 U/L [facility] ALT 7 0 - 40 U/L [facility] GLOBULIN 2.5 1 - 4.8 g/dL [facility] EGFR 93 >59 mL/min/1.7 3m2 [facility] Comment:If patient is black, multiply result by 1.159. Estimated glomerular filtration rate calculated using the CKD-EPI equation. ANION GAP 15 10 - 20 mmol/L [facility] Blood 04/16/2019 9:03 AM EST 04/16/2019 9:09 AM EST us Tee Ramirez MD LAB BLOOD ORDERABLES Final Re sult [facility] [address] [place] [address] * (ABNORMAL) Lipid panel (04/16/2019 9:03 AM EST) HDL 75 mg/dL [facility] Comment: Interpretation <40 mg/dL: Low HDL cholesterol (major risk factor for CHD) Greater than or equal to 60 mg/dL: High HDL cholesterol ( negative risk factor for CHD) HDL - cholesterol is affected by a number of factors, e.g. smoking, excerise, hormones, sex and age. CHOLESTEROL 203 0 - 240 mg/dL [facility] TRIGLYCERIDES 84 30 - 160 mg/dL [facility] LDL 111 50 - 129 mg/dL [facility] Comment: LDL levels in terms of risk for coronary heart disease: <100 mg/dL: Optimal 100-129 mg/dL: Near or above optimal 130-159 mg/dL: Borderline high 160-189 mg/dL: High >190 mg/dL: Very High CARDIAC RISK RATIO 2.7(L) 3.3 - 4.4 C [facility] Blood 04/16/2019 9:03 AM EST 04/16/2019 9:09 AM EST us Tee Ramirez MD LAB BLOOD ORDERABLES Final Re sult Performing Organization Address [facility] Co de Phone Number [address] [address] * TSH (04/16/2019 9:03 AM EST) TSH 1.74 0.27 - 4.20 uIU/mL [facility] Blood 04/16/2019 9:03 AM EST 04/16/2019 9:09 AM EST us Tee Ramirez MD LAB BLOOD ORDERABLES Final Re sult Performing Organization Address [facility] Co de Phone Number [address] [address] * 25-OH vitamin D (04/16/2019 9:03 AM EST) 25 OH VIT D (TOTAL) 47 30 - 60 ng/mL [facility] Blood 04/16/2019 9:03 AM EST 04/16/2019 9:09 AM EST us Tee Ramirez MD LAB BLOOD ORDERABLES Final Re sult Performing Organization Address [facility] Co de Phone Number [address] [address] documented in this encounter Visit Diagnoses Diagnosis [...] documented as of this encounter Care Teams Rn Ambulatory Relationship Specialty Start Date End Date Tee Ramirez MD [address] [place] [address] PCP - General 01/11/17 Sandip Yi MD [address] [place] [address] [email or web address] Medicine 04/16/20 Lexy Quiroga MD [address] [address] [email or web address] Endocrinology 04/16/20 Harvey Givens MD [address] [place] [address] Drive [address] [place] [address] Gastroenterology 04/16/20 Marita Madrigal MD [address] [phone] Obstetrics and Gynecology 04/16/20 Ji Caballero MD [address] [place] [address] [address] [place] [address] Cardiology 07/19/20 Cristopher Fry MD, MS [address] [place] [address] [email or web address] Intensive Care 05/01/22 documented as of this encounter Additional Source Comments The information contained in this document represents components of the legal health record. It is not the complete legal health record.[facility]
--- OUTSIDE RECORDS SUMMARY | 2024-12-15 13:51 | XMS_ITS | Encounter Summary ---
Author Organization [facility] Address [address] [place] [address] Phone Care Team Providers Care Lean Consultant Name Role Phone Tee Ramirez MD Primary Care Provider [phone] Sandip Yi MD Unavailable [phone] Lexy Quiroga MD Unavailable [phone] Harvey Givens MD Unavailable [phone] Marita Madrigal MD Unavailable [facility] Unavailable Cristopher Fry MD, [place] Unavailable [phone] Encounter Details Date Type Department Care Team (Late st Contact Info) Description 02/19/2023 Procedure Pass [facility], Ct Scan - [address] [address] Social History Tobacco Use Types Packs/Day Years [...] high school, GED, job training, learning the Indonesian language, technical skills, or developing parenting skills)? [...] Critical Care Medicine [address] [place] [address] Cristopher Fry MD, [place] 10 [facility] [address]nd [place] [address] 06/01/2025 9:30 AM EDT Office Visit [facility] [place] Internal Medicine 40 [facility] [place] [address] Tee Ramirez MD 40 [place] [address] 11/09/2025 8:40 AM EDT Office Visit [facility] Endocrinology [place] [address] [place] [phone] Lexy Quiroga MD [address] [address] documented as of this encounter Visit Diagnoses Not on filedocumented in this encounter Additional Health Concerns Infection Onset Date Last Indicated Resolved Time COVID-19 02/08/2023 02/08/2023 03/01/2023 1:26 AM EST CoV-Risk 06/10/2024 06/10/2024 06/21/2024 1:21 AM EDT Assessment Noted Time PHQ-2 Depression Total Score: 0 04/30/19 7:38 PM EST documented as of this encounter Care Teams Lean Consultant Relationship Specialty Start Date End Date Tee Ramirez MD 40 [place] [address] PCP - General 01/11/17 Sandip Yi MD [address] [place] [address] [email or web address] 04/16/20 Lexy Quiroga MD [address] [address] Endocrinology 04/16/20 Harvey Givens MD [address] [place] [address] Gastroenterology 04/16/20 Marita Madrigal MD [address] [place] [phone] Obstetrics and Gynecology 04/16/20 Ji Caballero MD [address] [place] [address] Cardiology 07/19/20 Cristopher Fry MD, [place] [address] [place] [address] [email or web address] Intensive Care 05/01/22 documented as of this encounter Additional Source Comments The information contained in this document represents components of the legal health record. It is not the complete legal health record.[facility]
--- OUTSIDE RECORDS SUMMARY | 2024-12-15 13:51 | XMS_ITS | Encounter Summary ---
Author Organization [facility] Address [address] [place] [address] Phone Care Team Providers Care Smoke Eater Name Role Phone Tee Ramirez MD Primary Care Provider [phone] Sandip Yi MD Unavailable Lexy Quiroga MD Unavailable Harvey Givens MD Unavailable Marita Madrigal MD Unavailable AdaJi MD Unavailable [phone] Cristopher Fry MD, [place] Unavailable [phone] Encounter Details Date Type Department Care Team (Late st Contact Info) Description 09/03/2024 Procedure Pass [facility], Ct Scan - [address] [address] Social History Tobacco Use Types Packs/Day Years [...] Care Medicine [address] [place] [address] Cristopher Fry MD, [place] [address] [address] [email or web address] 06/01/2025 9:30 AM EDT Office Visit [facility] Internal Medicine 40 [place] [address] Tee Ramirez MD 40 [place], [place] [email or web address] 11/09/2025 8:40 AM EDT Office Visit [facility] Endocrinology [place] 40 [place] [phone] Lexy Quiroga MD [address] [address] documented as of this encounter Visit Diagnoses Not on filedocumented in this encounter Additional Health Concerns Assessment Noted Time PHQ-2 Depression Total Score: 0 05/19/19 25 10:33 AM EST documented as of this encounter Care Teams Smoke Eater Relationship Specialty Start Date End Date Tee Ramirez MD 40 [place] [address] [email or web address] PCP - General 01/11/17 Sandip Yi MD [address] [place] [address] [email or web address] 04/16/20 Lexy Quiroga MD [address] [place] [address] Endocrinology 04/16/20 Harvey Givens MD [address] [place] [address] Drive [address] [place] [address] Gastroenterology 04/16/20 Marita Madrigal MD [address] [place] [phone] Obstetrics and Gynecology 04/16/20 Ji Caballero MD [address] [place] [address] Dr [address] [place] [address] Cardiology 07/19/20 Cristopher Fry MD, MS [address] [place] [address] Intensive Care 05/01/22 documented as of this encounter Additional Source Comments The information contained in this document represents components of the legal health record. It is not the complete legal health record.[facility]
--- OUTSIDE RECORDS SUMMARY | 2024-12-15 13:51 | XMS_ITS | Encounter Summary ---
Author Organization [facility] Address [address] [place] [address] Phone Care Team Providers Care Director Outcomes Name Role Phone Tee Ramirez MD Primary Care Provider Sandip Yi MD Unavailable [phone] Lexy Quiroga MD Unavailable Harvey Givens MD Unavailable Marita Madrigal MD Unavailable [facility] MD Unavailable Cristopher Fry MD, [place] Unavailable Encounter Details Date Type Department Care Team (Late st Contact Info) Description 07/21/2024 Transcribe Orders [facility] Specimen Processing 30 [place] [address] Ryne Bonilla MD 38 [facility] [address], [address] [place] [address] [email or web address] Social History Tobacco Use Types Packs/Day Years [...] Description 12/24/2024 8:15 AM EDT Office Visit [facility] Pulmonary, Allergy and Critical Care Medicine [address] [facility] [place] [address] Cristopher Fry MD, [place] [address] [address] 06/01/2025 9:30 AM EDT Office Visit [facility] Internal Medicine 40 [place] [address] Tee Ramirez MD 40 [place] [address] 11/09/2025 8:40 AM EDT Office Visit [facility] Endocrinology [place] 40 [place] [phone] Lexy uQiroga MD [address] [place] [address] documented as of this encounter Visit Diagnoses Not on filedocumented in this encounter Additional Health Concerns Assessment Noted Time PHQ-2 Depression Total Score: 0 05/19/19 25 10:33 AM EST documented as of this encounter Care Teams Director Outcomes Relationship Specialty Start Date End Date Tee Ramirez MD 40 [place] [address] PCP - General 01/11/17 Sandip Yi MD [address] [place] [address] [email or web address] 04/16/20 Lexy Quiroga MD [address] [address] Endocrinology 04/16/20 Harvey Givens MD [address] [place] [address] Drive [address] [place] [address] Gastroenterology 04/16/20 Marita Madrigal MD [address] [place] [phone] Obstetrics and Gynecology 04/16/20 Ji Caballero MD [address] [place] [address] Dr [address] [place] [address] Cardiology 07/19/20 Cristopher Fry MD, [place] [address] [place] [address] Intensive Care 05/01/22 documented as of this encounter Additional Source Comments The information contained in this document represents components of the legal health record. It is not the complete legal health record.[facility]
== END 2024-12-15 11:33 | disposition home or self-care (01) ==
LOC: HO.HMGAL 11:11
PROVIDERS: PCP Internal Medicine; Visit Provider Registered Nurse Emergency
DX: J30.89 Other allergic rhinitis (principal)
CPT/HCPCS: 95117; 95165

== ENCOUNTER → 2024-12-16 12:49 | Outpatient (REF) | payer MEDICARE, SELFPAY ==
--- OUTSIDE RECORDS SUMMARY | 2024-04-02 03:30 | XMS_ITS ---
Author Organization [facility] Address [address] [place] [phone] Care Team Providers Care Blood Bank Manager Name Role Phone Tee Ramirez MD Primary Care Provider Unavaila Harvey Blackman Unavailable [phone] REASON FOR VISIT screening,hx polyps,fam hx colon ca Problems Problem Type SNOMED Code ICD Code Onset Dates Problem Status W/U Status Risk Notes Problem Diverticular disease of colon (111209862) Diverticulosis of large intestine without perforation or abscess without bleeding (K57.30) Active confirmed Encounters Encounter Location Date Provider Diagnosis [facility] Outpatient [address] [place] [phone] 04/02/2024 Harvey Givens Colon cancer scree jerald [...] * ULISES NOYOLA EDOB:1950 (74 yo F)Acc No.[id number]:04/02/2024 COLON WITH MAC Patient: ULISES PEREZ Provider: Damion Givens MD :1950 A ge:73 Y S ex:Female Date:04/02/2024 [facility] [address] Pcp:Tee Ramirez MD Subjective: * Chief Complaints: [...] 04/02/2024 Generated for Noemy rinaldi/Ariel/Melanieitting on: 0 12/16/2024 03:40 PM EDT
--- NOTE | 2024-12-16 12:53 | CA_ITS ---
Transthoracic Echocardiogram Patient (Last, First, Middle): Viviana Irvin E Gender: F Date of : 1950 Age: 74 Procedure Date: 12/16/2024 Procedure Type: Transthoracic Echocardiogram Location: OP Height: 162. cm Weight: 40.82 kg BSA: 1.39 m2 Heart Rate: 83 bpm BP: 100 / 50 mmHg Desktop Support Technician: MATTHEW Referring MD: Shala Blackwell [employer] LEADHalima Symptoms: R93.1 - Abnormal findings on diagnostic imaging of heart and coronary ci... Study Quality: Adequate. Limited per order ECG Rhythm: Sinus Conclusions: - The left ventricular systolic function is normal. The calculated ejection fraction is 55% by biplane method. - Small pericardial effusion overlying the right atrium, right ventricle, left ventricle. Findings Left Ventricle Normal left ventricular cavity size. There is normal left ventricular wall thickness. The left ventricular systolic function is normal. The calculated ejection fraction is 55% by biplane method. There is no evidence of regional wall motion abnormalities. Venous The inferior vena cava is normal in size and collapses greater than 50% with inspiration. Pericardium/Pleural There are no definitive echocardiographic findings of tamponade physiology. Small pericardial effusion overlying the right atrium, right ventricle, left ventricle. Prior Study Comparison No significant change compared to prior study dated: 06/06/2024. Measurements 2D Linear Measurements IVSd: 0.64 0.6-0.9/0.6-1.0 cm LVIDd: 3.92 3.9-5.3/4.2-5.9 cm LVIDd Index: 2.82 2.4-3.2/2.2-3.1 cm/m2 LVIDs: 2.63 2.0-3.6 cm LVPWd: 0.71 0.7-1.1 cm LV Mass: 89.23 67-162/88-224 g LV Mass Index: 64.19 43-95/49-115 g/m2 LVOT Diam: 2.00 3.0+(-)1.3 cm 2D Systolic Function EF 4C: 52.50 >55% EF 2C: 57.20 >55% EF BiP: 54.80 >55% Mitral Valve MV Pk E: 0.73 MV PK A: 0.76 MV Decel Time: 195.00 E/A: 1.00 E'Lateral: 8.16 E'Medial: 5.77 E/E' Med: 12.70 E/E' Lat: 9.00 PHT: 57.00 MVA PHT: 3.86 Decel Hickory: 3.76 LVOT LVOT Pk Mauricio: 0.84 LVOT Mn Mauricio: 0.59 LVOT VTI: 0.17 LVOT Pk Grad: 3.00 LVOT Mn Grad: 2.00 LVOT Diam: 2.00 LVOT Area: 3.14 Diastolic Function MV Pk E: 0.73 MV Pk A: 0.76 E/A: 1.00 E'Medial: 5.77 E/E' Med: 12.70 E' Laterial: 8.16 E/E' Lat: 9.00 Updated in Other Vendor System with Status of Final Chetan Cedeño MD electronically signed on 12/17/2024 1:37:16 PM with status of Final
--- OUTSIDE RECORDS SUMMARY | 2024-12-16 15:41 | XMS_ITS | Encounter Summary ---
Author Organization [facility] Address [address] [place] [address] Phone Care Team Providers Care Clay Caster Name Role Phone Tee Ramirez MD Primary Care Provider [phone] Sandip Yi MD Unavailable [phone] Lexy Quiroga MD Unavailable Harvey Givens MD Unavailable [phone] Marita Madrigal MD Unavailable [facility] MD Unavailable [phone] Cristopher Fry MD, [place] Unavailable [phone] Encounter Details Date Type Department Care Team (Latest Contact Info) Description 04/24/2024 Ancillary Orders [facility] Internal Medicine 40 [place], [place] [phone] Tee Ramirez MD 40 [place], [place] [phone] [email or web address] Persistent cough (Primary Dx); RSV (acute bronchiolitis [...] 8:15 AM EDT Office Visit [facility] Pul[facility], Allergy and Critical Care Medicine 10 [facility] [place] [address] Cristopher Fry MD, [place] [address] [address] 06/01/2025 9:30 AM EDT Office Visit [facility] Internal Medicine 40 [place] [address] Tee Ramirez MD 40 [place] [address] 11/09/2025 8:40 AM EDT Office Visit [facility] Endocrinology [place] 40 [place] [address] Lexy Quiroga MD [address] [address] [email or web address] documented as of this encounter Results [...] clinician's provided indication for this examination in [facility]: Cough, persistent; rsv and r/o pneumonia [...] clinician's provided indication for this examination in [facility]:Cough, persistent; rsv and r/o pneumonia COMPARISON: [...] documented as of this encounter Care Teams Clay Caster Relationship Specialty Start Date End Date Tee Ramirez MD 40 [place] [address] PCP - General 01/11/17 Sandip Yi MD 271 [place] [address] [email or web address] Internal Medicine 04/16/20 Lexy Quiroga MD [address] [place] [address] Endocrinology 04/16/20 Harvey Givens MD [address] [place] [address] Drive [address] [place] [address] Gastroenterology 04/16/20 Marita Madrigal MD [address] [place] [phone] Obstetrics and Gynecology 04/16/20 Ji Caballero MD [address] [place] [address] Dr [address] [place] [address] Cardiology 07/19/20 Cristopher Fry MD, MS [address] [place] [address] Intensive Care 05/01/22 documented as of this encounter Additional Source Comments The information contained in this document represents components of the legal health record. It is not the complete legal health record.[facility]
--- OUTSIDE RECORDS SUMMARY | 2024-12-16 15:41 | XMS_ITS | Encounter Summary ---
Author Organization [facility] Address [address] [place] [address] Phone Care Team Providers Care Grain Combiner Name Role Phone Tee Ramirez MD Primary Care Provider [phone] Sandip Yi MD Unavailable [phone] Lexy Quiroga MD Unavailable [phone] Harvey Givens MD Unavailable [phone] Marita Madrigal MD Unavailable [phone] [facility] MD Unavailable [phone] Cristopher Fry MD, [place] Unavailable [phone] Encounter Details Date Type Department Care Team (Late st Contact Info) Description 05/02/2022 Procedure Pass [facility], Ct Scan - [address] [address] Social History Tobacco Use Types Packs/Day Years [...] high school, GED, job training, learning the [place] language, technical skills, or developing parenting skills)? [...] Description 12/24/2024 8:15 AM EDT Office Visit [facility] Pulmonary, Allergy and Critical Care Medicine 10 [place] [address] Cristopher Fry MD, [place] [address] [address] 06/01/2025 9:30 AM EDT Office Visit [facility] [place] Internal Medicine 40 [place] [address] Tee Ramirez MD 40 [place] [address] 11/09/2025 8:40 AM EDT Office Visit [facility] Endocrinology [place] 40 [place] [phone] Lexy Quiroga MD [address] [address] documented as of this encounter Visit Diagnoses Not on filedocumented in this encounter Additional Health Concerns Infection Onset Date Last Indicated Resolved Time COVID-19 02/08/2023 02/08/2023 03/01/2023 1:26 AM EST CoV-Risk 06/10/2024 06/10/2024 06/21/2024 1:21 AM EDT Assessment Noted Time PHQ-2 Depression Total Score: 0 04/19/19 7:47 PM EST documented as of this encounter Care Teams Grain Combiner Relationship Specialty Start Date End Date Tee Ramirez MD 40 [place] [address] PCP - General 01/11/17 Sandip Yi MD [address] [place] [address] [email or web address] 04/16/20 Lexy Quiroga MD [address] [address] Endocrinology 04/16/20 Harvey Givens MD [address] [place] [address] Drive [address] [place] [address] Gastroenterology 04/16/20 Marita Madrigal MD [address] [place] [phone] Obstetrics and Gynecology 04/16/20 Ji Caballero MD [address] [place] [address] Cardiology 07/19/20 Cristopher Fry MD, MS [address] [place] [address] [email or web address] Intensive Care 05/01/22 documented as of this encounter Additional Source Comments The information contained in this document represents components of the legal health record. It is not the complete legal health record.[facility]
--- OUTSIDE RECORDS SUMMARY | 2024-12-16 15:41 | XMS_ITS | Encounter Summary ---
Author Organization [facility] Address [address] [place] [address] Phone Care Team Providers Care Manager Control Name Role Phone Tee Ramirez MD Primary Care Provider Sandip Yi MD Unavailable [phone] Lexy Quiroga MD Unavailable Harvey Givens MD Unavailable Marita Madrigal MD Unavailable AdaJi MD Unavailable Cristopher Fry MD, [place] Unavailable [phone] Encounter Details Date Type Department Care Team (Late st Contact Info) Description 07/18/2022 Procedure Pass [facility] Endoscopy Admitting Dept Virtual Department [address] [place] [phone] Social History Tobacco Use Types Packs/Day Years [...] high school, GED, job training, learning the [place] language, technical skills, or developing parenting skills)? [...] Description 12/24/2024 8:15 AM EDT Office Visit [facility] Pulmonary, Allergy and Critical Care Medicine [address] [facility] [address] Cristopher Fry MD, [place] [address] [address] 06/01/2025 9:30 AM EDT Office Visit [facility] [place] Internal Medicine 40 [place] [address] Tee Ramirez MD 40 [place] [address] 11/09/2025 8:40 AM EDT [facility] Endocr[facility]ology [place] 40 [place] [phone] Lexy Quiroga MD [address] [address] documented as of this encounter Visit Diagnoses Not on filedocumented in this encounter Additional Health Concerns Infection Onset Date Last Indicated Resolved Time COVID-19 02/08/2023 02/08/2023 03/01/2023 1:26 AM EST CoV-Risk 06/10/2024 06/10/2024 06/21/2024 1:21 AM EDT Assessment Noted Time PHQ-2 Depression Total Score: 0 04/19/19 7:47 PM EST documented as of this encounter Care Teams Manager Control Relationship Specialty Start Date End Date Tee Ramirez MD 40 [place] [address] PCP - General 01/11/17 Sandip Yi MD 271 [place] [address] [email or web address] 04/16/20 Lexy Quiroga MD [address] [address] Endocrinology 04/16/20 Harvey Givens MD [address] [place] [address] [address] [place] [address] Gastroenterology 04/16/20 Marita Madrigal MD [address] [place] [phone] Obstetrics and Gynecology 04/16/20 Ji Caballero MD [address] [place] [address] [place] [address] Cardiology 07/19/20 Cristopher Fry MD, MS [address] [place] [address] [email or web address] Intensive Care 05/01/22 documented as of this encounter Additional Source Comments The information contained in this document represents components of the legal health record. It is not the complete legal health record.[facility]
--- OUTSIDE RECORDS SUMMARY | 2024-12-16 15:41 | XMS_ITS | Encounter Summary ---
Author Organization [facility] Address [address] [place] [address] Phone Care Team Providers Care Head Girls Golf Coach Name Role Phone Tee Ramirez MD Primary Care Provider [phone] Sandip Yi MD Unavailable [phone] Lexy Quiroga MD Unavailable Harvey Givens MD Unavailable Marita Madrigal MD Unavailable [facility] MD Unavailable Cristopher Fry MD, [place] Unavailable [phone] Encounter Details Date Type Department Care Team (Latest Contact Info) Description 04/16/[address] [facility] Laboratory [address] [place], [place] [phone] Tee Ramirez MD 40 [place], [place] [phone] [email or web address] Vitamin D deficiency; Pure hypercholesterolemia ; Bronchiectasis [...] Description 12/24/2024 8:15 AM EDT Office Visit [facility] Pulmonary, Allergy and Critical Care Medicine 10 [facility] [place] [address] Cristopher Fry MD, [place] [address] [address] 06/01/2025 9:30 AM EDT Office Visit [facility] Internal Medicine 40 [place] [address] Tee Ramirez MD 40 [place] [address] 11/09/2025 8:40 AM EDT Office Visit [facility] Endocrinology [place] 40 [place] [phone] Lexy Quiroga MD [address] [address] documented as of this encounter Procedures Procedure [...] AM EST) HCV NON-REACTIV E NON-REACTI VE [facility] Blood 04/16/2019 9:03 AM EST 04/16/2019 9:09 AM EST us Tee Ramirez MD LAB BLOOD ORDERABLES Final Re sult [address] [address] * CBC (04/16/2019 9:03 AM EST) WBC 5.65 3.40 - 11.20 K/uL [facility] RBC 4.48 3.80 - 4.80 M/uL [facility] HGB 13.5 12.0 - 15.0 g/dL [facility] HCT 41.1 36.0 - 46.0 % [facility] PLT 223 130 - 400 K/uL [facility] MCV 91.7 79.0 - 98.0 [facility] MCH 30.1 27.0 - 34.8 pg [facility] MCHC 32.8 31.5 - 36.0 g/dL [facility] RDW 13.6 10.8 - 14.6 % [facility] MPV 10.5 9.4 - 12.4 [facility] NRBC 0.00 0.00 /100 WBCs [facility] ABSOLUTE NRBC 0.00 0.00 K/uL [facility] Blood 04/16/2019 9:03 AM EST 04/16/2019 9:09 AM EST us Tee Ramirez MD LAB BLOOD ORDERABLES Final Re sult [address] [address] * Comprehensive metabolic panel (04/16/2019 9:03 AM EST) SODIUM 141 133 - 146 mmol/L [facility] POTASSIUM 4.7 3.3 - 5.1 mmol/L [facility] CHLORIDE 102 96 - 108 mmol/L [facility] CO2 29 21 - 35 mmol/L [facility] BUN 17 6 - 19 mg/dL [facility] CREATININE 0.60 0.5 - 1.5 mg/dL [facility] GLUCOSE 98 70 - 99 mg/dL [facility] ALBUMIN 4.5 3.9 - 4.8 g/dL [facility] TOTAL PROTEIN 7.0 6.5 - 8.0 g/dL [facility] CALCIUM 9.6 8.4 - 10.3 mg/dL [facility] ALKALINE PHOSPHATASE 58 39 - 117 U/L [facility] TOTAL BILIRUBIN 0.6 0.0 - 1.2 mg/dL [facility] AST 25 0 - 37 U/L [facility] ALT 7 0 - 40 U/L [facility] GLOBULIN 2.5 1 - 4.8 g/dL [facility] EGFR 93 >59 mL/min/1.7 3m2 [facility] Comment:If patient is black, multiply result by 1.159. Estimated glomerular filtration rate calculated using the CKD-EPI equation. ANION GAP 15 10 - 20 mmol/L [facility] Blood 04/16/2019 9:03 AM EST 04/16/2019 9:09 AM EST us Tee Ramirez MD LAB BLOOD ORDERABLES Final Re sult [facility] [address] [place] [address] * (ABNORMAL) Lipid panel (04/16/2019 9:03 AM EST) HDL 75 mg/dL [facility] Comment: Interpretation <40 mg/dL: Low HDL cholesterol (major risk factor for CHD) Greater than or equal to 60 mg/dL: High HDL cholesterol ( negative risk factor for CHD) HDL - cholesterol is affected by a number of factors, e.g. smoking, excerise, hormones, sex and age. CHOLESTEROL 203 0 - 240 mg/dL [facility] TRIGLYCERIDES 84 30 - 160 mg/dL [facility] LDL 111 50 - 129 mg/dL [facility] Comment: LDL levels in terms of risk for coronary heart disease: <100 mg/dL: Optimal 100-129 mg/dL: Near or above optimal 130-159 mg/dL: Borderline high 160-189 mg/dL: High >190 mg/dL: Very High CARDIAC RISK RATIO 2.7(L) 3.3 - 4.4 C [facility] Blood 04/16/2019 9:03 AM EST 04/16/2019 9:09 AM EST us Tee Ramirez MD LAB BLOOD ORDERABLES Final Re sult Performing Organization Address [facility] Co de Phone Number [address] [address] * TSH (04/16/2019 9:03 AM EST) TSH 1.74 0.27 - 4.20 uIU/mL [facility] Blood 04/16/2019 9:03 AM EST 04/16/2019 9:09 AM EST us Tee Ramirez MD LAB BLOOD ORDERABLES Final Re sult Performing Organization Address [facility] Co de Phone Number [address] [address] * 25-OH vitamin D (04/16/2019 9:03 AM EST) 25 [place] VIT D (TOTAL) 47 30 - 60 ng/mL [facility] Blood 04/16/2019 9:03 AM EST 04/16/2019 9:09 AM EST us Tee Ramirez MD LAB BLOOD ORDERABLES Final Re sult Performing Organization Address [facility] Co de Phone Number [address] [address] documented in this encounter Visit Diagnoses Diagnosis [...] documented as of this encounter Care Teams Head Girls Golf Coach Relationship Specialty Start Date End Date Tee Ramirez MD 40 [place] [address] PCP - General 01/11/17 Sandip Yi MD 271 [place] [address] [email or web address] 04/16/20 Lexy Quiroga MD [address] [address] [email or web address] Endocrinology 04/16/20 Harvey Givens MD [address] [place] [address] Drive [address] [place] [address] Gastroenterology 04/16/20 Marita Madrigal MD [address] [phone] Obstetrics and Gynecology 04/16/20 Ji Caballero MD [address] [place] [address] Dr [address] [place] [address] Cardiology 07/19/20 Cristopher Fry MD, [place] [address] [place] [address] [email or web address] Intensive Care 05/01/22 documented as of this encounter Additional Source Comments The information contained in this document represents components of the legal health record. It is not the complete legal health record.[facility]
--- OUTSIDE RECORDS SUMMARY | 2024-12-16 15:41 | XMS_ITS | Clinical Summary ---
Author Organization [facility] Address [address] [place] [address] Phone Care Team Providers Care Department Of Mathematics Chair Name Role Phone Tee Ramirez MD Primary Care Provider Sandip Yi MD Unavailable Lexy Quiroga MD Unavailable [phone] Harvey Givens MD Unavailable [phone] Marita Madrigal MD Unavailable [facility] Unavailable [phone] Cristopher Fry MD, [place] Unavailable [phone] Allergies No known active allergies Medications aspirin [...] prior to follow up, will shift from [place] to [facility] with next study. Assessment & [...] mL (0.083 %) nebulizer solution 2.5 mg myktwpyerhq-yqvyyzsrq-gqzcoxgk (TRELEGY ELLIPTA) 100-62.5-25 mcg inhalation powder; Inhale [...] of bronchiectasis. Orders: CBC and differential; Future Gaajm-4-ozhavwibuym phenotyping; Future Immunoglobulin A; Future Immunoglobulin E, total; Future Immunoglobulin G; Future IgG subclasses; Future Immunoglobulin M; Future Rheumatoid factor; Future umeclidinium-vilanteroL (ANORO ELLIPTA) 62.5-25 mcg/actuation diskus inhaler; Inhale 1 puff into the lungs daily. Assessment & Plan (02/19/2023 2:25 PM EST): Continue with as needed Hypersal and albuterol for pulmonary toilet. Given pulmonary scarring (with minimal exchange trouble shooter less than 12-month interval), we will repeat [...] continue immunotherapy under the care of her highway engineer. She will return to see me on [...] (10/03/2022): 04/27/2022 chest CTA performed at [facility] revealed consolidation and volume loss in the [...] atypical pneumonia such as NTM pulmonary disease/Lady Primghar syndrome, multifocal pneumonia (though patient is afebrile without discolored sputum or leukocytosis), or a noninfectious interstitial disease such as organizing pneumonia/STAINED GLASS ARTIST. At this point, we agreed to obtain [...] Pulmonary, Allergy and Critical Care Medicine 10 [place] [address] Cristopher Fry MD, MS Results 11/25/2024 7:42 AM EDT - 11/25/2024 11:59 PM EDT Hospital Encounter , Ct Scan - [address] [address] Cristopher Fry MD, MS Discharge Disposition: Home or Self Care 11/14/2024 12:04 PM EDT - 11/14/2024 11:59 PM EDT Hospital Encounter [facility] [address] [place] [address] Tee Ramirez MD Discharge Disposition: Home or Self Care 11/14/2024 11:00 AM EDT Office Visit [facility] Internal Medicine [address] [place] [address] Tee Ramirez MD Age-related osteoporosis without current pathological fracture (Primary Dx); Left upper lobe pulmonary infiltrate; Bronchiectasis without complication; Abnormal echocardiogram 11/10/2024 8:20 AM EDT Office Visit [facility] Endocrinology [place] [address] [place] [phone] Lexy Quiroga MD Age-related osteoporosis without current pathological fracture (Primary Dx) 11/03/2024 Documentation [facility] Internal Medicine [address] [place] [address] Tee Ramirez MD 10/03/2024 Refill [facility] Endocrinology [place] [address] [place] [phone] Lexy Quiroga MD Medication Refill 09/03/2024 Procedure Pass , Ct Scan - [facility] [address] [place] [address] from Last 3 Months Immunizations Immunization Administration [...] Description 12/24/2024 8:15 AM EDT Office Visit [facility] Pulmonary, Allergy and Critical Care Medicine 10 [facility] [place] [address] Cristopher Fry MD, MS 10 [facility] [address] [place] [address] [email or web address] 06/01/2025 9:30 AM EDT Office Visit [facility] Internal Medicine [address] [place] [address] Tee Ramirez MD 40 [place] [address] [email or web address] 11/09/2025 8:40 AM EDT Office Visit [facility] Endocrinology [place] [address] [place] [phone] Lexy Quiroga MD [address] [place] [address] [email or web address] Health Maintenance Due Date Last Done Comments [...] type 1b-telopeptide, blood (11/14/2024 12:05 PM EDT) [facility] Collagen CTx 79(L) pg/mL [facility] Comment: (NOTE) [...] [facility] [address] [place] [address] * Comprehensive metabolic panel (11/14/2024 12:05 PM EDT) [facility] SODIUM 135 133 - 146 mmol/L [facility] POTASSIUM 4.1 3.3 - 5.1 mmol/L [facility] CHLORIDE 98 96 - 108 mmol/L [facility] CO2 28 21 - 35 mmol/L [facility] BUN 15 6 - 19 mg/dL [facility] CREATININE 0.60 0.5 - 1.5 mg/dL [facility] GLUCOSE 85 70 - 99 mg/dL [facility] ALBUMIN 4.4 3.9 - 4.8 g/dL [facility] TOTAL PROTEIN 7.7 6.5 - 8.0 g/dL [facility] CALCIUM 9.4 8.4 - 10.3 mg/dL [facility] ALKALINE PHOSPHATASE 71 39 - 117 U/L [facility] TOTAL BILIRUBIN 0.4 0.0 - 1.2 mg/dL [facility] AST 23 0 - 37 U/L [facility] ALT 9 0 - 40 U/L [facility] GLOBULIN 3.3 1 - 4.8 g/dL [facility] EGFR 94 >59 mL/min/1.7 3m2 [facility] Comment:Estimated glomerular filtration rate calculated using the CKD-EPI refit equation. ANION GAP 13 10 - 20 mmol/L [facility] Blood 11/14/2024 12:0 5 PM EDT 11/14/2024 12:09 PM EDT us Lexy Quiroga MD LAB BLOOD ORDERABLES F inal Result Performing Organization Address [facility]/ZIP Co de Phone Number [address] [address] * 25-OH vitamin D (11/14/2024 12:05 PM EDT) 25 OH VIT D (TOTAL) 58 30 - 60 ng/mL [facility] Blood 11/14/2024 12:0 5 PM EDT 11/14/2024 12:09 PM EDT us Lexy Quiroga MD LAB BLOOD ORDERABLES F inal Result Performing Organization Address City/[facility]/ZIP Co de Phone Number [address] [address] * Phosphorus (11/14/2024 12:05 PM EDT) PHOSPHORUS 3.4 2.7 - 4.5 mg/dL [facility] Blood 11/14/2024 12:0 5 PM EDT 11/14/2024 12:09 PM EDT us Lexy Quiroga MD LAB BLOOD ORDERABLES F inal Result Performing Organization Address City/[facility]/ZIP Co de Phone Number [address] [address] * Parathyroid hormone (PTH) (11/14/2024 12:05 PM EDT) PARATHYROID HORMONE 28 15 - 65 pg/mL [facility] Blood 11/14/2024 12:0 5 PM EDT 11/14/2024 12:08 PM EDT us Lexy Quiroga MD LAB BLOOD ORDERABLES F inal Result Performing Organization Address [facility] Co de Phone Number [address] [address] * (ABNORMAL) Lipid panel (05/26/2024 8:33 AM EST) HDL 58 mg/dL [facility] Comment: Interpretation <40 mg/dL: Low HDL cholesterol (major risk factor for CHD) Greater than or equal to 60 mg/dL: High HDL cholesterol ( negative risk factor for CHD) HDL - cholesterol is affected by a number of factors, e.g. smoking, excerise, hormones, sex and age. CHOLESTEROL 138 0 - 240 mg/dL [facility] TRIGLYCERIDES 60 30 - 160 mg/dL [facility] LDL 68 50 - 129 mg/dL [facility] Comment: LDL levels in terms of risk for coronary heart disease: <100 mg/dL: Optimal 100-129 mg/dL: Near or above optimal 130-159 mg/dL: Borderline high 160-189 mg/dL: High >190 mg/dL: Very High CARDIAC RISK RATIO 2.4(L) 3.3 - 4.4 C [facility] Blood 05/26/2024 8:33 AM EST 05/26/2024 8:36 AM EST us Tee Ramirez MD LAB BLOOD ORDERABLES Final Re sult Performing Organization Address City/[facility]/ZIP Co de Phone Number [address] [address] * HM COLONOSCOPY FOR RESULT ENTRY ONLY (04/02/2024) Colonoscopy prn us Jacqueline Provider HEALTH MAINTENANCE Final Result * DEXA SCAN (10/30/2023 3:43 PM EDT) us Tee Ramirez MD HEALTH MAINTENANCE Edited Res ult - Final * Hepatitis C antibody, qualitative (04/16/2019 9:03 AM EST) HCV NON-REACTIV E NON-REACTI VE [facility] Blood 04/16/2019 9:03 AM EST 04/16/2019 9:09 AM EST us Tee Ramirez MD LAB BLOOD ORDERABLES Final Re sult Performing Organization Address City/State/[facility] Co de Phone Number [address] [address] from Last 3 Months or Most Recently Relevant to Health Maintenance Insurance [facility] MEDICARE PPO BLUE REPLACEMENT MEDICARE PPO BLUE REPLACEMENT ([place]) [address] MEDICARE PPO BLUE REPLACEMENT [place] P[place] BLUE REPLACEMENT Care Teams Department Of Mathematics Chair Relationship Specialty Start Date End Date Tee Ramirez MD [address] [place] [address] [email or web address] PCP - General 01/11/17 Sandip Yi MD [address] [place] [address] [email or web address] 04/16/20 Lexy Quiroga MD [address] [address] Endocrinology 04/16/20 Harvey Givens MD [address] [place] [address] [address] [place] [address] Gastroenterology 04/16/20 Marita Madrigal MD [address] [place] [phone] Obstetrics and Gynecology 04/16/20 Ji Caballero MD [address] [place] [address] Cardiology 07/19/20 Cristopher Fry MD, MS [address] [place] [address] [email or web address] Intensive Care 05/01/22 Additional Source Comments The information contained in this document represents components of the legal health record. It is not the complete legal health record.[facility]
--- OUTSIDE RECORDS SUMMARY | 2024-12-16 15:41 | XMS_ITS | Encounter Summary ---
Author Organization [facility] Address [address] [place] [address] Phone Care Team Providers Care Slicing Machine Operator/Tender Name Role Phone Tee Ramirez MD Primary Care Provider [phone] Sandip Yi MD Unavailable [phone] Lexy Quiroga MD Unavailable Harvey Givens MD Unavailable Marita Madrigal MD Unavailable [phone] [facility] MD Unavailable [phone] Cristopher Fry MD, [place] Unavailable [phone] Encounter Details Date Type Department Care Team (Late st Contact Info) Description 06/28/2022 Procedure Pass [facility], Ct Scan - [address] [address] Social History Tobacco Use Types Packs/Day Years [...] high school, GED, job training, learning the [place] language, technical skills, or developing parenting skills)? [...] Pulmonary, Allergy and Critical Care Medicine 10 [place] [address] Cristopher Fry MD, MS [address] [address] 06/01/2025 9:30 AM EDT Office Visit [facility] [place] Internal Medicine [address] [place] [address] Tee Ramirez MD 40 [place] [address] 11/09/2025 8:40 AM EDT Office Visit [facility] Endocrinology [place] [address] [place] [phone] Lexy Quiroga MD [address] [address] documented as of this encounter Visit Diagnoses Not on filedocumented in this encounter Additional Health Concerns Infection Onset Date Last Indicated Resolved Time COVID-19 02/08/2023 02/08/2023 03/01/2023 1:26 AM EST CoV-Risk 06/10/2024 06/10/2024 06/21/2024 1:21 AM EDT Assessment Noted Time PHQ-2 Depression Total Score: 0 04/19/19 7:47 PM EST documented as of this encounter Care Teams Slicing Machine Operator/Tender Relationship Specialty Start Date End Date Tee Ramirez MD 40 [place] [address] PCP - General 01/11/17 Sandip Yi MD [address] [place] [address] [email or web address] Medicine 04/16/20 Lexy Quiroga MD [address] [address] Endocrinology 04/16/20 Harvey Givens MD [address] [place] [address] Drive [address] [place] [address] Gastroenterology 04/16/20 Marita Madrigal MD [address] [place] [phone] Obstetrics and Gynecology 04/16/20 Ji Caballero MD [address] [place] [address] Cardiology 07/19/20 Cristopher Fry MD, MS [address] [place] [address] [email or web address] Intensive Care 05/01/22 documented as of this encounter Additional Source Comments The information contained in this document represents components of the legal health record. It is not the complete legal health record.[facility]
--- OUTSIDE RECORDS SUMMARY | 2024-12-16 15:41 | XMS_ITS | Patient Health Record ---
Author Organization [facility] Address [address] [place] [phone] Care Team Providers Care It Senior Analyst Name Role Phone Tee Ramirez MD Primary Care Provider Harvey Killian Unavailable [phone] Allergies No Known Allergies Reason For Referral [...] Status Risk Notes Problem Colon cancer screening (521433440) Colon cancer screening (Z12.11) Active confirmed Problem 925170905 History of adenomatous polyp of colon (Z86.010) Active confirmed Problem Pre-procedure evaluation check (333284258) Encounter for other preprocedural examination (Z01.818) Active confirmed Problem Diverticular disease of colon (248671859) Diverticulosis of large intestine without perforation or abscess without bleeding (K57.30) Active confirmed Problem Abnormal weight loss (101481963) Abnormal weight loss (R63.4) Active confirmed Problem Early satiety (300994514) Early satiety (R68.81) Active confirmed Problem 59706757 Diarrhea, unspecified type (R19.7) Active confirmed Problem 55754894 Lymphocytic colitis (K52.832) Active confirmed Problem 91013954 Change in bowel function (R19.8) Active confirmed Problem Family history of malignant neoplasm of gastrointestinal tract (640447811) Family history of colon cancer in mother (Z80.0) Active confirmed Encounters Encounter Location Date Provider Diagnosis [facility] Outpatient [address] [place] [id number] 04/02/2024 Harvey Givens Colon cancer scree jerald [...] Insured Coverage Start Date Coverage End Date [facility] [address] [place], [place] [id number] [phone] [id number] ULISES NOYOLA Self - patient is the insured Medical (General) History Medical History History ICD Code Denies AL,DM,CVA,Lung disease,renal dise ase Breast cancer-right side---Lumpectomy, lymph [...]
--- OUTSIDE RECORDS SUMMARY | 2024-12-16 15:41 | XMS_ITS | Encounter Summary ---
Author Organization [facility] Address [address] [place] [address] Phone Care Team Providers Care Wearing Apparel Shaker Name Role Phone Tee Ramirez MD Primary Care Provider Sandip Yi MD Unavailable [phone] Lexy Quiroga MD Unavailable Harvey Givens MD Unavailable [phone] Marita Madrigal MD Unavailable [facility] Unavailable Cristopher Fry MD, [place] Unavailable Encounter Details Date Type Department Care Team (Late st Contact Info) Description 07/21/2024 Transcribe Orders [facility] Specimen Processing 30 [place] [address] Ryne Bonilla MD 38 [facility] [address], [address] [place] [address] [email or web address] Social History Tobacco Use Types Packs/Day Years [...] 12/24/2024 8:15 AM EDT Office [place] [facility] [place]monary, Allergy and Critical Care Medicine 10 [address] [facility] [place] [address] Cristopher Fry MD, MS [address] [address] 06/01/2025 9:30 AM EDT Office Visit [facility] Internal Medicine [address] [place] [address] Tee Ramirez MD 40 [place] [address] 11/09/2025 8:40 AM EDT Office Visit [facility] Endocrinology [place] [address] [place] [phone] Lexy Quiroga MD [address] [place] [address] documented as of this encounter Visit Diagnoses Not on filedocumented in this encounter Additional Health Concerns Assessment Noted Time PHQ-2 Depression Total Score: 0 05/19/19 25 10:33 AM EST documented as of this encounter Care Teams Wearing Apparel Shaker Relationship Specialty Start Date End Date Tee Ramirez MD 40 [place] [address] PCP - General 01/11/17 Sandip Yi MD [address] [place] [address] [email or web address] 04/16/20 Lexy Quiroga MD [address] [address] Endocrinology 04/16/20 Harvey Givens MD [address] [place] [address] Drive [address] [place] [address] Gastroenterology 04/16/20 Marita Madrigal MD [address] [place] [phone] Obstetrics and Gynecology 04/16/20 Ji Caballero MD [address] [place] [address] Dr [address] [place] [address] Cardiology 07/19/20 Cristopher Fry MD, MS [address] [place] [address] Intensive Care 05/01/22 documented as of this encounter Additional Source Comments The information contained in this document represents components of the legal health record. It is not the complete legal health record.[facility]
--- OUTSIDE RECORDS SUMMARY | 2024-12-16 15:41 | XMS_ITS | Encounter Summary ---
Author Organization [facility] Address [address] [place] [address] Phone Care Team Providers Care Labor Specialist Name Role Phone Tee Ramirez MD Primary Care Provider Sandip Yi MD Unavailable Lexy Quiroga MD Unavailable Harvey Givens MD Unavailable [phone] Marita Madrigal MD Unavailable Ji Caballero MD Unavailable [phone] Cristopher Fry MD, [place] Unavailable [phone] Encounter Details Date Type Department Care Team (Late st Contact Info) Description 06/06/2022 Transcribe Orders [facility]FT Lab 30 [place] [address] Cristopher Fry MD, MS [address] [phone] [email or web address] Social History Tobacco Use Types Packs/Day Years [...] Pulmonary, Allergy and Critical Care Medicine 10 [facility] [place] [address] Cristopher Fry MD, MS [address] [address] 06/01/2025 9:30 AM EDT Office Visit [facility] Internal Medicine [address] [place] [address] Tee Ramirez MD 40 [place] [address] 11/09/2025 8:40 AM EDT Office Visit [facility] Endocrinology [place] 40 [place] [phone] Lexy Quiroga MD [address] [address] documented as of this encounter Visit Diagnoses Not on filedocumented in this encounter Additional Health Concerns Infection Onset Date Last Indicated Resolved Time COVID-19 02/08/2023 02/08/2023 03/01/2023 1:26 AM EST CoV-Risk 06/10/2024 06/10/2024 06/21/2024 1:21 AM EDT Assessment Noted Time PHQ-2 Depression Total Score: 0 04/19/19 7:47 PM EST documented as of this encounter Care Teams Labor Specialist Relationship Specialty Start Date End Date Tee Ramirez MD 40 [place] [address] PCP - General 01/11/17 Sandip Yi MD [address] [place] [phone] [email or web address] 04/16/20 Lexy Quiroga MD [address] [address] Endocrinology 04/16/20 Harvey Givens MD [address] [place] [address] Gastroenterology 04/16/20 Marita Madrigal MD [address] [place] [phone] Obstetrics and Gynecology 04/16/20 Ji Caballero MD [address] [place] [address] Cardiology 07/19/20 Cristopher Fry MD, MS [address] [place] [address] [email or web address] Intensive Care 05/01/22 documented as of this encounter Additional Source Comments The information contained in this document represents components of the legal health record. It is not the complete legal health record.[facility]
--- OUTSIDE RECORDS SUMMARY | 2024-12-16 15:41 | XMS_ITS | Encounter Summary ---
Author Organization [facility] Address [address] [place] [address] Phone Care Team Providers Care First Aid Officer Name Role Phone Tee Ramirez MD Primary Care Provider Sandip Yi MD Unavailable Lexy Quiroga MD Unavailable Harvey Givens MD Unavailable Marita Madrigal MD Unavailable [facility] Unavailable Cristopher Fry MD, [place] Unavailable [phone] Encounter Details Date Type Department Care Team (Late st Contact Info) Description 11/19/2023 Ancillary Orders [facility],Outside Imaging 30 [place], [place] [phone] System, Provider Not In, [facility] [address] [address] Social History Tobacco Use Types Packs/Day Years [...] Description 12/24/2024 8:15 AM EDT Office Visit [facility] Pulmonary, Allergy and Critical Care Medicine [address] [place] [address] Cristopher Fry MD, MS [address] [address] [email or web address] 06/01/2025 9:30 AM EDT Office Visit [facility] Internal Medicine 40 [place] [address] Tee Ramirez MD 40 [place] [address] [email or web address] 11/09/2025 8:40 AM EDT Office Visit [facility] Endocrinology [place] [address] [place] [phone] Lexy Quiroga MD [address] [address] [email or web address] documented as of [...] documented as of this encounter Care Teams First Aid Officer Relationship Specialty Start Date End Date Tee Ramirez MD 40 [place] [address] PCP - General 01/11/17 Sandip Yi MD [address] [place] [address] [email or web address] 04/16/20 Lexy Quiroga MD [address] [place] [address] Endocrinology 04/16/20 Harvey Givens MD [address] [place] [address] Drive [address] [place] [address] Gastroenterology 04/16/20 Marita Madrigal MD [address] [place] [phone] Obstetrics and Gynecology 04/16/20 Ji Caballero MD [address] [place] [address] Dr [address] [place] [address] Cardiology 07/19/20 Cristopher Fry MD, MS [address] [place] [address] [email or web address] Intensive Care 05/01/22 documented as of this encounter Additional Source Comments The information contained in this document represents components of the legal health record. It is not the complete legal health record.[facility]
--- OUTSIDE RECORDS SUMMARY | 2024-12-16 15:41 | XMS_ITS | Encounter Summary ---
Author Organization [facility] Address [address] [place] [address] Phone Care Team Providers Care Sap Bi Architect Name Role Phone Tee Ramirez MD Primary Care Provider [phone] Sandip Yi MD Unavailable [phone] Lexy Quiroga MD Unavailable Harvey Givens MD Unavailable Marita Madrigal MD [facility]available [facility] Unavailable Cristopher Fry MD, [place] Unavailable [phone] Encounter Details Date Type Department Care Team (Late st Contact Info) Description 02/19/2023 Procedure Pass [facility], Ct Scan - [address] [address] Social History Tobacco Use Types Packs/Day Years [...] high school, GED, job training, learning the Ni[place] language, technical skills, or developing parenting skills)? [...] Critical Care Medicine [address] [place] [address] Cristopher Fry MD, MS 10 [facility] 2nd [place] [address] 06/01/2025 9:30 AM EDT Office Visit [facility] [place] Internal Medicine 40 [facility] [address] Tee Ramirez MD 40 [place] [address] 11/09/2025 8:40 AM EDT Office Visit [facility] Endocrinology [place] 40 [place] [phone] Lexy Quiroga MD [address] [address] documented as of this encounter Visit Diagnoses Not on filedocumented in this encounter Additional Health Concerns Infection Onset Date Last Indicated Resolved Time COVID-19 02/08/2023 02/08/2023 03/01/2023 1:26 AM EST CoV-Risk 06/10/2024 06/10/2024 06/21/2024 1:21 AM EDT Assessment Noted Time PHQ-2 Depression Total Score: 0 04/30/19 7:38 PM EST documented as of this encounter Care Teams Sap Bi Architect Relationship Specialty Start Date End Date Tee Ramirez MD 40 [place] [address] PCP - General 01/11/17 Sandip Yi MD [address] [place] [address] [email or web address] 04/16/20 Lexy Quiroga MD [address] [address] Endocrinology 04/16/20 Harvey Giv[address] MD [address] [place] [address] Gastroenterology 04/16/20 Marita Madrigal MD [address] [place] [phone] Obstetrics and Gynecology 04/16/20 Ji Caballero MD [address] [place] [address] Cardiology 07/19/20 Cristopher Fry MD, MS [address] [place] [address] [email or web address] Intensive Care 05/01/22 documented as of this encounter Additional Source Comments The information contained in this document represents components of the legal health record. It is not the complete legal health record.[facility]
--- OUTSIDE RECORDS SUMMARY | 2024-12-16 15:41 | XMS_ITS | Encounter Summary ---
Author Organization [facility] Address [address] [place] [address] Phone Care Team Providers Care Tire Technician Name Role Phone Tee Ramirez MD Primary Care Provider Sandip Yi MD Unavailable Lexy Quiroga MD Unavailable [phone] Harvey Givens MD Unavailable Marita Madrigal MD Unavailable Ada[facility]i MD Unavailable Cristopher Fry MD, [place] Unavailable [phone] Encounter Details Date Type Department Care Team (Late st Contact Info) Description 09/03/2024 Procedure Pass [facility], Ct Scan - [address] [address] Social History Tobacco Use Types Packs/Day Years [...] Care Medicine [address] [place] [address] Cristopher Fry MD, MS [address] [address] [email or web address] 06/01/2025 9:30 AM EDT Office Visit [facility] Internal Medicine 40 [place] [address] Tee Ramirez MD 40 [place], [place] [email or web address] 11/09/2025 8:40 AM EDT Office Visit [facility] Endocrinology [place] 40 [place] [phone] Lexy Quiroga MD [address] [address] documented as of this encounter Visit Diagnoses Not on filedocumented in this encounter Additional Health Concerns Assessment Noted Time PHQ-2 Depression Total Score: 0 05/19/19 25 10:33 AM EST documented as of this encounter Care Teams Tire Technician Relationship Specialty Start Date End Date Tee Ramirez MD 40 [place] [address] [email or web address] PCP - General 01/11/17 Sandip Yi MD [address] [place] [address] [email or web address] 04/16/20 Lexy Quiroga MD [address] [place] [address] Endocrinology 04/16/20 Harvey Givens MD [address] [place] [address] Drive [address] [place] [address] Gastroenterology 04/16/20 Marita Madrigal MD [address] [place] [phone] Obstetrics and Gynecology 04/16/20 Ji Caballero MD [address] [place] [address] Dr [address] [place] [address] Cardiology 07/19/20 Cristopher Fry MD, MS [address] [place] [address] Intensive Care 05/01/22 documented as of this encounter Additional Source Comments The information contained in this document represents components of the legal health record. It is not the complete legal health record.[facility]
--- OUTSIDE RECORDS SUMMARY | 2024-12-16 15:41 | XMS_ITS | Clinical Summary ---
Author Organization [facility] Address [address] [place] [address] Phone Care Team Providers Care Director Of Safety And Security Name Role Phone Tee Ramirez MD Primary Care Provider [phone] Allergies No known active allergies Medications aspirin [...] right breast in female, estrogen receptor positive ([facility] V24, [facility] V28) 04/26/2022 Immunizations Name Administration Dates Next Due ZENYBT Imaging/Simply Measured SARS-CoV-2 COVID -19, vector-nr, rS-Ad26, preservative free 06/05/2020 Surgical History Surgery Date Site/Laterality Comments BREAST LUMPECTOMY PROCEDURE:BREAST LUMPECTOMY Medical History Medical History Date Comments Breast cancer ([facility] V24, [facility] V28) DX:Breast cancer (HCC);COMMENT:right-sided stage l TicNo invasive ductal breast cancer Cardiomyopathy ([facility] V24, [facility] V28) DX:Cardiomyopathy (HCC) Social History Tobacco Use [...] Description 07/17/2025 9:00 AM EDT Office Visit [facility] Hematology Oncology [address] [place] [address] Sandip Yi MD [address] [place] [address] Health Maintenance Due Date Last [...] Results * Annual BMP Blood Test (05/10/2023) [facility] Annual BMP Blood Test abstracted Historical Provider HEALTH MAINTENANCE Final Result * Lipid panel (05/10/2023) [facility] LDL/HDL Ratio 0 Comment:no interpretation, a bstracted Triglycerides 0 mg/dL Comment:no interpretation, a bstracted Cholesterol 0 mg/dL Comment:no interpretation, a bstracted HDL 0 mg/dL Comment:no interpretation, a bstracted LDL Cholesterol 0 mg/dL Comment:no interpretation, a bstracted Blood Venous blood specimen / Unknown Historical Provider LAB BLOOD ORDERABLES Karen l Result from Last 3 Months or Most Recently Relevant to Health Maintenance Insurance [phone] (Home) [address] [place] [address] BLUE [place] - [place] MEDICARE ADVANTAGE Care Teams Director Of Safety And Security Relationship Specialty Start Date End Date Tee Ramirez MD 40 [place] [address] PCP - General Internal Medicine 03/07/17
--- OUTSIDE RECORDS SUMMARY | 2024-12-16 15:41 | XMS_ITS | Encounter Summary ---
Author Organization [facility] Address [address] [place] [address] Phone Care Team Providers Care Line Repairer Name Role Phone Tee Ramirez MD Primary Care Provider [phone] Sandip Yi MD Unavailable Lexy Quiroga MD Unavailable Harvey Givens MD Unavailable Marita Madrigal MD Unavailable [facility] Unavailable [phone] Cristopher Fry MD, [place] Unavailable [phone] Encounter Details Date Type Department Care Team (Late st Contact Info) Description 01/30/2019 Ancillary Orders [facility],Outside Imaging [address] [place], [place] [phone] System, Provider Not In, [facility] [address] [address] Social History Tobacco Use Types Packs/Day Years [...] Description 12/24/2024 8:15 AM EDT Office Visit [facility] Pulmonary, Allergy and Critical Care Medicine 10 [facility] [place] [address] Cristopher Fry MD, MS [address] [address] [email or web address] 06/01/2025 9:30 AM EDT Office Visit [facility] Internal Medicine 40 [place] [address] Tee Ramirez MD 40 [place] [address] [email or web address] 11/09/2025 8:40 AM EDT Office Visit [facility] Endocrinology [place] 40 [place] [phone] Lexy Quiroga MD [address] [address] [email or web address] documented as of this encounter [...] documented as of this encounter Care Teams Line Repairer Relationship Specialty Start Date End Date Tee Ramirez MD 40 [place] [address] PCP - General 01/11/17 Sandip Yi MD [address] [place] [address] [email or web address] 04/16/20 Lexy Quiroga MD [address] [place] [address] [email or web address] Endocrinology 04/16/20 Harvey Givens MD [address] [place] [address] [place] [address] Gastroenterology 04/16/20 Marita Madrigal MD [address] [place] [phone] Obstetrics and Gynecology 04/16/20 Ji Caballero MD [address] [place] [address] Dr [address] [place] [address] Cardiology 07/19/20 Cristopher Fry MD, MS [address] [place] [address] [email or web address] Intensive Care 05/01/22 documented as of this encounter Additional Source Comments The information contained in this document represents components of the legal health record. It is not the complete legal health record.[facility]
--- OUTSIDE RECORDS SUMMARY | 2024-12-16 15:41 | XMS_ITS | Encounter Summary ---
Author Organization [facility] Address [address] [place] [address] Phone Care Team Providers Care Granite Countertop Installer Name Role Phone Tee Ramirez MD Primary Care Provider Sandip Yi MD Unavailable Lexy Quiroga MD Unavailable Harvey Givens MD Unavailable Marita Madrigal MD Unavailable [facility] Unavailable [phone] Cristopher Fry MD, [place] Unavailable [phone] Encounter Details Date Type Department Care Team (Late st Contact Info) Description 11/19/2023 Ancillary Orders [facility],Outside Imaging 30 [place], [place] [phone] System, Provider Not In, [facility] [address] [address] Social History Tobacco Use Types Packs/Day Years [...] Description 12/24/2024 8:15 AM EDT Office Visit [facility] Pulmonary, Allergy and Critical Care Medicine [address] [place] [address] Cristopher Fry MD, MS [address] [address] [email or web address] 06/01/2025 9:30 AM EDT Office Visit [facility] Internal Medicine 40 [place] [address] Tee Ramirez MD 40 [place] [address] [email or web address] 11/09/2025 8:40 AM EDT Office Visit [facility] Endocrinology [place] 40 [place] [phone] Lexy Quiroga MD [address] [address] [email or web address] documented as of [...] documented as of this encounter Care Teams Granite Countertop Installer Relationship Specialty Start Date End Date Tee Ramirez MD 40 [place] [address] PCP - General 01/11/17 Sandip Yi MD [address] [place] [address] [email or web address] Internal Medicine 04/16/20 Lexy Quiroga MD [address] [place] [address] Endocrinology 04/16/20 Harvey Givens MD [address] [place] [address] Drive [address] [place] [address] Gastroenterology 04/16/20 Marita Madrigal MD [address] [place] [phone] Obstetrics and Gynecology 04/16/20 Ji Caballero MD [address] [place] [address] Dr [address] [place] [address] Cardiology 07/19/20 Cristopher Fry MD, MS [address] [place] [address] [email or web address] Intensive Care 05/01/22 documented as of this encounter Additional Source Comments The information contained in this document represents components of the legal health record. It is not the complete legal health record.[facility]
--- OUTSIDE RECORDS SUMMARY | 2024-12-16 15:41 | XMS_ITS | Clinical Summary ---
Author Organization [facility] Address [address] [place] [address] Care Team Providers Care Automotive Parts Manager Name Role Phone Tee Ramirez MD Primary Care Provider [phone] Allergies No known active allergies Medications Medication [...] age to complete this topic Care Teams Automotive Parts Manager Relationship Specialty Start Date End Date Tee Ramirez MD [address] [place] [address] PCP - General Internal Medicine 03/07/17
--- OUTSIDE RECORDS SUMMARY | 2024-12-16 15:41 | XMS_ITS | Encounter Summary ---
Author Organization [facility] Address [address] [place] [address] Phone Care Team Providers Care Director Of Knowledge Management Name Role Phone Tee Ramirez MD Primary Care Provider Sandip Yi MD Unavailable [phone] Lexy Quiroga MD Unavailable Harvey Givens MD Unavailable Marita Madrigal MD Unavailable [facility] MD Unavailable Cristopher Fry MD, [place] Unavailable [phone] Encounter Details Date Type Department Care Team (Late st Contact Info) Description 03/03/2024 Procedure Pass [facility], Ct Scan - [address] [address] Social History Tobacco Use Types Packs/Day Years [...] 8:15 AM EDT Office Visit [facility] Pulmonary, Allergy and Critical Care Medicine 10 [facility] [place] [address] Cristopher Fry MD, MS 10 [facility] 2nd [place] [address] [email or web address] 06/01/2025 9:30 AM EDT Office Visit [facility] Internal Medicine 40 [place] [address] Tee Ramirez MD 40 [place] [address] 11/09/2025 8:40 AM EDT Office Visit [facility] Endocrinology [place] 40 [place] [phone] Lexy Quiroga MD [address] [place] [address] documented as of this encounter Visit Diagnoses Not on filedocumented in this encounter Additional Health Concerns Infection Onset Date Last Indicated Resolved Time CoV-Risk 06/10/2024 06/10/2024 06/21/2024 1:21 AM EDT Assessment Noted Time PHQ-2 Depression Total Score: 0 05/19/19 25 10:33 AM EST documented as of this encounter Care Teams Director Of Knowledge Management Relationship Specialty Start Date End Date Tee Ramirez MD 40 [place] [address] PCP - General 01/11/17 Sandip Yi MD [address] [place] [phone] [email or web address] 04/16/20 Lexy Quiroga MD [address] [address] [email or web address] Endocrinology 04/16/20 Harvey Givens MD [address] [place] [address] Drive [address] [place] [address] Gastroenterology 04/16/20 Marita Madrigal MD [address] [place] [phone] Obstetrics and Gynecology 04/16/20 Ji Caballero MD [address] [place] [address] Dr [address] [place] [address] Cardiology 07/19/20 Cristopher Fry MD, MS [address] [place] [address] [email or web address] Intensive Care 05/01/22 documented as of this encounter Additional Source Comments The information contained in this document represents components of the legal health record. It is not the complete legal health record.[facility]
== END ==
LOC: HO.CARD 12:49
PROVIDERS: PCP Internal Medicine; Visit Provider Nurse Practitioner Family
DX: R93.1 Abnormal findings on diagnostic imaging of heart and coronary circulation (principal); R00.0 Tachycardia, unspecified
CPT/HCPCS: 93308

== ENCOUNTER → 2024-12-16 12:53 | Outpatient (BNV) | payer MEDICARE, SELFPAY | PROVIDERS: PCP Internal Medicine; Visit Provider Internal Medicine | DX: I31.39 Other pericardial effusion (noninflammatory) (principal) | CPT/HCPCS: 93308 ==

== ENCOUNTER 2024-12-31 13:05 | Outpatient (AMB) | payer MEDICARE, SELFPAY | END 2024-12-31 13:06 | disposition home or self-care (01) | LOC: HO.HMGAL 13:05 | PROVIDERS: PCP Internal Medicine; Visit Provider Registered Nurse Emergency | DX: J30.89 Other allergic rhinitis (principal) | CPT/HCPCS: 95117; 95165 ==

== ENCOUNTER 2025-01-07 08:18 | Outpatient (AMB) | payer MEDICARE, SELFPAY ==
--- OUTSIDE RECORDS SUMMARY | 2024-04-02 03:30 | XMS_ITS ---
Author Organization [facility] Address [address] [place] [address] Care Team Providers Care Writer Editor Name Role Phone Tee Ramirez MD Primary Care Provider Unavaila Harvey Blackman Unavailable [phone] REASON FOR VISIT screening,hx polyps,fam hx colon ca Problems Problem Type SNOMED Code ICD Code Onset Dates Problem Status W/U Status Risk Notes Problem Diverticular disease of colon (829248030) Diverticulosis of large intestine without perforation or abscess without bleeding (K57.30) Active confirmed Encounters Encounter Location Date Provider Diagnosis [facility] Outpatient [address] [place] [phone] 04/02/2024 Harvey Givens Colon cancer scree jerald [...] * ULISES NOYOLA EDOB:1950 (74 yo F)Acc No.[id number]:04/02/2024 COLON WITH MAC Patient: ULISES PEREZ Provider: Damion Givens MD :1950 A ge:73 Y S ex:Female Date:04/02/2024 [id number] Pcp:Tee Ramirez MD Subjective: * Chief Complaints: [...] 0 04/02/2024 Generated for Noemy rinaldi/Ariel/Melanieitting on: 08:38 AM EDT
--- NOTE | 2025-01-07 08:28 | A.OFFVIS_ITS ---
Vital Signs 01/07/25 08:29 Height 5 ft 3 in Weight 87 lb 4.849 oz BMI 15.5 BP 90/56 L Blood Pressure Location Lt brachial Position Sitting Pulse 95 Pulse Source Pulse Oximeter Intake Visit Reasons: 5 mth fu after limited echo Intake Note: 5mth f/up/ echo Alignment Specialist Required: No Accompanied by: Self / Same As Patient Allergies No Known Allergies Allergy (Verified 08/11/24 08:54) Medication List - Last Reconciled 01/07/25 by Ji Caballero MD acetaminophen 1,000 mg (2 x 500 mg) PO Q6H PRN albuterol sulfate mg inhalation alendronate 70 mg PO aspirin (Adult Low Dose Aspirin) 81 mg PO DAILY atorvastatin 10 mg PO DAILY calcium carbonate (Calcium 500) 1,000 mg PO DAILY cholecalciferol (vitamin D3) (Vitamin D3) 25 mcg PO DAILY diltiazem HCl ER 60 mg PO BID 90 days sodium chloride 7% 4 mL inhalation BID PRN umeclidinium-vilanterol 62.5-25 mcg/actuation (Anoro Ellipta) inhalation DAILY HPI Comments Details: Viviana comes for follow-up. She continues to have struggles with her lung issues. She says she had recently shows visit in [place] and she had significant shortness of breath with low oxygen levels. She had to use her friends oxygen supplementation. She is going to follow up with Pulmonary to see if she would qualify for oxygen use. She says her palpitations have improved. She had a recent echocardiogram which shows improved LV ejection fraction with small pericardial effusion which is not change. She has not had any chest pain. No heart failure symptoms. She does get symptoms of lightheadedness when she gets up from a stooping posture. [facility] Medical History Bronchiectasis Tachycardia Hiatal hernia Pneumonia Hematuria History of shingles History of pneumonia Hx of breast cancer Hyperlipidemia CAD (coronary artery disease) Surgical History History of bronchoscopy Hx of colonoscopy History of esophagogastroduodenoscopy (EGD) History of partial mastectomy of right breast Social History Are you a primary adult daycare coordinator to a significant other at home: No Do you presently have visiting nurse or other home services: No Patient Tobacco Use Status: Never used Tobacco Review of Systems Const Denies chills, Denies fatigue, Denies fever(s), Denies frequent falls, Denies weakness, Denies weight gain and Denies weight loss ENT Denies dizziness Card Denies chest pain, Denies leg edema, Denies lightheadedness, Denies palpitations, Denies dyspnea and Denies dyspnea on exertion Resp Denies cough, Denies dyspnea and Denies dyspnea on exertion GI Denies hematochezia Musc Denies abnormal gait, Denies muscle weakness, Denies numbness, Denies radiating pain into limb and Denies tingling Neuro Denies abnormal gait, Denies dizziness, Denies frequent falls, Denies numbness, Denies tingling and Denies weakness Endo Denies fatigue and Denies palpitations Physical Exam Vital Signs: Last Vital Signs Pulse 95 01/07/25 08:29 BP 90/56 L 01/07/25 08:29 BMI result Body Mass Index 15.5 Const General: cooperative, comfortable and no acute distress Nutritional Appearance: thin, underweight and other (Frail appearing) Orientation/consciousness: patient oriented x3 Neck Neck: Yes normal visual inspection Resp Effort & Inspection: normal respiratory effort Auscultation: no rales, no rhonchi, no wheezes, diminished lung sounds and bronchovesicular breath sounds Cardio Rate: regular rate Rhythm: regular rhythm Heart sounds: S1 normal heart sound present, S2 normal heart sound present, no gallops, no murmurs and no rubs Neuro General: patient oriented x3 Extrem General: Yes normal to inspection, No no pedal edema and No calf tenderness Psych Appearance: grossly normal Mental Status: mental status grossly normal Speech and movement: Normal speech and movement present Assessment & Plan Assessment & Plan (1) Cardiomyopathy: Code(s): I42.9 - Cardiomyopathy, unspecified Category: Medical Plan: Cardiomyopathy process question stress-induced cardiomyopathy versus tachycardia mediated cardiomyopathy. LV ejection fraction has improved with rate control and with time. Advised to avoid cardiotoxic agents. Continue Cardizem therapy. No signs or symptoms of heart failure. Her significant shortness of breath is related to her underlying pulmonary parenchymal disease. Advised to follow up with Pulmonary for optimization as well as consideration for chronic oxygen therapy. (2) CAD (coronary artery disease): Comment: Foll'd by Dr. Caballero Code(s): I25.10 - Atherosclerotic heart disease of [place] coronary artery without angina pectoris Category: Medical Qualifiers: Coronary Disease-Associated Artery/Lesion type: [place] artery [place] vs. transplanted heart: [place] heart Associated angina: without angina Qualified Code(s): I25.10 - Atherosclerotic heart disease of [place] coronary artery without angina pectoris Plan: Nonobstructive CAD without any significant symptoms. Continue low-dose aspirin therapy. Blood pressure is optimized and maybe on the lower side. Continue statin therapy with target goal LDL less than 70 mg/dL. (3) Sinus tachycardia: Code(s): R00.0 - Tachycardia, unspecified Category: Medical Plan: Sinus tachycardia seems to have improved with Cardizem therapy. This is secondary to reduce pulmonary function overall. Continue Cardizem therapy. Has low blood pressure and have recommended to increase her salt intake. Maintain adequate hydration. Will follow up in the clinic in 1 year's time, sooner PRN. Thank you for allowing me to partake in her care Coding Level of Care Code Est Pt Level 4 (68152) Complex EM visit Add On G2211 Diagnoses Cardiomyopathy I42.9 Coronary artery disease involving [place] coronary artery of [place] heart without angina pectoris I25.10 Coronary Disease-Associated Artery/Lesion type: [place] artery [place] vs. transplanted heart: [place] heart Associated angina: without angina Sinus tachycardia R00.0
[2025-01-07 08:29] VITALS: BP 90/56; PULSE 95; BMI 15.5
--- OUTSIDE RECORDS SUMMARY | 2025-01-07 08:39 | XMS_ITS | Patient Health Record ---
Author Organization [facility] Address [address] [place] [address] Care Team Providers Care Transmitter Engineer Name Role Phone Tee Ramirez MD Primary Care Provider Harvey Killian Unavailable [phone] Allergies No Known Allergies Reason For Referral No Information Medications Medication SIG (Take, Route, Frequency, Duration) Notes Start Date End Date Status Alendronate Sodium 70 MG Oral; Duration: 84 Active dilTIAZem HCl ER 60 MG Oral; Duration: 90 Active Lipitor 10 MG 1 tablet Orally Once a day; Duration: 30 day(s) Active Vitamin D 1000 UNIT [...] Status Risk Notes Problem Colon cancer screening (114381159) Colon cancer screening (Z12.11) Active confirmed Problem History of adenomatous polyp of colon (374891119) History of adenomatous polyp of colon (Z86.010) Active confirmed Problem Pre-procedure evaluation check (724544893) Encounter for other preprocedural examination (Z01.818) Active confirmed Problem Diverticular disease of colon (264127537) Diverticulosis of large intestine without perforation or abscess without bleeding (K57.30) Active confirmed Problem Abnormal weight loss (567664731) Abnormal weight loss (R63.4) Active confirmed Problem Early satiety (724580970) Early satiety (R68.81) Active confirmed Problem Diarrhea (69810391) Diarrhea, unspecified type (R19.7) Active confirmed Problem Lymphocytic colitis (3091639144) Lymphocytic colitis (K52.832) Active confirmed Problem Altered bowel function (63843639) Change in bowel function (R19.8) Active confirmed Problem Family history of malignant neoplasm of gastrointestinal tract (999361567) Family history of colon cancer in mother (Z80.0) Active confirmed Encounters Encounter Location Date Provider Diagnosis [facility] Outpatient [address] [place] [id number] 04/02/2024 Harvey Givens Colon cancer scree jerald [...] Insured Coverage Start Date Coverage End Date [facility] [address] [place], [place] [id number] [phone] [id number] ULISES NOYOLA Self - patient is the insured Medical (General) History Medical History History ICD Code Denies MO,DM,CVA,Lung disease,renal dise ase Breast cancer-right side---Lumpectomy, lymph [...] fibrillation--2022--neg. ETT and echocardiogram Bronchiectasis---Bronchoscopy 2022 at [facility] for pneumonias--Dr. Fry Surgical History Surgery Date(Month/Year) Right breast lumpectomy as above
--- OUTSIDE RECORDS SUMMARY | 2025-01-07 08:39 | XMS_ITS | Clinical Summary ---
Author Organization [facility] Address [address] [place] [address] Phone Care Team Providers Care Industrial Controller Name Role Phone Tee Ramirez MD Primary Care Provider [phone] Allergies No known active allergies Medications aspirin [...] right breast in female, estrogen receptor positive ([facility] V24, [facility] V28) 04/26/2022 Immunizations Immunization Administration Dates Next Due LANDON[employer] SARS-CoV-2 COVID -19, vector-nr, rS-Ad26, preservative free 06/05/2020 Surgical History Surgery Date Site/Laterality Comments BREAST LUMPECTOMY PROCEDURE:BREAST LUMPECTOMY Medical History Medical History Date Comments Breast cancer ([facility] V24, [facility] V28) DX:Breast cancer (HCC);COMMENT:right-sided stage l TicNo invasive ductal breast cancer Cardiomyopathy ([facility] V24, [facility] V28) DX:Cardiomyopathy (HCC) Social History Tobacco [...] Description 07/17/2025 9:00 AM EDT Office Visit [facility] Hematology Oncology [address] [place] [address] Sandip Yi MD [address] [place] [address] Health Maintenance Due Date Last Done Comments Colorectal Cancer Screening: Colonoscopy 1949 Zoster Vaccines (1 of 2) 1968 Hepatitis B Vaccines (2 of 3 - 19+ 3-dose series) 04/23/1991 03/26/1991 Falls Risk Assessment 03/03/2022 Medicare Annual Wellness [...] Results * Annual BMP Blood Test (05/10/2023) [facility] Annual BMP Blood Test abstracted Historical Provider HEALTH MAINTENANCE Final Result * Lipid panel (05/10/2023) [facility] LDL/HDL Ratio 0 Comment:no interpretation, a bstracted Triglycerides 0 mg/dL Comment:no interpretation, a bstracted Cholesterol 0 mg/dL Comment:no interpretation, a bstracted HDL 0 mg/dL Comment:no interpretation, a bstracted LDL Cholesterol 0 mg/dL Comment:no interpretation, a bstracted Blood Venous blood specimen / Unknown Historical Provider LAB BLOOD ORDERABLES Karen l Result from Last 3 Months or Most Recently Relevant to Health Maintenance Insurance [id number] (Home) [address] [place] [id number] [employer] MEDIC[place] AD[place]ANTAGE Care Teams Industrial Controller Relationship Specialty Start Date End Date Tee Ramirez MD [address] [place] [address] PCP - General Internal Medicine 03/07/17
--- OUTSIDE RECORDS SUMMARY | 2025-01-07 08:39 | XMS_ITS | Clinical Summary ---
Author Organization [facility] Address [address] [place] [address] Care Team Providers Care Airline Lounge Receptionist Name Role Phone Tee Ramirez MD Primary Care Provider [phone] Allergies No known active allergies Medications Medication [...] age to complete this topic Care Teams Airline Lounge Receptionist Relationship Specialty Start Date End Date Tee Ramirez MD [address] [place] [address] PCP - General Internal Medicine 03/07/17
== END 2025-01-07 08:47 | disposition home or self-care (01) ==
LOC: HO.HCS 08:19
PROVIDERS: PCP Internal Medicine; Visit Provider Internal Medicine Cardiovascular Disease
DX: I42.9 Cardiomyopathy, unspecified (principal); I25.10 Atherosclerotic heart disease of native coronary artery without angina pectoris; R00.0 Tachycardia, unspecified
CPT/HCPCS: 99214; G2211

== ENCOUNTER → 2025-01-07 08:18 | Outpatient (BNVA) | payer MEDICARE, SELFPAY | PROVIDERS: PCP Internal Medicine; Visit Provider Internal Medicine Cardiovascular Disease | DX: I42.9 Cardiomyopathy, unspecified (principal); I25.10 Atherosclerotic heart disease of native coronary artery without angina pectoris; R00.0 Tachycardia, unspecified | CPT/HCPCS: 99212 ==

== ENCOUNTER 2025-01-12 11:37 | Outpatient (AMB) | payer MEDICARE, SELFPAY ==
--- OUTSIDE RECORDS SUMMARY | 2024-04-02 03:30 | XMS_ITS ---
Author Organization [facility] Address [address] [place] [address] Care Team Providers Care Program Eligibility Specialist Name Role Phone Tee Ramirez MD Primary Care Provider Unavaila Harvey Blackman Unavailable [phone] REASON FOR VISIT screening,hx polyps,fam hx colon ca Problems Problem Type SNOMED Code ICD Code Onset Dates Problem Status W/U Status Risk Notes Problem Diverticular disease of colon (280704718) Diverticulosis of large intestine without perforation or abscess without bleeding (K57.30) Active confirmed Encounters Encounter Location Date Provider Diagnosis [facility] Out[place] [address] [place] [phone] 04/02/2024 Harvey Givens Colon cancer scree jerald [...] * ULISES NOYOLA EDOB:1950 (74 yo F)Acc No.[id number]:04/02/2024 COLON WITH MAC Patient: ULISES PEREZ Provider: Damion Givens MD :1950 A ge:73 Y S ex:Female Date:04/02/2024 [id number] Pcp:Tee Ramirez MD Subjective: * Chief Complaints: [...] MD Date: 0 04/02/2024 Generated for Noemy rinaldi/Ariel/eMlanieitting on: 02:27 PM EDT
--- OUTSIDE RECORDS SUMMARY | 2025-01-12 14:25 | XMS_ITS | Encounter Summary ---
Author Organization [facility] Address [address] [place] [address] Phone Care Team Providers Care Java J2Ee Lead Name Role Phone Tee Ramirez MD Primary Care Provider Sandip Yi MD Unavailable [phone] Lexy Quiroga MD Unavailable Harvey Givens MD Unavailable Marita Madrigal MD Unavailable [facility] Unavailable [phone] Cristopher Fry MD, [place] Unavailable [phone] Encounter Details Date Type Department Care Team (Late st Contact Info) Description 11/19/2023 Ancillary Orders [facility],Outside Imaging [address] [place], [place] [phone] System, Provider Not In, [employer] [address] [address] Social History Tobacco Use Types Packs/Day Years [...] Care Team (Late st Contact Info) Description 04/16/2025 2:00 PM EST Office Visit [facility] [place]monary, Allergy and Critical Care Medicine [address] [place], [place] [phone] Cristopher Fry MD, [place] [address] [address] [email or web address] 06/01/2025 9:30 AM EDT Office Visit [facility] Internal Medicine [address] [place] [address] Tee Ramirez MD [address] [place] [address] [email or web address] 11/09/2025 8:40 AM EDT Office Visit [facility] Endocrinology [place] [address] [place] [phone] Lexy Quiroga MD [address] [address] [email or web address] documented as of this encounter Results * [...] documented as of this encounter Care Teams Java J2Ee Lead Relationship Specialty Start Date End Date Tee Ramirez MD [address] [place] [address] PCP - General 01/11/17 Sandip Yi MD [address] [place] [address] [email or web address] 04/16/20 Lexy Quiroga MD [address] [place] [address] Endocrinology 04/16/20 Harvey Givens MD [address] [place] [address] Drive [address] [place] [address] Gastroenterology 04/16/20 Marita Madrigal MD [address] [place] [phone] Obstetrics and Gynecology 04/16/20 Ji Caballero MD [address] [place] [address] Dr [address] [place] [address] Cardiology 07/19/20 Cristopher Fry MD, [place] [address] [place] [address] Intensive Care 05/01/22 documented as of this encounter Additional Source Comments The information contained in this document represents components of the legal health record. It is not the complete legal health record.[facility]
--- OUTSIDE RECORDS SUMMARY | 2025-01-12 14:25 | XMS_ITS | Encounter Summary ---
Author Organization [facility] Address [address] [place] [address] Phone Care Team Providers Care Retail Supervisor Name Role Phone Tee Ramirez MD Primary Care Provider Sandip Yi MD Unavailable [phone] Lexy Quiroga MD Unavailable [phone] Harvey Givens MD Unavailable Marita Madrigal MD Unavailable [phone] [facility] Un[facility] Cristopher Fry MD, [place] Unavailable [phone] Encounter Details Date Type Department Care Team (Late st Contact Info) Description 11/19/2023 Ancillary Orders [facility],Outside Imaging [address] [place], [place] [phone] System, Provider Not In, [employer] [address] [address] Social History Tobacco Use Types Packs/Day Years [...] Description 04/16/2025 2:00 PM EST Office [place] [facility] [place]monary, Allergy and Critical Care Medicine 10 [facility] [address] [place], [place] [phone] Cristopher Fry MD, [place] [address] [address] [email or web address] 06/01/2025 9:30 AM EDT Office Visit [facility] Internal Medicine [address] [place] [address] Tee Ramirez MD 40 [place] [address] [email or web address] 11/09/2025 8:40 AM EDT Office Visit [facility] Endocrinology [place] [address] [place] [phone] Lexy Quiroga MD [address] [address] [email or web address] documented as of this encounter Results * DXA Outside (No Interpretation) (10/13/2021 12:00 AM EDT) Narrative Mraa Narvaez - 11/19/2023 5:04 PM EDT This [...] documented as of this encounter Care Teams Retail Supervisor Relationship Specialty Start Date End Date Tee Ramirez MD [address] [place] [address] PCP - General 01/11/17 Sandip Yi MD [address] [place] [address] [email or web address] 04/16/20 Lexy Quiroga MD [address] [place] [address] Endocrinology 04/16/20 Harvey Givens MD [address] [place] [address] Drive [address] [place] [address] Gastroenterology 04/16/20 Marita Madrigal MD [address] [place] [phone] Obstetrics and Gynecology 04/16/20 Ji Caballero MD [address] [place] [address] Dr [address] [place] [address] Cardiology 07/19/20 Cristopher Fry MD, MS [address] [place] [address] [email or web address] Intensive Care 05/01/22 documented as of this encounter Additional Source Comments The information contained in this document represents components of the legal health record. It is not the complete legal health record.[facility]
--- OUTSIDE RECORDS SUMMARY | 2025-01-12 14:26 | XMS_ITS | Encounter Summary ---
Author Organization [facility] Address [address] [place] [address] Phone Care Team Providers Care Washing And Screening Plant Supervisor Name Role Phone Tee Ramirez MD Primary Care Provider Sandip Yi MD Unavailable Lexy Quiroga MD Unavailable [phone] Harvey Givens MD Unavailable [phone] Marita Madrigal MD Unavailable [phone] [facility] MD Unavailable [phone] Cristopher Fry MD, [place] Unavailable [phone] Encounter Details Date Type Department Care Team (Late st Contact Info) Description 11/19/2023 Ancillary Orders [facility],Outside Imaging [address] [place], [place] [phone] System, Provider Not In, [facility] [employer] [address] [address] Social History Tobacco Use Types Packs/Day Years [...] Description 04/16/2025 2:00 PM EST Office Visit [facility] Pulmonary, Allergy and Critical Care Medicine 10 [facility] [address] [place], [place] [phone] Cristopher Fry MD, [place] [address] [address] [email or web address] 06/01/2025 9:30 AM EDT Office Visit [facility] Internal Medicine [address] [place] [address] Tee Ramirez MD 40 [place] [address] [email or web address] 11/09/2025 8:40 AM EDT Office Visit [facility] Endocrinology [place] [address] [place] [phone] Lexy Quiroga MD [address] [address] [email or web address] documented as of this encounter Results * [...] documented as of this encounter Care Teams Washing And Screening Plant Supervisor Relationship Specialty Start Date End Date Tee Ramirez MD [address] [place] [address] PCP - General 01/11/17 Sandip Yi MD [address] [place] [address] [employer] Internal Medicine 04/16/20 Lexy Quiroga MD [address] [place] [address] Endocrinology 04/16/20 Harvey Givens MD [address] [place] [address] Drive [address] [place] [address] Gastroenterology 04/16/20 Marita Madrigal MD [address] [place] [phone] Obstetrics and Gynecology 04/16/20 Ji Caballero MD [address] [place] [address] Dr [address] [place] [address] Cardiology 07/19/20 Cristopher Fry MD, MS [address] [place] [address] [email or web address] Intensive Care 05/01/22 documented as of this encounter Additional Source Comments The information contained in this document represents components of the legal health record. It is not the complete legal health record.[facility]
--- OUTSIDE RECORDS SUMMARY | 2025-01-12 14:26 | XMS_ITS | Encounter Summary ---
Author Organization [facility] Address [address] [place] [address] Phone Care Team Providers Care Care Connector Name Role Phone Tee Ramirez MD Primary Care Provider [phone] Sandip Yi MD Unavailable [phone] Lexy Quiroga MD Unavailable Harvey Givens MD Unavailable [phone] Marita Madrigal MD Unavailable [phone] [facility] Unavailable [phone] Cristopher Fry MD, [place] Unavailable [phone] Encounter Details Date Type Department Care Team (Latest Contact Info) Description 04/24/2024 Ancillary Orders [facility] Medical [facility] Internal Medicine [address] [place], [place] [phone] Tee Ramirez MD 40 [place], [place] [phone] [email or web address] Persistent cough (Primary Dx); RSV (acute bronchiolitis [...] Description 04/16/2025 2:00 PM EST Office Visit [facility] Pulmonary, Allergy and Critical Care Medicine 10 [facility] [place] [address] Cristopher Fry MD, [place] [address] [address] 06/01/2025 9:30 AM EDT Office Visit [facility] Internal Medicine [address] [place] [address] Tee Ramirez MD [address] [place] [address] [email or web address] 11/09/2025 8:40 AM EDT Office Visit [facility] Endocrinology [place] [address] [place] [address] Lexy Quiroga MD [address] [place] [address] [email or web address] documented as of this encounter Results * [...] clinician's provided indication for this examination in [facility]: Cough, persistent; rsv and r/o pneumonia [...] clinician's provided indication for this examination in [facility]:Cough, persistent; rsv and r/o pneumonia COMPARISON: [...] documented as of this encounter Care Teams Care Connector Relationship Specialty Start Date End Date Tee Ramirez MD [address] [place] [address] PCP - General 01/11/17 Sandip Yi MD [address] [place] [address] [email or web address] Internal Medicine 04/16/20 Lexy Quiroga MD [address] [place] [address] Endocrinology 04/16/20 Harvey Givens MD [address] [place] [address] Drive [address] [place] [address] Gastroenterology 04/16/20 Marita Madrigal MD [address] [place] [phone] Obstetrics and Gynecology 04/16/20 Ji Caballero MD [address] [place] [address] [address] [place] [address] Cardiology 07/19/20 Cristopher Fry MD, [place] [address] [place] [address] Intensive Care 05/01/22 documented as of this encounter Additional Source Comments The information contained in this document represents components of the legal health record. It is not the complete legal health record.[facility]
--- OUTSIDE RECORDS SUMMARY | 2025-01-12 14:26 | XMS_ITS | Clinical Summary ---
Author Organization [facility] Address [address] [place] [address] Phone Care Team Providers Care Video Control Operator Name Role Phone Tee Ramirez MD Primary Care Provider [phone] Allergies No known active allergies Medications aspirin [...] right breast in female, estrogen receptor positive ([facility] V24, [facility] V28) 04/26/2022 Immunizations Immunization Administration Dates Next Due LANDON/[employer] SARS-CoV-2 COVID -19, vector-nr, rS-Ad26, preservative free 06/05/2020 Surgical History Surgery Date Site/Laterality Comments BREAST LUMPECTOMY PROCEDURE:BREAST LUMPECTOMY Medical History Medical History Date Comments Breast cancer ([facility] V24, [facility] V28) DX:Breast cancer (HCC);COMMENT:right-sided stage l TicNo invasive ductal breast cancer Cardiomyopathy ([facility] V24, [facility] V28) DX:Cardiomyopathy (HCC) Social History Tobacco Use [...] 07/17/2025 9:00 AM EDT Office Visit [facility] Hematology Oncology [address] [place] [address] Sandip Yi MD [address] [place] [address] Health Maintenance Due Date Last [...] Results * Annual BMP Blood Test (05/10/2023) [facility] Annual BMP Blood Test abstracted Historical Provider HEALTH MAINTENANCE Final Result * Lipid panel (05/10/2023) [facility] LDL/HDL Ratio 0 Comment:no interpretation, a bstracted Triglycerides 0 mg/dL Comment:no interpretation, a bstracted Cholesterol 0 mg/dL Comment:no interpretation, a bstracted HDL 0 mg/dL Comment:no interpretation, a bstracted LDL Cholesterol 0 mg/dL Comment:no interpretation, a bstracted Blood Venous blood specimen / Unknown Historical Provider LAB BLOOD ORDERABLES Karen l Result from Last 3 Months or Most Recently Relevant to Health Maintenance Insurance [phone] (Home) [address] [place] [address] [employer] MEDICARE ADVANTAGE Care Teams Video Control Operator Relationship Specialty Start Date End Date Tee Ramirez MD [address] [place] [address] PCP - General Internal Medicine 03/07/17
--- OUTSIDE RECORDS SUMMARY | 2025-01-12 14:26 | XMS_ITS | Encounter Summary ---
Author Organization [facility] Address [address] [place] [address] Phone Care Team Providers Care School Clerk Name Role Phone Tee Ramirez MD Primary Care Provider Sandip Yi MD Unavailable Lexy Quiroga MD Unavailable Harvey Givens MD Unavailable Marita Madrigal MD Unavailable [facility] Unavailable Cristopher Fry MD, [place] Unavailable [phone] Encounter Details Date Type Department Care Team (Late st Contact Info) Description 01/30/2019 Ancillary Orders [facility],Outside Imaging [address] [place], [place] [phone] System, Provider Not In, [employer] [address] [address] Social History Tobacco Use Types Packs/Day Years [...] Description 04/16/2025 2:00 PM EST Office [place] [facility] [place]monary, Allergy and Critical Care Medicine 10 [facility] [place] [address] Cristopher Fry MD, [place] [address] [address] [email or web address] 06/01/2025 9:30 AM EDT Office Visit [facility] Internal Medicine [address] [place] [address] Tee Ramirez MD [address] [place] [address] [email or web address] 11/09/2025 8:40 AM EDT Office Visit [facility] Endocrinology [place] [address] [place] [phone] Lexy Quiroga MD [address] [address] [email or web address] documented as of this encounter Results * [...] Time PHQ-2 Depression Total Score: 0 09/17/19 9:53 AM EDT documented as of this encounter Care Teams School Clerk Relationship Specialty Start Date End Date Tee Ramirez MD [address] [place] [address] PCP - General 01/11/17 Sandip Yi MD [address] [place] [address] [email or web address] 04/16/20 Lexy Quiroga MD [address] [place] [address] Endocrinology 04/16/20 Harvey Givens MD [address] [place] [address] [place] [address] Gastroenterology 04/16/20 Marita Madrigal MD [address] [place] [phone] Obstetrics and Gynecology 04/16/20 Ji Caballero MD [address] [place] [address] Dr [facility] [address] [place] [address] Cardiology 07/19/20 Cristopher Fry MD, [place] [address] [place] [address] [email or web address] Intensive Care 05/01/22 documented as of this encounter Additional Source Comments The information contained in this document represents components of the legal health record. It is not the complete legal health record.[facility]
--- OUTSIDE RECORDS SUMMARY | 2025-01-12 14:27 | XMS_ITS | Encounter Summary ---
Author Organization [facility] Address [address] [place] [address] Phone Care Team Providers Care Pharmacy Consultant Name Role Phone Tee Ramirez MD Primary Care Provider [phone] Sandip Yi MD Unavailable [phone] Lexy Quiroga MD Unavailable Harvey Givens MD Unavailable [phone] Marita Madrigal MD Unavailable [facility] MD Unavailable [phone] Cristopher Fry MD, [place] Unavailable [phone] Encounter Details Date Type Department Care Team (Late st Contact Info) Description 02/19/2023 Procedure Pass [facility], Ct Scan - [address] [address] Social History Tobacco Use Types Packs/Day Years [...] high school, GED, job training, learning the [place] Leonean language, technical skills, or developing parenting skills)? [...] Description 04/16/2025 2:00 PM EST Office Visit [facility] Pulmonary, Allergy and Critical Care Medicine 10 [facility] [place] [address] [place] [address] Cristopher Fry MD, [place] [address] [address] 06/01/2025 9:30 AM EDT Office Visit [facility] [place] Internal Medicine [address] [place] [address] [place] [address] Tee Ramirez MD 40 [place] [address] 11/09/2025 8:40 AM EDT Office Visit [facility] Endocrinology [place] 40 [place] [phone] Lexy Quiroga MD [address] [address] documented as of this encounter Visit Diagnoses Not on filedocumented in this encounter Additional Health Concerns Infection Onset Date Last Indicated Resolved Time COVID-19 02/08/2023 02/08/2023 03/01/2023 1:26 AM EST CoV-Risk 06/10/2024 06/10/2024 06/21/2024 1:21 AM EDT Assessment Noted Time PHQ-2 Depression Total Score: 0 04/30/19 7:38 PM EST documented as of this encounter Care Teams Pharmacy Consultant Relationship Specialty Start Date End Date Tee Ramirez MD 40 [place] [address] PCP - General 01/11/17 Sandip Yi MD [address] [place] [phone] [email or web address] 04/16/20 Lexy Quiroga MD [address] [address] Endocrinology 04/16/20 Havrey Givens MD [address] [place] [address] Gastroenterology 04/16/20 Marita Madrigal MD [address] [place] [phone] Obstetrics and Gynecology 04/16/20 Ji Caballero MD [address] [place] [address] Cardiology 07/19/20 Cristopher Fry MD, [place] [address] [place] [address] [email or web address] Intensive Care 05/01/22 documented as of this encounter Additional Source Comments The information contained in this document represents components of the legal health record. It is not the complete legal health record.[facility]
--- OUTSIDE RECORDS SUMMARY | 2025-01-12 14:27 | XMS_ITS | Encounter Summary ---
Author Organization [facility] Address [address] [place] [address] Phone Care Team Providers Care Dam Attendant Name Role Phone eTe Ramirez MD Primary Care Provider [phone] Sandip Yi MD Unavailable [phone] Lexy Quiroga MD Unavailable Harvey Givens MD Unavailable Marita Madrigal MD Unavailable [facility] MD Unavailable Cristopher Fry MD, [place] Unavailable [phone] Encounter Details Date Type Department Care Team (Latest Contact Info) Description 04/16/2019 Transcribe Orders [facility] [address] [place], [place] [id number] Tee Ramirez MD 40 [place], [place] [phone] [email or web address] Vitamin D deficiency; Pure hypercholesterolemia ; Bronchiectasis [...] Description 04/16/2025 2:00 PM EST Office Visit [facility] Pulmonary, Allergy and Critical Care Medicine 10 [facility] [place] [address] Cristopher Fry MD, [place] [address] [address] 06/01/2025 9:30 AM EDT Office Visit [facility] Internal Medicine [address] [place] [address] Tee Ramirez MD 40 [place] [address] 11/09/2025 8:40 AM EDT Office Visit [facility] Endocrinology [place] [address] [place] [phone] Lexy Quiroga MD [address] [address] documented as of this encounter Procedures Procedure [...] AM EST) HCV NON-REACTIV E NON-REACTI VE [facility] Blood 04/16/2019 9:03 AM EST 04/16/2019 9:09 AM EST us Tee Ramirez MD LAB BLOOD ORDERABLES Final Re sult [address] [address] * CBC (04/16/2019 9:03 AM EST) WBC 5.65 3.40 - 11.20 K/uL [facility] RBC 4.48 3.80 - 4.80 M/uL [facility] HGB 13.5 12.0 - 15.0 g/dL [facility] HCT 41.1 36.0 - 46.0 % [facility] PLT 223 130 - 400 K/uL [facility] MCV 91.7 79.0 - 98.0 fL [facility] MCH 30.1 27.0 - 34.8 pg [facility] MCHC 32.8 31.5 - 36.0 g/dL [facility] RDW 13.6 10.8 - 14.6 % [facility] MPV 10.5 9.4 - 12.4 fl [facility] NRBC 0.00 0.00 /100 WBCs [facility] ABSOLUTE NRBC 0.00 0.00 K/uL [facility] Blood 04/16/2019 9:03 AM EST 04/16/2019 9:09 AM EST us Tee Ramirez MD LAB BLOOD ORDERABLES Final Re sult [address] [address] * Comprehensive metabolic panel (04/16/2019 9:03 AM EST) SODIUM 141 133 - 146 mmol/L [facility] POTASSIUM 4.7 3.3 - 5.1 mmol/L [facility] CHLORIDE 102 96 - 108 mmol/L [facility] CO2 29 21 - 35 mmol/L [facility] BUN 17 6 - 19 mg/dL [facility] CREATININE 0.60 0.5 - 1.5 mg/dL [facility] GLUCOSE 98 70 - 99 mg/dL [facility] ALBUMIN 4.5 3.9 - 4.8 g/dL [facility] TOTAL PROTEIN 7.0 6.5 - 8.0 g/dL [facility] CALCIUM 9.6 8.4 - 10.3 mg/dL [facility] ALKALINE PHOSPHATASE 58 39 - 117 U/L [facility] TOTAL BILIRUBIN 0.6 0.0 - 1.2 mg/dL [facility] AST 25 0 - 37 U/L [facility] ALT 7 0 - 40 U/L [facility] GLOBULIN 2.5 1 - 4.8 g/dL [facility] EGFR 93 >59 mL/min/1.7 3m2 [facility] Comment:If patient is black, multiply result by 1.159. Estimated glomerular filtration rate calculated using the CKD-EPI equation. ANION GAP 15 10 - 20 mmol/L [facility] Blood 04/16/2019 9:03 AM EST 04/16/2019 9:09 AM EST us Tee Ramirez MD LAB BLOOD ORDERABLES Final Re sult [facility] [address] [place] [address] * (ABNORMAL) Lipid panel (04/16/2019 9:03 AM EST) HDL 75 mg/dL [facility] Comment: Interpretation <40 mg/dL: Low HDL cholesterol (major risk factor for CHD) Greater than or equal to 60 mg/dL: High HDL cholesterol ( negative risk factor for CHD) HDL - cholesterol is affected by a number of factors, e.g. smoking, excerise, hormones, sex and age. CHOLESTEROL 203 0 - 240 mg/dL [facility] TRIGLYCERIDES 84 30 - 160 mg/dL [facility] LDL 111 50 - 129 mg/dL [facility] Comment: LDL levels in terms of risk for coronary heart disease: <100 mg/dL: Optimal 100-129 mg/dL: Near or above optimal 130-159 mg/dL: Borderline high 160-189 mg/dL: High >190 mg/dL: Very High CARDIAC RISK RATIO 2.7(L) 3.3 - 4.4 [facility] Blood 04/16/2019 9:03 AM EST 04/16/2019 9:09 AM EST us Tee Ramirez MD LAB BLOOD ORDERABLES Final Re sult Performing Organization Address [facility] Co de Phone Number [address] [address] * TSH (04/16/2019 9:03 AM EST) TSH 1.74 0.27 - 4.20 uIU/mL [facility] Blood 04/16/2019 9:03 AM EST 04/16/2019 9:09 AM EST us Tee Ramirez MD LAB BLOOD ORDERABLES Final Re sult Performing Organization Address [facility] Co de Phone Number [address] [address] * 25-OH vitamin D (04/16/2019 9:03 AM EST) 25 [place] VIT D (TOTAL) 47 30 - 60 ng/mL [facility] Blood 04/16/2019 9:03 AM EST 04/16/2019 9:09 AM EST us Tee Ramirez MD LAB BLOOD ORDERABLES Final Re sult Performing Organization Address [facility] Co de Phone Number [address] [address] documented in this encounter Visit Diagnoses Diagnosis [...] documented as of this encounter Care Teams Dam Attendant Relationship Specialty Start Date End Date Tee Ramirez MD 40 [place] [address] [email or web address] PCP - General 01/11/17 Sandip Yi MD [address] [place] [address] [email or web address] 04/16/20 Lexy Quiroga MD [address] [address] [email or web address] Endocrinology 04/16/20 Harvey Givens MD [address] [place] [address] Drive [address] [place] [address] Gastroenterology 04/16/20 Marita Madrigal MD [address] [phone] Obstetrics and Gynecology 04/16/20 Ji Caballero MD [address] [place] [address] Dr [address] [place] [address] Cardiology 07/19/20 Cristopher Fry MD, MS [address] [place] [address] [email or web address] Intensive Care 05/01/22 documented as of this encounter Additional Source Comments The information contained in this document represents components of the legal health record. It is not the complete legal health record.[facility]
--- OUTSIDE RECORDS SUMMARY | 2025-01-12 14:28 | XMS_ITS | Encounter Summary ---
Author Organization [facility] Address [address] [place] [address] Phone Care Team Providers Care Chemical Sprayer Name Role Phone Tee Ramirez MD Primary Care Provider [phone] Sandip Yi MD Unavailable [phone] Lexy Quiroga MD Unavailable Harvey Givens MD Unavailable [phone] Marita Madrigal MD Unavailable [facility] Unavailable Cristopher Fry MD, [place] Unavailable [phone] Encounter Details Date Type Department Care Team (Late st Contact Info) Description 05/02/2022 Procedure Pass [facility], Ct Scan - [address] [address] Social History Tobacco Use Types Packs/Day Years [...] high school, GED, job training, learning the [place] language, technical skills, or developing parenting skills)? [...] Description 04/16/2025 2:00 PM EST Office Visit [facility] Pulmonary, Allergy and Critical Care Medicine 10 [place] [address] Cristopher Fry MD, [place] [address] [address] 06/01/2025 9:30 AM EDT Office Visit [facility] [place] Internal Medicine 40 [place] [address] Tee Ramirez MD 40 [place] [address] 11/09/2025 8:40 AM EDT Office Visit [facility] Endocrinology [place] 40 [place] [phone] Lexy Quiroga MD [address] [address] documented as of this encounter Visit Diagnoses Not on filedocumented in this encounter Additional Health Concerns Infection Onset Date Last Indicated Resolved Time COVID-19 02/08/2023 02/08/2023 03/01/2023 1:26 AM EST CoV-Risk 06/10/2024 06/10/2024 06/21/2024 1:21 AM EDT Assessment Noted Time PHQ-2 Depression Total Score: 0 04/19/19 7:47 PM EST documented as of this encounter Care Teams Chemical Sprayer Relationship Specialty Start Date End Date eTe Ramirez MD 40 [place] [address] PCP - General 01/11/17 Sandip Yi MD [address] [place] [address] [email or web address] 04/16/20 Lexy Quiroga MD [address] [address] Endocrinology 04/16/20 Harvey Givens MD [address] [place] [address] Drive [address] [place] [address] Gastroenterology 04/16/20 Marita Madrigal MD [address] [place] [phone] Obstetrics and Gynecology 04/16/20 Ji Caballero MD [address] [place] [address] [place] [address] Cardiology 07/19/20 Cristopher Fry MD, MS [address] [place] [address] [email or web address] Intensive Care 05/01/22 documented as of this encounter Additional Source Comments The information contained in this document represents components of the legal health record. It is not the complete legal health record.[facility]
--- OUTSIDE RECORDS SUMMARY | 2025-01-12 14:28 | XMS_ITS | Encounter Summary ---
Author Organization [facility] Address [address] [place] [address] Phone Care Team Providers Care Video Tape Transferrer Name Role Phone Tee Ramirez MD Primary Care Provider Sandip Yi MD Unavailable Lexy Quiroga MD Unavailable Harvey Givens MD Unavailable [phone] Marita Madrigal MD Unavailable [facility] MD Unavailable [phone] Cristopher Fry MD, [place] Unavailable [phone] Encounter Details Date Type Department Care Team (Late st Contact Info) Description 03/03/2024 Procedure Pass [facility], Ct Scan - [address] [address] Social History Tobacco Use Types Packs/Day Years [...] Description 04/16/2025 2:00 PM EST Office [place] [facility] [place], Allergy and Critical Care Medicine 10 [facility] [place] [address] Cristopher Fry MD, [place] [address] [address] [email or web address] 06/01/2025 9:30 AM EDT Office Visit [facility] Internal Medicine 40 [place] [address] Tee Ramirez MD 40 [place] [address] 11/09/2025 8:40 AM EDT Office Visit [facility] Endocrinology [place] 40 [place] [phone] Lexy Quiroga MD [address] [place] [address] documented as of this encounter Visit Diagnoses Not on filedocumented in this encounter Additional Health Concerns Infection Onset Date Last Indicated Resolved Time CoV-Risk 06/10/2024 06/10/2024 06/21/2024 1:21 AM EDT Assessment Noted Time PHQ-2 Depression Total Score: 0 05/19/19 25 10:33 AM EST documented as of this encounter Care Teams Video Tape Transferrer Relationship Specialty Start Date End Date Tee Ramirez MD 40 [place] [address] [email or web address] PCP - General 01/11/17 Sandip Yi MD [address] [place] [address] [email or web address] 04/16/20 Leyx Quiroga MD [address] [address] Endocrinology 04/16/20 Harvey Givens MD [address] [place] [address] Drive [address] [place] [address] Gastroenterology 04/16/20 Marita Madrigal MD [address] [place] [phone] Obstetrics and Gynecology 04/16/20 Ji Caballero MD [address] [place] [address] Dr [address] [place] [address] Cardiology 07/19/20 Cristopher Fry MD, MS [address] [place] [address] Intensive Care 05/01/22 documented as of this encounter Additional Source Comments The information contained in this document represents components of the legal health record. It is not the complete legal health record.[facility]
--- OUTSIDE RECORDS SUMMARY | 2025-01-12 14:28 | XMS_ITS | Encounter Summary ---
Author Organization [facility] Address [address] [place] [address] Phone Care Team Providers Care Job Interviewer Name Role Phone Tee Ramirez MD Primary Care Provider Sandip Yi MD Unavailable [phone] Lexy Quiroga MD Unavailable Harvey Givens MD Unavailable Marita Madrigal MD Unavailable [phone] [facility] MD Unavailable Cristopher Fry MD, [place] Unavailable [phone] Encounter Details Date Type Department Care Team (Late st Contact Info) Description 07/21/2024 Transcribe Orders [facility] Specimen Processing 30 [place] [address] Ryne Bonilla MD 38 [facility] [address], [address] [place] [address] [email or web address] Social History Tobacco Use Types Packs/Day Years [...] Description 04/16/2025 2:00 PM EST Office Visit [facility] Pulmonary, Allergy and Critical Care Medicine 10 [facility] [place] [address] Cristopher Fry MD, MS [address] [address] 06/01/2025 9:30 AM EDT Office Visit [facility] Internal Medicine 40 [place] [address] Tee Ramirez MD 40 [place] [address] 11/09/2025 8:40 AM EDT Office Visit [facility] Endocrinology [place] 40 [place] [phone] Lexy Quiroga MD [address] [address] documented as of this encounter Visit Diagnoses Not on filedocumented in this encounter Additional Health Concerns Assessment Noted Time PHQ-2 Depression Total Score: 0 05/19/19 25 10:33 AM EST documented as of this encounter Care Teams Job Interviewer Relationship Specialty Start Date End Date Tee Ramirez MD 40 [place] [address] PCP - General 01/11/17 Sandip Yi MD [address] [place] [phone] [email or web address] 04/16/20 Lexy Quiroga MD 22 [facility] [address] [place] [address] Endocrinology 04/16/20 Harvey Givens MD [address] [place] [address] Drive [address] [place] [address] Gastroenterology 04/16/20 Marita Madrigal MD [address] [place] [phone] Obstetrics and Gynecology 04/16/20 Ji Caballero MD [address] [place] [address] Dr [address] [place] [address] Cardiology 07/19/20 Cristopher Fry MD, MS [address] [place] [address] [email or web address] Intensive Care 05/01/22 documented as of this encounter Additional Source Comments The information contained in this document represents components of the legal health record. It is not the complete legal health record.[facility]
--- OUTSIDE RECORDS SUMMARY | 2025-01-12 14:28 | XMS_ITS | Clinical Summary ---
Author Organization [facility] Address [address] [place] [address] Care Team Providers Care Door Glass Installer Name Role Phone Tee Ramirez MD Primary Care Provider Allergies No known active allergies Medications Medication [...] age to complete this topic Care Teams Door Glass Installer Relationship Specialty Start Date End Date Tee Ramirez MD [address] [place] [address] PCP - General Internal Medicine 03/07/17
--- OUTSIDE RECORDS SUMMARY | 2025-01-12 14:29 | XMS_ITS | Clinical Summary ---
Author Organization [facility] Address [address] [place] [address] Phone Care Team Providers Care Autopsy Pathologist Name Role Phone Tee Ramirez MD Primary Care Provider Sandip Yi MD Unavailable [phone] Lexy Quiroga MD Unavailable [phone] Harvey Givens MD Unavailable Marita Madrigal MD Unavailable [facility] Unavailable Cristopher Fry MD, [place] Unavailable Allergies No known active allergies Medications [...] (two) times a day. 11/12/19 24 Active umeclidinium-vi lanteroL (ANORO ELLIPTA) 62.5-25 mcg/actuation diskus inhalerIndicati ons:Bronchiecta sis without complication Inhale 1 puff into the lungs daily. 60 each 11 03/03/20 24 Active metroNIDAZOLE (ROSADAN) 0.75 % gel Apply 1 Application topically daily. 03/31/19 25 Active sodium chloride (HYPERSAL) 7 % NebuIndications :Bronchiectasis without complication Take 4 mL by nebulization 2 (two) times a day as needed. 240 mL 11 05/01/19 25 Active albuterol 2.5 mg /3 mL (0.083 %) nebulizer solutionIndicat ions:Bronchiect asis without complication Take 3 mL (2.5 mg total) by nebulization every 6 (six) hours as needed for wheezing or shortness of breath/dyspnea. 360 mL 5 06/11/19 25 Active atorvastatin (LIPITOR) 10 MG tabletIndicatio ns:Hyperlipidem ia TAKE 1 TABLET BY MOUTH EVERY DAY 90 tablet 3 07/15/19 25 Active alendronate (FOSAMAX) 70 MG tabletIndicatio ns:Age-related osteoporosis without current pathological fracture TAKE 1 TABLET BY MOUTH EVERY 7 DAYS. TAKE IN THE MORNING WITH A FULL GLASS OF WATER, ON AN EMPTY STOMACH, AND DO NOT TAKE ANYTHING ELSE BY MOUTH OR LIE DOWN FOR THE NEXT 30 MIN. 12 tablet 3 12/23/19 25 Active alendronate (FOSAMAX) 70 MG tabletIndicatio ns:Age-related osteoporosis without current pathological fracture Take 1 tablet (70 mg total) by mouth every 7 days. Take in the morning with a full glass of water, on an empty stomach, and do not take anything else by mouth or lie down for the next 30 min. 12 tablet 3 11/11/19 25 2024 Discontinued Active Problems Problem Noted Date Diagnosed Date Right upper lobe pulmonary infiltrate 12/24/2024 Assessment & Plan (12/24/2024 8:52 AM EDT): She was empirically treated with cefpodoxime. We will plan to repeat chest CT at a 3-month interval and reconvene thereafter. Orders: CT Chest; Future Encounter for immunization safety counseling 03/2024 Assessment & Plan (12/24/2024 8:52 AM EDT): Patient has historically been reluctant to pursue vaccinations. She tells me she never received the influenza vaccine. I advised influenza and COVID vaccination this month. Reviewed the availability of Novavax, which is not an mRNA COVID-vaccine. Also advised RSV vaccination, even though she had RSV last year. Recommended that she separate RSV and the other 2 vaccines by a few weeks. Diverticular disease of colon 06/26/2024 Pulmonary nodules [...] (11/28/2023): 10/30/[address] Thoams following Assessment & Plan (11/19/2024 11:00 AM [...] prior to follow up, will shift from [place] to [facility] with next study. Assessment & [...] female 03/23/2017 Bronchiectasis 03/23/2017 Assessment & Plan (12/24/2024 8:52 AM EDT): Currently appears to be at baseline. Advised that she continue Anoro along with once to twice daily albuterol and Hypersal nebs for pulmonary toilet and airway clearance. No additional antibiotics are indicated at this juncture. Assessment & Plan (09/03/2024 2:40 PM EDT): [...] with bronchodilator, Lung Volumes, DLCO; Performing Location: [facility]; Future albuterol 90 mcg/actuation inhaler 2-4 puff albuterol 2.5 mg /3 mL (0.083 %) nebulizer solution 2.5 mg qskwmrhvlpp-cirjwhqyw-hyidmtfr (TRELEGY ELLIPTA) 100-62.5-25 mcg inhalation powder; Inhale [...] of bronchiectasis. Orders: CBC and differential; Future Qmgrg-2-mfvrvvjwtte phenotyping; Future Immunoglobulin A; Future Immunoglobulin E, total; Future Immunoglobulin G; Future IgG subclasses; Future Immunoglobulin M; Future Rheumatoid factor; Future umeclidinium-vilanteroL (ANORO ELLIPTA) 62.5-25 mcg/actuation diskus inhaler; Inhale 1 puff into the lungs daily. Assessment & Plan (02/19/2023 2:25 PM EST): Continue with as needed Hypersal and albuterol for pulmonary toilet. 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 She will return to see me on [...] clinical follow-up, earlier if needed. Hyperlipidemia 03/23/2017 Osteopenia of multiple sites 03/23/2017 Malignant neoplasm [...] See cardiology as planned Cardiomyopathy 03/23/2017 01/24/2019 Left upper lobe pulmonary infiltrate 03/23/2017 12/24/2024 Overview (10/03/2022): 04/27/2022 chest CTA performed at [facility] revealed consolidation and volume loss in [...] atypical pneumonia such as NTM pulmonary disease/[place] syndrome, multifocal pneumonia (though patient is afebrile without discolored sputum or leukocytosis), or a noninfectious interstitial disease such as organizing pneumonia/WORK MEASUREMENT ENGINEER. At this point, we agreed to obtain [...] be agreeable to this if clinically indicated. Encounters Date Type Department Care Team Description 12/24/2024 8:15 AM EDT Office Visit [facility] Pulmonary, Allergy and Critical Care Medicine [address] [place] [address] Cristopher Fry MD, [place] Bronchiectasis without complication (Primary Dx); Right upper lobe pulmonary infiltrate; Encounter for immunization safety counseling 12/20/2024 [facility]ill [facility] [address] [place] [address] Lexy Quiroga MD Medication Refill 11/28/2024 Telephone CD Pulmonary, Allergy and Critical Care Medicine [address] [place] [address] Cristopher Fry MD, MS Results 11/25/2024 7:42 AM EDT - 11/25/2024 11:59 PM EDT Hospital Encounter [address] [address] Cristopher Fry MD, [place] Discharge Disposition: Home or Self Care 11/14/2024 12:04 PM EDT - 11/14/2024 11:59 PM EDT Hospital Encounter [facility] Laboratory [address] [place] [address] Tee Ramirez MD Discharge Disposition: Home or Self Care 11/14/2024 11:00 AM EDT Office Visit [facility] Internal Medicine [address] [place] [address] Tee Ramirez MD Age-related osteoporosis without current pathological fracture (Primary Dx); Left upper lobe pulmonary infiltrate; Bronchiectasis without complication; Abnormal echocardiogram 11/10/2024 8:20 AM EDT Office Visit [facility] Endocrinology [place] [address] [place] [address] Lexy Quiroga MD Age-related osteoporosis without current pathological fracture (Primary Dx) 11/03/2024 Documentation [facility] Internal Medicine [address] [place] [address] Tee Ramirez MD 09/03/2024 Procedure Pass [address] [address] from Last 3 Months Immunizations Immunization Administration [...] Sign Reading Time Taken Comments Blood Pressure 102/58 12/24/2024 7:59 AM EDT Pulse 85 12/24/2024 7:59 AM EDT Temperature 36.1 C (97 F) 12/24/2024 7:59 AM EDT Respiratory Rate 19 11/14/2024 11:03 AM EDT Oxygen Saturation 95% 12/24/2024 7:59 AM EDT Inhaled Oxygen Concentration - - Weight 40.6 kg (89 lb 9.6 oz) 12/24/2024 7:59 AM EDT Height 160.1 cm (5' 3.03 ) 12/24/2024 7:59 AM ED T Body Mass Index 15.86 12/24/2024 7:59 AM EDT Plan of Treatment Upcoming Encounters Date Type Department Care Team (Late st Contact Info) Description 04/16/2025 2:00 PM EST Office Visit [facility] Pulmonary, Allergy and Critical Care Medicine 10 [facility] [place] [address] Cristopher Fry MD, MS [address] [address] 06/01/2025 9:30 AM EDT Office Visit [facility] Internal Medicine [address] [place] [address] Tee Ramirez MD [address] [place] [address] [email or web address] 11/09/2025 8:40 AM EDT Office Visit [facility] Endocrinology [place] [address] [place] [address] Lexy Quiroga MD [address] [place] [address] [email or web address] Health Maintenance Due Date Last Done Comments COLOGUARD 1994 FIT TEST 1994 FOBT 1994 SIGMOIDOSCOPY 1994 VIRTUAL COLONOSCOPY 1994 RSV VACCINE (1 - 1-dose 75+ series) 2024 COVID-19 VACCINE (2024- season) 2024 01/10/2022, 02/28/2021, 06/05/2020 DEPRESSION SCREENING [...] STATUS SCREENING (Once After 26 Yrs) Completed 12/24/2024 HEPATITIS A VACCINES Aged Out No long [...] in Epic: Pneumonia; Patient had PNA May 2024July CT w DORIS infiltrates but pt feeling [...] 12:05 PM EDT) Collagen CTx 79(L) pg/mL [facility] PT LAB MED/PATH [facility]PERIOR Comment: (NOTE) REFERENCE VALUE 148-967 (18-29 y) 150-635 (30-39 y) 131-670 (40-49 y) 183-1060 (50-59 y) 171-970 (60-69 y) 152-858 (>70 y) 136-689 (Premenopausal) 177-1015 (Postmenopausal) Flagging is based on the age-specific reference interval and not menopausal status. Blood 11/14/2024 12:0 5 PM EDT 11/14/2024 12:08 PM EDT us Lexy Quiroga MD LAB BLOOD ORDERABLES F inal Result [facility] [address] [place] [address] * Comprehensive metabolic panel (11/14/2024 12:05 PM EDT) SODIUM 135 133 - 146 mmol/L [facility] POTASSIUM 4.1 3.3 - 5.1 mmol/L [facility] CHLORIDE 98 96 - 108 mmol/L [facility] CO2 28 21 - 35 mmol/L [facility] BUN 15 6 - 19 mg/dL [facility] CREATININE 0.60 0.5 - 1.5 mg/dL [facility] GLUCOSE 85 70 - 99 mg/dL [facility] ALBUMIN 4.4 3.9 - 4.8 g/dL [facility] TOTAL PROTEIN 7.7 6.5 - 8.0 g/dL [facility] CALCIUM 9.4 8.4 - 10.3 mg/dL [facility] ALKALINE PHOSPHATASE 71 39 - 117 U/L [facility] TOTAL BILIRUBIN 0.4 0.0 - 1.2 mg/dL [facility] AST 23 0 - 37 U/L [facility] ALT 9 0 - 40 U/L [facility] GLOBULIN 3.3 1 - 4.8 g/dL [facility] EGFR 94 >59 mL/min/1.7 3m2 [facility] Comment:Estimated glomerular filtration rate calculated using the CKD-EPI refit equation. ANION GAP 13 10 - 20 mmol/L [facility] Blood 11/14/2024 12:0 5 PM EDT 11/14/2024 12:09 PM EDT us Lexy Quiroga MD LAB BLOOD ORDERABLES F inal Result Performing Organization Address City/[facility]/ZIP Co de Phone Number [address] [address] * 25-OH vitamin D (11/14/2024 12:05 PM EDT) 25 OH VIT D (TOTAL) 58 30 - 60 ng/mL [facility] Blood 11/14/2024 12:0 5 PM EDT 11/14/2024 12:09 PM EDT us Lexy Quiroga MD LAB BLOOD ORDERABLES F inal Result Performing Organization Address [facility]/ZIP Co de Phone Number [address] [address] * Phosphorus (11/14/2024 12:05 PM EDT) PHOSPHORUS 3.4 2.7 - 4.5 mg/dL [facility] Blood 11/14/2024 12:0 5 PM EDT 11/14/2024 12:09 PM EDT us Lexy Quiroga MD LAB BLOOD ORDERABLES F inal Result Performing Organization Address City/[facility]/ZIP Co de Phone Number [address] [address] * Parathyroid hormone (PTH) (11/14/2024 12:05 PM EDT) PARATHYROID HORMONE 28 15 - 65 pg/mL [facility] Blood 11/14/2024 12:0 5 PM EDT 11/14/2024 12:08 PM EDT Lexy Quiroga MD LAB BLOOD ORDERABLES F inal Result Performing Organization Address [facility] Co de Phone Number [address] [address] * (ABNORMAL) Lipid panel (05/26/2024 8:33 AM EST) HDL 58 mg/dL [facility] Comment: Interpretation <40 mg/dL: Low HDL cholesterol (major risk factor for CHD) Greater than or equal to 60 mg/dL: High HDL cholesterol ( negative risk factor for CHD) HDL - cholesterol is affected by a number of factors, e.g. smoking, excerise, hormones, sex and age. CHOLESTEROL 138 0 - 240 mg/dL [facility] TRIGLYCERIDES 60 30 - 160 mg/dL [facility] LDL 68 50 - 129 mg/dL [facility] Comment: LDL levels in terms of risk for coronary heart disease: <100 mg/dL: Optimal 100-129 mg/dL: Near or above optimal 130-159 mg/dL: Borderline high 160-189 mg/dL: High >190 mg/dL: Very High CARDIAC RISK RATIO 2.4(L) 3.3 - 4.4 [facility] Blood 05/26/2024 8:33 AM EST 05/26/2024 8:36 AM EST Tee Ramirez MD LAB BLOOD ORDERABLES Final Re sult Performing Organization Address [facility] Co de Phone Number [address] [address] * COLONOSCOPY FOR RESULT ENTRY ONLY (04/02/2024) HM Colonoscopy prn us Jacqueline Chacon MD HEALTH MAINTENANCE Final Result * DEXA SCAN (10/30/2023 3:43 PM EDT) Tee Ramirez MD HEALTH MAINTENANCE Edited Res ult - Final * Hepatitis C antibody, qualitative (04/16/2019 9:03 AM EST) HCV NON-REACTIV E NON-REACTI VE [facility] Blood 04/16/2019 9:03 AM EST 04/16/2019 9:09 AM EST us Tee Ramirez MD LAB BLOOD ORDERABLES Final Re sult [address] [address] from Last 3 Months or Most Recently Relevant to Health Maintenance Insurance [employer]IC[place] PPO [place] [address] [place] [address] [address] [address] [place] [address] [address] [address] [place] [address] MEDICARE PPO [address]UE [place] [address] [place] [address] MEDICARE PPO BLUE REPLACEMENT Care Teams Autopsy Pathologist Relationship Specialty Start Date End Date Tee Ramirez MD [address] [place] [address] PCP - General 01/11/17 Sandip Yi MD [address] [place] [address] [email or web address] Medicine 04/16/20 Lexy Quiroga MD [address] [address] Endocrinology 04/16/20 Harvey Givens MD [address] [place] [address] Drive [address] [place] [address] Gastroenterology 04/16/20 Marita Madrigal MD [address] [phone] Obstetrics and Gynecology 04/16/20 Ji Caballero MD [address] [place] [address] Dr [address] [place] [address] Cardiology 07/19/20 Cristopher Fry MD, MS [address] [place] [address] [email or web address] Intensive Care 05/01/22 Additional Source Comments The information contained in this document represents components of the legal health record. It is not the complete legal health record.[facility]
--- OUTSIDE RECORDS SUMMARY | 2025-01-12 14:29 | XMS_ITS | Encounter Summary ---
Author Organization [facility] Address [address] [place] [address] Phone Care Team Providers Care Lift Truck Mechanic Name Role Phone Tee Ramirez MD Primary Care Provider [phone] Sandip Yi MD Unavailable Lexy Quiroga MD Unavailable Harvey Givens MD Unavailable Marita Madrigal MD Unavailable Ji Caballero MD Unavailable Cristopher Fry MD, [place] Unavailable [phone] Encounter Details Date Type Department Care Team (Late st Contact Info) Description 06/06/2022 Transcribe Orders [facility] PFT Lab [address] [place] [address] Cristopher Fry MD, MS [address] [phone] [email or web address] Social History Tobacco Use Types Packs/Day Years [...] high school, GED, job training, learning the Tanz[place] language, technical skills, or developing parenting skills)? [...] 2:00 PM EST [place] [facility] [place], Allergy and Critical Care Medicine 10 [facility] [place] [address] Cristopher Fry MD, MS 10 [facility] 2nd [place] [address] 06/01/2025 9:30 AM EDT Office Visit [facility] Internal Medicine [address] [place] [address] Tee Ramirez MD 40 [place] [address] 11/09/2025 8:40 AM EDT Office Visit [facility] Endocrinology [place] [address] [place] [phone] Lexy Qiuroga MD [address] [address] documented as of this encounter Visit Diagnoses Not on filedocumented in this encounter Additional Health Concerns Infection Onset Date Last Indicated Resolved Time COVID-19 02/08/2023 02/08/2023 03/01/2023 1:26 AM EST CoV-Risk 06/10/2024 06/10/2024 06/21/2024 1:21 AM EDT Assessment Noted Time PHQ-2 Depression Total Score: 0 04/19/19 7:47 PM EST documented as of this encounter Care Teams Lift Truck Mechanic Relationship Specialty Start Date End Date Tee Ramirez MD [address] [place] [address] PCP - General 01/11/17 Sandip Yi MD [address] [place] [address] [email or web address] 04/16/20 Lexy Quiroga MD [address] [address] Endocrinology 04/16/20 Harvey Givens MD [address] [place] [address] Gastroenterology 04/16/20 Marita Madrigal MD [address] [place] [phone] Obstetrics and Gynecology 04/16/20 Ji Caballero MD [address] [place] [address] Cardiology 07/19/20 Cristopher Fry MD, MS [address] [place] [address] [email or web address] Intensive Care 05/01/22 documented as of this encounter Additional Source Comments The information contained in this document represents components of the legal health record. It is not the complete legal health record.[facility]
--- OUTSIDE RECORDS SUMMARY | 2025-01-12 14:29 | XMS_ITS | Encounter Summary ---
Author Organization [facility] Address [address] [place] [address] Phone Care Team Providers Care Senior Sql Developer Name Role Phone Tee Ramirez MD Primary Care Provider [phone] Sandip Yi MD Unavailable [phone] Lexy Quiroga MD Unavailable Harvey Givens MD Unavailable Marita Madrigal MD [facility]available [facility] Unavailable Cristopher Fry MD, [place] Unavailable [phone] Encounter Details Date Type Department Care Team (Late st Contact Info) Description 06/28/2022 Procedure Pass [facility], Ct Scan - [address] [address] Social History Tobacco Use Types Packs/Day Years [...] Description 04/16/2025 2:00 PM EST Office [place] [facility] [place] [place]monary, Allergy and Critical Care Medicine 10 [place] [address] Cristopher Fry MD, MS [address] [address] 06/01/2025 9:30 AM EDT Office Visit [facility] [place] Internal Medicine [address] [place] [address] Tee Ramirez MD 40 [place] [address] 11/09/2025 8:40 AM EDT Office Visit [facility] Endocrinology [place] [address] [place] [phone] Lexy Quiroga MD [address] [address] documented as of this encounter Visit Diagnoses Not on filedocumented in this encounter Additional Health Concerns Infection Onset Date Last Indicated Resolved Time COVID-19 02/08/2023 02/08/2023 03/01/2023 1:26 AM EST CoV-Risk 06/10/2024 06/10/2024 06/21/2024 1:21 AM EDT Assessment Noted Time PHQ-2 Depression Total Score: 0 04/19/19 7:47 PM EST documented as of this encounter Care Teams Senior Sql Developer Relationship Specialty Start Date End Date Tee Ramirez MD 40 [place] [address] PCP - General 01/11/17 Sandip Yi MD [address] [place] [address] [email or web address] 04/16/20 Lexy Quiroga MD [address] [address] Endocrinology 04/16/20 Harvey Givens MD [address] [place] [address] [address] [place] [address] Gastroenterology 04/16/20 Marita Madrigal MD [address] [place] [phone] Obstetrics and Gynecology 04/16/20 Ji Caballero MD [address] [place] [address] [place] [address] Cardiology 07/19/20 Cristopher Fry MD, MS [address] [place] [address] [email or web address] Intensive Care 05/01/22 documented as of this encounter Additional Source Comments The information contained in this document represents components of the legal health record. It is not the complete legal health record.[facility]
--- OUTSIDE RECORDS SUMMARY | 2025-01-12 14:29 | XMS_ITS | Encounter Summary ---
Author Organization [facility] Address [address] [place] [address] Phone Care Team Providers Care Supervisory It Specialist Name Role Phone Tee Ramirez MD Primary Care Provider Sandip Yi MD Unavailable [phone] Lexy Quiroga MD Unavailable Harvey Givens MD Unavailable [phone] Marita Madrigal MD Unavailable AdaJi MD Unavailable Cristopher Fry MD, [place] Unavailable [phone] Encounter Details Date Type Department Care Team (Late st Contact Info) Description 07/18/2022 Procedure Pass [facility] Endoscopy Admitting Dept Virtual Department [address] [place] [phone] Social History Tobacco Use Types Packs/Day Years [...] high school, GED, job training, learning the Kittitian language, technical skills, or developing parenting skills)? [...] Description 04/16/2025 2:00 PM EST Office Visit [facility] Pulmonary, Allergy and Critical Care Medicine 10 [facility] [place] [address] Cristopher Fry MD, MS [address] [address] 06/01/2025 9:30 AM EDT [facility] [place] Internal Medicine 40 [place] [address] Tee Ramirez MD 40 [place] [address] 11/09/2025 8:40 AM EDT Office Visit [facility] Endocrinology [place] [address] [place] [phone] Lexy Quiroga MD [address] [address] documented as of this encounter Visit Diagnoses Not on filedocumented in this encounter Additional Health Concerns Infection Onset Date Last Indicated Resolved Time COVID-19 02/08/2023 02/08/2023 03/01/2023 1:26 AM EST CoV-Risk 06/10/2024 06/10/2024 06/21/2024 1:21 AM EDT Assessment Noted Time PHQ-2 Depression Total Score: 0 04/19/19 7:47 PM EST documented as of this encounter Care Teams Supervisory It Specialist Relationship Specialty Start Date End Date Tee Ramirez MD 40 [place] [address] PCP - General 01/11/17 Sandip Yi MD [address] [place] [address] [email or web address] 04/16/20 Lexy Quiroga MD [address] [address] Endocrinology 04/16/20 Harvey Givens MD [address] [place] [address] [address] [place] [address] Gastroenterology 04/16/20 Marita Madrigal MD [address] [place] [phone] Obstetrics and Gynecology 04/16/20 Ji Caballero MD [address] [place] [address] [place] [address] Cardiology 07/19/20 Cristopher Fry MD, MS [address] [place] [address] [email or web address] Intensive Care 05/01/22 documented as of this encounter Additional Source Comments The information contained in this document represents components of the legal health record. It is not the complete legal health record.[facility]
--- OUTSIDE RECORDS SUMMARY | 2025-01-12 14:30 | XMS_ITS | Encounter Summary ---
Author Organization [facility] Address [address] [place] [address] Phone Care Team Providers Care Guide Setter Name Role Phone Tee Ramirez MD Primary Care Provider Sandip Yi MD Unavailable Lexy Quiroga MD Unavailable [phone] Harvey Givens MD Unavailable Marita Madrigal MD Unavailable [facility] Unavailable [phone] Cristopher Fry MD, [place] Unavailable [phone] Encounter Details Date Type Department Care Team (Late st Contact Info) Description 09/03/2024 Procedure Pass [facility], Ct Scan - [address] [address] Social History Tobacco Use Types Packs/Day Years [...] Description 04/16/2025 2:00 PM EST Office Visit [facility] Pulmonary, Allergy and Critical Care Medicine [address] [place] [address] [place] [address] Cristopher Fry MD, [place] [address] [address] [email or web address] 06/01/2025 9:30 AM EDT Office Visit [facility] Internal Medicine 40 [place] [address] Tee Ramirez MD 40 [place], [place] [email or web address] 11/09/2025 8:40 AM EDT Office Visit [facility] Endocrinology [place] 40 [place] [phone] Lexy Quiroga MD [address] [place] [address] documented as of this encounter Visit Diagnoses Not on filedocumented in this encounter Additional Health Concerns Assessment Noted Time PHQ-2 Depression Total Score: 0 05/19/19 25 10:33 AM EST documented as of this encounter Care Teams Guide Setter Relationship Specialty Start Date End Date Tee Ramirez MD 40 [place], [place] [email or web address] PCP - General 01/11/17 Sandip Yi MD [address] [place] [address] [email or web address] 04/16/20 Lexy Quiroga MD [address] [place] [address] Endocrinology 04/16/20 Harvey Givens MD [address] [place] [address] Drive [address] [place] [address] Gastroenterology 04/16/20 Marita Madrigal MD [address] [place] [phone] Obstetrics and Gynecology 04/16/20 Ji Caballero MD [address] [place] [address] Dr [address] [place] [address] Cardiology 07/19/20 Cristopher Fry MD, MS [address] [place] [address] Intensive Care 05/01/22 documented as of this encounter Additional Source Comments The information contained in this document represents components of the legal health record. It is not the complete legal health record.[facility]
--- OUTSIDE RECORDS SUMMARY | 2025-01-12 14:30 | XMS_ITS | Patient Health Record ---
Author Organization [facility] Address [address] [place] [address] Care Team Providers Care Manager Diesel Name Role Phone Tee Ramirez MD Primary Care Provider Harvey Killian Unavailable [phone] Allergies No Known Allergies Reason For Referral [...] Status Risk Notes Problem Colon cancer screening (943029058) Colon cancer screening (Z12.11) Active confirmed Problem History of adenomatous polyp of colon (423314696) History of adenomatous polyp of colon (Z86.010) Active confirmed Problem Pre-procedure evaluation check (312757080) Encounter for other preprocedural examination (Z01.818) Active confirmed Problem Diverticular disease of colon (971837822) Diverticulosis of large intestine without perforation or abscess without bleeding (K57.30) Active confirmed Problem Abnormal weight loss (635863439) Abnormal weight loss (R63.4) Active confirmed Problem Early satiety (932450565) Early satiety (R68.81) Active confirmed Problem Diarrhea (73792976) Diarrhea, unspecified type (R19.7) Active confirmed Problem Lymphocytic colitis (9733754040) Lymphocytic colitis (K52.832) Active confirmed Problem Altered bowel function (25579003) Change in bowel function (R19.8) Active confirmed Problem Family history of malignant neoplasm of gastrointestinal tract (094564993) Family history of colon cancer in mother (Z80.0) Active confirmed Encounters Encounter Location Date Provider Diagnosis [facility] Outpatient [address] [place] [id number] 04/02/2024 Harvey Givens Colon cancer scree jerald [...] Insured Coverage Start Date Coverage End Date [facility] [address] [place], [place] [id number] [phone] [id number] ULISES NOYOLA Self - patient is the insured Medical (General) History Medical History History ICD Code Denies [place],DM,CVA,Lung disease,renal dise ase Breast cancer-right side---Lumpectomy, lymph [...] fibrillation--2022--neg. ETT and echocardiogram Bronchiectasis---Bronchoscopy 2022 at [facility] for pneumonias--Dr. Fry Surgical History Surgery Date(Month/Year) Right breast lumpectomy as above
== END 2025-01-12 11:37 | disposition home or self-care (01) ==
LOC: HO.HMGAL 11:37
PROVIDERS: PCP Internal Medicine; Visit Provider Registered Nurse Emergency
DX: J30.89 Other allergic rhinitis (principal)
CPT/HCPCS: 95117; 95165

== ENCOUNTER 2025-01-26 11:43 | Outpatient (AMB) | payer MEDICARE, SELFPAY ==
--- OUTSIDE RECORDS SUMMARY | 2024-04-02 02:30 | XMS_ITS ---
Author Organization [facility] Address [address] [place] [address] Care Team Providers Care Learning And Development Coordinator Name Role Phone Tee Ramirez MD Primary Care Provider Unavaila Harvey Blackman Unavailable [phone] REASON FOR VISIT screening,hx polyps,fam hx colon ca Problems Problem Type SNOMED Code ICD Code Onset Dates Problem Status W/U Status Risk Notes Problem Diverticular disease of colon (314961292) Diverticulosis of large intestine without perforation or abscess without bleeding (K57.30) Active confirmed Encounters Encounter Location Date Provider Diagnosis [facility] Outpatient [address] [place] [phone] 04/02/2024 Harvey Givens Colon cancer scree jerald [...] * ULISES NOYOLA EDOB:1950 (74 yo F)Acc No.[id number]:04/02/2024 COLON WITH MAC Patient: ULISES PEREZ Provider: Damion Givens MD :1950 A ge:73 Y S ex:Female Date:04/02/2024 [facility] Pcp:Tee Ramirez MD Subjective: * Chief Complaints: * 1 . Screening,hx polyps,fam hx colon ca. * Medical History: Objective: * Vitals: Assessment: * Assessment: 1. C olon cancer screening - Z12.11 (Primary) 2 . P ersonal history of colonic polyps - Z86.0100 3 . F amily history of colon cancer - Z80.0 ?4. D iverticulosis of large intestine without perforation or abscess without bleeding - K57.30 5 . O ther hemorrhoids - K64.8 Plan: * Treatment: * Procedure Codes: G 0105 COLOREC CANCR SCR; COLNSCPY HI RISK, 0529F INTRVL 3+YRS PTS CLNSCP DOCD, 0528F RCMND FLW-UP 10 YRS DOCD, Modifiers: 1P * * The named appointment provid er may or may not be the originator of this progress note, and it is not deemed complete until electronically signed by the appointment provider. Sign off status: Pending * Provider: Damion Givens MD Date: 0 04/02/2024 Generated for Noemy rinaldi/Ariel/Devonsmitting on: 03/28/2024 02:56 PM EST
--- OUTSIDE RECORDS SUMMARY | 2025-01-21 10:00 | XMS_ITS | Encounter Summary ---
Author Organization [facility] Address [address] [place] [address] Phone Care Team Providers Care Marketing Services Vice President Name Role Phone Tee Ramirez MD Primary Care Provider [phone] Sandip Yi MD Unavailable Lexy Quiroga MD Unavailable [phone] Harvey Givens MD Unavailable Marita Madrigal MD [facility]available [facility] Unavailable [phone] Cristopher Fry MD, [place] Unavailable [phone] Reason for Visit * Reason Comments Bronchiectasis Encounter Details Date Type Department Care Team ([facility] st Contact Info) Description 01/21/2025 11:00 AM EDT Nurse Only [facility] Pulmonary, Allergy and Critical Care Medicine [address] [place] [address] Jaime Pantoja MD [address] [place] [address] [email or web address] Bronchiectasis without complication (Primary Dx) Social History Tobacco Use Types Packs/Day Years [...] AM EST documented as of this encounter Last Filed Vital Signs Vital Sign Reading Time Taken Comments Blood Pressure - - Pulse - - Temperature - - Respiratory Rate - - Oxygen Saturation 96% 01/21/2025 11:31 AM EDT Inhaled Oxygen Concentration - - Weight - - Height - - Body Mass Index - - documented in this encounter Progress Notes * Montse Olivo RN - 01/21/2025 11:00 AM EDT Pt in office for a non 6-minute walk test to evaluate for drop in O2 saturation while in [place]. Baseline O2 saturation at rest: 97% W/Exertion: walking 150 feet 96-97% during 2 minute walk at a brisk pace, no desaturation noted. Pt advised it was likely to be a combination of lung consolidation and altitude affecting her levels while in [place]. Since will be visiting daughter in [place], if happens again should go to ED for eval to get the desats recorded in chart to show will need O2 at higher altitudes. Other option is to purchase O2 concentrator OOP to take on her travels. Patient verbalized understanding and will think about options and determine a best course. documented in this encounter Plan of Treatment Upcoming Encounters Date Type Department Care Team (Late st Contact Info) Description 12/24/2024 Procedure Pass [facility], Ct Scan - [address] [address] 03/23/2025 10:30 AM EST Appointment [facility], Ct Scan - [address] [address] Cristopher Fry MD, [place] [address] [address] 04/16/2025 2:00 PM EST Office Visit [facility] Pulmonary, Allergy and Critical Care Medicine [address] [place] [address] [place] [address] Cristopher Fry MD, MS [address] [place] [address] [email or web address] 06/01/2025 9:30 AM EDT Office Visit [facility] Internal Medicine 40 [place] [address] Tee Ramirez MD 40 [place] [address] [email or web address] 11/09/2025 8:40 AM EDT Office Visit [facility] Endocrinology [place] 40 [place] [phone] Lexy Quiroga MD [address] [place] [address] [email or web address] documented as of this encounter Visit Diagnoses Diagnosis Bronchiectasis without complication- Primary documented in this encounter Additional Health Concerns Assessment Noted Time PHQ-2 Depression Total Score: 0 05/19/19 25 10:33 AM EST documented as of this encounter Care Teams Marketing Services Vice President Relationship Specialty Start Date End Date Tee Ramirez MD 40 [place] [address] [email or web address] PCP - General 01/11/17 Sandip Yi MD [address] [place] [address] [email or web address] 04/16/20 Lexy Quiroga MD [address] [place] [address] [email or web address] Endocrinology 04/16/20 Harvey Givens MD [address] [place] [address] [address] [place] [address] Gastroenterology 04/16/20 Marita Madrigal MD [address] [place] [phone] Obstetrics and Gynecology 04/16/20 Ji Caballero MD [address] [place] [address] [address] [place] [address] Cardiology 07/19/20 Crisotpher Fry MD, MS [address] [place] [address] [email or web address] Intensive Care 05/01/22 documented as of this encounter Additional Source Comments The information contained in this document represents components of the legal health record. It is not the complete legal health record.[facility]
--- OUTSIDE RECORDS SUMMARY | 2025-01-26 14:54 | XMS_ITS | Encounter Summary ---
Author Organization [facility] Address [address] [place] [address] Phone Care Team Providers Care Email Specialist Name Role Phone Tee Ramirez MD Primary Care Provider [phone] Sandip Yi MD Unavailable [phone] Lexy Quiroga MD Unavailable Harvey Givens MD Unavailable [phone] Marita Madrigal MD Unavailable [facility] Unavailable Cristopher Fry MD, [place] Unavailable [phone] Encounter Details Date Type Department Care Team (Late st Contact Info) Description 11/19/2023 Ancillary Orders [facility],Outside Imaging 30 [place], [place] [phone] System, Provider Not In, [facility] [employer] [address] [address] Social History Tobacco Use Types Packs/Day Years [...] st Contact Info) Description 12/24/2024 Procedure Pass [facility], Ct Scan - [address] [address] 03/23/2025 10:30 AM EST Appointment [facility], Ct Scan - [address] [address] Cristopher Fry MD, [place] [address] [address] 04/16/2025 2:00 PM EST Office Visit [facility] Pulmonary, Allergy and Critical Care Medicine [address] [place] [address] Cristopher Fry MD, MS [address] [address] 06/01/2025 9:30 AM EDT Office Visit [facility] Internal Medicine [address] [place] [address] Tee Ramirez MD 40 [place] [address] 11/09/2025 8:40 AM EDT Office Visit [facility] Endocrinology [place] [address] [place] [phone] Lexy Quiroga MD [address] [address] documented as of this encounter Results * [...] documented as of this encounter Care Teams Email Specialist Relationship Specialty Start Date End Date Tee Ramirez MD 40 [place] [address] PCP - General 01/11/17 Sandip Yi MD [address] [place] [address] [email or web address] 04/16/20 Lexy Quiroga MD [address] [place] [address] Endocrinology 04/16/20 Harvey Givens MD [address] [place] [address] Drive [address] [place] [address] Gastroenterology 04/16/20 Marita Madrigal MD [address] [place] [phone] Obstetrics and Gynecology 04/16/20 Ji Caballero MD [address] [place] [address] [address] [place] [address] Cardiology 07/19/20 Cristopher Fry MD, MS [address] [place] [address] [email or web address] Intensive Care 05/01/22 documented as of this encounter Additional Source Comments The information contained in this document represents components of the legal health record. It is not the complete legal health record.[facility]
--- OUTSIDE RECORDS SUMMARY | 2025-01-26 14:54 | XMS_ITS | Encounter Summary ---
Author Organization [facility] Address [address] [place] [address] Phone Care Team Providers Care Client Services Coordinator Name Role Phone Tee Ramirez MD Primary Care Provider Sandip Yi MD Unavailable [phone] Lexy Quiroga MD Unavailable Harvey Givens MD Unavailable Marita Madrigal MD Unavailable [facility] Unavailable Cristopher Fry MD, [place] Unavailable [phone] Encounter Details Date Type Department Care Team (Late st Contact Info) Description 11/19/2023 Ancillary Orders [facility],Outside Imaging 30 [place], [place] [phone] System, Provider Not In, [facility] [address] [address] Social History Tobacco Use Types Packs/Day Years [...] st Contact Info) Description 12/24/2024 Procedure Pass [facility], Ct Scan - [address] [address] 03/23/2025 10:30 AM EST Appointment [facility], Ct Scan - [address] [address] Cristopher Fry MD, [place] [address] [address] 04/16/2025 2:00 PM EST Office Visit [facility] Pulmonary, Allergy and Critical Care Medicine [address] [place] [address] Cristopher Fry MD, MS [address] [address] 06/01/2025 9:30 AM EDT Office Visit [facility] Internal Medicine 40 [place] [address] Tee Ramirez MD 40 [place] [address] 11/09/2025 8:40 AM EDT Office Visit [facility] Endocrinology [place] 40 [place] [phone] Lexy Quiroga MD [address] [address] documented as of this encounter Results * [...] documented as of this encounter Care Teams Client Services Coordinator Relationship Specialty Start Date End Date Tee Ramirez MD 40 [place] [address] PCP - General 01/11/17 Sandip Yi MD [address] [place] [address] [email or web address] 04/16/20 Lexy Quiroga MD [address] [place] [address] Endocrinology 04/16/20 Harvey Givens MD [address] [place] [address] Drive [address] [place] [address] Gastroenterology 04/16/20 Marita Madrigal MD [address] [place] [phone] Obstetrics and Gynecology 04/16/20 Ji Caballero MD [address] [place] [address] Dr [address] [place] [address] Cardiology 07/19/20 Cristopher Fry MD, MS [address] [place] [address] [email or web address] Intensive Care 05/01/22 documented as of this encounter Additional Source Comments The information contained in this document represents components of the legal health record. It is not the complete legal health record.[facility]
--- OUTSIDE RECORDS SUMMARY | 2025-01-26 14:54 | XMS_ITS | Encounter Summary ---
Author Organization [facility] Address [address] [place] [address] Phone Care Team Providers Care Senior Reservations Agent Name Role Phone Tee Ramirez MD Primary Care Provider [phone] Sandip Yi MD Unavailable [phone] Lexy Quiroga MD Unavailable Harvey Givens MD Unavailable Marita Madrigal MD Unavailable [facility] MD Unavailable Cristopher Fry MD, [place] Unavailable [phone] Encounter Details Date Type Department Care Team (Late st Contact Info) Description 11/19/2023 Ancillary Orders [facility],Outside Imaging 30 [place], [place] [phone] System, Provider Not In, [facility] [employer] [address] [address] Social History Tobacco Use Types Packs/Day Years [...] st Contact Info) Description 12/24/2024 Procedure Pass [facility], Ct Scan - [address] [address] 03/23/2025 10:30 AM EST Appointment [facility], Ct Scan - [address] [address] Cristopher Fry MD, [place] [address] [address] 04/16/2025 2:00 PM EST Office Visit [facility] Pulmonary, Allergy and Critical Care Medicine [address] [place] [address] Cristopher Fry MD, MS [address] [address] 06/01/2025 9:30 AM EDT Office Visit [facility] Internal Medicine 40 [place] [address] Tee Ramirez MD 40 [place] [address] 11/09/2025 8:40 AM EDT Office Visit [facility] Endocrinology [place] 40 [place] [phone] Lexy Quiroga MD [address] [address] documented as of this encounter Results * [...] as of this encounter Care Teams Senior Reservations Agent Relationship Specialty Start Date End Date Tee Ramirez MD 40 [place] [address] PCP - General 01/11/17 Sandip Yi MD [address] [place] [address] [email or web address] Medicine 04/16/20 Lxey Quiroga MD [address] [place] [address] Endocrinology 04/16/20 Harvey Givens MD [address] [place] [address] Drive [address] [place] [address] Gastroenterology 04/16/20 Marita Madrigal MD [address] [place] [phone] Obstetrics and Gynecology 04/16/20 Ji Caballero MD [address] [place] [address] [address] [place] [address] Cardiology 07/19/20 Cristopher Fry MD, MS [address] [place] [address] [email or web address] Intensive Care 05/01/22 documented as of this encounter Additional Source Comments The information contained in this document represents components of the legal health record. It is not the complete legal health record.[facility]
--- OUTSIDE RECORDS SUMMARY | 2025-01-26 14:55 | XMS_ITS | Encounter Summary ---
Author Organization [facility] Address [address] [place] [address] Phone Care Team Providers Care Motor Equipment Lieutenant Name Role Phone Tee Ramirez MD Primary Care Provider [phone] Sandip Yi MD Unavailable [phone] Lexy Quiroga MD Unavailable Harvey Givens MD Unavailable Marita Madrigal MD Unavailable [facility] Unavailable [phone] Cristopher Fry MD, [place] Unavailable [phone] Encounter Details Date Type Department Care Team (Latest Contact Info) Description 04/24/2024 Ancillary Orders [facility] Medical [facility] Internal Medicine [address] [place], [place] [phone] Tee Ramirez MD 40 [place], [place] [phone] [email or web address] Persistent cough (Primary Dx); RSV (acute bronchiolitis [...] st Contact Info) Description 12/24/2024 Procedure Pass [facility], Ct Scan - [address] [address] 03/23/2025 10:30 AM EST Appointment [facility], Ct Scan - [address] [address] Cristopher Fry MD, MS [address] [place] [address] 04/16/2025 2:00 PM EST Office Visit [facility] Pulmonary, Allergy and Critical Care Medicine [address] [place] [address] Cristopher Fry MD, MS [address] [address] 06/01/2025 9:30 AM EDT Office Visit [facility] Internal Medicine [address] [place] [address] Tee Ramirez MD 40 [place] [address] 11/09/2025 8:40 AM EDT Office Visit [facility] Endocrinology [place] [address] [place] [phone] Lexy Quiroga MD [address] [address] documented as of this encounter Results * [...] clinician's provided indication for this examination in [facility]: Cough, persistent; rsv and r/o pneumonia COMPARISON: [...] clinician's provided indication for this examination in [facility]:Cough, persistent; rsv and r/o pneumonia COMPARISON: 05/06/2018, [...] documented as of this encounter Care Teams Motor Equipment Lieutenant Relationship Specialty Start Date End Date Tee Ramirez MD 40 [place] [address] PCP - General 01/11/17 Sandip Yi MD [address] [place] [address] [email or web address] 04/16/20 Lexy Quiroga MD [address] [address] Endocrinology 04/16/20 Harvey Givens MD [address] [facility] [address] [place] [address] Gastroenterology 04/16/20 Marita Madrigal MD [address] [phone] Obstetrics and Gynecology 04/16/20 Ji Caballero MD [address] [place] [address] [address] [place] [address] Cardiology 07/19/20 Cristopher Fry MD, MS [address] [place] [address] [email or web address] Intensive Care 05/01/22 documented as of this encounter Additional Source Comments The information contained in this document represents components of the legal health record. It is not the complete legal health record.[facility]
--- OUTSIDE RECORDS SUMMARY | 2025-01-26 14:55 | XMS_ITS | Encounter Summary ---
Author Organization [facility] Address [address] [place] [address] Phone Care Team Providers Care Kitchen Operator Name Role Phone Tee Ramirez MD Primary Care Provider Sandip Yi MD Unavailable Lexy Quiroga MD Unavailable Harvey Givens MD Unavailable [phone] Marita Madrigal MD Unavailable [facility] MD Unavailable [phone] Cristopher Fry MD, [place] Unavailable [phone] Encounter Details Date Type Department Care Team (Late st Contact Info) Description 01/30/2019 Ancillary Orders [facility],Outside Imaging 30 [place], [place] [phone] System, Provider Not In, [facility] [address] [address] Social History Tobacco Use Types Packs/Day Years [...] st Contact Info) Description 12/24/2024 Procedure Pass [facility], Ct Scan - [address] [address] 03/23/2025 10:30 AM EST Appointment [facility], Ct Scan - [address] [address] Cristopher Fry MD, [place] [address] [address] 04/16/2025 2:00 PM EST Office Visit [facility] Pulmonary, Allergy and Critical Care Medicine [address] [place] [address] Cristopher Fry MD, MS [address] [address] 06/01/2025 9:30 AM EDT Office Visit [facility] Internal Medicine 40 [place] [address] Tee Ramirez MD 40 [place] [address] 11/09/2025 8:40 AM EDT Office Visit [facility] Endocrinology [place] 40 [place] [address] Lexy Quiroga MD [address] [address] documented as of this encounter Results * [...] as of this encounter Care Teams Kitchen Operator Relationship Specialty Start Date End Date Tee Ramirez MD 40 [place] [address] [email or web address] PCP - General 01/11/17 Sandip Yi MD [address] [place] [address] [email or web address] 04/16/20 Lexy Quiroga MD [address] [address] Endocrinology 04/16/20 Harvey Givens MD [address] [place] [address] [place] [address] Gastroenterology 04/16/20 Marita Madrigal MD [address] [phone] Obstetrics and Gynecology 04/16/20 Ji Caballero MD [address] [place] [address] Cardiology 07/19/20 Cristopher Fry MD, MS [address] [place] [address] [email or web address] Intensive Care 05/01/22 documented as of this encounter Additional Source Comments The information contained in this document represents components of the legal health record. It is not the complete legal health record.[facility]
--- OUTSIDE RECORDS SUMMARY | 2025-01-26 14:56 | XMS_ITS | Encounter Summary ---
Author Organization [facility] Address [address] [place] [address] Phone Care Team Providers Care Molder Closed Molds Name Role Phone Tee Ramirez MD Primary Care Provider [phone] Sandip Yi MD Unavailable [phone] Lexy Quiroga MD Unavailable [phone] Harvey Givens MD Unavailable Marita Madrigal MD Unavailable [facility] Unavailable Cristopher Fry MD, [place] Unavailable [phone] Encounter Details Date Type Department Care Team (Late st Contact Info) Description 02/19/2023 Procedure Pass [facility], Ct Scan - [address] [address] Social History Tobacco Use Types Packs/Day Years [...] high school, GED, job training, learning the [place] Citizen language, technical skills, or developing parenting skills)? [...] st Contact Info) Description 12/24/2024 Procedure Pass [facility], Ct Scan [address] [address] 03/23/2025 10:30 AM EST Appointment [facility], Ct Scan [address] [address] Cristopher Fry MD, [place] [address] [address] 04/16/2025 2:00 PM EST Office Visit [facility] Pulmonary, Allergy and Critical Care Medicine 10 [facility] [place] [address] Cristopher Fry MD, [place] [address] [place] [address] 06/01/2025 9:30 AM EDT Office Visit [facility] Internal Medicine 40 [place] [address] Tee Ramirez MD 40 [place] [address] 11/09/2025 8:40 AM EDT Office Visit [facility] Endocrinology [place] 40 [place] [phone] Lexy Quiroga MD [address] [place] [address] documented as of this encounter Visit Diagnoses Not on filedocumented in this encounter Additional Health Concerns Infection Onset Date Last Indicated Resolved Time COVID-19 02/08/2023 02/08/2023 03/01/2023 1:26 AM EST CoV-Risk 06/10/2024 06/10/2024 06/21/2024 1:21 AM EDT Assessment Noted Time PHQ-2 Depression Total Score: 0 04/30/19 7:38 PM EST documented as of this encounter Care Teams Molder Closed Molds Relationship Specialty Start Date End Date Tee Ramirez MD 40 [place] [address] PCP - General 01/11/17 Sandip Yi MD [address] [place] [address] [email or web address] 04/16/20 Lexy Quiroga MD [address] [place] [address] Endocrinology 04/16/20 Harvey Givens MD [address] [place] [address] Drive [address] [place] [address] Gastroenterology 04/16/20 Marita Madrigal MD [address] [place] [phone] Obstetrics and Gynecology 04/16/20 Ji Caballero MD [address] [place] [address] Dr [address] [place] [address] Cardiology 07/19/20 Cristopher Fry MD, MS [address] [place] [address] [email or web address] Intensive Care 05/01/22 documented as of this encounter Additional Source Comments The information contained in this document represents components of the legal health record. It is not the complete legal health record.[facility]
--- OUTSIDE RECORDS SUMMARY | 2025-01-26 14:57 | XMS_ITS | Clinical Summary ---
Author Organization [facility] Address [address] [place] [address] Care Team Providers Care Asset Specialist Name Role Phone Tee Ramirez MD Primary Care Provider [phone] Allergies No known active allergies Medications Medication [...] age to complete this topic Care Teams Asset Specialist Relationship Specialty Start Date End Date Tee Ramirez MD [address] [place] [address] PCP - General Internal Medicine 03/07/17
--- OUTSIDE RECORDS SUMMARY | 2025-01-26 14:57 | XMS_ITS | Encounter Summary ---
Author Organization [facility] Address [address] [place] [address] Phone Care Team Providers Care Scheduling Agent Name Role Phone Tee Ramirez MD Primary Care Provider Sandip Yi MD Unavailable Lexy Quiroga MD Unavailable Harvey Givens MD Unavailable [phone] Marita Madrigal MD Unavailable AdaJi MD Unavailable Cristopher Fry MD, [place] Unavailable [phone] Encounter Details Date Type Department Care Team (Late st Contact Info) Description 03/03/2024 Procedure Pass [facility], Ct Scan - [address] [address] Social History Tobacco Use Types Packs/Day Years [...] st Contact Info) Description 12/24/2024 Procedure Pass [facility], Ct Scan - [address] [address] 03/23/2025 10:30 AM EST Appointment [facility], Ct Scan - [facility] 30 [place] [address] Cristopher Fry MD, MS [address] [address] 04/16/2025 2:00 PM EST Office Visit [facility] Pulmonary, Allergy and Critical Care Medicine [address] [place] [address] Cristopher Fry MD, MS [address] [address] 06/01/2025 9:30 AM EDT Office Visit [facility] Internal Medicine 40 [place] [address] Tee Ramirez MD 40 [place] [address] 11/09/2025 8:40 AM EDT Office Visit [facility] Endocrinology [place] 40 [place] [phone] Lexy Quiroga MD [address] [address] documented as of this encounter Visit Diagnoses Not on filedocumented in this encounter Additional Health Concerns Infection Onset Date Last Indicated Resolved Time CoV-Risk 06/10/2024 06/10/2024 06/21/2024 1:21 AM EDT Assessment Noted Time PHQ-2 Depression Total Score: 0 05/19/19 25 10:33 AM EST documented as of this encounter Care Teams Scheduling Agent Relationship Specialty Start Date End Date Tee Ramirez MD 40 [place] [address] PCP - General 01/11/17 Sandip Yi MD [address] [place] [address] [email or web address] Internal Medicine 04/16/20 Lexy Quiroga MD [address] [address] Endocrinology 04/16/20 Harvey Givens MD [address] [place] [address] Drive [address] [place] [address] Gastroenterology 04/16/20 Marita Madrigal MD [address] [phone] Obstetrics and Gynecology 04/16/20 Ji Caballero MD [address] [place] [address] Dr [address] [place] [address] Cardiology 07/19/20 Cristopher Fry MD, MS [address] [place] [address] Intensive Care 05/01/22 documented as of this encounter Additional Source Comments The information contained in this document represents components of the legal health record. It is not the complete legal health record.[facility]
--- OUTSIDE RECORDS SUMMARY | 2025-01-26 14:58 | XMS_ITS | Clinical Summary ---
Author Organization [facility] Address [address] [place] [address] Phone Care Team Providers Care Digital Director Name Role Phone Tee Ramirez MD Primary Care Provider Sandip Yi MD Unavailable Lexy Quiroga MD Unavailable Harvey Givens MD Unavailable Marita Madrigal MD Unavailable [facility] Unavailable [phone] Cristopher Fry MD, [place] Unavailable Allergies No known active allergies Medications aspirin 81 MG EC tablet Take 81 mg by mouth daily. Active cholecalciferol (VITAMIN D3) 2,000 unit capsule Take 2,000 Units by mouth daily. Active dilTIAZem (CARDIZEM SR) 60 MG 12 hr capsule Take 1 capsule by mouth 2 (two) times a day. 4 Active calcium citrate malate-vit D3 250 mg-2.5 mcg (100 unit) Tab Take 2 tablets by mouth 2 (two) times a day. 4 Active umeclidinium-marvel anteroL (ANORO ELLIPTA) 62.5-25 mcg/actuation diskus inhalerIndicatio ns:Bronchiectasi s without complication Inhale 1 puff into the lungs daily. 60 each 11 4 Active metroNIDAZOLE (ROSADAN) 0.75 % gel Apply 1 Application topically daily. 5 Active sodium chloride (HYPERSAL) 7 % NebuIndications: Bronchiectasis without complication Take 4 mL by nebulization 2 (two) times a day as needed. 240 mL 11 5 Active albuterol 2.5 mg /3 mL (0.083 %) nebulizer solutionIndicati ons:Bronchiectas is without complication Take 3 mL (2.5 mg total) by nebulization every 6 (six) hours as needed for wheezing or shortness of breath/dyspnea. 360 mL 5 5 Active atorvastatin (LIPITOR) 10 MG tabletIndication s:Hyperlipidemia TAKE 1 TABLET BY MOUTH EVERY DAY 90 tablet 3 5 Active alendronate (FOSAMAX) 70 MG tabletIndication s:Age-related osteoporosis without current pathological fracture TAKE 1 TABLET BY MOUTH EVERY 7 DAYS. TAKE IN THE MORNING WITH A FULL GLASS OF WATER, ON AN EMPTY STOMACH, AND DO NOT TAKE ANYTHING ELSE BY MOUTH OR LIE DOWN FOR THE NEXT 30 MIN. 12 tablet 3 5 Active Active Problems Problem Noted Date [...] prior to follow up, will shift from [facility] to [facility] with next study. Assessment & [...] with bronchodilator, Lung Volumes, DLCO; Performing Location: [facility]; Future albuterol 90 mcg/actuation inhaler 2-4 puff albuterol 2.5 mg /3 mL (0.083 %) nebulizer solution 2.5 mg lirifdfjalv-uqmscsqyo-ccfuufsd (TRELEGY ELLIPTA) 100-62.5-25 mcg inhalation powder; Inhale [...] of bronchiectasis. Orders: CBC and differential; Future Pfejh-8-chxjlvryxhc phenotyping; Future Immunoglobulin A; Future Immunoglobulin E, [...] continue immunotherapy under the care of her blow mold machine operator. She will return to see me [...] Overview (10/03/2022): 04/27/2022 chest CTA performed at [facility] revealed consolidation and volume loss in [...] atypical pneumonia such as NTM pulmonary disease/Lady Henriette syndrome, multifocal pneumonia (though patient is afebrile without discolored sputum or leukocytosis), or a noninfectious interstitial disease such as organizing pneumonia/MEDICAL COLLECTIONS REPRESENTATIVE. At this point, we agreed to obtain [...] Encounters Date Type Department Care Team Description 01/21/2025 11:00 AM EDT Nurse Only [facility] Pulmonary, Allergy and Critical Care Medicine [address] [place] [address] Jaime Pantoja MD Bronchiectasis without complication (Primary Dx) 12/24/2024 8:15 AM EDT Office Visit [facility] Pulmonary, Allergy and Critical Care Medicine [address] [place] [address] Cristopher Fry MD, [place] Bronchiectasis without complication (Primary Dx); Right upper lobe pulmonary infiltrate; Encounter for immunization safety counseling 12/20/2024 Refill [facility] Endocrinology [address] [phone] Lexy Quiroga MD Medication Refill 11/28/2024 Telephone [facility] Pulmonary, Allergy and Critical Care Medicine [address] [place] [address] Cristopher Fry MD, [place] Results 11/25/2024 7:42 AM EDT - 11/25/2024 11:59 PM EDT Hospital Encounter [facility], [address] [address] Cristopher Fry MD, [place] Discharge Disposition: Home or Self Care 11/14/2024 12:04 PM EDT - 11/14/2024 11:59 PM EDT Hospital Encounter [facility] [place] [address] [place] [address] Tee Ramirez MD Discharge Disposition: Home or Self Care 11/14/2024 11:00 AM EDT Office Visit [facility] Internal Medicine 40 [place] [address] Tee Ramirez MD Age-related osteoporosis without current pathological fracture (Primary Dx); Left upper lobe pulmonary infiltrate; Bronchiectasis without complication; Abnormal echocardiogram 11/10/2024 8:20 AM EDT Office Visit [facility] Endocrinology [place] 40 [place] [phone] Lexy Quiroga MD Age-related osteoporosis without current pathological fracture (Primary Dx) 11/03/2024 Documentation [facility] Internal Medicine 40 [place] [address] Tee Ramirez MD 09/03/2024 Procedure Pass [address] [address] from Last 3 Months Immunizations Immunization Administration [...] 19 11/14/2024 11:03 AM EDT Oxygen Saturation 96% 01/21/2025 11:31 AM EDT Inhaled Oxygen Concentration - - Weight 40.6 kg (89 lb 9.6 oz) 12/24/2024 7:59 AM EDT Height 160.1 cm (5' 3.03 ) 12/24/2024 7:59 AM ED T Body Mass Index 15.86 12/24/2024 7:59 AM EDT Plan of Treatment Upcoming Encounters Date Type Department Care Team (Late st Contact Info) Description 12/24/2024 Procedure Pass [facility], Ct Scan [address] [address] 03/23/2025 10:30 AM EST Appointment [address] [address] Cristopher Fry MD, [place] [address] [address] 04/16/2025 2:00 PM EST Office Visit [facility] Pulmonary, Allergy and Critical Care Medicine [address] [facility] [place] [address] Cristopher Fry MD, MS 10 [facility] [address] [place] [address] [email or web address] 06/01/2025 9:30 AM EDT Office Visit [facility] Internal Medicine 40 [place] [address] Tee Ramirez MD 40 [place] [address] [email or web address] 11/09/2025 8:40 AM EDT Office Visit [facility] Endocrinology [place] [address] [place] [phone] Lexy Quiroga MD [address] [place] [address] [email or web address] Health Maintenance Due Date Last Done Comments COLOGUARD 1994 FIT TEST 1994 FOBT 1994 SIGMOIDOSCOPY 1994 VIRTUAL COLONOSCOPY 1994 RSV VACCINE (1 - 1-dose 75+ series) 2024 COVID-19 VACCINE ( season) 2024 01/10/2022, 02/28/2021, 06/05/2020 DEPRESSION SCREENING 05/19/2025 05/19/2024 LIPID PANEL 05/26/2025 05/26/2024, 04/26, 05/10/2023, Additional history exists COLONOSCOPY 04/02/2029 04/02/2024, 0505/2018, 04/13/2014 COLORECTAL CANCER SCREENING 04/02/2029 Adult Td,Tdap [...] upper lobe pulmonary infiltrate COMPREHENSIVE METABOLIC PANEL (CMP) Routine 11/14/2024 12:05 PM EDT Age-related osteoporosis [...] type 1b-telopeptide, blood (11/14/2024 12:05 PM EDT) Pathologist [facility] Collagen CTx 79(L) pg/mL [facility] LAB MED/PATH SUPERIOR Comment: (NOTE) REFERENCE VALUE 148-967 (18-29 y) 150-635 (30-39 y) 131-670 (40-49 y) 183-1060 (50-59 y) 171-970 (60-69 y) 152-858 (>70 y) 136-689 (Premenopausal) 177-1015 (Postmenopausal) Flagging is based on the age-specific reference interval and not menopausal status. Blood 11/14/2024 12:0 5 PM EDT 11/14/2024 12:08 PM EDT us Lexy Quiroga MD LAB BLOOD BKR ORDERABL ES Final Result [facility] LAB MED/PATH SUPER[facility] [address] [place] [address] * Comprehensive metabolic panel (11/14/2024 12:05 PM EDT) Pathologist [facility] SODIUM 135 133 - 146 mmol/L [facility] POTASSIUM 4.1 3.3 - 5.1 mmol/L [facility] CHLORIDE 98 96 - 108 mmol/L [facility] CO2 28 21 - 35 mmol/L [facility] BUN 15 6 - 19 mg/dL [facility] CREATININE 0.60 0.5 - 1.5 mg/dL [facility] GLUCOSE 85 70 - 99 mg/dL [facility] ALBUMIN 4.4 3.9 - 4.8 g/dL [facility] TOTAL PROTEIN 7.7 6.5 - 8.0 g/dL [facility] CALCIUM 9.4 8.4 - 10.3 mg/dL [facility] ALKALINE PHOSPHATASE 71 39 - 117 U/L [facility] TOTAL BILIRUBIN 0.4 0.0 - 1.2 mg/dL [facility] AST 23 0 - 37 U/L [facility] ALT 9 0 - 40 U/L [facility] GLOBULIN 3.3 1 - 4.8 g/dL [facility] EGFR 94 >59 mL/min/1.7 3m2 [facility] Comment:Estimated glomerular filtration rate calculated using the CKD-EPI refit equation. ANION GAP 13 10 - 20 mmol/L [facility] Blood 11/14/2024 12:0 5 PM EDT 11/14/2024 12:09 PM EDT us Lexy Quiroga MD LAB BLOOD BKR ORDERABL ES Final Result Performing Organization Address City/[facility]/ZIP Co de Phone Number [address] [address] * 25-OH vitamin D (11/14/2024 12:05 PM EDT) 25 OH VIT D (TOTAL) 58 30 - 60 ng/mL [facility] Blood 11/14/2024 12:0 5 PM EDT 11/14/2024 12:09 PM EDT us Lexy Quiroga MD LAB BLOOD BKR ORDERABL ES Final Result Performing Organization Address City/[facility]/ZIP Co de Phone Number [address] [address] * Phosphorus (11/14/2024 12:05 PM EDT) PHOSPHORUS 3.4 2.7 - 4.5 mg/dL [facility] Blood 11/14/2024 12:0 5 PM EDT 11/14/2024 12:09 PM EDT us Lexy Quiroga MD LAB BLOOD BKR ORDERABL ES Final Result Performing Organization Address City/[facility]/ZIP Co de Phone Number [address] [address] * Parathyroid hormone (PTH) (11/14/2024 12:05 PM EDT) PARATHYROID HORMONE 28 15 - 65 pg/mL [facility] Blood 11/14/2024 12:0 5 PM EDT 11/14/2024 12:08 PM EDT us Lexy Quiroga MD LAB BLOOD BKR ORDERABL ES Final Result Performing Organization Address City/[facility]/ZIP Co de Phone Number [address] [address] * (ABNORMAL) Lipid panel (05/26/2024 8:33 AM EST) HDL 58 mg/dL [facility] Comment: Interpretation <40 mg/dL: Low HDL cholesterol (major risk factor for CHD) Greater than or equal to 60 mg/dL: High HDL cholesterol ( negative risk factor for CHD) HDL - cholesterol is affected by a number of factors, e.g. smoking, excerise, hormones, sex and age. CHOLESTEROL 138 0 - 240 mg/dL [facility] TRIGLYCERIDES 60 30 - 160 mg/dL [facility] LDL 68 50 - 129 mg/dL [facility] Comment: LDL levels in terms of risk for coronary heart disease: <100 mg/dL: Optimal 100-129 mg/dL: Near or above optimal 130-159 mg/dL: Borderline high 160-189 mg/dL: High >190 mg/dL: Very High CARDIAC RISK RATIO 2.4(L) 3.3 - 4.4 C [facility] Blood 05/26/2024 8:33 AM EST 05/26/2024 8:36 AM EST us Tee Ramirez MD LAB BLOOD BKR ORDERABLES Karen l Result Performing Organization Address City/[facility]/ZIP Co de Phone Number [address] [address] * HM COLONOSCOPY FOR RESULT ENTRY ONLY (04/02/2024) Colonoscopy prn us Jacqueline Provider HEALTH MAINTENANCE Final Result * DEXA SCAN (10/30/2023 3:43 PM EDT) us Tee Ramirez MD HEALTH MAINTENANCE Edited Res ult - Final * Hepatitis C antibody, qualitative (04/16/2019 9:03 AM EST) HCV NON-REACTIV E NON-REACTI VE [facility] Blood 04/16/2019 9:03 AM EST 04/16/2019 9:09 AM EST us Tee Ramirez MD LAB BLOOD BKR ORDERABLES Karen l Result [address] [address] from Last 3 Months or Most Recently Relevant to Health Maintenance Insurance [id number] MEDICARE PPO BLUE REPLACEMENT ([place]) [address] MEDICARE PPO BLUE [place] [address] MEDICARE PPO BLUE [place]PLAC[place] [address] MEDICARE PPO BLUE REPLACEMENT [place] MEDICARE PPO BLUE REPLACEMENT Care Teams Digital Director Relationship Specialty Start Date End Date Tee Ramirez MD [address] [place] [address] [email or web address] PCP - General 01/11/17 Sandip Yi MD [address] [place] [address] [email or web address] 04/16/20 Lexy Quiroga MD [address] [address] Endocrinology 04/16/20 Harvey Givens MD [address] [place] [address] [place] [address] Gastroenterology 04/16/20 Marita Madrigal MD [address] [place] [phone] Obstetrics and Gynecology 04/16/20 Ji Caballero MD [address] [place] [address] Cardiology 07/19/20 Cristopher Fry MD, [place] [address] [place] [address] [email or web address] Intensive Care 05/01/22 Additional Source Comments The information contained in this document represents components of the legal health record. It is not the complete legal health record.[facility]
--- OUTSIDE RECORDS SUMMARY | 2025-01-26 14:58 | XMS_ITS | Encounter Summary ---
Author Organization [facility] Address [address] [place] [address] Phone Care Team Providers Care Industrial Engineering Manager Name Role Phone Tee Ramirez MD Primary Care Provider [phone] Sandip Yi MD Unavailable [phone] Lexy Quiroga MD Unavailable [phone] Harvey Givens MD Unavailable Marita Madrigal MD Unavailable AdaJi MD Unavailable Cristopher Fyr MD, [place] Unavailable [phone] Encounter Details Date Type Department Care Team (Late st Contact Info) Description 05/02/2022 Procedure Pass [facility], Ct Scan - [address] [address] Social History Tobacco Use Types Packs/Day Years [...] high school, GED, job training, learning the [place] language, technical skills, or developing parenting skills)? [...] st Contact Info) Description 12/24/2024 Procedure Pass [facility], Ct Scan [address] [address] 03/23/2025 10:30 AM EST Appointment [address] [address] Cristopher Fry MD, [place] [address] [address] 04/16/2025 2:00 PM EST Office Visit [facility] Pulmonary, Allergy and Critical Care Medicine [address] [place] [address] [place] [address] Cristopher Fry MD, MS [address] [address] 06/01/2025 9:30 AM EDT Office Visit [facility] Internal Medicine 40 [place] [address] Tee Ramirez MD 40 [place], [place] 11/09/2025 8:40 AM EDT Office Visit [facility] Endocrinology [place] [address] [place] [phone] Lexy Quiroga MD [address] [place] [phone] [email or web address] documented as of this encounter Visit Diagnoses Not on filedocumented in this encounter Additional Health Concerns Infection Onset Date Last Indicated Resolved Time COVID-19 02/08/2023 02/08/2023 03/01/2023 1:26 AM EST CoV-Risk 06/10/2024 06/10/2024 06/21/2024 1:21 AM EDT Assessment Noted Time PHQ-2 Depression Total Score: 0 04/19/19 23 7:47 PM EST documented as of this encounter Care Teams Industrial Engineering Manager Relationship Specialty Start Date End Date Tee Ramirez MD 40 [place], [place] PCP - General 01/11/17 Sandip Yi MD [address] [place] [address] [email or web address] 04/16/20 Lexy Quiroga MD [address] [address] Endocrinology 04/16/20 Harvey Givens MD [address] [place] [address] Drive [address] [place] [address] Gastroenterology 04/16/20 Marita Madrigal MD [address] [place] [phone] Obstetrics and Gynecology 04/16/20 Ji Caballero MD [address] [place] [address] Dr [address] [place] [address] Cardiology 07/19/20 Cristopher Fyr MD, MS [address] [place] [address] [address] [place] [address] [email or web address] Intensive Care 05/01/22 documented as of this encounter Additional Source Comments The information contained in this document represents components of the legal health record. It is not the complete legal health record.[facility]
--- OUTSIDE RECORDS SUMMARY | 2025-01-26 14:58 | XMS_ITS | Encounter Summary ---
Author Organization [facility] Address [address] [place] [address] Phone Care Team Providers Care Director Government Name Role Phone Tee Ramirez MD Primary Care Provider Sandip Yi MD Unavailable Lexy Quiroga MD Unavailable Harvey Givens MD Unavailable Marita Madrigal MD Unavailable Ji Caballero MD Unavailable [phone] Cristopher Fry MD, [place] Unavailable [phone] Encounter Details Date Type Department Care Team (Late st Contact Info) Description 06/06/2022 Transcribe Orders [facility] PFT Lab 30 [place] [address] Cristopher Fry MD, [place] [address] [phone] [email or web address] Social History Tobacco Use Types Packs/Day Years [...] high school, GED, job training, learning the Burkinan language, technical skills, or developing parenting skills)? [...] st Contact Info) Description 12/24/2024 Procedure Pass [facility], Ct Scan [address] [address] 03/23/2025 10:30 AM EST Appointment [address] [address] Cristopher Fry MD, [place] [address] [address] 04/16/2025 2:00 PM EST Office Visit [facility] Pulmonary, Allergy and Critical Care Medicine 10 [place] [address] Cristopher Fry MD, [place] 10 [facility] 2nd [place] [address] 06/01/2025 9:30 AM EDT Office Visit [facility] Internal Medicine 40 [place] [address] Tee Ramirez MD 40 [place] [address] 11/09/2025 8:40 AM EDT Office Visit [facility] Endocrinology [place] 40 [place] [phone] Lexy Quiroga MD [address] [place] [address] [email or web address] documented as of this encounter Visit Diagnoses Not on filedocumented in this encounter Additional Health Concerns Infection Onset Date Last Indicated Resolved Time COVID-19 02/08/2023 02/08/2023 03/01/2023 1:26 AM EST CoV-Risk 06/10/2024 06/10/2024 06/21/2024 1:21 AM EDT Assessment Noted Time PHQ-2 Depression Total Score: 0 04/19/19 23 7:47 PM EST documented as of this encounter Care Teams Director Government Relationship Specialty Start Date End Date Tee Ramirez MD 40 [place] [address] PCP - General 01/11/17 Sandip Yi MD [address] [place] [address] [email or web address] 04/16/20 Lexy Quiroga MD [address] [address] [email or web address] Endocrinology 04/16/20 Harvey Givens MD [address] [place] [address] Drive [address] [place] [address] Gastroenterology 04/16/20 Marita Madrigal MD [address] [place] [phone] Obstetrics and Gynecology 04/16/20 Ji Caballero MD [address] [place] [address] Dr [address] [place] [address] Cardiology 07/19/20 Cristopher Fry MD, MS [address] [place] [address] [email or web address] Intensive Care 05/01/22 documented as of this encounter Additional Source Comments The information contained in this document represents components of the legal health record. It is not the complete legal health record.[facility]
--- OUTSIDE RECORDS SUMMARY | 2025-01-26 14:58 | XMS_ITS | Encounter Summary ---
Author Organization [facility] Address [address] [place] [address] Phone Care Team Providers Care Telecommunications Repairer Name Role Phone Tee Ramirez MD Primary Care Provider Sandip Yi MD Unavailable [phone] Lexy Quiroga MD Unavailable [phone] Harvey Givens MD Unavailable [phone] Marita Madrigal MD Unavailable AdaJi MD Unavailable Cristopher Fry MD, [place] Unavailable [phone] Encounter Details Date Type Department Care Team (Late st Contact Info) Description 07/18/2022 Procedure Pass [facility] Endoscopy Admitting Dept Virtual Department [address] [place] [address] [phone] Social History Tobacco Use Types Packs/Day Years [...] high school, GED, job training, learning the Bahraini language, technical skills, or developing parenting skills)? [...] st Contact Info) Description 12/24/2024 Procedure Pass [address] [address] 03/23/2025 10:30 AM EST Appointment [address] [address] Cristopher Fry MD, [place] [address] [address] 04/16/2025 2:00 PM EST Office Visit [facility] Pulmonary, Allergy and Critical Care Medicine 10 [place] [address] Cristopher Fry MD, [place] [address] [address] 06/01/2025 9:30 AM EDT Office Visit [facility] Internal Medicine 40 [place] [address] Tee Ramirez MD 40 [place], [place] 11/09/2025 8:40 AM EDT Office Visit [facility] Endocrinology [place] 40 [place] [phone] Lexy Quiroga MD [address] [place] [address] [phone] [email or web address] documented as of this encounter Visit Diagnoses Not on filedocumented in this encounter Additional Health Concerns Infection Onset Date Last Indicated Resolved Time COVID-19 02/08/2023 02/08/2023 03/01/2023 1:26 AM EST CoV-Risk 06/10/2024 06/10/2024 06/21/2024 1:21 AM EDT Assessment Noted Time PHQ-2 Depression Total Score: 0 04/19/19 23 7:47 PM EST documented as of this encounter Care Teams Telecommunications Repairer Relationship Specialty Start Date End Date Tee Ramirez MD 40 [place], [place] PCP - General 01/11/17 Sandip Yi MD [address] [place] [address] [email or web address] 04/16/20 Lexy Quiroga MD [address] [place] [address] Endocrinology 04/16/20 Harvey Givens MD [address] [place] [address] Drive [address] [place] [address] Gastroenterology 04/16/20 Marita Madrigal MD [address] [place] [phone] Obstetrics and Gynecology 04/16/20 Ji Caballero MD [address] [place] [address] Dr [address] [place] [address] Cardiology 07/19/20 Cristopher Fry MD, MS [address] [place] [address] [email or web address] Intensive Care 05/01/22 documented as of this encounter Additional Source Comments The information contained in this document represents components of the legal health record. It is not the complete legal health record.[facility]
--- OUTSIDE RECORDS SUMMARY | 2025-01-26 14:58 | XMS_ITS | Encounter Summary ---
Author Organization [facility] Address [address] [place] [address] Phone Care Team Providers Care Package Pick Up Name Role Phone Tee Ramirez MD Primary Care Provider [phone] Sandip Yi MD Unavailable [phone] Lexy Quiroga MD Unavailable [phone] Harvey Givens MD Unavailable Marita Madrigal MD Unavailable [phone] AdaJi MD Unavailable Cristopher Fry MD, [place] Unavailable [phone] Encounter Details Date Type Department Care Team (Late st Contact Info) Description 09/03/2024 Procedure Pass [facility], Ct Scan - [address] [address] Social History Tobacco Use Types Packs/Day Years [...] [facility] Scan - [address] [address] 03/23/2025 10:30 AM EST Appointment [facility], Ct Scan - [address] [address] Cristopher Fry MD, [place] [address] [address] 04/16/2025 2:00 PM EST Office Visit [facility] Pulmonary, Allergy and Critical Care Medicine 10 [place] [address] Cristopher Fry MD, MS [address] [address] 06/01/2025 9:30 AM EDT Office Visit [facility] Internal Medicine 40 [place] [address] Tee Ramirez MD 40 [place] [address] 11/09/2025 8:40 AM EDT Office Visit [facility] Endocrinology [place] 40 [place] [phone] Lexy Quiroga MD [address] [address] documented as of this encounter Visit Diagnoses Not on filedocumented in this encounter Additional Health Concerns Assessment Noted Time PHQ-2 Depression Total Score: 0 05/19/19 25 10:33 AM EST documented as of this encounter Care Teams Package Pick Up Relationship Specialty Start Date End Date Tee Ramirez MD 40 [place], [place] [phone] PCP - General 01/11/17 Sandip Yi MD 271 [place] [address] [email or web address] 04/16/20 Lexy Quiroga MD [address] [address] Endocrinology 04/16/20 Harvey Givens MD [address] [place] [address] [address] [place] [address] Gastroenterology 04/16/20 Marita Madrigal MD [address] [phone] Obstetrics and Gynecology 04/16/20 Ji Caballero MD [address] [place] [address] Dr [address] [place] [address] Cardiology 07/19/20 Cristopher Fry MD, MS [address] [place] [address] Intensive Care 05/01/22 documented as of this encounter Additional Source Comments The information contained in this document represents components of the legal health record. It is not the complete legal health record.[facility]
--- OUTSIDE RECORDS SUMMARY | 2025-01-26 14:58 | XMS_ITS | Patient Health Record ---
Author Organization [facility] Address [address] [place] [phone] Care Team Providers Care Internal Wholesaler Name Role Phone Tee Ramirez MD Primary Care Provider Harvey Killian Unavailable [phone] Allergies No Known Allergies Reason For Referral [...] Status Risk Notes Problem Colon cancer screening (248086201) Colon cancer screening (Z12.11) Active confirmed Problem History of adenomatous polyp of colon (435182097) History of adenomatous polyp of colon (Z86.010) Active confirmed Problem Pre-procedure evaluation check (523980258) Encounter for other preprocedural examination (Z01.818) Active confirmed Problem Diverticular disease of colon (627110882) Diverticulosis of large intestine without perforation or abscess without bleeding (K57.30) Active confirmed Problem Abnormal weight loss (573454943) Abnormal weight loss (R63.4) Active confirmed Problem Early satiety (054873750) Early satiety (R68.81) Active confirmed Problem Diarrhea (72424950) Diarrhea, unspecified type (R19.7) Active confirmed Problem Lymphocytic colitis (9222244487) Lymphocytic colitis (K52.832) Active confirmed Problem Altered bowel function (19133139) Change in bowel function (R19.8) Active confirmed Problem Family history of malignant neoplasm of gastrointestinal tract (160417423) Family history of colon cancer in mother (Z80.0) Active confirmed Encounters Encounter Location Date Provider Diagnosis [facility] Outpatient [address] [place] [id number] 04/02/2024 Harvey Givens Colon cancer scree jerald [...] Insured Coverage Start Date Coverage End Date [facility] [address] [place], [place] [id number] [phone] [id number] ULISES NOYOLA Self - patient is the insured Medical (General) History Medical History History ICD Code Denies DE,DM,CVA,Lung disease,renal dise ase Breast cancer-right side---Lumpectomy, lymph [...] fibrillation--2022--neg. ETT and echocardiogram Bronchiectasis---Bronchoscopy [address] [facility] for pneumonias--Dr. Fry Surgical History Surgery Date(Month/Year) Right breast lumpectomy as above
--- OUTSIDE RECORDS SUMMARY | 2025-01-26 14:58 | XMS_ITS | Encounter Summary ---
Author Organization [facility] Address [address] [place] [address] Phone Care Team Providers Care Dope Maintenance Worker Name Role Phone Tee Ramirez MD Primary Care Provider [phone] Sandip Yi MD Unavailable Lexy Quiroga MD Unavailable Harvey Givens MD Unavailable Marita Madrigal MD Unavailable [phone] [facility] Unavailable [phone] Cristopher Fry MD, [place] Unavailable Encounter Details Date Type Department Care Team (Late st Contact Info) Description 07/21/2024 Transcribe Orders [facility] Specimen Processing 30 [place] [address] Ryne Bonilla MD 38 [facility] [address], [address] [place] [address] [email or web address] Social History Tobacco Use Types Packs/Day Years [...] st Contact Info) Description 12/24/2024 Procedure Pass [facility], Al Scan [address] [address] 03/23/2025 10:30 AM EST Appointment [address] [address] Cristopher Fry MD, [place] [address] [address] 04/16/2025 2:00 PM EST Office Visit [facility] Pulmonary, Allergy and Critical Care Medicine [address] [place] [address] Cristopher Fry MD, MS [address] [address] 06/01/2025 9:30 AM EDT Office Visit [facility] Internal Medicine 40 [place] [address] Tee Ramirez MD 40 [place] [address] 11/09/2025 8:40 AM EDT Office Visit [facility] Endocrinology [place] 40 [place] [phone] Lexy Quiroga MD [address] [address] documented as of this encounter Visit Diagnoses Not on filedocumented in this encounter Additional Health Concerns Assessment Noted Time PHQ-2 Depression Total Score: 0 05/19/19 10:33 AM EST documented as of this encounter Care Teams Dope Maintenance Worker Relationship Specialty Start Date End Date Tee Ramirez MD 40 [place] [address] PCP - General 01/11/17 Sandip Yi MD 271 [place] [address] [email or web address] 04/16/20 Lexy Quiroga MD [address] [address] Endocrinology 04/16/20 Harvey Givens MD [address] [place] [address] Drive [address] [place] [address] Gastroenterology 04/16/20 Marita Madrigal MD [address] [address] Obstetrics and Gynecology 04/16/20 Ji Caballero MD [address] [place] [address] Dr [address] [place] [address] Cardiology 07/19/20 Cristopher Fry MD, MS [address] [place] [address] Intensive Care 05/01/22 documented as of this encounter Additional Source Comments The information contained in this document represents components of the legal health record. It is not the complete legal health record.[facility]
--- OUTSIDE RECORDS SUMMARY | 2025-01-26 14:58 | XMS_ITS | Encounter Summary ---
Author Organization [facility] Address [address] [place] [address] Phone Care Team Providers Care Tunneller Name Role Phone Tee Ramirez MD Primary Care Provider [phone] Sandip Yi MD Unavailable [phone] Lexy Quiroga MD Unavailable Harvey Givens MD Unavailable [phone] Marita Madrigal MD Unavailable [phone] [facility] Unavailable Cristopher Fry MD, [place] Unavailable [phone] Encounter Details Date Type Department Care Team (Late st Contact Info) Description 06/28/2022 Procedure Pass [facility], Ct Scan - [address] [address] Social History Tobacco Use Types Packs/Day Years [...] high school, GED, job training, learning the Mosotho language, technical skills, or developing parenting skills)? [...] st Contact Info) Description 12/24/2024 Procedure Pass [facility], Ct Scan [address] [address] 03/23/2025 10:30 AM EST Appointment [address] [address] Cristopher Fry MD, [place] [address] [address] 04/16/2025 2:00 PM EST Office Visit [facility] Pulmonary, Allergy and Critical Care Medicine [address] [place] [address] [place] [address] Cristopher Fry MD, MS [address] [address] 06/01/2025 9:30 AM EDT Office Visit [facility] Internal Medicine 40 [place] [address] Tee Ramirez MD 40 [place], [place] 11/09/2025 8:40 AM EDT Office Visit [facility] Endocrinology [place] 40 [place] [phone] Lexy Quiroga MD [address] [place] [address] [email or web address] documented as of this encounter Visit Diagnoses Not on filedocumented in this encounter Additional Health Concerns Infection Onset Date Last Indicated Resolved Time COVID-19 02/08/2023 02/08/2023 03/01/2023 1:26 AM EST CoV-Risk 06/10/2024 06/10/2024 06/21/2024 1:21 AM EDT Assessment Noted Time PHQ-2 Depression Total Score: 0 04/19/19 23 7:47 PM EST documented as of this encounter Care Teams Tunneller Relationship Specialty Start Date End Date Tee Ramirez MD 40 [place], [place] PCP - General 01/11/17 Sandip Yi MD [address] [place] [address] [email or web address] 04/16/20 Lexy Quiroga MD [address] [address] Endocrinology 04/16/20 Harvey Givens MD [address] [place] [address] Drive [address] [place] [address] Gastroenterology 04/16/20 Marita Madrigal MD [address] [place] [phone] Obstetrics and Gynecology 04/16/20 Ji Caballero MD [address] [place] [address] Dr [address] [place] [address] Cardiology 07/19/20 Cristopher Fry MD, MS [address] [place] [address] 2nd [place] [address] [email or web address] Intensive Care 05/01/22 documented as of this encounter Additional Source Comments The information contained in this document represents components of the legal health record. It is not the complete legal health record.[facility]
== END 2025-01-26 11:44 | disposition home or self-care (01) ==
LOC: HO.HMGAL 11:43
PROVIDERS: PCP Internal Medicine; Visit Provider Registered Nurse Emergency
DX: J30.89 Other allergic rhinitis (principal)
CPT/HCPCS: 95117; 95165

== ENCOUNTER 2025-02-09 11:52 | Outpatient (AMB) | payer MEDICARE, SELFPAY | END 2025-02-09 11:52 | disposition home or self-care (01) | LOC: HO.HMGAL 11:52 | PROVIDERS: PCP Internal Medicine; Visit Provider Registered Nurse Emergency | DX: J30.89 Other allergic rhinitis (principal) | CPT/HCPCS: 95117; 95165 ==

== ENCOUNTER 2025-03-02 11:29 | Outpatient (AMB) | payer MEDICARE, SELFPAY ==
--- OUTSIDE RECORDS SUMMARY | 2025-03-02 19:30 | XMS_ITS | Clinical Summary ---
Author Organization [facility] Prior to 08/23/[address] [place] [address] Care Team Providers Care Diet Supervisor Name Role Phone Tee Ramirez MD Primary Care Provider [phone] Allergies No known active allergies Medications Medication [...] age to complete this topic Care Teams Diet Supervisor Relationship Specialty Start Date End Date Tee Ramirez MD 40 [place] [address] PCP - General Internal Medicine 03/07/17
== END 2025-03-02 11:30 | disposition home or self-care (01) ==
LOC: HO.HMGAL 11:29
PROVIDERS: PCP Internal Medicine; Visit Provider Registered Nurse Emergency
DX: J30.89 Other allergic rhinitis (principal)
CPT/HCPCS: 95117; 95165

== ENCOUNTER 2025-03-16 12:52 | Outpatient (AMB) | payer MEDICARE, SELFPAY ==
--- OUTSIDE RECORDS SUMMARY | 2024-04-02 02:30 | XMS_ITS ---
Author Organization [facility] Address [address] [place] [address] Care Team Providers Care Behavioral Pediatrician Name Role Phone Tee Ramirez MD Primary Care Provider Unavaila Harvey Blackman Unavailable [phone] REASON FOR VISIT screening,hx polyps,fam hx colon ca Problems Problem Type SNOMED Code ICD Code Onset Dates Problem Status W/U Status Risk Notes Problem Diverticular disease of colon (405266262) Diverticulosis of large intestine without perforation or abscess without bleeding (K57.30) Active confirmed Encounters Encounter Location Date Provider Diagnosis [facility] [place] Out[place] [address] [place] [phone] 04/02/2024 Harvey Givens Colon cancer scree jerald Z12.11 ; Personal history of colonic polyps Z86.0100 ; Family history of colon cancer Z80.0 ; Diverticulosis of large intestine without perforation or abscess without bleeding K57.30 and Other hemorrhoids K64.8 Assessments Encounter Date Diagnosis (ICD Code) Assessment Notes Treatment Notes Treatment Clinical Notes Section Notes 04/02/2024 Colon cancer screening (ICD-10 - Z12.11) 04/02/2024 Personal history of colonic polyps (ICD-10 - Z86.0100) 04/02/2024 Family history of colon cancer (ICD-10 - Z80.0) 04/02/2024 Diverticulosis of large intestine without perforation or abscess without bleeding (ICD-10 - K57.30) 04/02/2024 Other hemorrhoids (ICD-10 - K64.8) Plan Of Treatment No Information Progress Notes * ULISES NOYOLA EDOB:1950 (74 yo F)Acc No.[id number]:04/02/2024 COLON WITH MAC Patient: ULISES PEREZ Provider: Damion Givens MD :1950 A ge:73 Y S ex:Female Date:04/02/2024 [facility] Pcp:Tee Ramirez MD Subjective: * Chief Complaints: * S creening,hx polyps,fam hx colon ca Assessment: * Assessment: 1. C olon cancer screening - Z12.11 (Primary) 2 . P ersonal history of colonic polyps - Z86.0100 3 . F amily history of colon cancer - Z80.0 ?4. D iverticulosis of large intestine without perforation or abscess without bleeding - K57.30 5 . O ther hemorrhoids - K64.8 Plan: * Procedure Codes: G 0105 COLOREC CANCR SCR; COLNSCPY HI [id number] INTRVL 3+YRS PTS CLNSCP [id number] RCMND FLW-UP 10 YRS DOCD, Modifiers: 1P Billing Information: * Procedure Codes: G0105 COLOREC CANCR SCR; COLNSCPY HI RISK. 0529F INTRVL 3+YRS PTS CLNSCP DOCD. 0528F RCMND FLW-UP 10 YRS DOCD. Modifiers: 1P * The named appointment provid er may or may not be the originator of this progress note, and it is not deemed complete until electronically signed by the appointment provider. Sign off status: Pending * Provider: Damion Givens MD Date: 0 04/02/2024 Generated for Noemy rinaldi/Ariel/Devonsmitting on: 05/17/2024 04:02 PM EST
--- OUTSIDE RECORDS SUMMARY | 2025-03-16 16:02 | XMS_ITS | Clinical Summary ---
Author Organization [facility] Address [address] [place] [address] Phone Care Team Providers Care Dairy Quality Assurance Officer Name Role Phone Tee Ramirez MD Primary Care Provider [phone] Allergies No known active allergies Medications aspirin [...] in female, estrogen receptor positive 04/26/2022 Immunizations Immunization Administration Dates Next Due Sova/AbilTo SARS-CoV-2 COVID -19, vector-nr, rS-Ad26, preservative free 06/05/2020 Surgical History Surgery Date Site/Laterality Comments BREAST LUMPECTOMY PROCEDURE:BREAST LUMPECTOMY Medical History Medical History Date Comments Breast cancer ([facility] V24, [facility] V28) DX:Breast cancer (HCC);COMMENT:right-sided stage l TicNo invasive ductal breast cancer Cardiomyopathy ([facility] V24, [facility] V28) DX:Cardiomyopathy [...] on file Sexual Orientation Not on file Last Filed Vital Signs [...] Description 07/17/2025 9:00 AM EDT Office Visit [facility] Hematology Oncology [address] [place] [address] Sandip Yi MD [address] [place] [address] Health Maintenance Due Date Last [...] Procedure Name Priority Date/Time Associated Diagnosis Comments HM ANNUAL BMP BLOOD TEST Routine 05/10/2023 LIPID PANEL Routine 05/10/2023 from Last 3 Months or Most Recently Relevant to Health Maintenance Results * Annual BMP Blood Test (05/10/2023) Annual BMP Blood Test abstracted Historical Provider HEALTH MAINTENANCE Final Result * Lipid panel (05/10/2023) LDL/HDL Ratio 0 [...] Most Recently Relevant to Health Maintenance Insurance [phone] (Home) [address] [place] [address] BLUE [place] - [place] MEDICARE ADVANTAGE Care Teams Dairy Quality Assurance Officer Relationship Specialty Start Date End Date Tee Ramirez MD 40 [place] [address] PCP - General Internal Medicine 03/07/17
--- OUTSIDE RECORDS SUMMARY | 2025-03-16 16:02 | XMS_ITS | Encounter Summary ---
Author Organization [facility] Address [address] [place] [address] Phone Care Team Providers Care Physician Practice Administrator Name Role Phone Tee Ramirez MD Primary Care Provider [phone] Sandip Yi MD Unavailable Lexy Quiroga MD Unavailable Harvey Givens MD Unavailable [phone] Marita Madrigal MD Unavailable [facility]i MD Unavailable Cristopher Fry MD, [place] Unavailable [phone] Encounter Details Date Type Department Care Team (Late st Contact Info) Description 11/19/2023 Ancillary Orders [facility],Outside Imaging [address] [place], [place] [phone] System, Provider Not In, [facility] [address] [address] Social History Tobacco Use Types Packs/Day Years [...] st Contact Info) Description 12/24/2024 Procedure Pass [facility], Ct Scan - [address] [address] 03/23/2025 10:30 AM EST Appointment [facility], Ct Scan - [address] [address] Cristopher Fry MD, [place] [address] [address] 04/16/2025 2:00 PM EST Office Visit [facility] Pulmonology, Allergy and Critical Care Medicine Clinic [address] [place] [address] Cristopher Fry MD, [place] [address] [address] 06/01/2025 9:30 AM EDT Office Visit [facility] Primary Care Clinic 40 [place] [address] Tee Ramirez MD 40 [place] [address] 11/09/2025 8:40 AM EDT Office Visit [facility] Endocrinology Clinic 40 [place] [address] Lexy Quiroga MD [address] [address] documented as of this encounter Results * [...] documented as of this encounter Care Teams Physician Practice Administrator Relationship Specialty Start Date End Date Tee Ramirez MD 40 [place] [address] PCP - General 01/11/17 Sandip Yi MD 271 [place] [address] [email or web address] Internal Medicine 04/16/20 Lexy Quiroga MD [address] [place] [address] Endocrinology 04/16/20 Harvey Givens MD [address] [place] [address] Drive [address] [place] [address] Gastroenterology 04/16/20 Marita Madrigal MD [address] [place] [phone] Obstetrics and Gynecology 04/16/20 Ji Caballero MD [address] [place] [address] Dr [address] [place] [address] Cardiology 07/19/20 Cristopher Fry MD, [place] [address] [place] [address] [email or web address] Intensive Care 05/01/22 documented as of this encounter Additional Source Comments The information contained in this document represents components of the legal health record. It is not the complete legal health record.[facility]
--- OUTSIDE RECORDS SUMMARY | 2025-03-16 16:02 | XMS_ITS | Encounter Summary ---
Author Organization [facility] Address [address] [place] [address] Phone Care Team Providers Care Safety Relief Valve Technician Name Role Phone Tee Ramirez MD Primary Care Provider [phone] Sandip Yi MD Unavailable [phone] Lexy Quiroga MD Unavailable Harvey Givens MD Unavailable [phone] Marita Madrigal MD [facility]available [facility] Un[facility] Cristopher Fry MD, [place] Unavailable [phone] Encounter Details Date Type Department Care Team (Late st Contact Info) Description 11/19/2023 Ancillary Orders [facility],Outside Imaging 30 [place], [place] [id number] System, Provider Not In, [facility] Partners [address] [address] Social History Tobacco Use Types Packs/Day Years [...] st Contact Info) Description 12/24/2024 Procedure Pass [facility], Ct Scan - [address] [address] 03/23/2025 10:30 AM EST Appointment [facility], Ct Scan - [address] [address] Cristopher Fry MD, [place] [address] [address] 04/16/2025 2:00 PM EST Office Visit [facility] Pulmonology, Allergy [facility] Medicine [facility] [address] [place] [address] Cristopher Fry MD, [place] [address] [address] 06/01/2025 9:30 AM EDT Office Visit [facility] Primary Care Clinic 40 [place] [address] Tee Ramirez MD 40 [place] [address] 11/09/2025 8:40 AM EDT Office Visit [facility] Endocrinology Clinic 40 [place] [address] Lexy Quiroga MD [address] [address] documented as of this encounter Results * [...] documented as of this encounter Care Teams Safety Relief Valve Technician Relationship Specialty Start Date End Date Tee Ramirez MD 40 [place] [address] PCP - General 01/11/17 Sandip Yi MD [address] [place] [address] [email or web address] 04/16/20 Lexy Quiroga MD [address] [place] [address] Endocrinology 04/16/20 Harvey Givens MD [address] [place] [address] Drive [address] [place] [address] Gastroenterology 04/16/20 Marita Madrigal MD [address] [place] [phone] Obstetrics and Gynecology 04/16/20 Ji Caballero MD [address] [place] [address] Dr [address] [place] [address] Cardiology 07/19/20 Cristopher rFy MD, MS [address] [place] [address] [email or web address] Intensive Care 05/01/22 documented as of this encounter Additional Source Comments The information contained in this document represents components of the legal health record. It is not the complete legal health record.[facility]
--- OUTSIDE RECORDS SUMMARY | 2025-03-16 16:02 | XMS_ITS | Encounter Summary ---
Author Organization [facility] Address [address] [place] [address] Phone Care Team Providers Care Hydroelectric Station Chief Name Role Phone Tee Ramirez MD Primary Care Provider Sandip Yi MD Unavailable Lexy Quiroga MD Unavailable [phone] Harvey Givens MD Unavailable Marita Madrigal MD Unavailable [facility] Unavailable Cristopher Fry MD, [place] Unavailable [phone] Encounter Details Date Type Department Care Team (Late st Contact Info) Description 01/30/2019 Ancillary Orders [facility],Outside Imaging 30 [place], [place] [phone] System, Provider Not In, PhD Partners [address] [address] Social History Tobacco Use Types Packs/Day Years [...] st Contact Info) Description 12/24/2024 Procedure Pass [facility], Ct Scan - [address] [address] 03/23/2025 10:30 AM EST Appointment [facility], Ct Scan - [address] [address] Cristopher Fry MD, [place] [address] [address] 04/16/2025 2:00 PM EST Office Visit [facility] Pulmonology, Allergy and Critical [facility] Medicine Clinic [address] [place] [address] Cristopher Fry MD, [place] [address] [address] 06/01/2025 9:30 AM EDT Office Visit [facility] Primary Care Clinic 40 [place] [address] Tee Ramirez MD 40 [place] [address] 11/09/2025 8:40 AM EDT Office Visit [facility] Endocrinology Clinic 40 [place] [address] Lexy Quiroga MD [address] [place] [address] documented as of this encounter Results * [...] documented as of this encounter Care Teams Hydroelectric Station Chief Relationship Specialty Start Date End Date Tee Ramirez MD 40 [place] [address] PCP - General 01/11/17 Sandip Yi MD 271 [place] [address] [email or web address] 04/16/20 Lexy Quiroga MD [address] [address] Endocrinology 04/16/20 Harvey Givens MD [address] [place] [address] [place] [address] Gastroenterology 04/16/20 Marita Madrigal MD [address] [address] Obstetrics and Gynecology 04/16/20 Ji Caballero MD [address] [place] [address] 104 [place] [address] Cardiology 07/19/20 Cristopher Fry MD, MS [address] [place] [address] [email or web address] Intensive Care 05/01/22 documented as of this encounter Additional Source Comments The information contained in this document represents components of the legal health record. It is not the complete legal health record.[facility]
--- OUTSIDE RECORDS SUMMARY | 2025-03-16 16:02 | XMS_ITS | Encounter Summary ---
Author Organization [facility] Address [address] [place] [address] Phone Care Team Providers Care Medical Office Secretary Name Role Phone Tee Ramirez MD Primary Care Provider Sandip Yi MD Unavailable [phone] Lexy Quiroga MD Unavailable Harvey Givens MD Unavailable Marita Madrigal MD Unavailable [phone] [facility] Reading[facility]i MD Unavailable Cristopher Fry MD, [place] Unavailable [phone] Encounter Details Date Type Department Care Team (Late st Contact Info) Description 11/19/2023 Ancillary Orders [facility],Outside Imaging 30 [place], [place] [phone] System, Provider Not In, PhD Partners [address] [address] Social History Tobacco Use Types Packs/Day Years [...] st Contact Info) Description 12/24/2024 Procedure Pass [facility], Ct Scan - [address] [address] 03/23/2025 10:30 AM EST Appointment [facility], Ct Scan - [address] [address] Cristopher Fry MD, MS [address] [address] 04/16/2025 2:00 PM EST Office Visit [facility] Pulmonology, Allergy and Critical Care Medicine Clinic [address] [place] [address] Cristopher Fry MD, MS [address] [address] 06/01/2025 9:30 AM EDT Office Visit [facility] Primary Care Clinic 40 [place] [address] Tee Ramirez MD 40 [place] [address] 11/09/2025 8:40 AM EDT Office Visit [facility] Endocrinology Clinic 40 [place] [address] Lexy Quiroga MD [address] [address] documented as of this encounter Results * [...] documented as of this encounter Care Teams Medical Office Secretary Relationship Specialty Start Date End Date Tee Ramirez MD 40 [place] [address] PCP - General 01/11/17 Sandip Yi MD [address] [place] [address] [email or web address] 04/16/20 Lexy Quiroga MD [address] [place] [address] Endocrinology 04/16/20 Harvey Givens MD [address] [place] [address] Drive [address] [place] [address] Gastroenterology 04/16/20 Marita Madrigal MD [address] [place] [phone] Obstetrics and Gynecology 04/16/20 Ji Caballero MD [address] [place] [address] Dr [address] [place] [address] Cardiology 07/19/20 Cristopher Fry MD, MS [address] [place] [address] [email or web address] Intensive Care 05/01/22 documented as of this encounter Additional Source Comments The information contained in this document represents components of the legal health record. It is not the complete legal health record.[facility]
--- OUTSIDE RECORDS SUMMARY | 2025-03-16 16:02 | XMS_ITS | Encounter Summary ---
Author Organization [facility] Address [address] [place] [address] Phone Care Team Providers Care Teaching Fellow Name Role Phone Tee Ramirez MD Primary Care Provider [phone] Sandip Yi MD Unavailable [phone] Lexy Quiroga MD Unavailable Harvey Givens MD Unavailable Marita Madrigal MD Unavailable [facility] MD Unavailable Cristopher Fry MD, [place] Unavailable [phone] Encounter Details Date Type Department Care Team (Late st Contact Info) Description 02/19/2023 Procedure Pass [facility], Ct Scan - [address] [address] Social History Tobacco Use Types Packs/Day Years [...] high school, GED, job training, learning the Barbadian language, technical skills, or developing parenting skills)? [...] st Contact Info) Description 12/24/2024 Procedure Pass [facility], Ct Scan [address] [address] 03/23/2025 10:30 AM EST Appointment [facility], Ct Scan [address] [address] Cristopher Fry MD, MS [address] [address] 04/16/2025 2:00 PM EST Office Visit [facility] Pulmonology, Allergy and Critical Care Medicine Clinic 10 [facility] [place] [address] Cristopher Fry MD, MS [address] [address] 06/01/2025 9:30 AM EDT Office Visit [facility] Primary Care Clinic 40 [place] [address] Tee Ramirez MD 40 [place] [address] 11/09/2025 8:40 AM EDT Office Visit [facility] Endocrinology Clinic 40 [place] [address] Lexy Quiroga MD [address] [place] [address] documented as of this encounter Visit Diagnoses Not on filedocumented in this encounter Additional Health Concerns Infection Onset Date Last Indicated Resolved Time COVID-19 02/08/2023 02/08/2023 03/01/2023 1:26 AM EST CoV-Risk 06/10/2024 06/10/2024 06/21/2024 1:21 AM EDT Assessment Noted Time PHQ-2 Depression Total Score: 0 04/30/19 24 7:38 PM EST documented as of this encounter Care Teams Teaching Fellow Relationship Specialty Start Date End Date Tee Ramirez MD 40 [place] [address] PCP - General 01/11/17 Sandip Yi MD [address] [place] [address] [email or web address] 04/16/20 Lexy Quiroga MD [address] [place] [address] Endocrinology 04/16/20 Harvey Givens MD [address] [place] [address] Drive [address] [place] [address] Gastroenterology 04/16/20 Marita Madrigal MD [address] [place] [phone] Obstetrics and Gynecology 04/16/20 Ji Caballero MD [address] [place] [address] Dr [address] [place] [address] Cardiology 07/19/20 Cristopher Fry MD, MS [address] [place] [address] [email or web address] Intensive Care 05/01/22 documented as of this encounter Additional Source Comments The information contained in this document represents components of the legal health record. It is not the complete legal health record.[facility]
--- OUTSIDE RECORDS SUMMARY | 2025-03-16 16:02 | XMS_ITS | Encounter Summary ---
Author Organization [facility] Address [address] [place] [address] Phone Care Team Providers Care Oceanographer Assistant Name Role Phone Tee Ramirez MD Primary Care Provider [phone] Sandip Yi MD Unavailable [phone] Lexy Quiroga MD Unavailable Harvey Givens MD Unavailable Marita Madrigal MD Unavailable [phone] [facility] MD Unavailable Cristopher Fry MD, [place] Unavailable [phone] Encounter Details Date Type Department Care Team (Latest Contact Info) Description 04/16/2019 Transcribe Orders [facility] [address] [phone] eTe Ramirez MD 40 [place], [place] [phone] [email or web address] Vitamin D deficiency; Pure hypercholesterolemia ; Bronchiectasis [...] st Contact Info) Description 12/24/2024 Procedure Pass [facility], Ct Scan - [address] [address] 03/23/2025 10:30 AM EST Appointment [facility], Ct Scan - [address] [address] Cristopher Fry MD, MS [address] [address] 04/16/2025 2:00 PM EST Office Visit [facility] Pulmonology, Allergy and Critical Care Medicine Clinic [address] [place] [address] Cristopher Fry MD, MS [address] [address] 06/01/2025 9:30 AM EDT Office Visit [facility] Primary Care Clinic 40 [place] [address] Tee Ramirez MD 40 [place] [address] 11/09/2025 8:40 AM EDT Office Visit [facility] Endocrinology Clinic 40 [place] [address] Lexy Quiroga MD [address] [address] documented as of this encounter Procedures Procedure Name Priority Date/Time Associated Diagnosis Comments COMPREHENSIVE METABOLIC PANEL (CMP) Routine 04/16/2019 9:03 AM EST Pure hypercholesterolemia Bronchiectasis without complication HEPATITIS C ANTIBODY, QUALITATIVE Routine 04/16/2019 9:03 AM EST Need for hepatitis C screening test 25-OH VITAMIN D Routine 04/16/2019 9:03 AM EST Vitamin D deficiency CBC Routine 04/16/2019 9:03 AM EST Bronchiectasis without complication THYROID STIMULATING HORMONE (TSH) Routine 04/16/2019 9:03 AM EST Pure hypercholesterolemia LIPID PANEL Routine 04/16/2019 9:03 AM EST Pure hypercholesterolemia documented in this encounter Results * Hepatitis C antibody, qualitative (04/16/2019 9:03 AM EST) HCV NON-REACTIV E NON-REACTI VE [facility] Blood 04/16/2019 9:03 AM EST 04/16/2019 9:09 AM EST us Tee Ramirez MD LAB BLOOD BKR ORDERABLES Karen leonardo Result Performing Organization Address City/State/[facility] Co de Phone Number [facility] [address] [place] [address] * CBC (04/16/2019 9:03 AM EST) WBC 5.65 3.40 - 11.20 K/uL [facility] RBC 4.48 3.80 - 4.80 M/uL [facility] HGB 13.5 12.0 - 15.0 g/dL [facility] HCT 41.1 36.0 - 46.0 % [facility] PLT 223 130 - 400 K/uL [facility] MCV 91.7 79.0 - 98.0 fL [facility] MCH 30.1 27.0 - 34.8 pg [facility] MCHC 32.8 31.5 - 36.0 g/dL [facility] RDW 13.6 10.8 - 14.6 % [facility] MPV 10.5 9.4 - 12.4 fl [facility] NRBC 0.00 0.00 /100 WBCs [facility] ABSOLUTE NRBC 0.00 0.00 K/uL [facility] Blood 04/16/2019 9:03 AM EST 04/16/2019 9:09 AM EST us Tee Ramirez MD LAB BLOOD BKR ORDERABLES Karen l Result [address] [address] * Comprehensive metabolic panel (04/16/2019 9:03 AM EST) SODIUM 141 133 - 146 mmol/L [facility] POTASSIUM 4.7 3.3 - 5.1 mmol/L [facility] CHLORIDE 102 96 - 108 mmol/L [facility] CO2 29 21 - 35 mmol/L [facility] BUN 17 6 - 19 mg/dL [facility] CREATININE 0.60 0.5 - 1.5 mg/dL [facility] GLUCOSE 98 70 - 99 mg/dL [facility] ALBUMIN 4.5 3.9 - 4.8 g/dL [facility] TOTAL PROTEIN 7.0 6.5 - 8.0 g/dL [facility] CALCIUM 9.6 8.4 - 10.3 mg/dL [facility] ALKALINE PHOSPHATASE 58 39 - 117 U/L [facility] TOTAL BILIRUBIN 0.6 0.0 - 1.2 mg/dL [facility] AST 25 0 - 37 U/L [facility] ALT 7 0 - 40 U/L [facility] GLOBULIN 2.5 1 - 4.8 g/dL [facility] EGFR 93 >59 mL/min/1.7 3m2 [facility] Comment:If patient is black, multiply result by 1.159. Estimated glomerular filtration rate calculated using the CKD-EPI equation. ANION GAP 15 10 - 20 mmol/L [facility] Blood 04/16/2019 9:03 AM EST 04/16/2019 9:09 AM EST us Tee Ramirez MD LAB BLOOD BKR ORDERABLES Karen l Result Performing Organization Address City/[facility]/ZIP Co de Phone Number [address] [address] * (ABNORMAL) Lipid panel (04/16/2019 9:03 AM EST) HDL 75 mg/dL [facility] Comment: Interpretation <40 mg/dL: Low HDL cholesterol (major risk factor for CHD) Greater than or equal to 60 mg/dL: High HDL cholesterol ( negative risk factor for CHD) HDL - cholesterol is affected by a number of factors, e.g. smoking, excerise, hormones, sex and age. CHOLESTEROL 203 0 - 240 mg/dL [facility] TRIGLYCERIDES 84 30 - 160 mg/dL [facility] LDL 111 50 - 129 mg/dL [facility] Comment: LDL levels in terms of risk for coronary heart disease: <100 mg/dL: Optimal 100-129 mg/dL: Near or above optimal 130-159 mg/dL: Borderline high 160-189 mg/dL: High >190 mg/dL: Very High CARDIAC RISK RATIO 2.7(L) 3.3 - 4.4 C [facility] Blood 04/16/2019 9:03 AM EST 04/16/2019 9:09 AM EST us Tee Ramirez MD LAB BLOOD BKR ORDERABLES Karen l Result Performing Organization Address [facility] Co de Phone Number [address] [address] * TSH (04/16/2019 9:03 AM EST) TSH 1.74 0.27 - 4.20 uIU/mL [facility] Blood 04/16/2019 9:03 AM EST 04/16/2019 9:09 AM EST Tee Ramirez MD LAB BLOOD BKR ORDERABLES Karen l Result Performing Organization Address City/[facility]/ZIP Co de Phone Number [address] [address] * 25-OH vitamin D (04/16/2019 9:03 AM EST) 25 OH VIT D (TOTAL) 47 30 - 60 ng/mL [facility] Blood 04/16/2019 9:03 AM EST 04/16/2019 9:09 AM EST us Tee Ramirez MD LAB BLOOD BKR ORDERABLES Karen l Result [facility] [address] [place] [address] documented in this encounter Visit Diagnoses Diagnosis [...] documented as of this encounter Care Teams Oceanographer Assistant Relationship Specialty Start Date End Date Tee Ramirez MD [address] [place] [address] [email or web address] PCP - General 01/11/17 Sandip Yi MD [address] [place] [address] [email or web address] 04/16/20 Lexy Quiroga MD [address] [address] [email or web address] Endocrinology 04/16/20 Harvey Givens MD [address] [place] [address] Drive [address] [place] [address] Gastroenterology 04/16/20 Marita Madrigal MD [address] [place] [phone] Obstetrics and Gynecology 04/16/20 Ji Caballero MD [address] [place] [address] 104 [place] [address] Cardiology 07/19/20 Cristopher Fry MD, MS [address] [place] [address] Intensive Care 05/01/22 documented as of this encounter Additional Source Comments The information contained in this document represents components of the legal health record. It is not the complete legal health record.[facility]
--- OUTSIDE RECORDS SUMMARY | 2025-03-16 16:02 | XMS_ITS | Encounter Summary ---
Author Organization [facility] Address [address] [place] [address] Phone Care Team Providers Care Rock Star Name Role Phone Tee Ramierz MD Primary Care Provider [phone] Sandip Yi MD Unavailable [phone] Lexy Quiroga MD Unavailable Harvey Givens MD Unavailable [phone] Marita Madrigal MD Unavailable [facility] Unavailable [phone] Cristopher Fry MD, [place] Unavailable [phone] Encounter Details Date Type Department Care Team (Latest Contact Info) Description 04/24/2024 Ancillary Orders [facility] Primary Care Clinic 40 [place] [address] Tee Ramirez MD 40 [place], [place] [phone] [email or web address] Persistent cough (Primary Dx); RSV (acute bronchiolitis [...] Procedure Pass [facility], Ct Scan - [address] [address] 03/23/2025 10:30 AM EST Appointment [facility], Ct Scan - [address] [address] Cristopher Fry MD, [place] [address] [address] 04/16/2025 2:00 PM EST Office Visit [facility] Pulmonology, Allergy and Critical Care Medicine Clinic [address] [place] [address] Cristopher Fry MD, MS [address] [address] 06/01/2025 9:30 AM EDT Office Visit [facility] Primary Care Clinic [address] [place] [address] Tee Ramirez MD 40 [place] [address] 11/09/2025 8:40 AM EDT Office Visit [facility] Endocrinology Clinic 40 [place] [address] Lexy Quiroga MD [address] [place] [address] documented as of this encounter Results * [...] clinician's provided indication for this examination in [facility]: Cough, persistent; rsv and r/o pneumonia COMPARISON: [...] clinician's provided indication for this examination in [facility]:Cough, persistent; rsv and r/o pneumonia COMPARISON: 05/06/2018, [...] documented as of this encounter Care Teams Rock Star Relationship Specialty Start Date End Date Tee Ramirez MD 40 [place] [address] PCP - General 01/11/17 Sandip Yi MD [address] [place] [address] [email or web address] 04/16/20 Lexy Quiroga MD [address] [address] Endocrinology 04/16/20 Harvey Givens MD [address] [place] [address] Gastroenterology 04/16/20 Marita Madrigal MD [address] [address] Obstetrics and Gynecology 04/16/20 Ji Caballero MD [address] [place] [address] [address] [place] [address] Cardiology 07/19/20 Cristopher Fry MD, MS [address] [place] [address] [email or web address] Intensive Care 05/01/22 documented as of this encounter Additional Source Comments The information contained in this document represents components of the legal health record. It is not the complete legal health record.[facility]
--- OUTSIDE RECORDS SUMMARY | 2025-03-16 16:03 | XMS_ITS | Encounter Summary ---
Author Organization [facility] Address [address] [place] [address] Phone Care Team Providers Care Frit Maker Name Role Phone Tee Ramirez MD Primary Care Provider [phone] Sandip Yi MD Unavailable [phone] Lexy Quiroga MD Unavailable Harvey Givens MD Unavailable Marita Madrigal MD Unavailable [facility] Unavailable Cristopher Fry MD, [place] Unavailable [phone] Encounter Details Date Type Department Care Team (Late st Contact Info) Description 06/28/2022 Procedure Pass [facility], Ct Scan - [address] [address] Social History Tobacco Use Types Packs/Day Years [...] Info) Description 12/24/2024 Procedure Pass [facility], Ct Scan [address] [address] 03/23/2025 10:30 AM EST Appointment [address] [address] Cristopher Fry MD, [place] [address] [address] 04/16/2025 2:00 PM EST Office Visit [facility] Pulmonology, Allergy and Critical Care Medicine Clinic [address] [place] [address] Cristopher Fry MD, [place] [address] [place] [address] 06/01/2025 9:30 AM EDT Office Visit [facility] Primary Care Clinic [address] [place] [address] Tee Ramirez MD 40 [place], [place] 11/09/2025 8:40 AM EDT Office Visit [facility] Endocrinology Clinic [address] [place] [phone] Lexy Quiroga MD [address] [place] [address] documented as of this encounter Visit Diagnoses Not on filedocumented in this encounter Additional Health Concerns Infection Onset Date Last Indicated Resolved Time COVID-19 02/08/2023 02/08/2023 03/01/2023 1:26 AM EST CoV-Risk 06/10/2024 06/10/2024 06/21/2024 1:21 AM EDT Assessment Noted Time PHQ-2 Depression Total Score: 0 04/19/19 23 7:47 PM EST documented as of this encounter Care Teams Frit Maker Relationship Specialty Start Date End Date Tee Ramirez MD [address] [place], [place] PCP - General 01/11/17 Sandip Yi MD [address] [place] [address] [email or web address] 04/16/20 Lexy Quiroga MD [address] [place] [address] Endocrinology 04/16/20 Harvey Givens MD [address] [place] [address] Drive [address] [place] [address] Gastroenterology 04/16/20 Marita Madrigal MD [address] [place] [phone] Obstetrics and Gynecology 04/16/20 Ji Caballero MD [address] [place] [address] Dr [address] [place] [address] Cardiology 07/19/20 Cristopher Fry MD, [place] [address] [place] [address] [email or web address] Intensive Care 05/01/22 documented as of this encounter Additional Source Comments The information contained in this document represents components of the legal health record. It is not the complete legal health record.[facility]
--- OUTSIDE RECORDS SUMMARY | 2025-03-16 16:03 | XMS_ITS | Clinical Summary ---
Author Organization [facility] Prior to 08/23/[address] [place], [place] [id number] Care Team Providers Care Drum Worker Name Role Phone Tee Ramirez MD Primary Care Provider [phone] Allergies No known active allergies Medications Medication [...] age to complete this topic Care Teams Drum Worker Relationship Specialty Start Date End Date Tee Ramirez MD [address] [place] [address] PCP - General Internal Medicine 03/07/17
--- OUTSIDE RECORDS SUMMARY | 2025-03-16 16:03 | XMS_ITS | Patient Health Record ---
Author Organization [facility] Address [address] [place] [address] Care Team Providers Care Metal Fabrication Supervisor Name Role Phone Tee Ramirez MD Primary Care Provider Harvey Killian Unavailable [phone] Allergies No Known Allergies Reason For Referral No Information Medications Medication SIG (Take, Route, Frequency, Duration) Notes Start Date End Date Status Alendronate Sodium 70 MG Tablet Oral; Duration: 84 Active dilTIAZem HCl ER 60 MG Capsule Extended Release 12 Hour Oral; Duration: 90 Active Lipitor 10 MG Tablet 1 tablet Orally Onc e a day; Duration: 30 day(s) Active Vitamin D 1000 UNIT Capsule 1 capsule Or ally Once a day Active Calcium complex 1200 mg tablet 1 tablet Orally Once a day Active Aspir-81 81 MG Tablet Delayed Release 1 tablet Orally Once a day Active Immunizations Vaccine Route Administration Date Status Comme nts Influenza Unknown 07/03/2018 Refused Influenza Unknown 08/05/2021 Refused Social History Social History Additional Details Category Social Info Options Details Miscellaneous: Marital status: single 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 Section Notes: Nonsmoker; 1 glass of wine Q D Nonsmoker; 1 glass of wine Q D Nonsmoker; 1 glass of wine Q D Nonsmoker; 1 glass of wine Q D Nonsmoker; 1 glass of wine Q D Nonsmoker; 1 glass of wine Q D Problems Problem Type SNOMED Code ICD Code Onset Dates Problem Status W/U Status Risk Notes Problem Colon cancer screening (217393528) Colon cancer screening (Z12.11) Active confirmed Problem History of adenomatous polyp of colon (532836033) History of adenomatous polyp of colon (Z86.010) Active confirmed Problem Pre-procedure evaluation check (053438030) Encounter for other preprocedural examination (Z01.818) Active confirmed Problem Diverticular disease of colon (972224635) Diverticulosis of large intestine without perforation or abscess without bleeding (K57.30) Active confirmed Problem Abnormal weight loss (785784689) Abnormal weight loss (R63.4) Active confirmed Problem Early satiety (602482183) Early satiety (R68.81) Active confirmed Problem Diarrhea (93871392) Diarrhea, unspecified type (R19.7) Active confirmed Problem Lymphocytic colitis (5420592920) Lymphocytic colitis (K52.832) Active confirmed Problem Altered bowel function (13596157) Change in bowel function (R19.8) Active confirmed Problem Family history of malignant neoplasm of gastrointestinal tract (179440526) Family history of colon cancer in mother (Z80.0) Active confirmed Encounters Encounter Location Date Provider Diagnosis [facility] Outpatient [address] [place] [id number] 04/02/2024 Harvey Givens Colon cancer scree jerald [...] Insured Coverage Start Date Coverage End Date [facility] [id number] [place], [place] [id number] [id number] ULISES NOYOLA Self - patient is the [...]
--- OUTSIDE RECORDS SUMMARY | 2025-03-16 16:03 | XMS_ITS | Clinical Summary ---
Author Organization [facility] Address [address] [place] [address] Phone Care Team Providers Care Slipcover Cutter Name Role Phone Tee Ramirez MD Primary Care Provider Sandip Yi MD Unavailable [phone] Lexy Quiroga MD Unavailable Harvey Givens MD Unavailable Marita Madrigal MD Unavailable [facility] Unavailable Cristopher Fry MD, [place] Unavailable [phone] Allergies No known active allergies Medications aspirin [...] prior to follow up, will shift from [place] to [facility] with next study. Assessment & [...] with bronchodilator, Lung Volumes, DLCO; Performing Location: [facility]; Future albuterol 90 mcg/actuation inhaler 2-4 puff albuterol 2.5 mg /3 mL (0.083 %) nebulizer solution 2.5 mg qhmzbodkapc-ecjjjtjgn-vevgojui (TRELEGY ELLIPTA) 100-62.5-25 mcg inhalation powder; Inhale [...] of bronchiectasis. Orders: CBC and differential; Future Ekzrr-8-femanjpendn phenotyping; Future Immunoglobulin A; Future Immunoglobulin E, total; Future Immunoglobulin G; Future IgG subclasses; Future Immunoglobulin M; Future Rheumatoid factor; Future umeclidinium-vilanteroL (ANORO ELLIPTA) 62.5-25 mcg/actuation diskus inhaler; Inhale 1 puff into the lungs daily. Assessment & Plan (02/19/2023 2:25 PM EST): Continue with as needed Hypersal and albuterol for pulmonary toilet. Given pulmonary scarring (with minimal size changer less than 12-month interval), we will repeat [...] continue immunotherapy under the care of her casino cage manager. She will return to see me on [...] Overview (10/03/2022): 04/27/2022 chest CTA performed at [facility] revealed consolidation and volume loss in [...] atypical pneumonia such as NTM pulmonary disease/Lady Linden syndrome, multifocal pneumonia (though patient is afebrile without discolored sputum or leukocytosis), or a noninfectious interstitial disease such as organizing pneumonia/GRINDER DRESSER. At this point, we agreed to obtain [...] Description 01/21/2025 11:00 AM EDT Nurse Only [facility] Pulmonology, Allergy and Critical Care Medicine Clinic [address] [place] [address] Jaime Pantoja MD Bronchiectasis without complication (Primary Dx) 12/24/2024 8:15 AM EDT Office Visit [facility] Pulmonology, Allergy and Critical Care Medicine Clinic [address] [place] [address] Cristopher Fry MD, [place] Bronchiectasis without complication (Primary Dx); Right upper lobe pulmonary infiltrate; Encounter for immunization safety counseling 12/20/2024 Refill [facility] Endocrinology Clinic [address] [place] [address] Lexy Quiroga MD Medication Refill from Last 3 Months Immunizations Immunization Administration [...] st Contact Info) Description 12/24/2024 Procedure Pass [facility], Ct Scan - [address] [address] 03/23/2025 10:30 AM EST Appointment [facility], Ct Scan - [address] [address] Cristopher Fry MD, [place] [address] [address] 04/16/2025 2:00 PM EST Office Visit [facility] Pulmonology, Allergy and Critical Care Medicine Clinic [address] [place] [address] Cristopher rFy MD, MS [address] [address] 06/01/2025 9:30 AM EDT Office Visit [facility] Primary Care Clinic [address] [place] [address] Tee Ramirez MD 40 [place] [address] 11/09/2025 8:40 AM EDT Office Visit [facility] Endocrinology Clinic [address] [place] [phone] Lexy Quiroga MD [address] [address] [email or web address] Health Maintenance Due Date Last Done Comments [...] Procedure Name Priority Date/Time Associated Diagnosis Comments BD DXA MONITORING Routine 11/10/2024 8:4 6 AM EDT Age-related osteoporosis without current pathological fracture LIPID PANEL Routine 05/26/2024 8:33 AM EST Pure hypercholesterolemia HM COLONOSCOPY FOR RESULT ENTRY ONLY Routine 04/02/2024 HEPATITIS C ANTIBODY, QUALITATIVE Routine 04/16/2019 9:03 AM EST Need for hepatitis C screening test from Last 3 Months or Most Recently Relevant to Health Maintenance Results * (ABNORMAL) Lipid panel (05/26/2024 8:33 AM EST) HDL 58 mg/dL [facility] Comment: Interpretation <40 mg/dL: Low HDL cholesterol (major risk factor for CHD) Greater than or equal to 60 mg/dL: High HDL cholesterol ( negative risk factor for CHD) HDL - cholesterol is affected by a number of factors, e.g. smoking, excerise, hormones, sex and age. CHOLESTEROL 138 0 - 240 mg/dL [facility] TRIGLYCERIDES 60 30 - 160 mg/dL [facility] LDL 68 50 - 129 mg/dL [facility] Comment: LDL levels in terms of risk for coronary heart disease: <100 mg/dL: Optimal 100-129 mg/dL: Near or above optimal 130-159 mg/dL: Borderline high 160-189 mg/dL: High >190 mg/dL: Very High CARDIAC RISK RATIO 2.4(L) 3.3 - 4.4 C [facility] Blood 05/26/2024 8:33 AM EST 05/26/2024 8:36 AM EST us Tee Ramirez MD LAB BLOOD BKR ORDERABLES Karen l Result [address] [address] * COLONOSCOPY FOR RESULT ENTRY ONLY (04/02/2024) Colonoscopy prn us Jacqueline Chacon MD HEALTH MAINTENANCE Final Result * DEXA SCAN (10/30/2023 3:43 PM EDT) Tee Ramirez MD HEALTH MAINTENANCE Edited Res ult - Final * Hepatitis C antibody, qualitative (04/16/2019 9:03 AM EST) HCV NON-REACTIV E NON-REACTI VE [facility] Blood 04/16/2019 9:03 AM EST 04/16/2019 9:09 AM EST Tee Ramirez MD LAB BLOOD BKR ORDERABLES Karen l Result [address] [address] from Last 3 Months or Most Recently Relevant to Health Maintenance Insurance [place] MEDICARE PPO BLUE [place] [address] [address] MEDICARE PPO BLUE REPLACEMENT MEDICARE PPO BLUE REPLACEMENT Care Teams Slipcover Cutter Relationship Specialty Start Date End Date Tee Ramirez MD [address] [place] [address] PCP - General 01/11/17 Sandip Yi MD [address] [place] [address] [email or web address] Medicine 04/16/20 Lexy Quiroga MD [address] [address] Endocrinology 04/16/20 Harvey Givens MD [address] [place] [address] Drive [address] [place] [address] Gastroenterology 04/16/20 Marita Madrigal MD [address] [address] Obstetrics and Gynecology 04/16/20 Ji Caballero MD [address] [place] [address] Dr [address] [place] [address] Cardiology 07/19/20 Cristopher Fry MD, MS [address] [place] [address] Intensive Care 05/01/22 Additional Source Comments The information contained in this document represents components of the legal health record. It is not the complete legal health record.[facility]
--- OUTSIDE RECORDS SUMMARY | 2025-03-16 16:03 | XMS_ITS | Encounter Summary ---
Author Organization [facility] Address [address] [place] [address] Phone Care Team Providers Care Broadcast Maintenance Technician Name Role Phone Tee Ramirez MD Primary Care Provider [phone] Sandip Yi MD Unavailable [phone] Lexy Quiroga MD Unavailable [phone] Harvey Givens MD Unavailable Marita Madrigal MD Unavailable AdaJi MD Unavailable Cristopher Fry MD, [place] Unavailable [phone] Encounter Details Date Type Department Care Team (Late st Contact Info) Description 07/18/2022 Procedure Pass [facility] Endoscopy Admitting Dept Virtual Department [address] [place] [phone] Social History Tobacco Use Types Packs/Day Years [...] high school, GED, job training, learning the [place] language, technical skills, or developing parenting skills)? [...] st Contact Info) Description 12/24/2024 Procedure Pass [address] [address] 03/23/2025 10:30 AM EST Appointment [address] [address] Cristopher Fry MD, [place] [address] [address] 04/16/2025 2:00 PM EST Office Visit [facility] Pulmonology, Allergy and Critical Care Medicine Clinic [address] [place] [address] Cristopher Fry MD, MS [address] [address] 06/01/2025 9:30 AM EDT Office Visit [facility] Primary Care Clinic [address] [place] [address] Tee Ramirez MD [address] [place], [place] 11/09/2025 8:40 AM EDT Office Visit [facility] Endocrinology Clinic [address] [place] [phone] Lexy Quiroga MD [address] [place] [address] documented as of this encounter Visit Diagnoses Not on filedocumented in this encounter Additional Health Concerns Infection Onset Date Last Indicated Resolved Time COVID-19 02/08/2023 02/08/2023 03/01/2023 1:26 AM EST CoV-Risk 06/10/2024 06/10/2024 06/21/2024 1:21 AM EDT Assessment Noted Time PHQ-2 Depression Total Score: 0 04/19/19 7:47 PM EST documented as of this encounter Care Teams Broadcast Maintenance Technician Relationship Specialty Start Date End Date Tee Ramirez MD 40 [place] [address] PCP - General 01/11/17 Sandip Yi MD [address] [place] [address] [email or web address] 04/16/20 Lexy Quiroga MD [address] [place] [address] Endocrinology 04/16/20 Harvey Givens MD [address] [place] [address] Drive [address] [place] [address] Gastroenterology 04/16/20 Marita Madrigal MD [address] [place] [phone] Obstetrics and Gynecology 04/16/20 Ji Caballero MD [address] [place] [address] Dr [address] [place] [address] Cardiology 07/19/20 Cristopher Fry MD, MS [address] [place] [address] Intensive Care 05/01/22 documented as of this encounter Additional Source Comments The information contained in this document represents components of the legal health record. It is not the complete legal health record.[facility]
--- OUTSIDE RECORDS SUMMARY | 2025-03-16 16:03 | XMS_ITS | Encounter Summary ---
Author Organization [facility] Address [address] [place] [address] Phone Care Team Providers Care Equipment Technician Name Role Phone Tee Ramirez MD Primary Care Provider Sandip Yi MD Unavailable [phone] Lexy Quiroga MD Unavailable [phone] Harvey Givens MD Unavailable Marita Madrigal MD Unavailable Ji Caballero MD Unavailable [phone] Cristopher Fry MD, [place] Unavailable [phone] Encounter Details Date Type Department Care Team (Late st Contact Info) Description 06/06/2022 Transcribe Orders [facility] PFT Lab [address] [place] [address] Cristopher Fry MD, MS [address] [phone] [email or web address] Social History Tobacco Use Types Packs/Day Years [...] st Contact Info) Description 12/24/2024 Procedure Pass [facility], Ct Scan [address] [address] 03/23/2025 10:30 AM EST Appointment [facility], [address] [address] Cristopher Fry MD, [place] [address] [address] 04/16/2025 2:00 PM EST Office Visit [facility] Pulmonology, Allergy and Critical Care Medicine Clinic [address] [place] [address] Cristopher Fry MD, MS 10 [facility] [address] [place] [address] 06/01/2025 9:30 AM EDT Office Visit [facility] Primary Care Clinic [address] [place] [address] Tee Ramirez MD [address] [place] [address] 11/09/2025 8:40 AM EDT Office Visit [facility] Endocrinology Clinic [address] [place] [phone] Lexy Quiroga MD [address] [place] [address] documented as of this encounter Visit Diagnoses Not on filedocumented in this encounter Additional Health Concerns Infection Onset Date Last Indicated Resolved Time COVID-19 02/08/2023 02/08/2023 03/01/2023 1:26 AM EST CoV-Risk 06/10/2024 06/10/2024 06/21/2024 1:21 AM EDT Assessment Noted Time PHQ-2 Depression Total Score: 0 04/19/19 23 7:47 PM EST documented as of this encounter Care Teams Equipment Technician Relationship Specialty Start Date End Date Tee Ramirez MD [address] [place] [address] PCP - General 01/11/17 Sandip Yi MD [address] [place] [address] [email or web address] 04/16/20 Lexy Quiroga MD [address] [address] [email or web address] Endocrinology 04/16/20 Harvey Givens MD [address] [place] [address] Drive [address] [place] [address] Gastroenterology 04/16/20 Marita Madrigal MD [address] [place] [phone] Obstetrics and Gynecology 04/16/20 Ji Caballero MD [address] [place] [address] Dr [address] [place] [address] Cardiology 07/19/20 Cristopher Fry MD, MS [address] [place] [address] [email or web address] Intensive Care 05/01/22 documented as of this encounter Additional Source Comments The information contained in this document represents components of the legal health record. It is not the complete legal health record.[facility]
--- OUTSIDE RECORDS SUMMARY | 2025-03-16 16:03 | XMS_ITS | Encounter Summary ---
Author Organization [facility] Address [address] [place] [address] Phone Care Team Providers Care Industrial Technology Teacher Name Role Phone Tee Ramirez MD Primary Care Provider [phone] Sandip Yi MD Unavailable [phone] Lexy Quiroga MD Unavailable Harvey Givens MD Unavailable [phone] Marita Madrigal MD Unavailable [facility] Unavailable Cristopher Fry MD, [place] Unavailable [phone] Encounter Details Date Type Department Care Team (Late st Contact Info) Description 05/02/2022 Procedure Pass [facility], Ct Scan - [address] [address] Social History Tobacco Use Types Packs/Day Years [...] high school, GED, job training, learning the Icelandic language, technical skills, or developing parenting skills)? [...] st Contact Info) Description 12/24/2024 Procedure Pass [facility], Ct Scan [address] [address] 03/23/2025 10:30 AM EST Appointment [address] [address] Cristopher Fry MD, [place] [address] [address] 04/16/2025 2:00 PM EST Office Visit [facility] Pulmonology, Allergy and Critical Care Medicine Clinic [address] [place] [address] Cristopher Fry MD, MS [address] [place] [address] 06/01/2025 9:30 AM EDT Office Visit [facility] Primary Care Clinic [address] [place] [address] Tee Ramirez MD 40 [place], [place] 11/09/2025 8:40 AM EDT Office Visit [facility] Endocrinology Clinic [address] [place] [phone] Lexy Quiroga MD [address] [place] [address] documented as of this encounter Visit Diagnoses Not on filedocumented in this encounter Additional Health Concerns Infection Onset Date Last Indicated Resolved Time COVID-19 02/08/2023 02/08/2023 03/01/2023 1:26 AM EST CoV-Risk 06/10/2024 06/10/2024 06/21/2024 1:21 AM EDT Assessment Noted Time PHQ-2 Depression Total Score: 0 04/19/19 23 7:47 PM EST documented as of this encounter Care Teams Industrial Technology Teacher Relationship Specialty Start Date End Date Tee Ramirez MD [address] [place], [place] PCP - General 01/11/17 Sandip Yi MD [address] [place] [address] [email or web address] 04/16/20 Lexy Quiroga MD [address] [place] [address] Endocrinology 04/16/20 Harvey Givens MD [address] [place] [address] Drive [address] [place] [address] Gastroenterology 04/16/20 Marita Madrigal MD [address] [place] [phone] Obstetrics and Gynecology 04/16/20 Ji Caballero MD [address] [place] [address] Dr [address] [place] [address] Cardiology 07/19/20 Cristopher Fry MD, MS [address] [place] [address] [email or web address] Intensive Care 05/01/22 documented as of this encounter Additional Source Comments The information contained in this document represents components of the legal health record. It is not the complete legal health record.[facility]
--- OUTSIDE RECORDS SUMMARY | 2025-03-16 16:03 | XMS_ITS | Encounter Summary ---
Author Organization [facility] Address [address] [place] [address] Phone Care Team Providers Care Property Valuer Name Role Phone Tee Ramirez MD Primary Care Provider Sandip Yi MD Unavailable Lexy Quiroga MD Unavailable Harvey Givens MD Unavailable [phone] Marita Madrigal MD [facility]available [facility] Unavailable Cristopher Fry MD, MD Unavailable [phone] Encounter Details Date Type Department Care Team (Late st Contact Info) Description 09/03/2024 Procedure Pass [facility], Ct Scan - [address] [address] Social History Tobacco Use Types Packs/Day Years [...] st Contact Info) Description 12/24/2024 Procedure Pass [facility], Ct Scan - [address] [address] 03/23/2025 10:30 AM EST Appointment [facility], Ct Scan - [address] [address] Cristopher Fry MD, [place] [address] [address] 04/16/2025 2:00 PM EST Office Visit [facility] Pulmonology, Allergy and Critical Care Medicine Clinic [address] [place] [address] Cristopher Fry MD, [place] [address] [address] 06/01/2025 9:30 AM EDT Office Visit [facility] Primary Care Clinic [address] [place] [address] Tee Ramirez MD [address] [place] [address] 11/09/2025 8:40 AM EDT Office Visit [facility] Endocrinology Clinic [address] [place] [phone] Lexy Quiroga MD [address] [place] [address] documented as of this encounter Visit Diagnoses Not on filedocumented in this encounter Additional Health Concerns Assessment Noted Time PHQ-2 Depression Total Score: 0 05/19/19 10:33 AM EST documented as of this encounter Care Teams Property Valuer Relationship Specialty Start Date End Date Tee Ramirez MD [address] [place] [address] PCP - General 01/11/17 Sandip Yi MD [address] [place] [address] [email or web address] Medicine 04/16/20 Lexy Quiroga MD [address] [address] Endocrinology 04/16/20 Harvey Givens MD [address] [place] [address] Drive [address] [place] [address] Gastroenterology 04/16/20 Marita Madrigal MD [address] [phone] Obstetrics and Gynecology 04/16/20 Ji Caballero MD [address] [place] [address] Dr [address] [place] [address] Cardiology 07/19/20 Cristopher Fry MD, MS [address] [place] [address] Intensive Care 05/01/22 documented as of this encounter Additional Source Comments The information contained in this document represents components of the legal health record. It is not the complete legal health record.[facility]
--- OUTSIDE RECORDS SUMMARY | 2025-03-16 16:03 | XMS_ITS | Encounter Summary ---
Author Organization [facility] Address [address] [place] [address] Phone Care Team Providers Care Sports Agent Name Role Phone Tee Ramirez MD Primary Care Provider Sandip Yi MD Unavailable Lexy Quiroga MD Unavailable Harvey Givens MD Unavailable [phone] Marita Madrigal MD Unavailable [facility] Unavailable [phone] Cristopher Fry MD, [place] Unavailable [phone] Encounter Details Date Type Department Care Team (Late st Contact Info) Description 03/03/2024 Procedure Pass [facility], Ct Scan - [address] [address] Social History Tobacco Use Types Packs/Day Years [...] st Contact Info) Description 12/24/2024 Procedure Pass [facility], Ct Scan - [address] [address] 03/23/2025 10:30 AM EST Appointment [facility], Ct Scan - [facility] [address] [place] [address] Cristopher Fry MD, [place] [address] [address] 04/16/2025 2:00 PM EST Office Visit [facility] Pulmonology, Allergy and Critical Care Medicine Clinic [address] [place] [address] Cristopher Fry MD, [place] [address] [address] 06/01/2025 9:30 AM EDT Office Visit [facility] Primary Care Clinic [address] [place] [address] Tee Ramirez MD 40 [place] [address] 11/09/2025 8:40 AM EDT Office Visit [facility] Endocrinology Clinic [address] [place] [phone] Lexy Quiroga MD [address] [place] [address] documented as of this encounter Visit Diagnoses Not on filedocumented in this encounter Additional Health Concerns Infection Onset Date Last Indicated Resolved Time CoV-Risk 06/10/2024 06/10/2024 06/21/2024 1:21 AM EDT Assessment Noted Time PHQ-2 Depression Total Score: 0 05/19/19 10:33 AM EST documented as of this encounter Care Teams Sports Agent Relationship Specialty Start Date End Date Tee Ramirez MD [address] [place] [address] PCP - General 01/11/17 Sandip Yi MD [address] [place] [address] [email or web address] Medicine 04/16/20 Lexy Quiroga MD [address] [address] Endocrinology 04/16/20 Harvey Givens MD [address] [place] [address] Drive [address] [place] [address] Gastroenterology 04/16/20 Marita Madrigal MD [address] [phone] Obstetrics and Gynecology 04/16/20 Ji Caballero MD [address] [place] [address] Dr [address] [place] [address] Cardiology 07/19/20 Cristopher Fry MD, MS [address] [place] [address] Intensive Care 05/01/22 documented as of this encounter Additional Source Comments The information contained in this document represents components of the legal health record. It is not the complete legal health record.[facility]
== END 2025-03-16 12:54 | disposition home or self-care (01) ==
LOC: HO.HMGAL 12:52
PROVIDERS: PCP Internal Medicine; Visit Provider Registered Nurse Emergency
DX: J30.89 Other allergic rhinitis (principal)
CPT/HCPCS: 95117; 95165